=== PATIENT | female | born 2000 | race Caucasian/White ===

== ENCOUNTER 2022-09-10 16:45 | Outpatient (CLI) | payer BC, SELFPAY ==
[2022-09-10 16:56] VITALS: BMI 35.5
[2022-09-10 17:08] VITALS: BP 111/59; PULSE 109
[2022-09-10 17:54] VITALS: BP 99/64; PULSE 102
--- NOTE | 2022-09-14 11:04 | OB.TRI.NOTE ---
HPI - General General Date of Admission: 09/10/22 Date of Service: 09/10/22 [facility] Home Medications aspirin 81 mg chewable tablet 81 mg PO DAILY 09/10/22 [History Last Taken Unknown] ferrous sulfate 325 mg (65 mg iron) tablet (Iron (ferrous sulfate)) 325 mg PO DAILY 09/10/22 [History Last Taken Unknown] vits,calcium 91-iron 28 mg-folic 975 mcg-dha 200 mg oral pack ( + DHA) 1 pkg PO DAILY 09/10/22 [History Last Taken Unknown] Allergy/AdvReac Type Severity Reaction Status Date / Time No Known Allergies Allergy Verified 09/10/22 17:22 NST FHR Rate Baby A Baseline: 130 Variability:: Moderate Accelerations:: 15 x 15 Decelerations:: None NST Reactive:: Yes FHR Category:: Category I Uterine Activity:: quiet Assessment & Plan (1) 33 weeks gestation of : PLAN: 33-week 1 para 0 with decreased movement. Reactive nonstress test. Discharged home to follow-up as scheduled or as needed.
--- NOTE | 2022-10-08 21:08 | OB.TRI.NOTE ---
HPI - General General Date of Admission: 09/10/22 HPI Narrative JAG PEREZ, is a 21 F who presents Maternal Data Information Final ADDY: 10/26/22 Gestational age: 33&3 PFSH PFSH Home Medications aspirin 81 mg chewable tablet 81 mg PO DAILY 09/10/22 [History Last Taken Unknown] ferrous sulfate 325 mg (65 mg iron) tablet (Iron (ferrous sulfate)) 325 mg PO DAILY 09/10/22 [History Last Taken Unknown] vits,calcium 91-iron 28 mg-folic 975 mcg-dha 200 mg oral pack ( + DHA) 1 pkg PO DAILY 09/10/22 [History Last Taken Unknown] Allergy/AdvReac Type Severity Reaction Status Date / Time No Known Allergies Allergy Verified 09/10/22 17:22 Assessment & Plan (1) Decreased movement: PLAN: Plan NST for decreased FM
== END 2022-09-10 17:59 | disposition home or self-care (01) ==
LOC: WPOUT 16:49 → WP 16:50
PROVIDERS: PCP Family Medicine; Referring Provider Advanced Practice Midwife; Visit Provider Advanced Practice Midwife
DX: O36.8130 Decreased fetal movements, third trimester, not applicable or unspecified (principal); Z3A.33 33 weeks gestation of pregnancy
CPT/HCPCS: 59025; 59050; 99221; G0378

== ENCOUNTER 2022-10-16 05:13 | Outpatient (CLI) | payer BC, SELFPAY ==
[2022-10-16 05:27] VITALS: BP 125/60; PULSE 109; TEMP 36.5; O2SAT 97
[2022-10-16 05:31] VITALS: BMI 36.9
[2022-10-16 06:20] LABS: ROM Internal Control Test YES-OK TO RESULT pt. (Internal QC); ROM Patient Test Negative (Negative); Record Kit Lot#, ROM+ K1374
[2022-10-16 07:16] VITALS: BP 132/61; PULSE 99; TEMP 36.2
--- NOTE | 2022-10-16 07:38 | OB.TRI.NOTE ---
HPI - General HPI Narrative JAG PEREZ, is a 21 F who presents Maternal Data Information Final ADDY: 10/26/22 Gestational age: 38&4 PFSH PFSH Home Medications aspirin 81 mg chewable tablet 81 mg PO DAILY 09/10/22 [History Last Taken 10/15/22 22:00 81 mg] ferrous sulfate 325 mg (65 mg iron) tablet (Iron (ferrous sulfate)) 325 mg PO DAILY 09/10/22 [History Last Taken Unknown] vits,calcium 91-iron 28 mg-folic 975 mcg-dha 200 mg oral pack ( + DHA) 1 pkg PO DAILY 09/10/22 [History Last Taken 10/15/22 22:00 1 pkg] Allergy/AdvReac Type Severity Reaction Status Date / Time No Known Allergies Allergy Verified 10/16/22 05:28 NST FHR Rate Baby A Baseline: 130 Variability:: Moderate Accelerations:: 15 x 15 Decelerations:: None NST Reactive:: Yes Uterine Activity:: Irregular Assessment & Plan (1) False labor: PLAN: Plan Reactive NST
== END 2022-10-16 08:00 | disposition home or self-care (01) ==
LOC: WPOUT 05:16 → WP 05:17
PROVIDERS: PCP Family Medicine; Referring Provider Obstetrics & Gynecology; Visit Provider Obstetrics & Gynecology
DX: O47.1 False labor at or after 37 completed weeks of gestation (principal); Z3A.38 38 weeks gestation of pregnancy
CPT/HCPCS: 59025; 59050; 84112

== ENCOUNTER 2022-10-22 01:15 | Inpatient (IN) | payer BC, SELFPAY ==
[2022-10-22] VITALS (52 sets, daily range): BP systolic 84–137; BP diastolic 47–104; PULSE 85–117; RESP 18; TEMP 36.1–37.2; BMI 37.0
[2022-10-22 01:17] LABS: ROM Internal Control Test YES-OK TO RESULT pt. (Internal QC); ROM Patient Test POSITIVE (Negative); Record Kit Lot#, ROM+ K1374
[2022-10-22] MEDS: Lactated Ringers 1,000 ML 50 ML IV (01:30)
[2022-10-22 01:52] LABS: Hemoglobin 11.4 g/dL (12.0-15.0); Mean Corp Hgb Conc 31.7 g/dL (32-36); Mean Corpuscular Hgb 28.5 pg (27.0-32.0); Mean Platelet Vol. 10.3 fl (6.2-12.0); POSITIVE COUNT YES; POSITIVE MORPHOLOGY YES; Platelet Count 272 K/mm3 (150-450); RBC Distribution Width CV 14.6 % (11.6-14.6); RBC Distribution Width SD 47.8 fl (35.1-43.9); White Blood Count 18.3 K/mm3 (4.4-11.0)
[2022-10-22 01:59] LABS: Differential Indicated MANUAL DIFF
[2022-10-22 02:20] LABS: Absolute Lymphocyte Count 2.38 X10^3/uL (0.83-4.51); Absolute Neutrophil Count 14.3 X10^3/uL (2.0-7.7); Myelocyte 2 % (0-0); Neutrophil-Band 3 % (0-5); Neutrophil-Segmented 75 % (47-70); Total Cells Counted 100 (MANUAL DIFF)
[2022-10-22 02:21] LABS: Basophil 1 % (0-1); Eosinophil 2 % (0-5); Lymphocyte 13 % (19-41); Monocyte 4 % (0-10); Platelet Estimate ADEQUATE (ADEQ); Red Cell Morphology NORM C+C NORMAL (NORM C&C)
[2022-10-22 03:13] LABS: Syphilis Antibodies Non-reactive
[2022-10-22] MEDS: LACTATED RINGERS 500 ML 999 ML IV ×3 (05:00→12:24)
[2022-10-22] MEDS: fentaNYL-bupivacaine (epidural) 100 ML BAG EPIDURAL ×2 (06:00→09:09)
[2022-10-22] MEDS: Oxytocin 15 Units/NS 250ml 15 UNITS/250 ML IV.SOLN 2 UNITS IV (08:24)
[2022-10-22] MEDS: Lactated Ringers 1,000 ML 200 ML IV (10:19)
--- NOTE | 2022-10-22 13:18 | PCM.HP.OB ---
HPI - General General Date of Admission: 10/22/22 Date of Service: 10/22/22 HPI Narrative JAG PEREZ, is a 21 F who presents with LOF. Maternal Data Information Final ADDY: 10/26/22 Gestational age: 39&3 PFSH [facility] Medical History (Updated 10/22/22 @ 13:[address] Davion Sepulveda MD) Anxiety Home Medications aspirin 81 mg chewable tablet 81 mg PO DAILY 09/10/22 [History Last Taken 10/15/22 22:00 81 mg] ferrous sulfate 325 mg (65 mg iron) tablet (Iron (ferrous sulfate)) 325 mg PO DAILY 09/10/22 [History Last Taken Unknown] vits,calcium 91-iron 28 mg-folic 975 mcg-dha 200 mg oral pack ( + DHA) 1 pkg PO DAILY 09/10/22 [History Last Taken 10/15/22 22:00 1 pkg] Allergy/AdvReac Type Severity Reaction Status Date / Time No Known Allergies Allergy Verified 10/22/22 00:55 Social History Smoking Status: Never smoker History Elective abortions Hx Para 0 Spontaneous abortions Hx # Term Pregnancies Ectopic pregnancies Hx # Pregnancies Multiple births # of living children NST FHR Rate Baby A Baseline: 130 Variability:: Moderate Accelerations:: 15 x 15 Decelerations:: Variable Uterine Activity:: Q 2 min Vital Signs Vital Signs Vital Signs: 10/22/22 01:01 10/22/22 01:01 10/22/22 01:54 Temperature Temperature Source Temporal Pulse Rate 95 Blood Pressure 118/72 BP Systolic 118 BP Diastolic 72 10/22/22 01:55 10/22/22 01:55 10/22/22 01:54 Temperature 97.7 F L Temperature Source Pulse Rate 97 Blood Pressure 130/72 H BP Systolic 130 BP Diastolic 72 10/22/22 02:57 10/22/22 02:57 10/22/22 02:57 Temperature Temperature Source Temporal Pulse Rate 101 H Blood Pressure 116/69 BP Systolic 116 BP Diastolic 69 10/22/22 02:57 10/22/22 04:32 10/22/22 04:32 Temperature 98.8 F Temperature Source Pulse Rate 108 H Blood Pressure 105/60 BP Systolic 105 BP Diastolic 60 10/22/22 04:32 10/22/22 04:32 10/22/22 05:33 Temperature 97.4 F L Temperature Source Temporal Pulse Rate Blood Pressure 122/66 H BP Systolic 122 BP Diastolic 66 10/22/22 05:33 10/22/22 05:32 10/22/22 05:32 Temperature 97.2 F L Temperature Source Temporal Pulse Rate 117 H Blood Pressure BP Systolic BP Diastolic 10/22/22 05:47 10/22/22 05:47 10/22/22 05:52 Temperature Temperature Source Pulse Rate 116 H Blood Pressure 123/66 H 115/59 L BP Systolic 123 115 BP Diastolic 66 59 10/22/22 05:52 10/22/22 05:57 10/22/22 05:57 Temperature Temperature Source Pulse Rate 115 H 113 H Blood Pressure 107/52 L BP Systolic 107 BP Diastolic 52 10/22/22 06:02 10/22/22 06:02 10/22/22 06:08 Temperature Temperature Source Pulse Rate 115 H Blood Pressure 96/51 L 105/54 L BP Systolic 96 105 BP Diastolic 51 54 10/22/22 06:08 10/22/22 06:08 10/22/22 06:08 Temperature Temperature Source Pulse Rate 108 H 109 H Blood Pressure 93/52 L BP Systolic 93 BP Diastolic 52 10/22/22 06:12 10/22/22 06:12 10/22/22 06:17 Temperature Temperature Source Pulse Rate 114 H Blood Pressure 84/48 L 87/49 L BP Systolic 84 87 BP Diastolic 48 49 10/22/22 06:17 10/22/22 06:23 10/22/22 06:23 Temperature Temperature Source Pulse Rate 109 H 100 Blood Pressure 101/47 L BP Systolic 101 BP Diastolic 47 10/22/22 06:28 10/22/22 06:28 10/22/22 06:32 Temperature Temperature Source Pulse Rate 97 Blood Pressure 98/50 L 105/50 L BP Systolic 98 105 BP Diastolic 50 50 10/22/22 06:32 10/22/22 06:37 10/22/22 06:37 Temperature Temperature Source Pulse Rate 99 104 H Blood Pressure 90/55 L BP Systolic 90 BP Diastolic 55 10/22/22 06:43 10/22/22 06:43 10/22/22 06:46 Temperature Temperature Source Temporal Pulse Rate 93 Blood Pressure 90/55 L BP Systolic 90 BP Diastolic 55 10/22/22 06:48 10/22/22 06:48 10/22/22 06:46 Temperature 97.2 F L Temperature Source Pulse Rate 109 H Blood Pressure 118/56 L BP Systolic 118 BP Diastolic 56 10/22/22 06:52 10/22/22 06:52 10/22/22 06:57 Temperature Temperature Source Pulse Rate 107 H Blood Pressure 101/59 L 108/57 L BP Systolic 101 108 BP Diastolic 59 57 10/22/22 06:57 10/22/22 07:02 10/22/22 07:02 Temperature Temperature Source Pulse Rate 100 99 Blood Pressure 105/55 L BP Systolic 105 BP Diastolic 55 10/22/22 07:12 10/22/22 07:12 10/22/22 07:16 Temperature Temperature Source Temporal Pulse Rate 110 H Blood Pressure 112/56 L BP Systolic 112 BP Diastolic 56 10/22/22 07:16 10/22/22 07:22 10/22/22 07:22 Temperature 97.6 F L Temperature Source Pulse Rate 100 Blood Pressure 105/55 L BP Systolic 105 BP Diastolic 55 10/22/22 07:38 10/22/22 07:38 10/22/22 08:28 Temperature Temperature Source Pulse Rate 105 H Blood Pressure 116/58 L 107/61 BP Systolic 116 107 BP Diastolic 58 61 10/22/22 08:28 10/22/22 08:28 10/22/22 08:59 Temperature 99.0 F Temperature Source Pulse Rate 109 H Blood Pressure 93/51 L BP Systolic 93 BP Diastolic 51 10/22/22 08:59 10/22/22 09:33 10/22/22 09:33 Temperature Temperature Source Pulse Rate 88 85 Blood Pressure 86/47 L BP Systolic 86 BP Diastolic 47 10/22/22 09:48 10/22/22 09:48 10/22/22 09:58 Temperature Temperature Source Pulse Rate 85 Blood Pressure 94/54 L 97/50 L BP Systolic 94 97 BP Diastolic 54 50 10/22/22 09:58 10/22/22 10:06 10/22/22 10:06 Temperature Temperature Source Pulse Rate 96 105 H Blood Pressure 99/55 L BP Systolic 99 BP Diastolic 55 10/22/22 10:08 10/22/22 10:08 10/22/22 10:48 Temperature Temperature Source Pulse Rate 97 Blood Pressure 112/56 L 89/54 L BP Systolic 112 89 BP Diastolic 56 54 10/22/22 10:48 10/22/22 10:45 10/22/22 11:19 Temperature 98.1 F Temperature Source Pulse Rate 90 Blood Pressure 94/50 L BP Systolic 94 BP Diastolic 50 10/22/22 11:19 Temperature Temperature Source Pulse Rate 96 Blood Pressure BP Systolic BP Diastolic Weight Weight: 202 lb 6.15 oz Body Mass Index (BMI) 37.0 Physical Exam Const alert, oriented x3 and no apparent distress Chest inspection of chest normal GI soft to palpation, non-tender and non-distended Inspection: gravid external exam normal Narrative: cvx - c/c/+1 (patient was 3cm when seen earlier today) Extremity no calf tenderness Labs Labs Labs: Blood Type A POSITIVE Antibody Screen NEGATIVE Hct 36.0 % (37-47) L Hgb 11.4 g/dL (12.0-15.0) L Syphilis Total Ab Non-reactive Assessment & Plan (1) SROM (spontaneous rupture of membranes): COMMENT: @ 39&3 PLAN: Plan Admit to L&D SROM - augmentation with pitocin. Patient is now C/C/+1 and will start pushing soon. GBS negative EFW - less than 4500g Routine care
--- NOTE | 2022-10-22 16:23 | EX.PCM.OBRPT ---
Maternal Data Information Final ADDY: 10/26/22 Gestational age: 39&3 Vaginal Delivery Maternal Presentation Maternal Presentation: Spontaneous Rupture of Membranes Type of Induction: Pitocin Operative Information Date of Procedure: 10/22/22 Pre-Operative Diagnosis: SROM Post-Operative Diagnosis: SROM Surgery / Procedure Performed: Spontaneous Vaginal Delivery Type of Anesthesia: Epidural Estimated Blood Loss: 300ml Findings Description of Procedure: Patient draped when C/C/+2. She pushed well to deliver the head. head gently guided to allow delivery of anterior and posterior shoulders. No excess traction placed on head. Body delivered and 3VC clamped & cut in delayed fashion. Placenta delivered with gentle traction and good uterine tone obtained. Presentation: UYDY Amniotic Membrane Rupture Type: Spontaneous Amniotic Fluid Description: Clear Placental Delivery Description: Expressed Placenta Disposition: [facility] Specimen(s) Removed: Placenta Cord Vessel Description: 3 Vessels Cord Entanglement: Around neck x 1, loose Nuchal Cord Compression: Without compression Infant A Gender: Male (Tanner) (1 minute): 9 (5 minute): 9 Delayed Cord Clamping: Yes Post Vaginal Delivery Medications Given After Delivery: IV Pitocin Episiotomy Description: None Laceration: 2nd degree (perineal - repaired with 3-0 vicryl) Complication Complications: None
[2022-10-22] MEDS: Oxytocin 15 Units/NS 250ml 15 UNITS/250 ML IV.SOLN 83 UNITS IV (17:24)
[2022-10-22] MEDS: Acetaminophen 500 MG Tablet 1000 MG PO (18:02)
[2022-10-22] MEDS: Ibuprofen 600 MG Tablet PO (19:01)
[2022-10-23 00:32] VITALS: BP 114/67; PULSE 83; RESP 16; TEMP 36.1
[2022-10-23] MEDS: Acetaminophen 500 MG Tablet 1000 MG PO ×2 (00:34→08:23)
[2022-10-23] MEDS: Ibuprofen 600 MG Tablet PO ×2 (00:34→14:18)
[2022-10-23 03:58] VITALS: BP 95/68; PULSE 89; RESP 18
--- NOTE | 2022-10-23 06:30 | PCM.PN.OB ---
Subjective Subjective Denies complaints Objective Data Objective Data Vital Signs: Vital Signs Temp Pulse Resp BP O2 Del Method 97 F L 89 18 95/68 Room Air 10/23/22 00:32 10/23/22 03:58 10/23/22 03:58 10/23/22 03:58 10/23/22 03:58 Oxygen Delivery Method Room Air Weight: 202 lb 6.15 oz Body Mass Index (BMI) 37.0 Intake & Output: Intake and Output for Last 24 Hours 10/21/22 10/22/22 10/23/22 23:59 23:59 23:59 Intake Total 4000.00 / 4000.00 Output Total 2049 / 2049 Balance 1950.00 / 1950.00 Lab / Micro Data 10/22/22 01:30 Physical Exam Const alert, oriented x3 and no apparent distress HEENT normocephalic GI soft to palpation, non-tender and non-distended GI Narrative: fundus firm, mid & below umbilicus Extremity normal to inspection and no calf tenderness Assessment & Plan (1) Normal vaginal delivery: COMMENT: PPD#1 PLAN: Plan Routine care D/c home later today per patient request
--- NOTE | 2022-10-23 06:31 | DCINST_ITS ---
Discharge Instructions Diet Discharge Diet: No restrictions Activity Discharge Activity: May Shower May resume sexual activity in: 6 weeks Weight Bearing Status: Weight bearing as tolerated Dressing / Incision Call your doctor if you observe: Fever of 101 or Higher, Coldness, Increased Pain, Change in Color, Inability to urinate, Inability to have a bowel movement, Using more than 1 pad per hour, Shortness of breath, Dizziness, Fainting spells, Chest pain, Increased palpitations (irregular heartbeat), Calf discomfort and Uncontrolled pain Follow Up Care Please Follow Up With: Davion Sepulveda MD When: Follow up in 2 and 6 weeks for visits. Test Results: Test results from this visit will be discussed in further detail at your follow- up appointment, if applicable. Discharge Plan Admission Admit Date/Time: 10/22/22 01:15 Primary Reason for Your Visit: Vaginal delivery Attending Provider: Davion Sepulveda Primary Care Provider: Grace Arias Discharge Orders/Prescriptions Prescriptions: New acetaminophen 500 mg Tablet 1,000 mg PO Q6H PRN PRN (Reason: Pain 1-10 Or Fever) Qty: 0 0RF ibuprofen 600 mg Tablet 600 mg PO Q6H PRN PRN (Reason: Pain Score 1-3) Qty: 0 0RF Continued + DHA 28 mg iron- 975 mcg-200 mg Combo Pack 1 pkg PO DAILY Discontinued ferrous sulfate [Iron (ferrous sulfate)] 325 mg (65 mg iron) Tablet 325 mg PO DAILY aspirin [Aspirin Child] 81 mg Tablet,Chewable 81 mg PO DAILY Referrals / Follow Up: Grace Arias, [Primary Care Provider] - Disposition Disposition (needs filled in before D/C Order can be placed): Home, Self Care
[2022-10-23 08:14] VITALS: BP 103/67; PULSE 91; RESP 16; TEMP 36.6
[2022-10-23 10:08] LABS: Pathologist Review Reviewed
--- NOTE | 2022-10-23 11:25 | CASEMGMT ---
Social Work Assessment Labor and Delivery Unit Patient Address:Replaced by [facility] [place] [address] Phone number: [phone] Date of Referral: 10/23/22 Time of Referral:? [phone] Referred By: Charge nurse Date of Intervention: ??10/23/22 Time of Intervention:? 0 Reason for Referral:? Sw informed by charge nurse that MOB would benefit from social work consult due to history of anxiety. Sw completed chart review and acknowledges social work consult submitted. Sw presented to bedside, introduced self to parents and explained sw role. History obtained from: medical records and mother of baby (ALBERTA- [place]) and father of baby (RIZWAN- [place])??? Household composition: Residing in the home is MOB, RIZWAN and baby (Tanner, born 10/22/22) and two little kitties. MOB reports that their family home is safe and adequate. Patient's parent/guardian status:?ALBERTA is 23 year old female who reports that she and RIZWAN have been together for 8 years. FOMike is 24 year old male. MOB states that parents met when they were really young at a campground that both families would go to in the summer time. MOB states that they have their own campsite at the campground. MOB informed sw while meeting privately that there is no history of domestic violence or intimate partner violence. ? Medical History: ALBERTA is 1. para 0 now 1 after delivering baby boy. ALBERTA received routine care with [facility] beginning on 03/06/22 at 7 weeks gestation. ALBERTA delivered baby via vaginal delivery. Baby was born weighing 7lb 5oz, his apgars were 8 and 9. Educational Status:?MOB reports that both parents graduated from high school. Both parents also attended college but neither graduated with a degree. MOB denies any learning difficulties or challenges while they were in school. Financial Status: Both parents are gainfully employed outside of the home. RIZWAN works from [employer] as a a/c technician. FOB is able to take 6 weeks of leave paternity leave. MOB is employed at [employer], [place], shei s also able to take 6 weeks off of work, but is unpaid. Infant Supplies:?MOB states that they have obtained all necessary baby items including car seat, safe sleep space, clothes, diapers, wipes and breast pump. ? Childcare/Caregiver(s):? ALBERTA and RIZWAN will be primary caregivers to baby, when both parents are working they will rely on family members and possibly a mix of daycare/ childcare. Transportation:?? ALBERTA states that each parents has reliable transportation. No transportation barriers at this time. Programs/Agencies Involved: None, sw provided information on [employer] and [employer]. Children Services/Legal Issues:?No former involvement, no issues or concerns warranting a referral at this time. ?? Behavioral Health Issues: ??Mental Health History:?RIZWAN denies mental health history. ALBERTA states that she has been diagnosed with anxiety. ALBERTA states that she was diagnosed a couple of years ago when she moved to [place] to be with RIZWAN. ALBERTA states that she was far from her family and she is not used to being that far away. ALBERTA states that she was prescribed an antianxiety medication at that time but has since stopped taking it. ALBERTA reports that since she and RIZWAN moved back to [facility] she has not had any problems with her anxiety. ALBERAT completed [place] depression screen and her score was a 3. Sw educated parents on signs and symptoms of baby blues and post depression to look for. Sw encouraged ALBERTA to talk to her supports when she feels like she is struggling. Sw also provided ALBERTA with list of [facility] counseling agencies should MOB prefer to get connected to a mental health professional. ALBERTA expressed understanding and appreciation for the information provided. ALBERTA states that her maternal grandma and her mom both struggled with depression so she knows that she is able to reach out to her mom if she is struggling and her mom will give her good advice. ALBERTA denies ever having thoughts of hurting herself. ?? Substance Use History:?ALBERTA denies substance use history prior to and during .? Family History:??Both parents deny family substance use history. ??? Drug Screens: ?Drug screens not observed in chart. Family/Social Stressors:? ALBERTA and RIZWAN deny any stressors or worries at this time. ALBERTA stated that she is considering establishing visitation times for when they are at home with baby, that way they do not get bombarded with visitors. Sw supported this idea. Support Systems: MOB and RIZWAN report they both have good natural supports in place. ALBERTA stated that her mom and FOB are her two biggest supports. MOB states that she knows there are people that she can talk to when she is struggling or just general advice after having a baby. Depression/Shaken Baby/Safe Sleeping: Sw provided education and literature to parents on baby blues and depression. Parents expressed understanding. Sw also educated parents to never shake a baby and ABCs of safe sleep. Parents expressed understanding of information provided. ASSESSMENT:? Both parents at bedside and engaged in social work assessment. FOB not present for portion of assessment and social work was able to assess for concerns regarding domestic violence and complete [place] Depression Screen. Parents have obtained all necessary provisions for baby and have a lot of natural supports in place. Parents were talkative and receptive to sw involvement and support. PLAN:? MOB and baby to be discharged today once medically cleared. Parents denied referral to Help [facility] Grow/ [employer]. ?No other services requested or indicated. Mikel Medrano, [employer], STERILE PREPARATION TECHNICIAN
[2022-10-23 12:20] VITALS: BP 103/59; PULSE 82; RESP 16; TEMP 36.4
[2022-10-23 17:36] VITALS: BP 116/71; PULSE 100; RESP 16; TEMP 36.1
== END 2022-10-23 18:45 | disposition home or self-care (01) | DRG 807 ==
LOC: WPOUT 01:19 → WP 01:19
PROVIDERS: Admitting Provider Obstetrics & Gynecology; PCP Family Medicine; Referring Provider Advanced Practice Midwife; Visit Provider Obstetrics & Gynecology
DX: O76 Abnormality in fetal heart rate and rhythm complicating labor and delivery (principal); Z37.0 Single live birth; O42.92 Full-term premature rupture of membranes, unspecified as to length of time between rupture and onset of labor; O70.1 Second degree perineal laceration during delivery; O69.81X0 Labor and delivery complicated by cord around neck, without compression, not applicable or unspecified; Z3A.39 39 weeks gestation of pregnancy
CPT/HCPCS: 59025; 59050; 84112; 85025; 86780; 86850; 86900; 86901; 99221; J7120; G0378

== ENCOUNTER → 2024-03-18 | Outpatient (CLI) | payer BC, SELFPAY ==
[2024-03-22 20:08] LABS: Chlamydia By Nucleic Acid AMP Negative (Negative); Gonococcus By Nucleic Acid AMP Negative (Negative)
== END | disposition home or self-care (01) ==
LOC: LABSPEC 16:19
PROVIDERS: PCP Family Medicine; Referring Provider Advanced Practice Midwife; Visit Provider Advanced Practice Midwife
DX: O99.210 Obesity complicating pregnancy, unspecified trimester (principal); Z3A.00 Weeks of gestation of pregnancy not specified
CPT/HCPCS: 87086; 87491; 87591

== ENCOUNTER → 2024-04-12 | Outpatient (CLI) | payer BC, SELFPAY ==
[2024-04-12 12:16] LABS: Absolute Lymphocyte Count 1.23 X10^3/uL (0.83-4.51); Absolute Neutrophil Count 9.7 X10^3/uL (2.0-7.7); Basophil# 0.03 X10^3/uL; Basophil% 0.3 % (0-1); Eosinophil# 0.04 X10^3/uL; Eosinophils% 0.3 % (0-5); Hematocrit 36.7 % (37-47); Hemoglobin 11.6 g/dL (12.0-15.0); Lymphocyte # 1.23 X10^3/ul (0.83-4.51); Lymphocyte % 10.5 % (19-41); Mean Corp Hgb Conc 31.6 g/dL (32-36); Mean Corpuscular Hgb 27.8 pg (27.0-32.0); Mean Corpuscular Volume 87.8 fL (81-99); Mean Platelet Vol. 10.8 fl (6.2-12.0); Monocyte# 0.58 X10^3/uL; NRBC Flagged by Analyzer 0 % (0-5); Neutrophil # 9.72 X10^3/uL (2.7-7.7); Neutrophil % 83.4 % (47-70); Platelet Count 306 K/mm3 (150-450); RBC Distribution Width CV 12.9 % (11.6-14.6); RBC Distribution Width SD 41.2 fl (35.1-43.9); Red Blood Count 4.18 M/mm3 (4.2-5.4); White Blood Count 11.7 K/mm3 (4.4-11.0)
[2024-04-12 13:16] LABS: HIV - WCH Non-Reactive (Nonreactive); Hepatitis B Surface Antigen Non-Reactive (Nonreactive); Hepatitis C Antibody Non-Reactive (Nonreactive); Rubella IgG Reactive (Nonreactive); Syphilis Antibodies Non-reactive
== END | disposition home or self-care (01) ==
LOC: BWCLAB 10:26
PROVIDERS: PCP Family Medicine; Referring Provider Advanced Practice Midwife; Visit Provider Advanced Practice Midwife
DX: O99.210 Obesity complicating pregnancy, unspecified trimester (principal); Z3A.00 Weeks of gestation of pregnancy not specified
CPT/HCPCS: 36415; 83036; 85025; 86703; 86762; 86780; 86803; 86850; 86900; 86901; 87340

== ENCOUNTER → 2024-07-12 | Outpatient (CLI) | payer BC, SELFPAY ==
[2024-07-12 17:02] LABS: Absolute Neutrophil Count 7.1 X10^3/uL (2.0-7.7); Basophil# 0.02 X10^3/uL; Basophil% 0.2 % (0-1); Eosinophil# 0.05 X10^3/uL; Eosinophils% 0.5 % (0-5); Hematocrit 34.6 % (37-47); Hemoglobin 11.3 g/dL (12.0-15.0); Mean Corp Hgb Conc 32.7 g/dL (32-36); Mean Corpuscular Hgb 29.3 pg (27.0-32.0); Mean Corpuscular Volume 89.6 fL (81-99); Mean Platelet Vol. 10.7 fl (6.2-12.0); Monocyte# 0.84 X10^3/uL; Monocyte% 8.4 % (0-10); NRBC Flagged by Analyzer 0 % (0-5); Neutrophil # 7.06 X10^3/uL (2.7-7.7); Neutrophil % 70.5 % (47-70); Platelet Count 278 K/mm3 (150-450); RBC Distribution Width CV 13.7 % (11.6-14.6); RBC Distribution Width SD 45.1 fl (35.1-43.9); Red Blood Count 3.86 M/mm3 (4.2-5.4)
[2024-07-12 17:50] LABS: Glucose Challenge Gest 1H 50g 77 mg/dL (70-140); HIV Nonreactive (Nonreactive); Syphilis Antibodies Nonreactive (Nonreactive)
== END | disposition home or self-care (01) ==
PROVIDERS: PCP Family Medicine; Referring Provider Advanced Practice Midwife; Visit Provider Advanced Practice Midwife
DX: O09.90 Supervision of high risk pregnancy, unspecified, unspecified trimester (principal); Z3A.00 Weeks of gestation of pregnancy not specified; Z13.1 Encounter for screening for diabetes mellitus
CPT/HCPCS: 36415; 82950; 85025; 86703; 86780

== ENCOUNTER 2024-08-05 21:55 | Outpatient (CLI) | payer BC, SELFPAY ==
[2024-08-05 22:20] VITALS: PULSE 89; O2SAT 98
[2024-08-05 22:21] VITALS: BP 111/67; PULSE 94
[2024-08-05 22:25] VITALS: BMI 33.8
--- NOTE | 2024-08-05 22:32 | OB.TRI.HP_ITS ---
HPI - General HPI Narrative JAG PEREZ, is a 23 F who presents with constant lower cramping no vb lof admits good fm, she has just felt malaise and off today. Maternal Data Information ADDY Calculator Estimated Delivery Date Method Current WG Current Estimate 10/19/24 LMP (Certain) 29w 2d Other Estimates 10/22/24 Ultrasound #1 28w 6d PFSH PFSH Medical History Normal vaginal delivery Anxiety Home Medications ?Medication ?Instructions ?Recorded ?Last Taken ?Type vits,calcium 91-iron 28 1 pkg PO DAILY pregna ncy 09/10/22 08/04/24 History mg-folic 975 mcg-dha 200 mg oral pack ( + DHA) ferrous sulfate 325 mg (65 mg 325 mg PO DAILY anemia 0 08/05/24 08/05/24 History iron) tablet (Feosol) Allergy/AdvReac Type Severity Reaction Status Date / Time No Known Allergies Allergy Verified 08/05/24 22:24 Family History Grandmother COPD (chronic obstructive pulmonary disease), Onset Age: 60 Maternal Grandfather Myocardial infarction, Onset Age: 67 Maternal Grandmother Breast cancer, Onset Age: 45 Paternal Social History adopted: No household members: spouse and children number of children: 1 current occupational status: unemployed current occupation: [employer] pets and animals: Yes (Avoid litterbox) pets and animals: cat(s) and dog(s) history of recent travel: No sexually active: Yes Smoking Status: Never smoker alcohol intake: never substance use type: does not use well-balanced diet: daily or most days caffeine: Yes Type: coffee Number of servings: 1 eating out: 1-3 times/week during the past year weight has: decreased > 10 lbs what type of physical activity do you participate in: none pia/church: [employer] seatbelt use: always do you feel safe at home: Yes additional social history: [employer] History 2 2 Elective abortions Hx Para 1 Spontaneous abortions Hx # Term Pregnancies Ectopic pregnancies Hx # Pregnancies Multiple births # of living children 1 Past Pregnancies Del. Date Name GA/Weeks Outcome Route Bth Weight Gen Labor Lgth Anesthesia Del Locatn Provider FOB 10/22/22 Tanner 39 live - full term 7 Male epidur al [facility] Alma Delia Reid Delivery Date: 10/22/22 Last Updated by: Katie Garg severe iron deficiency, infusions Visit Details Expected Delivery Route/Plan Labor Preferences- CB/BF classes: [] labor support person: [] labor intervention preferences: [] pain management options preferred: [] cut cord/dad catch: [] : [] PP control planned: [] discussed possible routes of delivery and associated risks: [] special requests: [] Plans Covid status: [] Flu vaccine: declined Tdap vaccine: Rhogam: [] LARC form signed: declined movement and labor precautions reviewed. Problem list reviewed and updated with the most current plan of care details and appropriate orders placed. Relevant counseling for the gestational age provided. Continue routine care and follow up unless otherwise noted in visit notes/problem list details OB Flowsheet Initial Weight: 172 lb Date -?-?-?-?-?-?-?-?-?-?-?-?- EGA Weight BP Urine Prot -?-?-?-?-?-?-?-?-?-?-?-?- Glucose FHR FuHt Pres Dilation -?-?-?-?-?-?-?-?-?-?-?-?- Effaced St Visit Note 03/18/24 -?--?-?-?-?-?-?-?-?-?-?-?- 9w 2d 172 lb 4 oz (+4 oz) 104/70 -?-?-?-?-?-?-?-?-?-?-?-?- 178 -?-?-?-?-?-?-?-?-?-?-?-?- KW- CRL cons wit h dates. declines NIPT 04/21/24 -?-?-?-?-?-?-?-?-?-?-?-?- 14w 1d 166 lb 4 oz (-5 lb 12 oz) 127/75 -?-?-?-?-?-?-?-?-?-?-?-?- 155 -?-?-?-?-?-?-?-?-?-?-?-?- SM- some weight loss. eating well no no vb crmaping 05/21/24 -?-?-?-?-?-?-?-?-?-?-?-?- 18w 3d 169 lb 6 oz (-2 lb 10 oz) 108/74 Negative -?-?-?-?-?-?-?-?-?-?-?-?- Negative 140 -?-?-?-?-?-?-?-?-?-?-?-?- KW- no vb/crampi ng. + yeast infection-started Monistat yesterday. will send in script. US scheduled with MFM. 06/18/24 -?-?-?-?-?-?-?-?-?-?-?-?- 22w 3d 173 lb 8 oz (+1 lb 8 oz) 104/72 Negative -?-?-?-?-?-?-?-?-?-?-?-?- Negative 158 -?-?-?-?-?-?-?-?-?-?-?-?- KW- no vb/lof/ct x. good fm. anatomy US reviewed. 28 week labs discussed 06/24/24 -?-?-?-?-?-?-?-?-?-?-?-?- 23w 2d 175 lb 6 oz (+3 lb 6 oz) 105/72 -?-?-?-?-?-?-?-?-?-?-?-?- 145 -?-?-?-?-?-?--?-?-?-?-?-?- KW- work in for DFM. no vb/lof/ctx. not feeling well today and DFM over the last 2 days. audible movement and fht with doppler. 07/12/24 -?-?-?-?-?-?-?-?-?-?-?--?- 25w 6d 176 lb 8 oz (+4 lb 8 oz) 105/69 Negative -?-?-?-?-?-?-?-?-?-?-?-?- Negative 140 27 -?-?-?-?-?-?-?-?-?-?-?-?- KW- no vb/lof/ct x. good fm. moved over the weekend into grandparents home. glucose today. 07/30/24 -?-?-?-?-?-?-?-?-?-?-?-?- 28w 3d 182 lb 6 oz (+10 lb 6 oz) 106/68 Negative -?-?-?-?-?-?-?-?-?-?-?-?- Negative 145 29 -?-?-?-?-?-?-?-?-?-?-?-?- SM- no vb lof go od fm no regular ctx ROS Constitutional Constitutional: Reports systems reviewed and no addt'l complaints, except as documented and as per HPI ENT HEENT: Reports systems reviewed and no addt'l complaints, except as documented Cardiovascular Cardiovascular: Reports systems reviewed and no addt'l complaints, except as documented Respiratory/Chest Respiratory/Chest: Reports systems reviewed and no addt'l complaints, except as documented Gastrointestinal Gastrointestinal: Reports as per HPI Genitourinary Genitourinary: Reports as per HPI Musculoskeletal Musculoskeletal: Reports systems reviewed and no addt'l complaints, except as documented Integumentary Integumentary: Reports systems reviewed and no addt'l complaints, except as documented Neurologic Neurologic: Reports systems reviewed and no addt'l complaints, except as documented Physical Exam Const alert, oriented x3 and no apparent distress HEENT Head and Scalp: normocephalic and atraumatic Neck full ROM and no lymphadenopathy Chest inspection of chest normal Resp normal respiratory effort GI GI Narrative: gravid, abdomen nontender, AGA Manual OB Exam: dilated 0, effaced and station NST FHR Rate Baby A Baseline: 140 Variability:: Moderate Accelerations:: 15 x 15 Decelerations:: None NST Reactive:: Yes FHR Category:: Category I Uterine Activity:: regular q 2-4 Assessment & Plan (1) Threatened labor: (2) Obesity affecting : COMMENT: HgbA1c normal bmi 30 (3) Supervision of high-risk : COMMENT: PRR, , ADDY 10/19/24, girl Wrenleihowie Hart, [place] (4) : QUALIFIERS: Weeks of gestation: 28 weeks Qualified Code(s): Z3A.28 - 28 weeks gestation of COMMENT: declined NIPT & Carrier testing, normal anatomy (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 had intercourse in 24 hours unbale ot do FFN Charges/Coding Multi Select Codes Visit Charges Office Visit/Consults: 21763 OV L3 Est 20min Urinary/Genital Urinary/Genital CPT Codes: 10836-66 non-stress test Interp
[2024-08-05] MEDS: Lactated Ringers 1,000 ML 999 ML IV (22:45)
[2024-08-05 22:56] LABS: Mucous, Urine 0 SEEN /hpf (<or=2+); Red Blood Cells-Urine 0 SEEN /hpf (0-5)
[2024-08-05 22:58] LABS: Absolute Lymphocyte Count 2.35 X10^3/uL (0.83-4.51); Basophil# 0.05 X10^3/uL; Basophil% 0.3 % (0-1); Eosinophil# 0.08 X10^3/uL; Eosinophils% 0.5 % (0-5); Hematocrit 31.4 % (37-47); Hemoglobin 10.1 g/dL (12.0-15.0); Lymphocyte # 2.35 X10^3/ul (0.83-4.51); Lymphocyte % 14.7 % (19-41); Mean Corp Hgb Conc 32.2 g/dL (32-36); Mean Corpuscular Hgb 28.7 pg (27.0-32.0); Mean Corpuscular Volume 89.2 fL (81-99); Mean Platelet Vol. 10.2 fl (6.2-12.0); Monocyte# 0.88 X10^3/uL; Monocyte% 5.5 % (0-10); NRBC Flagged by Analyzer 0 % (0-5); Neutrophil # 12.03 X10^3/uL (2.7-7.7); Neutrophil % 75.1 % (47-70); Platelet Count 287 K/mm3 (150-450); RBC Distribution Width CV 13.5 % (11.6-14.6); RBC Distribution Width SD 44.3 fl (35.1-43.9); Red Blood Count 3.52 M/mm3 (4.2-5.4)
[2024-08-05 23:01] LABS: Color, Urine Yellow (Yellow); Glucose, Dipstick Normal (Normal); Ketone-Dipstick Negative (Negative); Leukocyte Esterase-Dipstick 25 /ul (Negative); Nitrite-Dipstick Negative (Negative); Occult Blood-Urine 10 /ul (Negative); Protein-Dipstick 15 mg/dl (Negative); Urine Bilirubin Dipstick Negative (Negative); Urine Clarity Clear (Clear); Urine Urobilinogen 1 mg/dl (Normal)
[2024-08-05 23:13] LABS: Bacteria 1+ /hpf (None Seen); Squamous Epithelial Cells - UA 0-5 SEEN /hpf (5-10); White Blood Cells 0-5 SEEN /hpf (0-5)
[2024-08-06] MEDS: FOSFOMYCIN TROMETHAMINE 3 GM PACKET PO (00:43)
== END 2024-08-06 00:55 | disposition home or self-care (01) ==
LOC: WPOUT 21:58 → WP 21:59
PROVIDERS: PCP Family Medicine; Referring Provider Obstetrics & Gynecology; Visit Provider Obstetrics & Gynecology
DX: O47.03 False labor before 37 completed weeks of gestation, third trimester (principal); O99.213 Obesity complicating pregnancy, third trimester; O26.813 Pregnancy related exhaustion and fatigue, third trimester; O09.93 Supervision of high risk pregnancy, unspecified, third trimester; Z3A.28 28 weeks gestation of pregnancy
CPT/HCPCS: 96360; 36415; 59025; 59050; 81001; 85025; 87086; 99221; G0378

== ENCOUNTER → 2024-08-25 | Outpatient (CLI) | payer BC, SELFPAY ==
--- NOTE | 2024-08-25 07:58 | EKG12_ITS ---
Test Reason : TACHY DURING PREGNAN Blood Pressure : */* mmHG Vent. Rate : 105 BPM Atrial Rate : 105 BPM P-R Int : 128 ms QRS Dur : 82 ms QT Int : 348 ms P-R-T Axes : 43 11 25 degrees QTcB Int : 459 ms Sinus tachycardia Confirmed by Jacob Suggs ([id number]), avid editor BURT BAIRD ([id number]) on 08/26/2024 9:49:23 AM Referred By: Promise Agosto Confirmed By: Jacob Suggs
== END | disposition home or self-care (01) ==
LOC: PSN 07:57
PROVIDERS: PCP Family Medicine; Referring Provider Nurse Practitioner Women's Health; Visit Provider Nurse Practitioner Women's Health
DX: R00.0 Tachycardia, unspecified (principal)
CPT/HCPCS: 93005

== ENCOUNTER 2024-09-09 09:30 | Outpatient (CLI) | payer BC, SELFPAY ==
--- NOTE | 2024-09-09 09:38 | US_ITS ---
PROCEDURE: BIOPHYSICAL PROF W/O NON STRES 09/09/2024 REASON FOR EXAM: NONREACTIVE NST TECHNIQUE: High resolution obstetric ultrasound performed using a 2D transducer. Standard views obtained, including biometry, anatomy survey, and Doppler studies. COMPARISON: None FINDINGS Number: 1 Position: Vertex Placental Position: Posterior and not low-lying. Placental Abnormalities: None ESTIMATED GESTATIONAL AGE: Baseline: 34 weeks and 2 days ESTIMATED DATE OF DELIVERY: Baseline: October 19, 2024 BIOPHYSICAL ASSESSMENT: Amniotic Fluid Volume: 8.5 cm Amniotic Fluid Index: 20.1 (8-24 cm normal range) Cardiac Motion: 144 beats per minute (average) Trunk and Limb Motion: Present. MATERNAL ANATOMY: Adnexa: Neither maternal ovary is successfully identified. Biophysical profile: Breathing movements: 2 Gross body movements: 2 tone: 2 Amniotic fluid volume: 2 Total score: 8/8 US/Biophysical Prof W/O Non Stres IMPRESSION: Normal biophysical profile. Reading Location: [facility]
[2024-09-09 09:43] VITALS: BP 116/63; PULSE 97; RESP 16; TEMP 37.1
[2024-09-09 09:51] VITALS: BMI 35.0
[2024-09-09 11:31] LABS: Color, Urine Yellow (Yellow); Glucose, Dipstick Normal (Normal); Ketone-Dipstick Negative (Negative); Leukocyte Esterase-Dipstick Negative /ul (Negative); Nitrite-Dipstick Negative (Negative); Occult Blood-Urine Negative /ul (Negative); Protein-Dipstick 15 mg/dl (Negative); Specific Gravity, Urine 1.015 (1.002-1.030); Urine Bilirubin Dipstick Negative (Negative); Urine Clarity Clear (Clear); Urine Urobilinogen Normal (Normal)
[2024-09-09 11:53] LABS: Mucous, Urine 1+ /hpf (<or=2+); Red Blood Cells-Urine 0-5 SEEN /hpf (0-5); Squamous Epithelial Cells - UA 0-5 SEEN /hpf (5-10); White Blood Cells 0-5 SEEN /hpf (0-5)
--- NOTE | 2024-09-09 22:32 | OB.TRI.PN ---
Progress Notes Date of Service: 09/09/24 Progress Note: Patient presents for triage evaluation secondary to decreased movement and non reactive nst FHT: 140 Moderate variability reactive no decelerations category I tracing [place]: no regular Contractions Assessment and plan: 34 week decresaed movement 8/ bpp Reactive NST, reassuring maternal and status patient discharged to home to follow-up as scheudled urine culture sent. See problem list details for additional plan information. Laboratory Studies: Laboratory Tests 09/09/24 Range/Units 10:08 Urine Color Yellow (Yellow) Urine Clarity Clear (Clear) Urine pH 7.0 (5.0 - 8.0) Ur Specific [place] 1.015 (1.002-1.030) Urine Protein 15 H (Negative) mg/dl Urine Glucose (UA) Normal (Normal) mg/dl Urine Ketones Negative (Negative) mg/dl Urine Occult Blood Negative (Negative) /ul Urine Nitrite Negative (Negative) Urine Bilirubin Negative (Negative) mg/dL Urine Urobilinogen Normal (Normal) mg/dl Ur Leukocyte Esterase Negative (Negative) /ul Urine RBC 0-5 SEEN (0-5) /hpf Urine WBC 0-5 SEEN (0-5) /hpf Ur Squamous Epith Cells 0-5 SEEN (5-10) /hpf Urine Bacteria Not Reportable Urine Mucus 1+ (<or=2+) /hpf Charges/Coding Procedures Urinary/Genital 52xxx-59xxx: 14542-90 non-stress test Interp Assessment & Plan (1) Decreased movements in third trimester:
== END 2024-09-09 11:20 | disposition home or self-care (01) ==
LOC: WPOUT 09:34 → WP 09:35
PROVIDERS: Advanced Practice Midwife; PCP Family Medicine; Referring Provider Obstetrics & Gynecology; Visit Provider Obstetrics & Gynecology
DX: O47.00 False labor before 37 completed weeks of gestation, unspecified trimester (principal); O09.93 Supervision of high risk pregnancy, unspecified, third trimester; O26.893 Other specified pregnancy related conditions, third trimester; R00.0 Tachycardia, unspecified; O99.013 Anemia complicating pregnancy, third trimester; O99.213 Obesity complicating pregnancy, third trimester; O36.8190 Decreased fetal movements, unspecified trimester, not applicable or unspecified; Z3A.34 34 weeks gestation of pregnancy; Z87.59 Personal history of other complications of pregnancy, childbirth and the puerperium
CPT/HCPCS: 59025; 59050; 76819; 81001; 99221; G0378

== ENCOUNTER → 2024-09-22 | Outpatient (CLI) | payer BC, SELFPAY | END | disposition home or self-care (01) | LOC: LABSPEC 15:18 | PROVIDERS: PCP Family Medicine; Referring Provider Obstetrics & Gynecology; Visit Provider Obstetrics & Gynecology | DX: O09.93 Supervision of high risk pregnancy, unspecified, third trimester (principal); Z3A.00 Weeks of gestation of pregnancy not specified | CPT/HCPCS: 87081 ==

== ENCOUNTER 2024-09-29 11:43 | Outpatient (CLI) | payer BC, SELFPAY ==
[2024-09-29 11:55] VITALS: RESP 16; TEMP 36.4; O2SAT 97
[2024-09-29 11:56] VITALS: BMI 36.6
[2024-09-29 12:04] VITALS: BP 94/64; PULSE 108; O2SAT 97
--- NOTE | 2024-09-29 16:55 | OB.TRI.PN_ITS ---
Progress Notes Date of Service: 09/29/24 Progress Note: Patient presents for triage evaluation secondary to fall and adominal trauma FHT: 130 Moderate variability reactive no decelerations category I tracing [place]: no rgular Contractions Assessment and plan: 37 weeks s/p fall and abdominal trauma monitored 4 hours no decels no abdominal pain reassuring testing Reactive NST, reassuring maternal and status patient discharged to home to follow-up as charline. See problem list details for additional plan information. Charges/Coding Procedures Urinary/Genital 52xxx-59xxx: 23202-57 non-stress test Interp
== END 2024-09-29 14:50 | disposition home or self-care (01) ==
LOC: WPOUT 11:46 → WP 11:47
PROVIDERS: PCP Family Medicine; Referring Provider Obstetrics & Gynecology; Visit Provider Obstetrics & Gynecology
DX: O9A.213 Injury, poisoning and certain other consequences of external causes complicating pregnancy, third trimester (principal); S39.91XA Unspecified injury of abdomen, initial encounter; W19.XXXA Unspecified fall, initial encounter; O09.93 Supervision of high risk pregnancy, unspecified, third trimester; O47.1 False labor at or after 37 completed weeks of gestation; O99.013 Anemia complicating pregnancy, third trimester; O99.213 Obesity complicating pregnancy, third trimester; O36.8130 Decreased fetal movements, third trimester, not applicable or unspecified; O26.893 Other specified pregnancy related conditions, third trimester; R00.0 Tachycardia, unspecified; Z3A.37 37 weeks gestation of pregnancy; Z87.59 Personal history of other complications of pregnancy, childbirth and the puerperium
CPT/HCPCS: 59025; 59050; 99221; G0378

== ENCOUNTER 2024-10-08 10:35 | Outpatient (CLI) | payer BC, SELFPAY | END 2024-10-08 11:11 | disposition home or self-care (01) | LOC: WPOUT 10:35 → WP 10:36 | PROVIDERS: PCP Family Medicine; Referring Provider Obstetrics & Gynecology; Visit Provider Obstetrics & Gynecology | DX: Z01.89 Encounter for other specified special examinations (principal) | CPT/HCPCS: 96158 ==

== ENCOUNTER 2024-10-17 17:40 | Inpatient (IN) | payer BC, SELFPAY ==
[2024-10-17] VITALS (22 sets, daily range): BP systolic 117–159; BP diastolic 60–79; PULSE 93–120; RESP 16–20; TEMP 36.8–38; O2SAT 97–100; BMI 36.9
--- OUTSIDE RECORDS SUMMARY | 2024-10-17 16:35 | XMS RPT_ITS | CCD ---
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 Name Role Phone No, Physician Primary Care Provider UnavailSARA Luis Attending Unavailable NO, PHYSICIAN Primary Care Unavailable Hossein SIEGEL, Muriel Quezada Primary Care Provider [phone] Muriel Catalan MD Primary Care Provider [phone] Muriel Catalan MD Primary Care Provider MURIEL CATALAN Primary Care Unavailable SELF Referring Unavailable ALYSSA PACKER Attending Unavail able BECKY GALVEZ Referring Unavailabl e ROCHELLE NAZARIO Attending Unavailable GERONIMO ARIAS Primary Care Unavailable GERONIMO ARIAS Primary Care Unavailable JAMARCUS MARVIN Attending Unavailable BECKY GALVEZ Referring Unavailrajni Arias DO, Dr. Geronimo Arnold Primary Care Provi ga Dr. Geronimo Arias DO Referring Provider Chrissy Tristan CNM Attending Provider Chrissy Tristan CNM Referring Provider [phone] Dr. Becky Galvez MD Attending Provider [phone] Dr. Geronimo Arias DO Primary Care Provi ga Chrissy Tristan CNM Attending Provider [phone] Chrissy Tristan CNM Referring Provider [phone] Dr. Geronimo Arias DO Referring Provider Dr. Becky Galvez MD Referring Provider Dr. Geronimo Arias DO Primary Care Provi ga Dr. Geronimo Arias DO Referring Provider Chrissy Tristan CNM Attending Provider Kun BARTON Chrissy Referring Provider [phone] Rain SIEGEL, Dr. Pena Attending Provider [phone] Rain SIEGEL, Dr. Pena Other Provider [phone] Ariel Back DO, Dr. Morton Attending Provider Triny [employer], Promise Attending Provider [phone] Triny [employer], Promise Referring Provider [phone] Es SIEGEL, Dr. James Attending Provider Hugo FRANCISCO, [facility] Hugo FRANCISCO, Dr. Geronimo Arnold Referring Provider Kun BARTON, Chrissy Attending Provider [phone] Ariel Back DO, Dr. Morton Referring Provider Becky Galvez Referring Unavailable Becky Galvez Attending Unavailable Geronimo Arias Primary Care Unavailab Chrissy Bowser Attending Unavailable Chrissy Tristan Referring Unavailable Geronimo Arias Primary Care Unavailab le Velpantera, Selene George Attending Unavailabl e VelSelene mott Referring Unavailabl e Geronimo Arias Primary Care Unavailab Becky Romero Referring Unavailable Becky Galvez Consulting Unavailable Becky Galvez Attending Unavailable Geronimo Arias Primary Care Unavailab Geronimo Lozano Referring Unavailab Chrissy Bowser Attending Unavailable Geronimo Arias Primary Care Unavailab Chrissy Bowser Attending Unavailable Geronimo Arias Referring Unavailab le Geronimo Arias Primary Care Unavailab Chrissy Bowser Attending Unavailable Chrissy Tristan Referring Unavailable Geronimo Arias Primary Care Unavailab Chrissy Bowser Attending Unavailable Geronimo Arias Referring Unavailab le Geronimo Arias Primary Care Unavailab luciana Tristan, Chrissy Attending Unavailable Chrissy Tristan Referring Unavailable Geronimo Arias Primary Care Unavailab le Arias, Geronimo Arnold Primary Care Unavailab le VeldeSelene Attending Unavailabl Geronimo Ramos Referring Unavailab le Geronimo Arias Attending Unavailab Geronimo Lozano Primary Care Unavailab Geronimo Lozano Attending Unavailab Geronimo Lozano Primary Care Unavailab le Haworth [employer], Promise Referring Unavailable Jacob Suggs Attending Unavailable Geronimo Arias Primary Care Unavailab le Marcanthony, Becky Referring Unavailable Marcanthony, Becky Consulting Unavailable Marcanthony, Becky Attending Unavailable Geronimo Arias Primary Care Unavailab le Marcanthony, Becky Referring Unavailable Marcanthony, Becky Consulting Unavailable Marcanthony, Becky Attending Unavailable Geronimo Arias Primary Care Unavailab Chrissy Bowser Attending Unavailable Geronimo Arias Referring Unavailab le Geronimo Arias Primary Care Unavailab le Marcanthony, Becky Attending Unavailable Geronimo Arias Referring Unavailab le Hugo, Geronimosemaj Arnold Primary Care Unavailab le [place]orth [employer], Promise Attending Unavailable Geronimo Arias Referring Unavailab le Hugo, Geronimo Arnold Primary Care Unavailab le [place]orth [employer], Promise Attending Unavailable Triny [employer], Promise Referring Unavailable Geronimo Arias Primary Care Unavailab le Geronimo Arias Referring Unavailab Chrissy Bowser Attending Unavailable Geronimo Arias Primary Care Unavailab le Marcanthony, Becky Attending Unavailable Geronimo Arias Referring Unavailab le Hugo Geronimosemaj Arnold Primary Care Unavailab Selene Adamson Attending Unavailabl Geronimo Ramos Referring Unavailab le Hugo, Geronimo Arnold Primary Care Unavailab le Marcanthony, Becky Referring Unavailable Pavananthony, Becky Attending Unavailable Geronimo Arias Primary Care Unavailab le Marcanthony, Becky Referring Unavailable Marcanthony, Becky Attending Unavailable Geronimo Arias Primary Care Unavailab le Hugo Geronimosemaj Arnold Primary Care Unavailab le Marcanthony, Becky Referring Unavailable Marcanthony, Becky Attending Unavailable Chrissy Tristan Attending Unavailable Geronimo Arias Referring Unavailab luciana Arias Geronimosemaj Arnold Primary Care Unavailab Selene Adamson Attending UnavailGeronimo Kong Referring Unavailab luciana Arias Geronimosemaj Arnold Primary Care Unavailab Selene Adamson Attending UnavailGeronimo Kong Referring Unavailab Geronimo Lozano Primary Care Unavailab le Marcanthony, Becky Attending Unavailable Geronimo Arias Referring Unavailab Geronimo Lozano Primary Care Unavailab Selene Adamson Attending UnavailGeronimo Kong Referring Unavailab Geronimo Lozano Primary Care Unavailab Becky Romero Admitting Unavailable Becky Galvez Attending Unavailable Geronimo Arias Primary Care Unavailab le Medications Current Medications Medication Drug Class(es) Dates Sig (Normalized) Sig (Original) ferrous sulfate 325 mg oral tablet (20 sources) Start: 08-05-2024 take 1 tablet by mouth once daily Ferrous Sulfate (Feosol) 325 mg (65 mg iron) tablet Active 325 mg PO DAILY August 05, 2024 12:00am anemia Start: 09-10-2022 End: 10-23-2022 take 1 tablet by mouth once daily Ferrous Sulfate (Iron (Ferrous Sulfate)) 325 mg (65 mg iron) Tablet Discontinued 325 mg PO DAILY September 10, 2022 12:00am October 23, 2022 6:32am End: 10-14-2022 ferrous sulfate (IRON ORAL) Take by mouth. 0 10/14/2022 Discontinued (Other) ferrous sulfate (IRON ORAL) Take by mouth. 0 Active Comment on above: Take by mouth. Vit 08-Yrqj-Ihqfi-Dha ( + Dha) 28 mg iron- 975 mcg-200 mg Combo Pack (14 sources) Start: 09-10-2022 Vit 22-Cifs-Kmmas-Dha ( + Dha) 28 mg iron- 975 mcg-200 mg Combo Pack Active 1 NMA PO DAILY September 10, 2022 12:00am Start: 09-10-2022 Vit 9 1-Ixiy-Ecmck-Dha ( + Dha) 28 mg iron- 975 mcg-200 mg Combo Pack Active 1 NMA PO DAILY September 10, 2022 12:00am Start: 09-10-2022 Vit 9 4-Likb-Ffsys-Dha ( + Dha) 28 mg iron- 975 mcg-200 mg Combo Pack Active 1 PKG PO DAILY September 10, 2022 12:00am prental multivitamin 27 mg iron- 800 mcg tablet (20 sources) take 1 tablet by ketty th once daily prental multivitamin 27 mg iron- 800 mcg tablet Take 1 tablet by mouth once daily. Active take 1 tablet by mouth once pippa y prental multivitamin 27 mg iron- 800 mcg tablet Take 1 tablet by mouth once daily. 0 Active Comment on above: Take 1 tablet by ketty th once daily. Completed/Discontinued Medications Medication Drug Class(es) Dates Sig (Normalized) Sig (Original) acetaminophen 500 mg oral tablet (13 sources) Start: 10-23-2022 End: 08-05-2024 take 1-10 tablets by mouth every six hours as needed for pain Acetaminophen 500 mg Tablet Discontinued 1000 mg PO EVERY 6 HOURS NEEDED as needed for Pain 1-10 Or Fever 0 October 23, 2022 12:00am August 05, 2024 10:24pm Start: 10-23-2022 take 1000 mg by mout h every six hours as needed Acetaminophen Active 1000 MG PO EVERY 6 HOURS NEEDED 0 October 23, 2022 12:00am aspirin 81 mg chewable tablet (20 sources) Platelet Aggregation Inhibitor, Nonsteroidal Anti-inflammatory Drug Start: 09-10-2022 End: 10-23-2022 take 1 tablet by mouth once daily Aspirin (Aspirin Child) 81 mg Tablet,Chewable Discontinued 81 mg PO DAILY September 10, 2022 12:00am October 23, 2022 6:32am Start: 06-10-2022 take 1 tablet by ketty th once daily aspirin, enteric coated (ASPIRIN, ENTERIC COATED) 81 mg EC tablet Take 1 tablet by mouth once daily. 0 06/10/2022 Active Comment on above: Take 1 tablet by ketty th once daily. drospirenone / Ethinyl Estradiol (2 sources) Progestin, Estrogen Start: 08-21-2020 KHADIJAH, 28, 3-0.02 mg per tablet Take 1 tablet by mouth once daily. Take active pills only, start new package every 3 weeks. 4 Package 4 08/21/2020 Active take 1 tablet by mouth once pippa y drospirenone-ethinyl estradioL (Gianalise, 28,) 3-0.02 mg per tablet Take 1 tablet by mouth daily . 0 Active Comment on above: Take 1 tablet by ketty th once daily. Take active pills only, start new package every 3 weeks. ibuprofen 600 mg oral tablet (12 sources) Nonsteroidal Anti-inflammatory Drug Start: 3 End: 4 take 1 tablet by mouth every six hours as needed for pain Ibuprofen 600 mg Tablet Discontinued 600 mg PO EVERY 6 HOURS NEEDED as needed for Pain Score 1-3 0 0 October 23, 2022 12:00am March 09, 2024 12:08pm miconazole nitrate 20 mg/ml vaginal cream (11 sources) Azole Antifungal Start: End: Miconazole Nitrate 2 % cream Discontinued 1 NMA VAGINAL AT BEDTIME 45 7 0 May 21, 2024 1:00am May 27, 2024 1:00am May 28, 2024 1:11am Infection due to yeast Candidiasis, unspecified Problems Active Problems Problem Classification Problem Date Documented Date Episodic/Chronic Cardiac dysrhythmias (20 sources) Tachycardia; Translations: [Tachycardia, unspecified] Onset: 10-08-1908-29-2024 Episodic Comment on above: EKG/NSR at 105. No S OB, chest pain. Happening almost daily. Digestive congenital anomalies (20 sources) Tongue tie; Translations: [Ankyloglossia] Onset: 08-16-1903-09-2024 Chronic Comment on above: Son with lip & tongu e tied Disorders of lipid metabolism (20 sources) Mixed hypercholesterolemia and hypertriglyceridemia; Translations: [Mixed hyperlipidemia] Onset: 07-13-19 25 03-09-2024 Chronic Early or threatened labor (20 sources) False labor; Translations: [False labor, unspecified] Onset: 08-16-1910-16-2022 Episodic Immunizations and screening for infectious disease (6 sources) Patient encounter status; Translations: [Encounter for screening for infections with a predominantly sexual mode of transmission] Onset: 08-12-19 Episodic Other complications of (20 sources) Anemia during - baby not yet delivered; Translations: [Anemia complicating , third trimester] Onset: 08-10-19 23 08-09-2022 Chronic Other complications of (20 sources) Anemia in mother complicating , childbirth AND/OR puerperium; Translations: [Anemia complicating , third trimester] Onset: 09-12-19 23 09-11-2022 Chronic Other complications of (20 sources) Anemia of ; Translations: [Anemia complicating , third trimester] Onset: 08-10-19 23 08-09-2022 Chronic Comment on above: add FE Other complications of (20 sources) Maternal obesity complicating , childbirth and the puerperium, antepartum; Translations: [Obesity complicating , unspecified trimester] 04-13-2024 Chronic Comment on above: HgbA1c normal HgbA1c normal bmi 30 Other complications of (1 source) Anemia complicating , third trimester; Translations: [Anemia complicating , third trimester] Onset: 10-08-19 Chronic Other complications of (1 source) Obesity complicating , third trimester; Translations: [Obesity complicating , third trimester] Onset: 10-08-19 Chronic Other complications of (2 sources) Obesity complicating , unspecified trimester; Translations: [Obesity complicating , unspecified trimester] Onset: 07-31-19 Chronic Other complications of (20 sources) Reduced movement; Translations: [Decreased movements, third trimester, not applicable or unspecified] Episodic Other complications of (2 sources) Uterine size for dates discrepancy; Translations: [Uterine size-date discrepancy, third trimester] Episodic Other complications of (3 sources) Decreased movements, unspecified trimester, not applicable or unspecified; Translations: [Decreased movements, affecting management of mother, unspecified as to episode of care] Onset: 09-10-1909-10-2022 Episodic Other complications of (20 sources) High risk ; Translations: [Supervision of high risk , unspecified, unspecified trimester] 04-13-2024 Episodic Comment on above: PRR, , ADDY 5, PC Tanner, Michelle PRR, , ADDY 5, girl [place] PC Tanner, Michelle GBS neg, PRR, , ADDY 10/19/24, girl [place] PC Tanner, Michelle Other complications of (1 source) Supervision of high risk , unspecified, third trimester; Translations: [Supervision of high risk , unspecified, third trimester] Onset: 10-08-19 Episodic Other complications of (2 sources) Decreased movements, third trimester, not applicable or unspecified; Translations: [Decreased movements, third trimester, not applicable or unspecified] Onset: 09-22-19 Episodic Other complications of (1 source) Injury, poisoning and certain other consequences of external causes complicating , third trimester; Translations: [Injury, poisoning and certain other consequences of external causes complicating , third trimester] Onset: 10-06-19 Episodic Other complications of (2 sources) Supervision of high risk , unspecified, unspecified trimester; Translations: [Supervision of high risk , unspecified, unspecified trimester] Onset: 07-31-19 Episodic Other complications of (1 source) Other specified related conditions, third trimester; Translations: [Other specified related conditions, third trimester] Onset: 08-16-19 Episodic Other ear and sense organ disorders (1 source) Bilateral earache; Translations: [Otalgia of both ears] Episodic Other female genital disorders (1 source) Abnormal uterine bleeding; Translations: [Abnormal uterine and vaginal bleeding, unspecified] Chronic Other gastrointestinal disorders (20 sources) Malabsorption - iron; Translations: [Intestinal malabsorption, unspecified] Onset: 09-12-1909-11-2022 Chronic Other hematologic conditions (20 sources) H/O: anemia - iron deficient; Translations: [Personal history of diseases of the blood and blood-forming organs and certain disorders involving the immune mechanism] 03-09-2024 Episodic Other injuries and conditions due to external causes (11 sources) Injury of abdomen; Translations: [Unspecified injury of abdomen, initial encounter] 09-29-2024 Episodic Other injuries and conditions due to external causes (1 source) Unspecified injury of abdomen, initial encounter; Translations: [Unspecified injury of abdomen, initial encounter] Onset: 10-08-19 Episodic Other and delivery including normal (20 sources) Normal ; Translations: [Encounter for supervision of normal first , unspecified trimester] Episodic Comment on above: declined NIPT & Husain ier testing, normal anatomy PPD#1 gbs neg declined NIP T & Carrier testing, normal anatomy Other screening for suspected conditions (not mental disorders or infectious disease) (1 source) Cancer cervix screening status; Translations: [Encounter for screening for malignant neoplasm of cervix] 12-05-2023 Episodic Otitis media and related conditions (1 source) Dysfunction of bilateral eustachian tubes; Translations: [Dysfunction of both eustachian tubes] Polyhydramnios and other problems of amniotic cavity (11 sources) Spontaneous rupture of membranes 10-24-2022 Episodic Comment on above: @ 39&3 Residual codes; unclassified (1 source) Gestation period, 8 weeks; Translations: [8 weeks gestation of ] Episodic Residual codes; unclassified (1 source) Gestation period, 11 weeks; Translations: [11 weeks gestation of ] Episodic Residual codes; unclassified (1 source) Gestation period, 16 weeks; Translations: [16 weeks gestation of ] Episodic Residual codes; unclassified (2 sources) Gestation period, 20 weeks; Translations: [20 weeks gestation of ] Episodic Residual codes; unclassified (1 source) Gestation period, 24 weeks; Translations: [24 weeks gestation of ] Episodic Residual codes; unclassified (1 source) Gestation period, 28 weeks; Translations: [28 weeks gestation of ] Episodic Residual codes; unclassified (1 source) Gestation period, 30 weeks; Translations: [30 weeks gestation of ] Episodic Residual codes; unclassified (1 source) Gestation period, 34 weeks; Translations: [34 weeks gestation of ] Episodic Residual codes; unclassified (2 sources) Gestation period, 36 weeks; Translations: [36 weeks gestation of ] Episodic Residual codes; unclassified (1 source) Gestation period, 37 weeks; Translations: [37 weeks gestation of ] Episodic Residual codes; unclassified (1 source) Gestation period, 38 weeks; Translations: [38 weeks gestation of ] Episodic Residual codes; unclassified (13 sources) Gestation period, 33 weeks; Translations: [33 weeks gestation of ] 09-14-2022 Episodic Residual codes; unclassified (2 sources) 33 weeks gestation of ; Translations: [ state, incidental] 09-10-2022 Episodic Residual codes; unclassified (1 source) 38 weeks gestation of ; Translations: [38 weeks gestation of ] Onset: 10-08-19 25 Episodic Residual codes; unclassified (1 source) 37 weeks gestation of ; Translations: [37 weeks gestation of ] Onset: 10-01-19 Episodic Residual codes; unclassified (1 source) 36 weeks gestation of ; Translations: [36 weeks gestation of ] Onset: 09-23-19 25 Episodic Residual codes; unclassified (1 source) 34 weeks gestation of ; Translations: [34 weeks gestation of ] Onset: 09-10-19 Episodic Residual codes; unclassified (2 sources) 28 weeks gestation of ; Translations: [28 weeks gestation of ] Onset: 07-31-19 Episodic Unclassified (2 sources) Spontaneous rupture of membranes; Translations: [Spontaneous rupture of amniotic membranes] 10-22-2022 Past or Other Problems Problem Classification Problem Date Documented Da te Episodic/Chronic Menstrual disorders (9 sources) Dysmenorrhea; Translations: [Dysmenorrhea, unspecified] Onset: 01-22-2016 Resolved: 06-10-2022 01-22-2016 Chronic Mycoses (20 sources) Mycosis; Translations: [Candidiasis, unspecified] Onset: 07-12-2024 05-21-2024 Episodic Other complications of (20 sources) Morning sickness; Translations: [Other specified related conditions, unspecified trimester] Onset: 03-06-2022 Episodic Other complications of (20 sources) Rubella non-immune; Translations: [Supervision of other high risk pregnancies, unspecified trimester] Onset: 04-16-2022 04-16-2022 Episodic Other hematologic conditions (1 source) Personal history of diseases of the blood and blood-forming organs and certain disorders involving the immune mechanism; Translations: [Personal history of diseases of the blood and blood-forming organs and certain disorders involving the immune mechanism] Onset: 07-12-2024 Episodic Residual codes; unclassified (1 source) 25 weeks gestation of ; Translations: [25 weeks gestation of ] Onset: 07-12-2024 Episodic Residual codes; unclassified (1 source) 23 weeks gestation of ; Translations: [23 weeks gestation of ] Onset: 06-24-2024 Episodic Residual codes; unclassified (1 source) 14 weeks gestation of ; Translations: [14 weeks gestation of ] Onset: 04-21-2024 Episodic Screening and history of mental health and substance abuse codes (20 sources) H/O: anxiety state; Translations: [Personal history of other mental and behavioral disorders] Onset: 03-06-2022 Episodic Results Test Name Value Interpretation Reference Range Facility Telephone Order Clerk Office Visit Reporton 10-12-2024 Telephone Order Clerk Office Visit Report [facility] [address], [address] [place] [address] OFFICE VISIT Date of Service: 10/12/24 MR#: [id number] Acct: [id number] Name: JAG PEREZ Rep #: [id number] : 2000 Provider: Dr. Sleene Palomo DO Age/Sex: 23/F Location: [facility] [place] Status: Signed Intake Vital Signs 09/30/24 13:44 10/07/24 08:19 10/12/24 08:16 10/12/24 08:17 Height 5 ft 2 in 5 ft 2 in 5 ft 2 in 5 ft 2 in Weight: 203 lb 2 oz BMI 37.1 BP 109/74 Intake Visit Reasons: 39wk ob Bi Lead Required: No Is patient in pain?: No Allergies No Known Allergies Allergy (Verified 10/12/24 08:16) Medications ???Medication ???Instructions ???Recorded ???Confirmed ???Type vits,calcium 91-iron 28 1 pkg PO DAILY 09/10/22 10/12/24 History mg-folic 975 mcg-dha 200 mg oral pack ( + DHA) ferrous sulfate 325 mg (65 mg 325 mg PO DAILY anemia 08/05/24 History iron) tablet (Feosol) Last Menstrual Period: 01/13/24 Zika: Zika virus screening: Negative : No PFSH PFSH Medical History Normal vaginal delivery Anxiety Family History Grandmother COPD (chronic obstructive pulmonary disease), Onset Age: 60 Maternal Grandfather Myocardial infarction, Onset Age: 67 Maternal Grandmother Breast cancer, Onset Age: 45 Paternal Social History adopted: No household members: spouse and children number of children: 1 current occupational status: unemployed current occupation: [employer] pets and animals: Yes (Avoid litterbox) pets and animals: cat(s) and dog(s) history of recent travel: No sexually active: Yes Smoking Status: Never smoker alcohol intake: never substance use type: does not use well-balanced diet: daily or most days caffeine: Yes Type: coffee Number of servings: 1 eating out: 1-3 times/week during the past year weight has: decreased > 10 lbs what type of physical activity do you participate in: none pia/orthodoxy: L[employer] seatbelt use: always do you feel safe at home: Yes additional social history: Michelle [employer] History 2 Elective abortions Hx Para 1 Spontaneous abortions Hx # Term Pregnancies Ectopic pregnancies Hx # Pregnancies Multiple births # of living children 1 Past Pregnancies Del. Date Name GA/Weeks Outcome Route Bth Weight Infant Gen Labor Lgth Anesthesia Del Locatn Provider FOB 10/22/22 Tanner 39 live - full term 7 Male epidural [facility] Car men Derick Reid Delivery Date: 10/22/22 Last Updated by: Katie Grag severe iron deficiency, infusions HPI 39wk ob Details: JAG PEREZ is a 23 year old who presents for routine OB visit. OB Visit ADDY Calculator Estimated Delivery Date Method Current WG Current Estimate 10/19/24 LMP (Certain) 39w 0d Other Estimates 10/22/24 Ultrasound #1 38w 4d Expected Delivery Route/Plan Labor Preferences- CB/BF classes: no labor support person: Michelle labor intervention preferences: [] pain management options preferred: [] cut cord/dad catch: [] : [] PP control planned: [] discussed possible routes of delivery and associated risks: [] special requests: [] Specific Issue/Plans Covid status: [] Flu vaccine: declined Tdap vaccine: Rhogam: [] LARC form signed: declined movement and labor precautions reviewed. Problem list reviewed and updated with the most current plan of care details and appropriate orders placed. Relevant counseling for the gestational age provided. Continue routine care and follow up unless otherwise noted in visit notes/problem list details Initial Weight: 172 lb Date -???-???-???-???-??? -???-???-???-???-??? -???-???- EGA Weight BP Urine Prot -???-???-???-???-??? -???-???-???-???-??? -???-???- Glucose FHR FuHt Pres Dilation -???-???-???-???-??? -???-???-???-???-??? -???-???- Effaced St Visit Note 03/18/24 -???-???-???-???-??? -???-???-???-???-??? -???-???- 9w 2d 172 lb 4 oz (+4 oz) 104/70 -???-???-???-???-??? -???-???-???-???-??? -???-???- 178 -???-???-???-???-??? -???-???-???-???-??? -???-???- KW- CRL cons with dates. declines NIPT 04/21/24 -???-???-???-???-??? -???-???-???-???-??? -???-???- 14w 1d 166 lb 4 oz (-5 lb 12 oz) 127/75 -???-???-???-???-??? -???-???-???-???-??? -???-???- 155 -???-???-???-???-??? -???-???-???-???-??? -???-???- SM- some kirt ght loss. eating well no no vb crmaping 05/21/24 -???-???-???-???-??? -???-???-???-???-??? -???-???- 18w 3d 169 lb 6 oz (-2 lb 10 oz) 108/74 Negative -???-???-???-? (more content not included)... Normal [facility] - Chemistry and C hemistry - challengeOrdered By: Becky Galvez on 10-07-2024 Glucose Ql (U) Negative [facility] - UrinalysisOrder ed By: Becky Galvez on 10-07-2024 Protein Ql (U) Negative [facility] Telephone Order Clerk Office Visit Reporton 10-07-2024 Telephone Order Clerk Office Visit Report [facility]'s [address], [address] [place] [address] OFFICE VISIT Date of Service: 10/07/24 MR#: [id number] Acct: [id number] Name: JAG PEREZ Rep #: [id number] : 2000 Provider: Dr. Becky cervantes MD Age/Sex: 23/F Location: [facility] [place] Status: Signed Intake Vital Signs 08/23/24 13:55 09/30/24 13:44 10/07/24 08:18 10/07/24 08:19 Height 5 ft 2 in 5 ft 2 in 5 ft 2 in 5 ft 2 in Weight: 201 lb 4 oz BMI 36.8 BP 108/63 Intake Visit Reasons: 38 wk ob Bi Lead Required: No Is patient in pain?: No Allergies No Known Allergies Allergy (Verified 10/07/24 08:18) Medications ???Medication ???Instructions ???Recorded ???Confirmed ???Type vits,calcium 91-iron 28 1 pkg PO DAILY 09/10/22 10/07/24 History mg-folic 975 mcg-dha 200 mg oral pack ( + DHA) ferrous sulfate 325 mg (65 mg 325 mg PO DAILY anemia 08/05/24 History iron) tablet (Feosol) Last Menstrual Period: 01/13/24 Zika: Zika virus screening: Negative : No PFSH PFSH Medical History Normal vaginal delivery Anxiety Family History Grandmother COPD (chronic obstructive pulmonary disease), Onset Age: 60 Maternal Grandfather Myocardial infarction, Onset Age: 67 Maternal Grandmother Breast cancer, Onset Age: 45 Paternal Social History adopted: No household members: spouse and children number of children: 1 current occupational status: unemployed current occupation: [employer] pets and animals: Yes (Avoid litterbox) pets and animals: cat(s) and dog(s) history of recent travel: No sexually active: Yes Smoking Status: Never smoker alcohol intake: never substance use type: does not use well-balanced diet: daily or most days caffeine: Yes Type: coffee Number of servings: 1 eating out: 1-3 times/week during the past year weight has: decreased > 10 lbs what type of physical activity do you participate in: none pia/orthodoxy: Latter-Day seatbelt use: always do you feel safe at home: Yes additional social history: Michelle [employer] History 2 Elective abortions Hx Para 1 Spontaneous abortions Hx # Term Pregnancies Ectopic pregnancies Hx # Pregnancies Multiple births # of living children 1 Past Pregnancies Del. Date Name GA/Weeks Outcome Route Bth Weight Infant Gen Labor Lgth Anesthesia Del Locatn Provider FOB 10/22/22 Tanner 39 live - full term 7 Male epidural [facility] Car men Derick Reid Delivery Date: 10/22/22 Last Updated by: Katie Garg severe iron deficiency, infusions HPI 38 wk ob Details: JAG PEREZ is a 23 year old who presents for routine OB visit. OB Visit ADDY Calculator Estimated Delivery Date Method Current WG Current Estimate 10/19/24 LMP (Certain) 38w 2d Other Estimates 10/22/24 Ultrasound #1 37w 6d Expected Delivery Route/Plan Labor Preferences- CB/BF classes: no labor support person: Michelle labor intervention preferences: [] pain management options preferred: [] cut cord/dad catch: [] : [] PP control planned: [] discussed possible routes of delivery and associated risks: [] special requests: [] Specific Issue/Plans Covid status: [] Flu vaccine: declined Tdap vaccine: Rhogam: [] LARC form signed: declined movement and labor precautions reviewed. Problem list reviewed and updated with the most current plan of care details and appropriate orders placed. Relevant counseling for the gestational age provided. Continue routine care and follow up unless otherwise noted in visit notes/problem list details Initial Weight: 172 lb Date -???-???-???-???-??? -???-???-???-???-??? -???-???- EGA Weight BP Urine Prot -???-???-???-???-??? -???-???-???-???-??? -???-???- Glucose FHR FuHt Pres Dilation -???-???-???-???-??? -???-???-???-???-??? -???-???- Effaced St Visit Note 03/18/24 -???-???-???-???-??? -???-???-???-???-??? -???-???- 9w 2d 172 lb 4 oz (+4 oz) 104/70 -???-???-???-???-??? -???-???-???-???-??? -???-???- 178 -???-???-???-???-??? -???-???-???-???-??? -???-???- KW- CRL cons with dates. declines NIPT 04/21/24 -???-???-???-???-??? -???-???-???-???-??? -???-???- 14w 1d 166 lb 4 oz (-5 lb 12 oz) 127/75 -???-???-???-???-??? -???-???-???-???-??? -???-???- 155 -???-???-???-???-??? -???-???-???-???-??? -???-???- SM- some kirt ght loss. eating well no no vb crmaping 05/21/24 -???-???-???-???-??? -???-???-???-???-??? -???-???- 18w 3d 169 lb 6 oz (-2 lb 10 oz) 108/74 Negative -???-???-???-? (more content not included)... Normal [facility] Telephone Order Clerk Office Visit Reporton 09-30-2024 Telephone Order Clerk Office Visit Report [facility]'s [address], [address] [place] [address] OFFICE VISIT Date of Service: 09/30/24 MR#: [id number] Acct: [id number] Name: JAG PEREZ Rep #: [id number] : 2000 Provider: Dr. Selene Palomo DO Age/Sex: 23/F Location: [facility] [place] Status: Signed Intake Vital Signs 08/23/24 13:55 09/22/24 13:50 09/29/24 11:56 09/30/24 13:44 09/30/24 13:44 Height 5 ft 2 in 5 ft 2 in 5 ft 2 in 5 ft 2 in 5 ft 2 in Weight: 201 lb 2 oz BMI 36.8 BP 116/80 Intake Visit Reasons: 37 wk ob Bi Lead Required: No Is patient in pain?: No Allergies No Known Allergies Allergy (Verified 09/30/24 13:44) Medications ???Medication ???Instructions ???Recorded ???Confirmed ???Type vits,calcium 91-iron 28 1 pkg PO DAILY 09/10/22 09/30/24 History mg-folic 975 mcg-dha 200 mg oral pack ( + DHA) ferrous sulfate 325 mg (65 mg 325 mg PO DAILY anemia 08/05/24 History iron) tablet (Feosol) Last Menstrual Period: 01/13/24 Zika: Zika virus screening: Negative : No PFSH PFSH Medical History Normal vaginal delivery Anxiety Family History Grandmother COPD (chronic obstructive pulmonary disease), Onset Age: 60 Maternal Grandfather Myocardial infarction, Onset Age: 67 Maternal Grandmother Breast cancer, Onset Age: 45 Paternal Social History adopted: No household members: spouse and children number of children: 1 current occupational status: unemployed current occupation: [employer] pets and animals: Yes (Avoid litterbox) pets and animals: cat(s) and dog(s) history of recent travel: No sexually active: Yes Smoking Status: Never smoker alcohol intake: never substance use type: does not use well-balanced diet: daily or most days caffeine: Yes Type: coffee Number of servings: 1 eating out: 1-3 times/week during the past year weight has: decreased > 10 lbs what type of physical activity do you participate in: none pia/orthodoxy: Latter-Day seatbelt use: always do you feel safe at home: Yes additional social history: Michelle [employer] History 2 Elective abortions Hx Para 1 Spontaneous abortions Hx # Term Pregnancies Ectopic pregnancies Hx # Pregnancies Multiple births # of living children 1 Past Pregnancies Del. Date Name GA/Weeks Outcome Route Bth Weight Infant Gen Labor Lgth Anesthesia Del Locatn Provider FOB 10/22/22 Tanner 39 live - full term 7 Male epidural [facility] Car men Derick Reid Delivery Date: 10/22/22 Last Updated by: Katie Garg severe iron deficiency, infusions HPI 37 wk ob Details: JAG PEREZ is a 23 year old who presents for routine OB visit. OB Visit ADDY Calculator Estimated Delivery Date Method Current WG Current Estimate 10/19/24 LMP (Certain) 37w 2d Other Estimates 10/22/24 Ultrasound #1 36w 6d Expected Delivery Route/Plan Labor Preferences- CB/BF classes: no labor support person: Michelle labor intervention preferences: [] pain management options preferred: [] cut cord/dad catch: [] : [] PP control planned: [] discussed possible routes of delivery and associated risks: [] special requests: [] Specific Issue/Plans Covid status: [] Flu vaccine: declined Tdap vaccine: Rhogam: [] LARC form signed: declined movement and labor precautions reviewed. Problem list reviewed and updated with the most current plan of care details and appropriate orders placed. Relevant counseling for the gestational age provided. Continue routine care and follow up unless otherwise noted in visit notes/problem list details Initial Weight: 172 lb Date -???-???-???-???-??? -???-???-???-???-??? -???-???- EGA Weight BP Urine Prot -???-???-???-???-??? -???-???-???-???-??? -???-???- Glucose FHR FuHt Pres Dilation -???-???-???-???-??? -???-???-???-???-??? -???-???- Effaced St Visit Note 03/18/24 -???-???-???-???-??? -???-???-???-???-??? -???-???- 9w 2d 172 lb 4 oz (+4 oz) 104/70 -???-???-???-???-??? -???-???-???-???-??? -???-???- 178 -???-???-???-???-??? -???-???-???-???-??? -???-???- KW- CRL cons with dates. declines NIPT 04/21/24 -???-???-???-???-??? -???-???-???-???-??? -???-???- 14w 1d 166 lb 4 oz (-5 lb 12 oz) 127/75 -???-???-???-???-??? -???-???-???-???-??? -???-???- 155 -???-???-???-???-??? -???-???-???-???-??? -???-???- SM- some kirt ght loss. eating well no no vb crmaping 05/21/24 -???-???-???-???-??? -???-???-???-???-??? -???-???- 18w 3d 169 lb 6 oz (-2 lb 10 oz) 108 (more content not included)... Normal [facility] OB Triage Progress Noteon OB Triage Progress Note [facility] Medical Records Department [address] [place] [address] OB Triage Progress Note 09/29/24 1655 MR#: [id number] Acct: [id number] Name: JAG PEREZ Rep #: [id number] : 2000 From: Becky Galvez MD PCP: Dr. Geronimo Arias, DO Status:DEP CLI Y DOS: Location: [facility] Progress Notes Date of Service: 09/29/24 Progress Note: Patient presents for triage evaluation secondary to fall and adominal trauma FHT: 130 Moderate variability reactive no decelerations category I tracing [place]: no rgular Contractions Assessment and plan: 37 weeks s/p fall and abdominal trauma monitored 4 hours no decels no abdominal pain reassuring testing Reactive NST, reassuring maternal and status patient discharged to home to follow-up as charline. See problem list details for additional plan information. Charges/Coding Procedures Urinary/Genital 52xxx-59xxx: 64067-51 non-stress test Interp 09/29/24 1656 Date Becky Galvez MD Cosigner Signature (if applicable): Date _ CC: Dr. Geronimo Arias, DO; Dr. Becky Galvez MD Signed Normal [facility] Rule out Beta Strep (Grp. B) on 09-24-2024 SHOLA Group B Beta Streptococcus is not isolated. Normal [facility] Comment on above: Performed By: #### M [id number] ####[facility] [id number] [place], [address] Laboratory - Chemistry and C hemistry - challengeOrdered By: Selene Back on 09-22-2024 Glucose Ql (U) Negative [facility] - UrinalysisOrder ed By: Selene Back on 09-22-2024 Protein Ql (U) Negative [facility] Telephone Order Clerk Office Visit Reporton 09-22-2024 Telephone Order Clerk Office Visit Report [facility] [address], [address] [place] [address] OFFICE VISIT Date of Service: 09/22/24 MR#: [id number] Acct: [id number] Name: JAG PEREZ Rep #: [id number] : 2000 Provider: Dr. Selene Palomo DO Age/Sex: 23/F Location: [facility] [place] Status: Signed Intake Vital Signs 08/11/24 11:20 09/09/24 09:51 09/22/24 13:49 09/22/24 13:50 Height 5 ft 2 in 5 ft 2 in 5 ft 2 in 5 ft 2 in Weight: 198 lb 8 oz BMI 36.3 BP 97/66 Intake Visit Reasons: 36wk ob Bi Lead Required: No Is patient in pain?: No Allergies No Known Allergies Allergy (Verified 09/22/24 13:48) Medications ???Medication ???Instructions ???Recorded ???Confirmed ???Type vits,calcium 91-iron 28 1 pkg PO DAILY 09/10/22 09/22/24 History mg-folic 975 mcg-dha 200 mg oral pack ( + DHA) ferrous sulfate 325 mg (65 mg 325 mg PO DAILY anemia 08/05/24 History iron) tablet (Feosol) Last Menstrual Period: 01/13/24 Zika: Zika virus screening: Negative : No PFSH PFSH Medical History Normal vaginal delivery Anxiety Family History Grandmother COPD (chronic obstructive pulmonary disease), Onset Age: 60 Maternal Grandfather Myocardial infarction, Onset Age: 67 Maternal Grandmother Breast cancer, Onset Age: 45 Paternal Social History adopted: No household members: spouse and children number of children: 1 current occupational status: unemployed current occupation: [employer] pets and animals: Yes (Avoid litterbox) pets and animals: cat(s) and dog(s) history of recent travel: No sexually active: Yes Smoking Status: Never smoker alcohol intake: never substance use type: does not use well-balanced diet: daily or most days caffeine: Yes Type: coffee Number of servings: 1 eating out: 1-3 times/week during the past year weight has: decreased > 10 lbs what type of physical activity do you participate in: none pia/orthodoxy: Latter-Day seatbelt use: always do you feel safe at home: Yes additional social history: Michelle [employer] History 2 Elective abortions Hx Para 1 Spontaneous abortions Hx # Term Pregnancies Ectopic pregnancies Hx # Pregnancies Multiple births # of living children 1 Past Pregnancies Del. Date Name GA/Weeks Outcome Route Bth Weight Gen Labor Lgth Anesthesia Del Locatn Provider FOB 10/22/22 Tanner 39 live - full term 7 Male epidural [facility] Car men Derick Reid Delivery Date: 10/22/22 Last Updated by: Katie Garg severe iron deficiency, infusions HPI 36wk ob Details: JAG PEREZ is a 23 year old who presents for routine OB visit. OB Visit ADDY Calculator Estimated Delivery Date Method Current WG Current Estimate 07/08/25 LMP (Certain) 36w 1d Other Estimates 10/22/24 Ultrasound #1 35w 5d Expected Delivery Route/Plan Labor Preferences- CB/BF classes: no labor support person: Michelle labor intervention preferences: [] pain management options preferred: [] cut cord/dad catch: [] : [] PP control planned: [] discussed possible routes of delivery and associated risks: [] special requests: [] Specific Issue/Plans Covid status: [] Flu vaccine: declined Tdap vaccine: Rhogam: [] LARC form signed: declined movement and labor precautions reviewed. Problem list reviewed and updated with the most current plan of care details and appropriate orders placed. Relevant counseling for the gestational age provided. Continue routine care and follow up unless otherwise noted in visit notes/problem list details Initial Weight: 172 lb Date -???-???-???-???-??? -???-???-???-???-??? -???-???- EGA Weight BP Urine Prot -???-???-???-???-??? -???-???-???-???-??? -???-???- Glucose FHR FuHt Pres Dilation -???-???-???-???-??? -???-???-???-???-??? -???-???- Effaced St Visit Note 03/18/24 -???-???-???-???-??? -???-???-???-???-??? -???-???- 9w 2d 172 lb 4 oz (+4 oz) 104/70 -???-???-???-???-??? -???-???-???-???-??? -???-???- 178 -???-???-???-???-??? -???-???-???-???-??? -???-???- KW- CRL cons with dates. declines NIPT 04/21/24 -???-???-???-???-??? -???-???-???-???-??? -???-???- 14w 1d 166 lb 4 oz (-5 lb 12 oz) 127/75 -???-???-???-???-??? -???-???-???-???-??? -???-???- 155 -???-???-???-???-??? -???-???-???-???-??? -???-???- SM- some kirt ght loss. eating well no no vb crmaping 05/21/24 -???-???-???-???-??? -???-???-???-???-??? -???-???- 18w 3d 169 lb 6 oz (-2 lb 10 oz) 108/74 Negative -???-???-???-?? (more content not included)... Normal [facility] Screening beta-hemolytic Str eptococcus cultureOrdered By: Selene Back on 09-22-2024 Beta-hemolytic Streptococcus culture Group B Beta Streptococcus is not isolated. [facility] Bilirubin Test strip Ql (U)O rdered By: Chrissy Tristan on 09-09-2024 Bilirubin Ql (U) Negative Negative [facility] Biophysical Prof W/O Non Str eson 09-09-2024 Biophysical Prof W/O Non Stres [facility] Imaging Services [address] [place] [address] Biophysical Prof W/O Non Stres MR#: [id number] Acct: [id number] Name: JAG PEREZ Rep #: [id number] : 2000 F 23 From: Calixto mixon MD PCP: Dr. Geronimo Arias, DO Status: DEP CLI Study: Biophysical Prof W/O Non Stres Date of Exam: 0 09/09/24 Exam# [id number] Ordering Dr: Chrissy Tristan CNM PROCEDURE: BIOPHYSICAL PROF W/O NON STRES 09/09/2024 REASON FOR EXAM: NONREACTIVE NST TECHNIQUE: High resolution obstetric ultrasound performed using a 2D transducer. Standard views obtained, including biometry, anatomy survey, and Doppler studies. COMPARISON: None FINDINGS Number: 1 Position: Vertex Placental Position: Posterior and not low-lying. Placental Abnormalities: None ESTIMATED GESTATIONAL AGE: Baseline: 34 weeks and 2 days ESTIMATED DATE OF DELIVERY: Baseline: October 19, 2024 BIOPHYSICAL ASSESSMENT: Amniotic Fluid Volume: 8.5 cm Amniotic Fluid Index: 20.1 (8-24 cm normal range) Cardiac Motion: 144 beats per minute (average) Trunk and Limb Motion: Present. MATERNAL ANATOMY: Adnexa: Neither maternal ovary is successfully identified. Biophysical profile: Breathing movements: 2 Gross body movements: 2 tone: 2 Amniotic fluid volume: 2 Total score: 8/8 US/Biophysical Prof W/O Non Stres IMPRESSION: Normal biophysical profile. Reading Location: [id number] CC: MICK Tristan; Dr. Geronimo Arias DO Stable Hand: Signed Normal [facility] Ketones Test strip Ql (U)Ord ered By: Chrissy Tristan on 09-09-2024 Ketones Ql (U) Negative Negative [facility] - Chemistry and C hemistry - challengeOrdered By: Chrissy Tristan on 09-09-2024 Glucose Ql (U) Negative [facility] - UrinalysisOrder ed By: Chrissy Tristan on 09-09-2024 Protein Ql (U) Trace [facility] Microscopic analysis of urin e for red blood cells (RBC)Ordered By: Chrissy Tristan on 09-09-2024 Microscopic analysis of urine for red blood cells (RBC) 0-5 SEEN /hpf 0-5 [facility] Mucus LM Ql (Urine sed)Order ed By: Chrissy Tristan on 09-09-2024 Mucus Ql (Urine sed) 1+ /hpf [facility] Nitrite Test strip Ql (U)Ord ered By: Chrissy Tristan on 09-09-2024 Nitrite Ql (U) Negative Negative [facility] OB Triage Progress Noteon OB Triage Progress Note [facility] Medical Records Department [address] [place] [address] OB Triage Progress Note 09/09/242231 MR#: [id number] Acct: [id number] Name: JAG PEREZ Rep #: [id number] : 2000 From: Becky Galvez MD PCP: Dr. Geronimo Arias, DO Status:DEP CLI Y DOS: Location: [facility] Progress Notes Date of Service: 09/09/24 Progress Note: Patient presents for triage evaluation secondary to decreased movement and non reactive nst FHT: 140 Moderate variability reactive no decelerations category I tracing [place]: no regular Contractions Assessment and plan: 34 week decresaed movement 8/8 bpp Reactive NST, reassuring maternal and status patient discharged to home to follow-up as scheudled urine culture sent. See problem list details for additional plan information. Laboratory Studies: Laboratory Tests 09/09/24 Range/Units 10:08 Urine Color Yellow (Yellow) Urine Clarity Clear (Clear) Urine pH 7.0 (5.0 - 8.0) Ur Specific [place] 1.015 (1.002-1.030) Urine Protein 15 H (Negative) mg/dl Urine Glucose (UA) Normal (Normal) mg/dl Urine Ketones Negative (Negative) mg/dl Urine Occult Blood Negative (Negative) /ul Urine Nitrite Negative (Negative) Urine Bilirubin Negative (Negative) mg/dL Urine Urobilinogen Normal (Normal) mg/dl Ur Leukocyte Esterase Negative (Negative) /ul Urine RBC 0-5 SEEN (0-5) /hpf Urine WBC 0-5 SEEN (0-5) /hpf Ur Squamous Epith Cells 0-5 SEEN (5-10) /hpf Urine Bacteria Not Reportable Urine Mucus 1+ ( Charges/Coding Procedures Urinary/Genital 52xxx-59xxx: 19743-40 non-stress test Interp Assessment Plan (1) Decreased movements in third trimester: 09/09/242238 Date Becky Galvez MD Cosigner Signature (if applicable): Date _ CC: Dr. Geronimo Arias, DO; Dr. Becky Galvez MD Signed Normal [facility] Telephone Order Clerk Office Visit Reporton 09-09-2024 Telephone Order Clerk Office Visit Report [facility] [address], [address] [place] [address] OFFICE VISIT Date of Service: 09/09/24 MR#: [id number] Acct: [id number] Name: JAG PEREZ Rep #: [id number] : 2000 Provider: MICK Castillo ams Age/Sex: 23/F Location: [facility] [place] Status: Signed Intake Vital Signs 08/11/24 11:20 08/23/24 13:55 09/09/24 08:22 Height 5 ft 2 in 5 ft 2 in 5 ft 2 in Weight: 188 lb 4 oz 193 lb 6 oz BMI 34.4 35.4 BP 100/64 108/70 Intake Visit Reasons: 34wk ob Chief Complaint: 34wk OB Bi Lead Required: No Is patient in pain?: No Allergies No Known Allergies Allergy (Verified 09/09/24 08:20) Medications ???Medication ???Instructions ???Recorded ???Confirmed ???Type vits,calcium 91-iron 28 1 pkg PO DAILY 09/10/22 09/09/24 History mg-folic 975 mcg-dha 200 mg oral pack ( + DHA) ferrous sulfate 325 mg (65 mg 325 mg PO DAILY anemia 08/05/24 History iron) tablet (Feosol) Last Menstrual Period: 01/13/24 : No PFSH PFSH Medical History Normal vaginal delivery Anxiety Family History Grandmother COPD (chronic obstructive pulmonary disease), Onset Age: 60 Maternal Grandfather Myocardial infarction, Onset Age: 67 Maternal Grandmother Breast cancer, Onset Age: 45 Paternal Social History adopted: No household members: spouse and children number of children: 1 current occupational status: unemployed current occupation: [employer] pets and animals: Yes (Avoid litterbox) pets and animals: cat(s) and dog(s) history of recent travel: No sexually active: Yes Smoking Status: Never smoker alcohol intake: never substance use type: does not use well-balanced diet: daily or most days caffeine: Yes Type: coffee Number of servings: 1 eating out: 1-3 times/week during the past year weight has: decreased > 10 lbs what type of physical activity do you participate in: none pia/orthodoxy: Latter-Day seatbelt use: always do you feel safe at home: Yes additional social history: Michelle [employer] History 2 Elective abortions Hx Para 1 Spontaneous abortions Hx # Term Pregnancies Ectopic pregnancies Hx # Pregnancies Multiple births # of living children 1 Past Pregnancies Del. Date Name GA/Weeks Outcome Route Bth Weight Gen Labor Lgth Anesthesia Del Locatn Provider FOB 10/22/22 Tanner 39 live - full term 7 Male epidural [facility] Car men Derick Reid Delivery Date: 10/22/22 Last Updated by: Katie Garg severe iron deficiency, infusions HPI 34wk ob Details: JAG PEREZ is a 23 year old who presents for routine OB visit. OB Visit ADDY Calculator Estimated Delivery Date Method Current WG Current Estimate 10/19/24 LMP (Certain) 34w 2d Other Estimates 10/22/24 Ultrasound #1 33w 6d Expected Delivery Route/Plan Labor Preferences- CB/BF classes: no labor support person: Michelle labor intervention preferences: [] pain management options preferred: [] cut cord/dad catch: [] : [] PP control planned: [] discussed possible routes of delivery and associated risks: [] special requests: [] Specific Issue/Plans Covid status: [] Flu vaccine: declined Tdap vaccine: Rhogam: [] LARC form signed: declined movement and labor precautions reviewed. Problem list reviewed and updated with the most current plan of care details and appropriate orders placed. Relevant counseling for the gestational age provided. Continue routine care and follow up unless otherwise noted in visit notes/problem list details Initial Weight: 172 lb Date -???-???-???-???-??? -???-???-???-???-??? -???-???- EGA Weight BP Urine Prot -???-???-???-???-??? -???-???-???-???-??? -???-???- Glucose FHR FuHt Pres Dilation -???-???-???-???-??? -???-???-???-???-??? -???-???- Effaced St Visit Note 03/18/24 -???-???-???-???-??? -???-???-???-???-??? -???-???- 9w 2d 172 lb 4 oz (+4 oz) 104/70 -???-???-???-???-??? -???-???-???-???-??? -???-???- 178 -???-???-???-???-??? -???-???-???-???-??? -???-???- KW- CRL cons with dates. declines NIPT 04/21/24 -???-???-???-???-??? -???-???-???-???-??? -???-???- 14w 1d 166 lb 4 oz (-5 lb 12 oz) 127/75 -???-???-???-???-??? -???-???-???-???-??? -???-???- 155 -???-???-???-???-??? -???-???-???-???-??? -???-???- SM- some kirt ght loss. eating well no no vb crmaping 05/21/24 -???-???-???-???-??? -???-???-???-???-??? -???-???- 18w 3d 169 lb 6 oz (-2 lb 10 oz) 108/74 Negative -???-???-???-???-??? -???-???-???-???-??? -???-???- Ne (more content not included)... Normal [facility] Protein Test strip Ql (U)Ord ered By: Chrissy Tristan on 09-09-2024 Protein Ql (U) 15 mg/dl High Negative [facility] Squamous epithelial cells de tection in urine sediment by light microscopyOrdered By: Chrissy Tristan on 09-09-2024 Epithelial cells.squamous LM Ql (Urine sed) 0-5 SEEN /hpf 5-10 [facility] Urinalysis, Completeon 09-09 EPI,SQUAMOUS 0-5 SEEN Normal -10 [facility] Comment on above: Order Comment: CLEAN CATCH Performed By: #### L 400.0001 ####[facility] [address] [place], [place], [id number] Mucus Ql (Urine sed) 1+ /hpf Normal [facility] Comment on above: Order Comment: CLEAN CATCH Performed By: #### L 400.0001 ####[facility] [address] [place], [place], [id number] RBC 0-5 SEEN Normal 0-5 [facility] Comment on above: Order Comment: CLEAN CATCH Performed By: #### L 400.0001 ####[facility] [address] [place], [address] WBC 0-5 SEEN Normal 0-5 [facility] Comment on above: Order Comment: CLEAN CATCH Performed By: #### L 400.0001 ####[facility] [address] [place], [address] Urine clarityOrdered By: Judah Tristan on 09-09-2024 Clarity (U) Clear Clear [facility] Urine color determinationOrd ered By: Chrissy Tristan on 09-09-2024 Color (U) Yellow Yellow [facility] Urine glucose detectionOrder ed By: Chrissy Tristan on 09-09-2024 Glucose Ql (U) Normal mg/dl Normal [facility] Urine leukocyte esterase det ection by dipstickOrdered By: Chrissy Tristan on 09-09-2024 Leukocyte esterase Test strip Ql (U) Negative Negative [facility] Urine pHOrdered By: Chrissy nye on 09-09-2024 pH (U) 7.0 [pH] 5.0 - 8.0 [facility] Urine sediment bacteria coun t by microscopy (number/high power field)Ordered By: Chrissy Tristan on 09-09-2024 Bacteria LM.HPF (Urine sed) [#/Area] Not Reportable [facility] Urine specific gravity measu rementOrdered By: Chrissy Tristan on 09-09-2024 Specific gravity (U) [Rel density] 1.015 1.002-1.030 [facility] Urine urobilinogen measureme ntOrdered By: Chrissy Tristan on 09-09-2024 Urobilinogen Ql (U) Normal mg/dl Normal [facility] White blood cell countOrdere d By: Chrissy Tristan on 09-09-2024 White blood cell count 0-5 SEEN /hpf 0-5 [facility] 12 Lead EKGon 08-25-2024 12 Lead EKG [facility] [address] [place] [address] 12 Lead EKG 08/25/24 0820 MR#: [id number] Acct: [id number] Name: JAG PEREZ Rep #: [id number] : 2000 23 From: Jacob Suggs MD Attending Dr: PANDA RuedaC Status: REG CLI Ordering Dr: Promise Agosto NP [employer] Date: 08/25/24 Location: PSN Sex: F C Admitted: Test Reason : TACHY DURING PREGNAN Blood Pressure : */* mmHG Vent. Rate : 105 BPM Atrial Rate : 105 BPM P-R Int : 128 ms QRS Dur : 82 ms QT Int : 348 ms P-R-T Axes : 43 11 25 degrees QTcB Int : 459 ms Sinus tachycardia Confirmed by Jacob Suggs ([id number]), medical transcription editor BURT BAIRD ([id number]) on 08/26/2024 9:49:23 AM Referred By: Promise Agosto Confirmed By: Jacob Suggs 08/26/24 0949 Date Jacob Suggs MD CC: CHELLY Agosto; Dr. Geronimo Arias, DO Signed Normal [facility] - Chemistry and C hemistry - challengeOrdered By: Promise Agosto on 08-23-2024 Glucose Ql (U) Negative [facility] - UrinalysisOrder ed By: Promise Agosto on 08-23-2024 Protein Ql (U) Negative [facility] Telephone Order Clerk Office Visit Reporton 08-23-2024 Telephone Order Clerk Office Visit Report [facility]'s [address], [facility] [address] [place] [address] OFFICE VISIT Date of Service: 08/23/24 MR#: [id number] Acct: [id number] Name: JAG PEREZ Rep #: [id number] : 2000 Provider: CHELLY sosa Age/Sex: 23/F Location: [facility] [place] Status: Signed Intake Vital Signs 07/12/24 14:50 08/11/24 11:20 08/23/24 13:55 Height 5 ft 2 in 5 ft 2 in 5 ft 2 in Weight: 188 lb 4 oz BMI 34.4 BP 100/64 Intake Visit Reasons: 32wk ob Chief Complaint: 32 Week OB Bi Lead Required: No Is patient in pain?: No Allergies No Known Allergies Allergy (Verified 08/23/24 13:57) Medications ???Medication ???Instructions ???Recorded ???Confirmed ???Type vits,calcium 91-iron 28 1 pkg PO DAILY 09/10/22 08/23/24 History mg-folic 975 mcg-dha 200 mg oral pack ( + DHA) ferrous sulfate 325 mg (65 mg 325 mg PO DAILY anemia 08/05/24 History iron) tablet (Feosol) Last Menstrual Period: 01/13/24 Zika: Zika virus screening: Negative : No PFSH PFSH Medical History Normal vaginal delivery Anxiety Family History Grandmother COPD (chronic obstructive pulmonary disease), Onset Age: 60 Maternal Grandfather Myocardial infarction, Onset Age: 67 Maternal Grandmother Breast cancer, Onset Age: 45 Paternal Social History adopted: No household members: spouse and children number of children: 1 current occupational status: unemployed current occupation: [employer] pets and animals: Yes (Avoid litterbox) pets and animals: cat(s) and dog(s) history of recent travel: No sexually active: Yes Smoking Status: Never smoker alcohol intake: never substance use type: does not use well-balanced diet: daily or most days caffeine: Yes Type: coffee Number of servings: 1 eating out: 1-3 times/week during the past year weight has: decreased > 10 lbs what type of physical activity do you participate in: none pia/orthodoxy: Latter-Day seatbelt use: always do you feel safe at home: Yes additional social history: Michelle [place] [employer] History 2 Elective abortions Hx Para 1 Spontaneous abortions Hx # Term Pregnancies Ectopic pregnancies Hx # Pregnancies Multiple births # of living children 1 Past Pregnancies Del. Date Name GA/Weeks Outcome Route Bth Weight Infant Gen Labor Lgth Anesthesia Del Locatn Provider FOB 10/22/22 Tanner 39 live - full term 7 Male epidural [facility] Car men Derick Reid Delivery Date: 10/22/22 Last Updated by: Katie Garg severe iron deficiency, infusions HPI 32wk ob Details: JAG PEREZ is a 23 year old who presents for routine OB visit. OB Visit ADDY Calculator Estimated Delivery Date Method Current WG Current Estimate 10/19/24 LMP (Certain) 31w 6d Other Estimates 10/22/24 Ultrasound #1 31w 3d Expected Delivery Route/Plan Labor Preferences- CB/BF classes: no labor support person: Michelle labor intervention preferences: [] pain management options preferred: [] cut cord/dad catch: [] : [] PP control planned: [] discussed possible routes of delivery and associated risks: [] special requests: [] Specific Issue/Plans Covid status: [] Flu vaccine: declined Tdap vaccine: Rhogam: [] LARC form signed: declined movement and labor precautions reviewed. Problem list reviewed and updated with the most current plan of care details and appropriate orders placed. Relevant counseling for the gestational age provided. Continue routine care and follow up unless otherwise noted in visit notes/problem list details Initial Weight: 172 lb Date -???-???-???-???-??? -???-???-???-???-??? -???-???- EGA Weight BP Urine Prot -???-???-???-???-??? -???-???-???-???-??? -???-???- Glucose FHR FuHt Pres Dilation -???-???-???-???-??? -???-???-???-???-??? -???-???- Effaced St Visit Note 03/18/24 -???-???-???-???-??? -???-???-???-???-??? -???-???- 9w 2d 172 lb 4 oz (+4 oz) 104/70 -???-???-???-???-??? -???-???-???-???-??? -???-???- 178 -???-???-???-???-??? -???-???-???-???-??? -???-???- KW- CRL cons with dates. declines NIPT 04/21/24 -???-???-???-???-??? -???-???-???-???-??? -???-???- 14w 1d 166 lb 4 oz (-5 lb 12 oz) 127/75 -???-???-???-???-??? -???-???-???-???-??? -???-???- 155 -???-???-???-???-??? -???-???-???-???-??? -???-???- SM- some kirt ght loss. eating well no no vb crmaping 05/21/24 -???-???-???-???-??? -???-???-???-???-??? -???-???- 18w 3d 169 lb 6 oz (-2 lb 10 oz) 108/74 Negative -???-???-???-???- (more content not included)... Normal [facility] - Chemistry and C hemistry - challengeOrdered By: Selene Back on 08-11-2024 Glucose Ql (U) Negative [facility] - UrinalysisOrder ed By: Selene Back on 08-11-2024 Protein Ql (U) Negative [facility] Telephone Order Clerk Office Visit Reporton 08-11-2024 Telephone Order Clerk Office Visit Report [facility]'s [address], [address] [place] [address] OFFICE VISIT Date of Service: 08/11/24 MR#: [id number] Acct: [id number] Name: JAG PEREZ Rep #: [id number] : 2000 Provider: Dr. Selene Palomo, Age/Sex: 23/F Location: [facility] Status: Signed Intake Vital Signs 06/18/24 08:49 08/05/24 22:25 08/11/24 11:19 08/11/24 11:20 Height 5 ft 2 in 5 ft 2 in 5 ft 2 in 5 ft 2 in Weight: 186 lb 4 oz BMI 34.0 BP 101/69 Intake Visit Reasons: 30 WK OB Bi Lead Required: No Is patient in pain?: No Allergies No Known Allergies Allergy (Verified 08/11/24 11:19) Medications ???Medication ???Instructions ???Recorded ???Confirmed ???Type vits,calcium 91-iron 28 1 pkg PO DAILY 09/10/22 08/11/24 History mg-folic 975 mcg-dha 200 mg oral pack ( + DHA) ferrous sulfate 325 mg (65 mg 325 mg PO DAILY anemia 08/05/24 History iron) tablet (Feosol) Last Menstrual Period: 01/13/24 Zika: Zika virus screening: Negative : No PFSH PFSH Medical History Normal vaginal delivery Anxiety Family History Grandmother COPD (chronic obstructive pulmonary disease), Onset Age: 60 Maternal Grandfather Myocardial infarction, Onset Age: 67 Maternal Grandmother Breast cancer, Onset Age: 45 Paternal Social History adopted: No household members: spouse and children number of children: 1 current occupational status: unemployed current occupation: [employer] pets and animals: Yes (Avoid litterbox) pets and animals: cat(s) and dog(s) history of recent travel: No sexually active: Yes Smoking Status: Never smoker alcohol intake: never substance use type: does not use well-balanced diet: daily or most days caffeine: Yes Type: coffee Number of servings: 1 eating out: 1-3 times/week during the past year weight has: decreased > 10 lbs what type of physical activity do you participate in: none pia/orthodoxy: Latter-Day seatbelt use: always do you feel safe at home: Yes additional social history: Michelle -[employer] History 2 Elective abortions Hx Para 1 Spontaneous abortions Hx # Term Pregnancies Ectopic pregnancies Hx # Pregnancies Multiple births # of living children 1 Past Pregnancies Del. Date Name GA/Weeks Outcome Route Bth Weight Gen Labor Lgth Anesthesia Del Locatn Provider FOB 10/22/22 Tanner 39 live - full term 7 Male epidural [facility] Car men Derick Reid Delivery Date: 10/22/22 Last Updated by: Katie Garg severe iron deficiency, infusions HPI 30 WK OB Details: JAG PEREZ is a 23 year old who presents for routine OB visit. OB Visit ADDY Calculator Estimated Delivery Date Method Current WG Current Estimate 10/19/24 LMP (Certain) 30w 1d Other Estimates 10/22/24 Ultrasound #1 29w 5d Expected Delivery Route/Plan Labor Preferences- CB/BF classes: [] labor support person: [] labor intervention preferences: [] pain management options preferred: [] cut cord/dad catch: [] : [] PP control planned: [] discussed possible routes of delivery and associated risks: [] special requests: [] Specific Issue/Plans Covid status: [] Flu vaccine: declined Tdap vaccine: Rhogam: [] LARC form signed: declined movement and labor precautions reviewed. Problem list reviewed and updated with the most current plan of care details and appropriate orders placed. Relevant counseling for the gestational age provided. Continue routine care and follow up unless otherwise noted in visit notes/problem list details Initial Weight: 172 lb Date -???-???-???-???-??? -???-???-???-???-??? -???-???- EGA Weight BP Urine Prot -???-???-???-???-??? -???-???-???-???-??? -???-???- Glucose FHR FuHt Pres Dilation -???-???-???-???-??? -???-???-???-???-??? -???-???- Effaced St Visit Note 03/18/24 -???-???-???-???-??? -???-???-???-???-??? -???-???- 9w 2d 172 lb 4 oz (+4 oz) 104/70 -???-???-???-???-??? -???-???-???-???-??? -???-???- 178 -???-???-???-???-??? -???-???-???-???-??? -???-???- KW- CRL cons with dates. declines NIPT 04/21/24 -???-???-???-???-??? -???-???-???-???-??? -???-???- 14w 1d 166 lb 4 oz (-5 lb 12 oz) 127/75 -???-???-???-???-??? -???-???-???-???-??? -???-???- 155 -???-???-???-???-??? -???-???-???-???-??? -???-???- SM- some kirt ght loss. eating well no no vb crmaping 05/21/24 -???-???-???-???-??? -???-???-???-???-??? -???-???- 18w 3d 169 lb 6 oz (-2 lb 10 oz) 108/74 Negative -???-???-???-???- (more content not included)... Normal [facility] Urine Cultureon 08-06-2024 URC Culture exhibits no growth. Normal [facility] Comment on above: Performed By: #### M 100.2200 #### [facility] [address] [facility] [place], [address] Absolute lymphocyte countOrd ered By: Becky Galvez on 08-05-2024 Lymphocytes Auto (Unsp spec) [#/Vol] 2.35 10*3/uL 0.83-4.51 [facility] Absolute neutrophil countOrd ered By: Becky Galvez on 08-05-2024 Neutrophils (Bld) [#/Vol] 12.0 10*3/uL High 2.0-7.7 [facility] Automated lymphocyte count a s percentage of total leukocytesOrdered By: Becky Galvez on 08-05-2024 Lymphocytes/100 WBC Auto (Unsp spec) 14.7 % Low 19-41 [facility] Basophil percentageOrdered B y: Becky Galvez on 08-05-2024 Basophils/100 WBC (Bld) 0.3 % 0-1 [facility] Bilirubin Test strip Ql (U)O rdered By: Becky Galvez on 08-05-2024 Bilirubin Ql (U) Negative Negative [facility] CBC W/Diff, Automatedon 07-14 Absolute Lymph 2.35 X10 3/uL Normal 0.83-4.51 [facility] Comment on above: Performed By: #### L 100.0100 ####[facility] [address] [facility] [facility] [place], [address] Absolute Neut 12.0 X10 3/uL High 2.0-7.7 [facility] Comment on above: Performed By: #### L 100.0100 ####[facility] [address] [facility] [facility] [place], [address] Basophils/100 WBC (Bld) 0.3 % Normal 0-1 [facility] Comment on above: Performed By: #### L 100.0100 ####[facility] [address] [facility] [place], [address] Eosinophils/100 WBC (Bld) 0.5 % Normal 0-5 [facility] Comment on above: Performed By: #### L 100.0100 ####[facility] [address] [place], [address] Erythrocyte distribution width (RBC) [Ratio] 13.5 % Normal 11.6-14.6 [facility] Comment on above: Performed By: #### L 100.0100 ####[facility] [address] [place], [address] Hematocrit (Bld) [Volume fraction] 31.4 % Low 37-47 [facility] Comment on above: Performed By: #### L 100.0100 ####[facility] [address] [place], [address] Hemoglobin (Bld) [Mass/Vol] 10.1 g/dL Low 12.0-15.0 [facility] Comment on above: Performed By: #### L 100.0100 ####[facility] [address] [place], [address] IG% 3.900 High 0.0-0.9 [facility] Comment on above: Result Comment: IG% - Immature Granulocytes (promyelocytes, myelocytes and metamyelocytes) > 1% indicates that a LEFT SHIFT is Present. Performed By: #### L 100.0100 ####[facility] [address] [place], [address] Lymphocytes/100 WBC (Bld) 14.7 % Low 19-41 [facility] Comment on above: Performed By: #### L 100.0100 ####[facility] [address] [place], [address] MCH (RBC) [Entitic mass] 28.7 pg Normal 27.0-32.0 [facility] Comment on above: Performed By: #### L 100.0100 ####[facility] [address] [place], [address] MCHC (RBC) [Mass/Vol] 32.2 g/dL Normal 32-36 [facility] Comment on above: Performed By: #### L 100.0100 ####[facility] [address] [place], [address] MCV (RBC) [Entitic vol] 89.2 fL Normal 81-99 [facility] Comment on above: Performed By: #### L 100.0100 ####[facility] [address] [place], [address] Monocytes/100 WBC (Bld) 5.5 % Normal 0-10 [facility] Comment on above: Performed By: #### L 100.0100 ####[facility] [address] [place], [address] Neutrophils/100 WBC (Bld) 75.1 % High 47-70 [facility] Comment on above: Performed By: #### L 100.0100 ####[facility] [address] [place], [address] Nucleated RBC (Bld) [#/Vol] 0 10*3/uL Normal 0-5 [facility] Comment on above: Performed By: #### L 100.0100 ####[facility] [address] [place], [address] Platelet mean volume (Bld) [Entitic vol] 10.2 fL Normal 6.2-12.0 [facility] Comment on above: Performed By: #### L 100.0100 ####[facility] [address] [place], [address] Platelets (Bld) [#/Vol] 287 10*3/uL Normal 150-450 [facility] Comment on above: Performed By: #### L 100.0100 ####[facility] [address] [place], [address] RBC (Bld) [#/Vol] 3.52 10*6/uL Low 4.2-5.4 [facility] Comment on above: Performed By: #### L 100.0100 ####[facility] [address] [place], [address] RDW SD 44.3 fl High 35.1-43.9 [facility] Comment on above: Performed By: #### L 100.0100 ####[facility] [address] [place], [address] WBC (Bld) [#/Vol] 16.0 10*3/uL High 4.4-11.0 [facility] Comment on above: Performed By: #### L 100.0100 ####[facility] [address] [place], [address] Eosinophil percentageOrdered By: Becky Galvez on 08-05-2024 Eosinophils/100 WBC (Bld) 0.5 % 0-5 [facility] Epithelial cells.squamous LM Ql (Urine sed)Ordered By: Becky Galvez on 08-05-2024 Epithelial cells.squamous LM.HPF (Urine sed) [#/Area] 0 /[HPF] 5-10 [facility] Erythrocyte distribution wid th (RBC) [Ratio]Ordered By: Becky Galvez on 08-05-2024 Erythrocyte distribution width (RBC) [Entitic vol] 44.3 fL High 35.1-43.9 [facility] Erythrocyte distribution wid th ratioOrdered By: Becky Galvez on 08-05-2024 Erythrocyte distribution width (RBC) [Ratio] 13.5 % 11.6-14.6 [facility] Erythrocyte distribution wid th standard deviationOrdered By: Becky Galvez on 08-05-2024 Erythrocyte distribution width (RBC) [Ratio] 44.3 fl High 35.1-43.9 [facility] Glucose Ql (U)Ordered By: Sveta Galvez on 08-05-2024 Urine Glucose (UA) Normal mg/dl Normal [facility] Hematocrit Auto (Bld) [Volum e fraction]Ordered By: Becky Galvez on 08-05-2024 Hematocrit (Bld) [Volume fraction] 31.4 % Low 37-47 [facility] Hemoglobin measurementOrdere d By: Becky Galvez on 08-05-2024 Hemoglobin (Bld) [Mass/Vol] 10.1 g/dL Low 12.0-15.0 [facility] Immature granulocytes/100 WB C Auto (Bld)Ordered By: Becky Galvez on 08-05-2024 Immature granulocytes/100 WBC (Bld) 3.900 % High 0.0-0.9 [facility] Comment on above: IG% - Immature Granu locytes (promyelocytes, myelocytes and metamyelocytes) > 1% indicates that a LEFT SHIFT is Present. Ketones Test strip Ql (U)Ord ered By: Becky Galvez on 08-05-2024 Ketones Ql (U) Negative Negative [facility] Lymphocytes Auto (Unsp spec) [#/Vol]Ordered By: Becky Galvez on 08-05-2024 Lymphocytes (Bld) [#/Vol] 2.35 10*3/uL 0.83-4.51 [facility] Lymphocytes/100 WBC Auto (Un sp spec)Ordered By: Becky Galvez on 08-05-2024 Lymphocytes/100 WBC (Bld) 14.7 % Low 19-41 [facility] MCV (mean corpuscular volume ) determinationOrdered By: Becky Galvez on 08-05-2024 MCV (RBC) [Entitic vol] 89.2 fL 81-99 [facility] Mean corpuscular hemoglobin (MCH) determinationOrdered By: Becky Galvez on 08-05-2024 MCH (RBC) [Entitic mass] 28.7 pg 27.0-32.0 [facility] Mean corpuscular hemoglobin concentration (MCHC) determinationOrdered By: Becky Galvez on 08-05-2024 MCHC (RBC) [Mass/Vol] 32.2 g/dL 32-36 [facility] Mean platelet volume determi nationOrdered By: Becky Galvez on 08-05-2024 Platelet mean volume (Bld) [Entitic vol] 10.2 fL 6.2-12.0 [facility] Microscopic analysis of urin e for red blood cells (RBC)Ordered By: Becky Galvez on 08-05-2024 Microscopic analysis of urine for red blood cells (RBC) 0 SEEN /hpf 0-5 [facility] Urine RBC 0 SEEN /hpf 0-5 [facility] Monocyte percentageOrdered B y: Becky Rain on 08-05-2024 Monocytes/100 WBC (Bld) 5.5 % 0-10 [facility] Mucus LM Ql (Urine sed)Order ed By: Becky Galvez on 08-05-2024 Mucus Ql (Urine sed) 0 SEEN /hpf [facility] Neutrophil percentageOrdered By: Becky Galvez on 08-05-2024 Neutrophils/100 WBC (Bld) 75.1 % High 47-70 [facility] Nitrite Test strip Ql (U)Ord ered By: Becky Galvez on 08-05-2024 Nitrite Ql (U) Negative Negative [facility] Nucleated red blood cell per centageOrdered By: Becky Galvez on 08-05-2024 Nucleated RBC/100 WBC (Bld) [Ratio] 0 % 0-5 [facility] OB Triage Physician Noteon 0 08-05-2024 OB Triage Physician Note [facility] Medical Records Department [address] [place] [address] OB Triage Physician Note 08/05/242 MR#: [id number] Acct: [id number] Name: JAG PEREZ Rep #: [id number] : 2000 23 From: Becky Galvez MD PCP: Dr. Geronimo Arias, DO Status:DEP CLI Y Location: [facility] HPI - General HPI Narrative JAG PEREZ, is a 23 F who presents with constant lower cramping no vb lof admits good fm, she has just felt malaise and off today. Maternal Data Information ADDY Calculator Estimated Delivery Date Method Current WG Current Estimate 10/19/24 LMP (Certain) 29w 2d Other Estimates 10/22/24 Ultrasound #1 28w 6d PFSH PFSH Medical History Normal vaginal delivery Anxiety Home Medications ???Medication ???Instructions ???Recorded ???Last Taken ???Type vits,calcium 91-iron 28 1 pkg PO DAILY 09/10/22 08/04/24 History mg-folic 975 mcg-dha 200 mg oral pack ( + DHA) ferrous sulfate 325 mg (65 mg 325 mg PO DAILY anemia 08/05/24 History iron) tablet (Feosol) Allergy/AdvReac Type Severity Reaction Status Date / Time No Known Allergies Allergy Verified 08/05/24 22:24 Family History Grandmother COPD (chronic obstructive pulmonary disease), Onset Age: 60 Maternal Grandfather Myocardial infarction, Onset Age: 67 Maternal Grandmother Breast cancer, Onset Age: 45 Paternal Social History adopted: No household members: spouse and children number of children: 1 current occupational status: unemployed current occupation: [employer] pets and animals: Yes (Avoid litterbox) pets and animals: cat(s) and dog(s) history of recent travel: No sexually active: Yes Smoking Status: Never smoker alcohol intake: never substance use type: does not use well-balanced diet: daily or most days caffeine: Yes Type: coffee Number of servings: 1 eating out: 1-3 times/week during the past year weight has: decreased > 10 lbs what type of physical activity do you participate in: none pia/orthodoxy: Latter-Day seatbelt use: always do you feel safe at home: Yes additional social history: Michelle [place] [employer] History 2 Elective abortions Hx Para 1 Spontaneous abortions Hx # Term Pregnancies Ectopic pregnancies Hx # Pregnancies Multiple births # of living children 1 Past Pregnancies Del. Date Name GA/Weeks Outcome Route Bth Weight Gen Labor Lgth Anesthesia Del Locatn Provider FOB 10/22/22 Tanner 39 live - full term 7 Male epidural [facility] Car men Derick Reid Delivery Date: 10/22/22 Last Updated by: Katie Garg severe iron deficiency, infusions Visit Details Expected Delivery Route/Plan Labor Preferences- CB/BF classes: [] labor support person: [] labor intervention preferences: [] pain management options preferred: [] cut cord/dad catch: [] : [] PP control planned: [] discussed possible routes of delivery and associated risks: [] special requests: [] Plans Covid status: [] Flu vaccine: declined Tdap vaccine: Rhogam: [] LARC form signed: declined movement and labor precautions reviewed. Problem list reviewed and updated with the most current plan of care details and appropriate orders placed. Relevant counseling for the gestational age provided. Continue routine care and follow up unless otherwise noted in visit notes/problem list details OB Flowsheet Initial Weight: 172 lb Date -???-???-???-???-??? -???-???-???-???-??? -???-???- EGA Weight BP Urine Prot -???-???-???-???-??? -???-???-???-???-??? -???-???- Glucose FHR FuHt Pres Dilation -???-???-???-???-??? -???-???-???-???-??? -???-???- Effaced St Visit Note 03/18/24 -???-???-???-???-??? -???-???-???-???-??? -???-???- 9w 2d 172 lb 4 oz (+4 oz) 104/70 -???-???-???-???-??? -???-???-???-???-??? -???-???- 178 -???-???-???-???-??? -???-???-???-???-??? -???-???- KW- CRL cons with dates. declines NIPT 04/21/24 -???-???-???-???-??? -???-???-???-???-??? -???-???- 14w 1d 166 lb 4 oz (-5 lb 12 oz) 127/75 -???-???-???-???-??? -???-???-???-???-??? -???-???- 155 -???-???-???-???-??? -???-???-???-???-??? -???-???- SM- some kirt ght loss. eating well no no vb crmaping 05/21/24 -???-???-???-???-??? -???-???-???-???-??? -???-???- 18w 3d 169 lb 6 oz (-2 lb 10 oz) 108/74 Negative -???-???-???-???-??? -???-???-???-???-??? -???-???- Negative 140 -???-???-???-???-??? -???-???-???-???-??? -???-???- KW- no vb/cr amping. + yeast infection-started Monistat yesterday. will send in script. US scheduled with [facility]. 06/18/24 -???-???-???-???- (more content not included)... Normal [facility] Platelet countOrdered By: Sveta Galvez on 08-05-2024 Platelets (Bld) [#/Vol] 287 10*3/uL 150-450 [facility] Protein Test strip Ql (U)Ord ered By: Becky Galvez on 08-05-2024 Protein Ql (U) 15 mg/dl High Negative [facility] RBC Auto (Bld) [#/Vol]Ordere d By: Becky Galvez on 08-05-2024 RBC (Bld) [#/Vol] 3.52 10*6/uL [facility] Squ[facility] epithelial cells de tection in urine sediment by light microscopyOrdered By: Becky Galvez on 08-05-2024 Epithelial cells.squamous LM Ql (Urine sed) 0-5 SEEN /hpf 5-10 [facility] Urinalysis, Completeon 08-05 BACTERIA 1+ /hpf Normal None Seen [facility] Comment on above: Order Comment: PAUL CTOR TO SPECIFY Performed By: #### L 400.0001 ####[facility] [address] [place], [address] EPI,SQUAMOUS 0-5 SEEN Normal 5-10 [facility] Comment on above: Order Comment: PAUL CTOR TO SPECIFY Performed By: #### L 400.0001 ####[facility] [address] [place], [address] WBC 0-5 SEEN Normal 0-5 [facility] Comment on above: Order Comment: PAUL CTOR TO SPECIFY Performed By: #### L 400.0001 ####[facility] [address] [place], [address] Mucus Ql (Urine sed) 0 SEEN Normal [facility] Comment on above: Order Comment: PAUL CTOR TO SPECIFY Performed By: #### L 400.0001 ####[facility] [address] [place], [address] RBC 0 SEEN Normal 0-5 [facility] Comment on above: Order Comment: PAUL CTOR TO SPECIFY Performed By: #### L 400.0001 ####[facility] [address] [place], [address] Urine blood detectionOrdered By: Becky Galvez on 08-05-2024 Urine Occult Blood 10 /ul High Negative [facility] Urine clarityOrdered By: Iam Galvez on 08-05-2024 Clarity (U) Clear Clear [facility] Urine color determinationOrd ered By: Becky Galvez on 08-05-2024 Color (U) Yellow Yellow [facility] Urine cultureOrdered By: Iam Galvez on 08-05-2024 Bacteria identified Cx Nom (U) Culture exhibits no growth. [facility] Urine glucose detectionOrder ed By: Becky Galvez on 08-05-2024 Glucose Ql (U) Normal mg/dl Normal [facility] Urine leukocyte esterase det ection by dipstickOrdered By: Becky Galvez on 08-05-2024 Leukocyte esterase Test strip Ql (U) 25 /ul High Negative [facility] Urine pHOrdered By: Becky self on 08-05-2024 pH (U) 6.0 [pH] 5.0 - 8.0 [facility] Urine sediment bacteria coun t by microscopy (number/high power field)Ordered By: Becky Galvez on 08-05-2024 Bacteria LM.HPF (Urine sed) [#/Area] 1 /[HPF] None Seen [facility] Urine specific gravity measu rementOrdered By: Becky Galvez on 08-05-2024 Specific gravity (U) [Rel density] 1.020 1.002-1.030 [facility] Urine urobilinogen measureme ntOrdered By: Becky Galvez on 08-05-2024 Urobilinogen Ql (U) 1 mg/dl High Normal [facility] Urobilinogen Ql (U)Ordered B y: Becky Galvez on 08-05-2024 Urobilinogen (U) [Mass/Vol] 1 mg/dL High Normal [facility] White blood cell (WBC) count Ordered By: Becky Galvez on 08-05-2024 WBC (Bld) [#/Vol] 16.0 10*3/uL High 4.4-11.0 [facility] White blood cell countOrdere d By: Becky Galvez on 08-05-2024 Urine WBC 0-5 SEEN /hpf 0-5 [facility] White blood cell count 0-5 SEEN /hpf 0-5 [facility] Laboratory - Chemistry and C hemistry - challengeOrdered By: Becky Galvez on 07-30-2024 Glucose Ql (U) Negative [facility] - UrinalysisOrder ed By: Becky Galvez on 07-30-2024 Protein Ql (U) Negative [facility] Telephone Order Clerk Office Visit Reporton 07-30-2024 Telephone Order Clerk Office Visit Report [facility]'s [address], [address] [place] [address] OFFICE VISIT Date of Service: 07/30/24 MR#: [id number] Acct: [id number] Name: JAG PEREZ Rep #: [id number] : 2000 Provider: Dr. Becky cervantes MD Age/Sex: 23/F Location: [facility] [place] Status: Signed Intake Vital Signs 06/18/24 08:49 07/12/24 14:50 07/30/24 11:00 Height 5 ft 2 in 5 ft 2 in 5 ft 2 in Weight: 182 lb 6 oz BMI 33.3 BP 106/68 Intake Visit Reasons: 28 WK OB Bi Lead Required: No Is patient in pain?: No Feel stressed/tense/nervo us/anxious/difficult y sleeping: not at all Allergies No Known Allergies Allergy (Verified 07/30/24 11:11) Medications ???Medication ???Instructions ???Recorded ???Confirmed ???Type vits,calcium 91-iron 28 1 pkg PO DAILY 09/10/22 07/30/24 History mg-folic 975 mcg-dha 200 mg oral pack ( + DHA) acetaminophen 500 mg tablet 1,000 mg (2 x 500 mg) PO Q6H PRN 0 10/23/22 07/30/24 Rx PRN Pain 1-10 Or Fever #0 tabs Last Menstrual Period: 01/13/24 Zika: Zika virus screening: Negative : No PFSH PFSH Medical History Normal vaginal delivery Anxiety Family History Grandmother COPD (chronic obstructive pulmonary disease), Onset Age: 60 Maternal Grandfather Myocardial infarction, Onset Age: 67 Maternal Grandmother Breast cancer, Onset Age: 45 Paternal Social History adopted: No household members: spouse and children number of children: 1 current occupational status: unemployed current occupation: [employer] pets and animals: Yes (Avoid litterbox) pets and animals: cat(s) and dog(s) history of recent travel: No sexually active: Yes Smoking Status: Never smoker alcohol intake: never substance use type: does not use well-balanced diet: daily or most days caffeine: Yes Type: coffee Number of servings: 1 eating out: 1-3 times/week during the past year weight has: decreased > 10 lbs what type of physical activity do you participate in: none pia/orthodoxy: Latter-Day seatbelt use: always do you feel safe at home: Yes additional social history: Michelle [employer] [place] [employer] History 2 Elective abortions Hx Para 1 Spontaneous abortions Hx # Term Pregnancies Ectopic pregnancies Hx # Pregnancies Multiple births # of living children 1 Past Pregnancies Del. Date Name GA/Weeks Outcome Route Bth Weight Infant Gen Labor Lgth Anesthesia Del Locatn Provider FOB 10/22/22 Tanner 39 live - full term 7 Male epidural [facility] Car men Derick Reid Delivery Date: 10/22/22 Last Updated by: Katie Garg severe iron deficiency, infusions HPI 28 WK OB Details: JAG PEREZ is a 23 year old who presents for routine OB visit. OB Visit ADDY Calculator Estimated Delivery Date Method Current WG Current Estimate 10/19/24 LMP (Certain) 28w 3d Other Estimates 10/22/24 Ultrasound #1 28w 0d Expected Delivery Route/Plan Labor Preferences- CB/BF classes: [] labor support person: [] labor intervention preferences: [] pain management options preferred: [] cut cord/dad catch: [] : [] PP control planned: [] discussed possible routes of delivery and associated risks: [] special requests: [] Specific Issue/Plans Covid status: [] Flu vaccine: declined Tdap vaccine: Rhogam: [] LARC form signed: declined movement and labor precautions reviewed. Problem list reviewed and updated with the most current plan of care details and appropriate orders placed. Relevant counseling for the gestational age provided. Continue routine care and follow up unless otherwise noted in visit notes/problem list details Initial Weight: 172 lb Date -???-???-???-???-??? -???-???-???-???-??? -???-???- EGA Weight BP Urine Prot -???-???-???-???-??? -???-???-???-???-??? -???-???- Glucose FHR FuHt Pres Dilation -???-???-???-???-??? -???-???-???-???-??? -???-???- Effaced St Visit Note 03/18/24 -???-???-???-???-??? -???-???-???-???-??? -???-???- 9w 2d 172 lb 4 oz (+4 oz) 104/70 -???-???-???-???-??? -???-???-???-???-??? -???-???- 178 -???-???-???-???-??? -???-???-???-???-??? -???-???- KW- CRL cons with dates. declines NIPT 04/21/24 -???-???-???-???-??? -???-???-???-???-??? -???-???- 14w 1d 166 lb 4 oz (-5 lb 12 oz) 127/75 -???-???-???-???-??? -???-???-???-???-??? -???-???- 155 -???-???-???-???-??? -???-???-???-???-??? -???-???- SM- some kirt ght loss. eating well no no vb crmaping 05/21/24 -???-???-???-???-??? -???-???-???-???-??? -???-???- 18w 3d 169 lb 6 oz (- (more content not included)... Normal [facility] Absolute lymphocyte countOrd ered By: Chrissy Tristan on 07-12-2024 Lymphocytes Auto (Unsp spec) [#/Vol] 1.90 10*3/uL 0.83-4.51 [facility] Absolute neutrophil countOrd ered By: Chrissy Tristan on 07-12-2024 Neutrophils (Bld) [#/Vol] 7.1 10*3/uL 2.0-7.7 [facility] Automated lymphocyte count a s percentage of total leukocytesOrdered By: Chrissy Tristan on 07-12-2024 Lymphocytes/100 WBC Auto (Unsp spec) 19.0 % 19-41 [facility] Basophil percentageOrdered B y: Chrissy Tristan on 07-12-2024 Basophils/100 WBC (Bld) 0.2 % 0-1 [facility] CBC W/Diff, Automatedon 06-14 Absolute Lymph 1.90 X10 3/uL Normal 0.83-4.51 [facility] Comment on above: Performed By: #### L 100.0100, L3890.6006, L509.8002, L501.0250 #### [facility] [address] [place], [address] Absolute Neut 7.1 X10 3/uL Normal 2.0-7.7 [facility] Comment on above: Performed By: #### L 100.0100, L3890.6006, L509.8002, L501.0250 #### [facility] [address] [place], [address] Basophils/100 WBC (Bld) 0.2 % Normal 0-1 [facility] Comment on above: Performed By: #### L 100.0100, L3890.6006, L509.8002, L501.0250 #### [facility] [address] [place], [address] Eosinophils/100 WBC (Bld) 0.5 % Normal 0-5 [facility] Comment on above: Performed By: #### L 100.0100, L3890.6006, L509.8002, L501.0250 #### [facility] [address] [place], [address] Erythrocyte distribution width (RBC) [Ratio] 13.7 % Normal 11.6-14.6 [facility] Comment on above: Performed By: #### L 100.0100, L3890.6006, L509.8002, L501.0250 #### [facility] [address] [place], [address] Hematocrit (Bld) [Volume fraction] 34.6 % Low 37-47 [facility] Comment on above: Performed By: #### L 100.0100, L3890.6006, L509.8002, L501.0250 #### [facility] [address] [place], [address] Hemoglobin (Bld) [Mass/Vol] 11.3 g/dL Low 12.0-15.0 [facility] Comment on above: Performed By: #### L 100.0100, L3890.6006, L509.8002, L501.0250 #### [facility] [address] [place], [address] IG% 1.400 High 0.0-0.9 [facility] Comment on above: Result Comment: IG% - Immature Granulocytes (promyelocytes, myelocytes and metamyelocytes) > 1% indicates that a LEFT SHIFT is Present. Performed By: #### L 100.0100, L3890.6006, L509.8002, L501.0250 #### [facility] [address] [place], [address] Lymphocytes/100 WBC (Bld) 19.0 % Normal 19-41 [facility] Comment on above: Performed By: #### L 100.0100, L3890.6006, L509.8002, L501.0250 #### [facility] [address] [place], [address] MCH (RBC) [Entitic mass] 29.3 pg Normal 27.0-32.0 [facility] Comment on above: Performed By: #### L 100.0100, L3890.6006, L509.8002, L501.0250 #### [facility] [address] [place], [address] MCHC (RBC) [Mass/Vol] 32.7 g/dL Normal 32-36 [facility] Comment on above: Performed By: #### L 100.0100, L3890.6006, L509.8002, L501.0250 #### [facility] [address] [place], [address] MCV (RBC) [Entitic vol] 89.6 fL Normal 81-99 [facility] Comment on above: Performed By: #### L 100.0100, L3890.6006, L509.8002, L501.0250 #### [facility] [address] [place], [address] Monocytes/100 WBC (Bld) 8.4 % Normal 0-10 [facility] Comment on above: Performed By: #### L 100.0100, L3890.6006, L509.8002, L501.0250 #### [facility] [address] [place], [address] Neutrophils/100 WBC (Bld) 70.5 % High 47-70 [facility] Comment on above: Performed By: #### L 100.0100, L3890.6006, L509.8002, L501.0250 #### [facility] [address] [place], [address] Nucleated RBC (Bld) [#/Vol] 0 10*3/uL Normal 0-5 [facility] Comment on above: Performed By: #### L 100.0100, L3890.6006, L509.8002, L501.0250 #### [facility] [address] [place], [address] Platelet mean volume (Bld) [Entitic vol] 10.7 fL Normal 6.2-12.0 [facility] Comment on above: Performed By: #### L 100.0100, L3890.6006, L509.8002, L501.0250 #### [facility] [address] [place], [address] Platelets (Bld) [#/Vol] 278 10*3/uL Normal 150-450 [facility] Comment on above: Performed By: #### L 100.0100, L3890.6006, L509.8002, L501.0250 #### [facility] [address] [place], [address] RBC (Bld) [#/Vol] 3.86 10*6/uL Low 4.2-5.4 [facility] Comment on above: Performed By: #### L 100.0100, L3890.6006, L509.8002, L501.0250 #### [facility] [address] [place], [address] RDW SD 45.1 fl High 35.1-43.9 [facility] Comment on above: Performed By: #### L 100.0100, L3890.6006, L509.8002, L501.0250 #### [facility] [address] [place], [address] WBC (Bld) [#/Vol] 10.0 10*3/uL Normal 4.4-11.0 [facility] Comment on above: Performed By: #### L 100.0100, L3890.6006, L509.8002, L501.0250 #### [facility] [address] [place], [address] Eosinophil percentageOrdered By: Chrissy Tristan on 07-12-2024 Eosinophils/100 WBC (Bld) 0.5 % 0-5 [facility] Erythrocyte distribution wid th (RBC) [Ratio]Ordered By: Chrissy Tristan on 07-12-2024 Erythrocyte distribution width (RBC) [Entitic vol] 45.1 fL High 35.1-43.9 [facility] Erythrocyte distribution wid th ratioOrdered By: Chrissy Tristan on 07-12-2024 Erythrocyte distribution width (RBC) [Ratio] 13.7 % 11.6-14.6 [facility] Erythrocyte distribution wid th standard deviationOrdered By: Chrissy Tristan on 07-12-2024 Erythrocyte distribution width (RBC) [Ratio] 45.1 fl High 35.1-43.9 [facility] Glucose Challenge Gest 1H 50 reno 07-12-2024 GLU GEST 50g 1H 77 mg/dL Normal 70-140 [facility] Comment on above: Performed By: #### L 100.0100, L3890.6006, L509.8002, L501.0250 #### [facility] [address] [place], [address] Glucose measurement at 2 mauri rs post-dose gestational glucose tolerance testOrdered By: Chrissy Tristan on 07-12-2024 Glucose [Mass/Vol] 77 mg/dL 70-140 [facility] Hematocrit Auto (Bld) [Volum e fraction]Ordered By: Chrissy Tristan on 07-12-2024 Hematocrit (Bld) [Volume fraction] 34.6 % Low 37-47 [facility] Hemoglobin measurementOrdere d By: Chrissy Tristan on 07-12-2024 Hemoglobin (Bld) [Mass/Vol] 11.3 g/dL Low 12.0-15.0 [facility] Immature granulocytes/100 WB C Auto (Bld)Ordered By: Chrissy Tristan on 07-12-2024 Immature granulocytes/100 WBC (Bld) 1.400 % High 0.0-0.9 [facility] Comment on above: IG% - Immature Granu locytes (promyelocytes, myelocytes and metamyelocytes) > 1% indicates that a LEFT SHIFT is Present. L3890.6006on 07-12-2024 HIV Non-Reactive Normal Nonreactive [facility] Comment on above: Result Comment: Non- Reactive Reactive Repeatedly reactive samples must be confirmed according to CDC recommended confirmatory algorithms. The subresults for either HIVAG or AHIV can be used as an aid in the selection of the confirmation algorithm for reactive samples. Send out specimens with Reactive results to [facility] for confirmation. Order the HIV antibody detection and differentiation: #[id number] Performed By: #### L 100.0100, L3890.6006, L509.8002, L501.0250 ####[facility] [address] [facility] [place], [address] L509.8002on 07-12-2024 Syphilis Abs Non-Reactive Normal Nonreactive [facility] Comment on above: Performed By: #### L 100.0100, L3890.6006, L509.8002, L501.0250 #### [facility] [address] [facility] [place], [address] Lymphocytes Auto (Unsp spec) [#/Vol]Ordered By: Chrissy Tristan on 07-12-2024 Lymphocytes (Bld) [#/Vol] 1.90 10*3/uL 0.83-4.51 [facility] Lymphocytes/100 WBC Auto (Un sp spec)Ordered By: Chrissy Tristan on 07-12-2024 Lymphocytes/100 WBC (Bld) 19.0 % 19-41 [facility] MCV (mean corpuscular volume ) determinationOrdered By: Chrissy Tristan on 07-12-2024 MCV (RBC) [Entitic vol] 89.6 fL 81-99 [facility] Mean corpuscular hemoglobin (MCH) determinationOrdered By: Chrissy Tristan on 07-12-2024 MCH (RBC) [Entitic mass] 29.3 pg 27.0-32.0 [facility] Mean corpuscular hemoglobin concentration (MCHC) determinationOrdered By: Chrissy Tristan on 07-12-2024 MCHC (RBC) [Mass/Vol] 32.7 g/dL 32-36 [facility] Mean platelet volume determi nationOrdered By: Chrissy Tristan on 07-12-2024 Platelet mean volume (Bld) [Entitic vol] 10.7 fL 6.2-12.0 [facility] Monocyte percentageOrdered B y: Chrissy Tristan on 07-12-2024 Monocytes/100 WBC (Bld) 8.4 % 0-10 [facility] Neutrophil percentageOrdered By: Chrissy Tristan on 07-12-2024 Neutrophils/100 WBC (Bld) 70.5 % High 47-70 [facility] No Panel InformationOrdered By: Chrissy Tristan on 07-12-2024 HIV (1&2) Antibody Non-Reactive Nonreactive [facility] Comment on above: Non-ReactiveReactive Repeatedly reactive samples must be confirmed according to CDC recommended confirmatory algorithms. The subresults for either HIVAG or AHIV can be used as an aid in the selection of the confirmation algorithm for reactive samples.Send out specimens with Reactive results to [facility] for confirmation.Order the HIV antibody detection and differentiation: #[id number] Nucleated red blood cell per centageOrdered By: Chrissy Tristan on 07-12-2024 Nucleated RBC/100 WBC (Bld) [Ratio] 0 % 0-5 [facility] Telephone Order Clerk Office Visit Reporton 07-12-2024 Telephone Order Clerk Office Visit Report [facility]'s [address], [address] [place] [address] OFFICE VISIT Date of Service: 07/12/24 MR#: [id number] Acct: [id number] Name: JAG PEREZ Rep #: [id number] : 2000 Provider: IMCK Castillo ams Age/Sex: 23/F Location: [facility] [place] Status: Signed Intake Vital Signs 06/18/24 08:49 06/24/24 13:12 07/12/24 14:50 Height 5 ft 2 in 5 ft 2 in 5 ft 2 in Weight: 176 lb 8 oz BMI 32.3 BP 105/69 Intake Visit Reasons: 26 WK OB/GLUCOSE Chief Complaint: 26wk OB Bi Lead Required: No Is patient in pain?: No Allergies No Known Allergies Allergy (Verified 07/12/24 14:47) Medications ???Medication ???Instructions ???Recorded ???Confirmed ???Type vits,calcium 91-iron 28 1 pkg PO DAILY 09/10/22 07/12/24 History mg-folic 975 mcg-dha 200 mg oral pack ( + DHA) acetaminophen 500 mg tablet 1,000 mg (2 x 500 mg) PO Q6H PRN 0 10/23/22 07/12/24 Rx PRN Pain 1-10 Or Fever #0 tabs Last Menstrual Period: 01/13/24 : No PFSH PFSH Medical History Normal vaginal delivery Anxiety Family History Grandmother COPD (chronic obstructive pulmonary disease), Onset Age: 60 Maternal Grandfather Myocardial infarction, Onset Age: 67 Maternal Grandmother Breast cancer, Onset Age: 45 Paternal Social History adopted: No household members: spouse and children number of children: 1 current occupational status: unemployed current occupation: [employer] pets and animals: Yes (Avoid litterbox) pets and animals: cat(s) and dog(s) history of recent travel: No sexually active: Yes Smoking Status: Never smoker alcohol intake: never substance use type: does not use well-balanced diet: daily or most days caffeine: Yes Type: coffee Number of servings: 1 eating out: 1-3 times/week during the past year weight has: decreased > 10 lbs what type of physical activity do you participate in: none pia/orthodoxy: Latter-Day seatbelt use: always do you feel safe at home: Yes additional social history: Michelle [employer] [place] [employer] History 2 Elective abortions Hx Para 1 Spontaneous abortions Hx # Term Pregnancies Ectopic pregnancies Hx # Pregnancies Multiple births # of living children 1 Past Pregnancies Del. Date Name GA/Weeks Outcome Route Bth Weight Infant Gen Labor Lgth Anesthesia Del Locatn Provider FOB 10/22/22 Tanner 39 live - full term 7 Male epidural [facility] Car men Derick Reid Delivery Date: 10/22/22 Last Updated by: Katie Garg severe iron deficiency, infusions HPI 26 WK OB/GLUCOSE Details: JAG PEREZ is a 23 year old who presents for routine OB visit. OB Visit ADDY Calculator Estimated Delivery Date Method Current WG Current Estimate 10/19/24 LMP (Certain) 25w 6d Other Estimates 10/22/24 Ultrasound #1 25w 3d Expected Delivery Route/Plan Labor Preferences- CB/BF classes: [] labor support person: [] labor intervention preferences: [] pain management options preferred: [] cut cord/dad catch: [] : [] PP control planned: [] discussed possible routes of delivery and associated risks: [] special requests: [] Specific Issue/Plans Covid status: [] Flu vaccine: declined Tdap vaccine: [] Rhogam: [] LARC form signed: [] Problem list reviewed and updated with the most current plan of care details and appropriate orders placed. Relevant counseling for the gestational age provided. Continue routine care and follow up unless otherwise noted in visit notes/problem list details Initial Weight: 172 lb Date -???-???-???-???-??? -???-???-???-???-??? -???-???- EGA Weight BP Urine Prot -???-???-???-???-??? -???-???-???-???-??? -???-???- Glucose FHR FuHt Pres Dilation -???-???-???-???-??? -???-???-???-???-??? -???-???- Effaced St Visit Note 03/18/24 -???-???-???-???-??? -???-???-???-???-??? -???-???- 9w 2d 172 lb 4 oz (+4 oz) 104/70 -???-???-???-???-??? -???-???-???-???-??? -???-???- 178 -???-???-???-???-??? -???-???-???-???-??? -???-???- KW- CRL cons with dates. declines NIPT 04/21/24 -???-???-???-???-??? -???-???-???-???-??? -???-???- 14w 1d 166 lb 4 oz (-5 lb 12 oz) 127/75 -???-???-???-???-??? -???-???-???-???-??? -???-???- 155 -???-???-???-???-??? -???-???-???-???-??? -???-???- SM- some kirt ght loss. eating well no no vb crmaping 05/21/24 -???-???-???-???-??? -???-???-???-???-??? -???-???- 18w 3d 169 lb 6 oz (-2 lb 10 oz) 108/74 Negative -???-???-???-???-??? -???-???-???-???-??? -???-???- Negative 140 -???-???-???-???-??? -???-???-???-???-??? -??? (more content not included)... Normal [facility] Platelet countOrdered By: Bandar Tristan on 07-12-2024 Platelets (d) [#/Vol] 278 10*3/uL 150-450 [facility] RBC Auto (d) [#/Vol]Ordere d By: Chrissy Tristan on 07-12-2024 RBC (Bld) [#/Vol] 3.86 10*6/uL Low 4.2-5.4 [facility] T. pallidum abOrdered By: Bandar Tristan on 07-12-2024 Syphilis Total Antibody Non-Reactive Nonreactiv e [facility] White blood cell (WBC) count Ordered By: Chrissy Tristan on 07-12-2024 WBC (Bld) [#/Vol] 10.0 10*3/uL 4.4-11.0 [facility] Telephone Order Clerk Office Visit Reporton 06-24-2024 Telephone Order Clerk Office Visit Report [facility]'s [address], [address] [place] [address] OFFICE VISIT Date of Service: 06/24/24 MR#: [id number] Acct: [id number] Name: JAG PEREZ Rep #: [id number] : 2000 Provider: MICK Castillo ams Age/Sex: 23/F Location: [facility] [place] Status: Signed Intake Vital Signs 06/18/24 08:49 06/24/24 13:12 06/24/24 13:12 Height 5 ft 2 in 5 ft 2 in 5 ft 2 in Weight: 175 lb 6 oz BMI 32.1 BP 105/72 Intake Visit Reasons: heartbeat check per KW Bi Lead Required: No Is patient in pain?: No Allergies No Known Allergies Allergy (Verified 06/24/24 13:12) Medications ???Medication ???Instructions ???Recorded ???Confirmed ???Type vits,calcium 91-iron 28 1 pkg PO DAILY 09/10/22 06/24/24 History mg-folic 975 mcg-dha 200 mg oral pack ( + DHA) acetaminophen 500 mg tablet 1,000 mg (2 x 500 mg) PO Q6H PRN 0 10/23/22 06/24/24 Rx PRN Pain 1-10 Or Fever #0 tabs Last Menstrual Period: 01/13/24 : No PFSH PFSH Medical History Normal vaginal delivery Anxiety Family History Grandmother COPD (chronic obstructive pulmonary disease), Onset Age: 60 Maternal Grandfather Myocardial infarction, Onset Age: 67 Maternal Grandmother Breast cancer, Onset Age: 45 Paternal Social History adopted: No household members: spouse and children number of children: 1 current occupational status: unemployed current occupation: [employer] pets and animals: Yes (Avoid litterbox) pets and animals: cat(s) and dog(s) history of recent travel: No sexually active: Yes Smoking Status: Never smoker alcohol intake: never substance use type: does not use well-balanced diet: daily or most days caffeine: Yes Type: coffee Number of servings: 1 eating out: 1-3 times/week during the past year weight has: decreased > 10 lbs what type of physical activity do you participate in: none pia/orthodoxy: Latter-Day seatbelt use: always do you feel safe at home: Yes additional social history: Michelle [employer] History 2 Elective abortions Hx Para 1 Spontaneous abortions Hx # Term Pregnancies Ectopic pregnancies Hx # Pregnancies Multiple births # of living children 1 Past Pregnancies Del. Date Name GA/Weeks Outcome Route Bth Weight Infant Gen Labor Lgth Anesthesia Del Locatn Provider FOB 10/22/22 Tanner 39 live - full term 7 Male epidural [facility] Car men Derick Reid Delivery Date: 10/22/22 Last Updated by: Katie Garg severe iron deficiency, infusions HPI heartbeat check per KW Details: JAG PEREZ is a 23 year old who presents for routine OB visit. OB Visit ADDY Calculator Estimated Delivery Date Method Current WG Current Estimate 10/19/24 LMP (Certain) 23w 2d Other Estimates 10/22/24 Ultrasound #1 22w 6d Expected Delivery Route/Plan Labor Preferences- CB/BF classes: [] labor support person: [] labor intervention preferences: [] pain management options preferred: [] cut cord/dad catch: [] : [] PP control planned: [] discussed possible routes of delivery and associated risks: [] special requests: [] Specific Issue/Plans Covid status: [] Flu vaccine: declined Tdap vaccine: [] Rhogam: [] LARC form signed: [] Problem list reviewed and updated with the most current plan of care details and appropriate orders placed. Relevant counseling for the gestational age provided. Continue routine care and follow up unless otherwise noted in visit notes/problem list details Initial Weight: 172 lb Date -???-???-???-???-??? -???-???-???-???-??? -???-???- EGA Weight BP Urine Prot -???-???-???-???-??? -???-???-???-???-??? -???-???- Glucose FHR FuHt Pres Dilation -???-???-???-???-??? -???-???-???-???-??? -???-???- Effaced St Visit Note 03/18/24 -???-???-???-???-??? -???-???-???-???-??? -???-???- 9w 2d 172 lb 4 oz (+4 oz) 104/70 -???-???-???-???-??? -???-???-???-???-??? -???-???- 178 -???-???-???-???-??? -???-???-???-???-??? -???-???- KW- CRL cons with dates. declines NIPT 04/21/24 -???-???-???-???-??? -???-???-???-???-??? -???-???- 14w 1d 166 lb 4 oz (-5 lb 12 oz) 127/75 -???-???-???-???-??? -???-???-???-???-??? -???-???- 155 -???-???-???-???-??? -???-???-???-???-??? -???-???- SM- some kirt ght loss. eating well no no vb crmaping 05/21/24 -???-???-???-???-??? -???-???-???-???-??? -???-???- 18w 3d 169 lb 6 oz (-2 lb 10 oz) 108/74 Negative -???-???-???-???-??? -???-???-???-???-??? -???-???- Negative 140 -???-???-???-???-??? -???-???-???-???-??? -???-???- KW- (more content not included)... Normal [facility] - Chemistry and C hemistry - challengeOrdered By: Chrissy Tristan on 06-18-2024 Glucose Ql (U) Negative [facility] - UrinalysisOrder ed By: Chrissy Tristan on 06-18-2024 Protein Ql (U) Negative [facility] Telephone Order Clerk Office Visit Reporton 06-18-2024 Telephone Order Clerk Office Visit Report [facility] [address], [address] [place] [address] OFFICE VISIT Date of Service: 06/18/24 MR#: [id number] Acct: [id number] Name: JAG PEERZ Rep #: [id number] : 2000 Provider: MICK Castillo ams Age/Sex: 23/F Location: [facility] Status: Signed Intake Vital Signs 04/21/24 15:08 05/21/24 08:48 06/18/24 08:48 06/18/24 08:49 Height 5 ft 2 in 5 ft 2 in 5 ft 2 in 5 ft 2 in Weight: 173 lb 8 oz BMI 31.7 BP 104/72 Intake Visit Reasons: 22 wk ob Chief Complaint: 22wk OB Is patient in pain?: No Allergies No Known Allergies Allergy (Verified 06/18/24 08:40) Medications ???Medication ???Instructions ???Recorded ???Confirmed ???Type vits,calcium 91-iron 28 1 pkg PO DAILY 09/10/22 06/18/24 History mg-folic 975 mcg-dha 200 mg oral pack ( + DHA) acetaminophen 500 mg tablet 1,000 mg (2 x 500 mg) PO Q6H PRN 0 10/23/22 06/18/24 Rx PRN Pain 1-10 Or Fever #0 tabs Last Menstrual Period: 01/13/24 : No PFSH PFSH Medical History Normal vaginal delivery Anxiety Family History Grandmother COPD (chronic obstructive pulmonary disease), Onset Age: 60 Maternal Grandfather Myocardial infarction, Onset Age: 67 Maternal Grandmother Breast cancer, Onset Age: 45 Paternal Social History adopted: No household members: spouse and children number of children: 1 current occupational status: unemployed current occupation: [employer] pets and animals: Yes (Avoid litterbox) pets and animals: cat(s) and dog(s) history of recent travel: No sexually active: Yes Smoking Status: Never smoker alcohol intake: never substance use type: does not use well-balanced diet: daily or most days caffeine: Yes Type: coffee Number of servings: 1 eating out: 1-3 times/week during the past year weight has: decreased > 10 lbs what type of physical activity do you participate in: none pia/orthodoxy: Latter-Day seatbelt use: always do you feel safe at home: Yes additional social history: Michelle [employer] History 2 Elective abortions Hx Para 1 Spontaneous abortions Hx # Term Pregnancies Ectopic pregnancies Hx # Pregnancies Multiple births # of living children 1 Past Pregnancies Del. Date Name GA/Weeks Outcome Route Bth Weight Infant Gen Labor Lgth Anesthesia Del Locatn Provider FOB 10/22/22 Tanner 39 live - full term 7 Male epidural [facility] Car men Derick Reid Delivery Date: 10/22/22 Last Updated by: Katie Garg severe iron deficiency, infusions HPI 22 wk ob Details: JAG PEREZ is a 23 year old who presents for routine OB visit. OB Visit ADDY Calculator Estimated Delivery Date Method Current WG Current Estimate 10/19/24 LMP (Certain) 22w 3d Other Estimates 10/22/24 Ultrasound #1 22w 0d Expected Delivery Route/Plan Labor Preferences- CB/BF classes: [] labor support person: [] labor intervention preferences: [] pain management options preferred: [] cut cord/dad catch: [] : [] PP control planned: [] discussed possible routes of delivery and associated risks: [] special requests: [] Specific Issue/Plans Covid status: [] Flu vaccine: declined Tdap vaccine: [] Rhogam: [] LARC form signed: [] Problem list reviewed and updated with the most current plan of care details and appropriate orders placed. Relevant counseling for the gestational age provided. Continue routine care and follow up unless otherwise noted in visit notes/problem list details Initial Weight: 172 lb Date -???-???-???-???-??? -???-???-???-???-??? -???-???- EGA Weight BP Urine Prot -???-???-???-???-??? -???-???-???-???-??? -???-???- Glucose FHR FuHt Pres Dilation -???-???-???-???-??? -???-???-???-???-??? -???-???- Effaced St Visit Note 03/18/24 -???-???-???-???-??? -???-???-???-???-??? -???-???- 9w 2d 172 lb 4 oz (+4 oz) 104/70 -???-???-???-???-??? -???-???-???-???-??? -???-???- 178 -???-???-???-???-??? -???-???-???-???-??? -???-???- KW- CRL cons with dates. declines NIPT 04/21/24 -???-???-???-???-??? -???-???-???-???-??? -???-???- 14w 1d 166 lb 4 oz (-5 lb 12 oz) 127/75 -???-???-???-???-??? -???-???-???-???-??? -???-???- 155 -???-???-???-???-??? -???-???-???-???-??? -???-???- SM- some kirt ght loss. eating well no no vb crmaping 05/21/24 -???-???-???-???-??? -???-???-???-???-??? -???-???- 18w 3d 169 lb 6 oz (-2 lb 10 oz) 108/74 Negative -???-???-???-???-??? -???-???-???-???-??? -???-???- Negative 140 -???-???-???-???-??? -???-???-???-???-??? -???-???- KW- no v (more content not included)... Normal [facility] - Chemistry and C hemistry - challengeOrdered By: Chrissy Tristan on 05-21-2024 Glucose Ql (U) Negative [facility] - UrinalysisOrder ed By: Chrissy Tristan on 05-21-2024 Protein Ql (U) Negative [facility] Telephone Order Clerk Office Visit Reporton 05-21-2024 Telephone Order Clerk Office Visit Report [facility] [address], [address] [place] [address] OFFICE VISIT Date of Service: 05/21/24 MR#: [id number] Acct: [id number] Name: JAG PEREZ Rep #: [id number] : 2000 Provider: MICK Castillo ams Age/Sex: 23/F Location: [facility] [place] Status: Signed Intake Vital Signs 04/21/24 15:08 05/21/24 08:48 Height 5 ft 2 in 5 ft 2 in Weight: 166 lb 4 oz 169 lb 6 oz BMI 30.4 30.9 BP 127/75 H 108/74 Intake Visit Reasons: 18 wk ob Chief Complaint: 18 wk ob Is patient in pain?: No Allergies No Known Allergies Allergy (Verified 05/21/24 08:49) Medications ???Medication ???Instructions ???Recorded ???Confirmed ???Type vits,calcium 91-iron 28 1 pkg PO DAILY 09/10/22 05/21/24 History mg-folic 975 mcg-dha 200 mg oral pack ( + DHA) acetaminophen 500 mg tablet 1,000 mg (2 x 500 mg) PO Q6H PRN 0 10/23/22 05/21/24 Rx PRN Pain 1-10 Or Fever #0 tabs miconazole nitrate 2 % vaginal 1 appful vaginal QHS 7 days #45 05/21/24 Rx cream grams Last Menstrual Period: 01/13/24 : No PFSH PFSH Medical History Normal vaginal delivery Anxiety Family History Grandmother COPD (chronic obstructive pulmonary disease), Onset Age: 60 Maternal Grandfather Myocardial infarction, Onset Age: 67 Maternal Grandmother Breast cancer, Onset Age: 45 Paternal Social History adopted: No household members: spouse and children number of children: 1 current occupational status: unemployed current occupation: [employer] pets and animals: Yes (Avoid litterbox) pets and animals: cat(s) and dog(s) history of recent travel: No sexually active: Yes Smoking Status: Never smoker alcohol intake: never substance use type: does not use well-balanced diet: daily or most days caffeine: Yes Type: coffee Number of servings: 1 eating out: 1-3 times/week during the past year weight has: decreased > 10 lbs what type of physical activity do you participate in: none pia/orthodoxy: Latter-Day seatbelt use: always do you feel safe at home: Yes additional social history: Michelle [employer] History 2 Elective abortions Hx Para 1 Spontaneous abortions Hx # Term Pregnancies Ectopic pregnancies Hx # Pregnancies Multiple births # of living children 1 Past Pregnancies Del. Date Name GA/Weeks Outcome Route Bth Weight Infant Gen Labor Lgth Anesthesia Del Locatn Provider FOB 10/22/22 Tanner 39 live - full term 7 Male epidural [facility] Car men Derick Reid Delivery Date: 10/22/22 Last Updated by: Katie Garg severe iron deficiency, infusions HPI 18 wk ob Details: JAG PEREZ is a 23 year old who presents for routine OB visit. OB Visit ADDY Calculator Estimated Delivery Date Method Current WG Current Estimate 10/19/24 LMP (Certain) 18w 3d Other Estimates 10/22/24 Ultrasound #1 18w 0d Expected Delivery Route/Plan Labor Preferences- CB/BF classes: [] labor support person: [] labor intervention preferences: [] pain management options preferred: [] cut cord/dad catch: [] : [] PP control planned: [] discussed possible routes of delivery and associated risks: [] special requests: [] Specific Issue/Plans Covid status: [] Flu vaccine: declined Tdap vaccine: [] Rhogam: [] LARC form signed: [] Problem list reviewed and updated with the most current plan of care details and appropriate orders placed. Relevant counseling for the gestational age provided. Continue routine care and follow up unless otherwise noted in visit notes/problem list details Initial Weight: 172 lb Date -???-???-???-???-??? -???-???-???-???-??? -???-???- EGA Weight BP Urine Prot -???-???-???-???-??? -???-???-???-???-??? -???-???- Glucose FHR FuHt Pres Dilation -???-???-???-???-??? -???-???-???-???-??? -???-???- Effaced St Visit Note 03/18/24 -???-???-???-???-??? -???-???-???-???-??? -???-???- 9w 2d 172 lb 4 oz (+4 oz) 104/70 -???-???-???-???-??? -???-???-???-???-??? -???-???- 178 -???-???-???-???-??? -???-???-???-???-??? -???-???- KW- CRL cons with dates. declines NIPT 04/21/24 -???-???-???-???-??? -???-???-???-???-??? -???-???- 14w 1d 166 lb 4 oz (-5 lb 12 oz) 127/75 -???-???-???-???-??? -???-???-???-???-??? -???-???- 155 -???-???-???-???-??? -???-???-???-???-??? -???-???- SM- some kirt ght loss. eating well no no vb crmaping 05/21/24 -???-???-???-???-??? -???-???-???-???-??? -???-???- 18w 3d 169 lb 6 oz (-2 lb 10 oz) 108/74 Negative -???-???-???-???-??? -???-???-???-???-??? -???-?? (more content not included)... Normal [facility] Telephone Order Clerk Office Visit Reporton 04-21-2024 Telephone Order Clerk Office Visit Report [facility]'s [address], [address] [place] [address] OFFICE VISIT Date of Service: 04/21/24 MR#: [id number] Acct: [id number] Name: JAG PEREZ Rep #: [id number] : 2000 Provider: Dr. Becky cervantes MD Age/Sex: 23/F Location: [facility] [place] Status: Signed Intake Vital Signs 11/12/22 13:13 03/18/24 14:39 04/21/24 15:08 Height 5 ft 2 in 5 ft 2 in 5 ft 2 in Weight: 166 lb 4 oz BMI 30.4 BP 127/75 H Intake Visit Reasons: 13wk OB Bi Lead Required: No Is patient in pain?: No Feel stressed/tense/nervo us/anxious/difficult y sleeping: not at all Allergies No Known Allergies Allergy (Verified 04/21/24 15:15) Medications ???Medication ???Instructions ???Recorded ???Confirmed ???Type vits,calcium 91-iron 28 1 pkg PO DAILY 09/10/22 04/21/24 History mg-folic 975 mcg-dha 200 mg oral pack ( + DHA) acetaminophen 500 mg tablet 1,000 mg (2 x 500 mg) PO Q6H PRN 10/23/22 04/21/24 Rx PRN Pain 1-10 Or Fever #0 tabs Last Menstrual Period: 01/13/24 Zika: Zika virus screening: Negative : No Have you fallen in the past year?: No PFSH PFSH Medical History Normal vaginal delivery Anxiety Family History Grandmother COPD (chronic obstructive pulmonary disease), Onset Age: 60 Maternal Grandfather Myocardial infarction, Onset Age: 67 Maternal Grandmother Breast cancer, Onset Age: 45 Paternal Social History adopted: No household members: spouse and children number of children: 1 current occupational status: unemployed current occupation: [employer] pets and animals: Yes (Avoid litterbox) pets and animals: cat(s) and dog(s) history of recent travel: No sexually active: Yes Smoking Status: Never smoker alcohol intake: never substance use type: does not use well-balanced diet: daily or most days caffeine: Yes Type: coffee Number of servings: 1 eating out: 1-3 times/week during the past year weight has: decreased > 10 lbs what type of physical activity do you participate in: none pia/orthodoxy: Latter-Day seatbelt use: always do you feel safe at home: Yes additional social history: Michelle [employer] History 2 Elective abortions Hx Para 1 Spontaneous abortions Hx # Term Pregnancies Ectopic pregnancies Hx # Pregnancies Multiple births # of living children 1 Past Pregnancies Del. Date Name GA/Weeks Outcome Route Bth Weight Infant Gen Labor Lgth Anesthesia Del Locatn Provider FOB 10/22/22 Tanner 39 live - full term 7 Male epidural [facility] Car men Derick Reid Delivery Date: 10/22/22 Last Updated by: Katie Garg severe iron deficiency, infusions HPI 13wk OB Details: JAG PEREZ is a 23 year old who presents for routine OB visit. OB Visit ADDY Calculator Estimated Delivery Date Method Current WG Current Estimate 10/19/24 LMP (Certain) 14w 1d Other Estimates 10/22/24 Ultrasound #1 13w 5d Expected Delivery Route/Plan Labor Preferences- CB/BF classes: [] labor support person: [] labor intervention preferences: [] pain management options preferred: [] cut cord/dad catch: [] : [] PP control planned: [] discussed possible routes of delivery and associated risks: [] special requests: [] Specific Issue/Plans Covid status: [] Flu vaccine: declined Tdap vaccine: [] Rhogam: [] LARC form signed: [] Problem list reviewed and updated with the most current plan of care details and appropriate orders placed. Relevant counseling for the gestational age provided. Continue routine care and follow up unless otherwise noted in visit notes/problem list details Initial Weight: 172 lb Date -???-???-???-???-??? -???-???-???-???-??? -???-???- EGA Weight BP Urine Prot -???-???-???-???-??? -???-???-???-???-??? -???-???- Glucose FHR FuHt Pres Dilation -???-???-???-???-??? -???-???-???-???-??? -???-???- Effaced St Visit Note 03/18/24 -???-???-???-???-??? -???-???-???-???-??? -???-???- 9w 2d 172 lb 4 oz (+4 oz) 104/70 -???-???-???-???-??? -???-???-???-???-??? -???-???- 178 -???-???-???-???-??? -???-???-???-???-??? -???-???- KW- CRL cons with dates. declines NIPT 04/21/24 -???-???-???-???-??? -???-???-???-???-??? -???-???- 14w 1d 166 lb 4 oz (-5 lb 12 oz) 127/75 -???-???-???-???-??? -???-???-???-???-??? -???-???- 155 -???-???-???-???-??? -???-???-???-???-??? -???-???- SM- some kirt ght loss. eating well no no vb crmaping ACOG First Trimester First Trimester: Discussed Second Trimester Second Trimester: (more content not included)... Normal [facility] Absolute neutrophil countOrd ered By: Chrissy Tristan on 04-12-2024 Neutrophils (Bld) [#/Vol] 9.7 10*3/uL High 2.0-7.7 [facility] Basophil percentageOrdered B y: Chrissy Tristan on 04-12-2024 Basophils/100 WBC (Bld) 0.3 % 0-1 [facility] CBC W/Diff, Automatedon 03-16-2023 Absolute Lymph 1.23 X10 3/uL Normal 0.83-4.51 [facility] Comment on above: Performed By: #### L 501.9985, L509.8000, L100.0100, L509.4005, L3890.6005, L3890.6100, BTS, [id number] ####[facility] [address] [place], [address] Absolute Neut 9.7 X10 3/uL High 2.0-7.7 [facility] Comment on above: Performed By: #### L 501.9985, L509.8000, L100.0100, L509.4005, L3890.6005, L3890.6100, BTS, [id number] ####[facility] [address] [place], [address] Basophils/100 WBC (Bld) 0.3 % Normal 0-1 [facility] Comment on above: Performed By: #### L 501.9985, L509.8000, L100.0100, L509.4005, L3890.6005, L3890.6100, BTS, [id number] ####[facility] [address] [place], [address] Eosinophils/100 WBC (Bld) 0.3 % Normal 0-5 [facility] Comment on above: Performed By: #### L 501.9985, L509.8000, L100.0100, L509.4005, L3890.6005, L3890.6100, BTS, [id number] ####[facility] [address] [place], [address] Erythrocyte distribution width (RBC) [Ratio] 12.9 % Normal 11.6-14.6 [facility] Comment on above: Performed By: #### L 501.9985, L509.8000, L100.0100, L509.4005, L3890.6005, L3890.6100, BTS, [id number] ####[facility] [address] [place], [address] Hematocrit (Bld) [Volume fraction] 36.7 % Low 37-47 [facility] Comment on above: Performed By: #### L 501.9985, L509.8000, L100.0100, L509.4005, L3890.6005, L3890.6100, BTS, L3890.6300 ####[facility] [address] [place], [address] Hemoglobin (Bld) [Mass/Vol] 11.6 g/dL Low 12.0-15.0 [facility] Comment on above: Performed By: #### L 501.9985, L509.8000, L100.0100, L509.4005, L3890.6005, L3890.6100, BTS, L3890.6300 ####[facility] [address] [place], [address] IG% 0.500 Normal 0.0-0.9 [facility] Comment on above: Result Comment: IG% - Immature Granulocytes (promyelocytes, myelocytes and metamyelocytes) > 1% indicates that a LEFT SHIFT is Present. Performed By: #### L 501.9985, L509.8000, L100.0100, L509.4005, L3890.6005, L3890.6100, BTS, L3890.6300 ####[facility] [address] [place], [address] Lymphocytes/100 WBC (Bld) 10.5 % Low 19-41 [facility] Comment on above: Performed By: #### L 501.9985, L509.8000, L100.0100, L509.4005, L3890.6005, L3890.6100, BTS, L3890.6300 ####[facility] [address] [place], [address] MCH (RBC) [Entitic mass] 27.8 pg Normal 27.0-32.0 [facility] Comment on above: Performed By: #### L 501.9985, L509.8000, L100.0100, L509.4005, L3890.6005, L3890.6100, BTS, L3890.6300 ####[facility] [address] [place], [address] MCHC (RBC) [Mass/Vol] 31.6 g/dL Low 32-36 [facility] Comment on above: Performed By: #### L 501.9985, L509.8000, L100.0100, L509.4005, L3890.6005, L3890.6100, BTS, L3890.6300 ####[facility] [address] [place], [address] MCV (RBC) [Entitic vol] 87.8 fL Normal 81-99 [facility] Comment on above: Performed By: #### L 501.9985, L509.8000, L100.0100, L509.4005, L3890.6005, L3890.6100, BTS, [id number] ####[facility] [address] [place], [address] Monocytes/100 WBC (Bld) 5.0 % Normal 0-10 [facility] Comment on above: Performed By: #### L 501.9985, L509.8000, L100.0100, L509.4005, L3890.6005, L3890.6100, BTS, L3890.6300 ####[facility] [address] [place], [address] Neutrophils/100 WBC (Bld) 83.4 % High 47-70 [facility] Comment on above: Performed By: #### L 501.9985, L509.8000, L100.0100, L509.4005, L3890.6005, L3890.6100, BTS, L3890.6300 ####[facility] [address] [place], [address] Nucleated RBC (Bld) [#/Vol] 0 10*3/uL Normal 0-5 [facility] Comment on above: Performed By: #### L 501.9985, L509.8000, L100.0100, L509.4005, L3890.6005, L3890.6100, BTS, L3890.6300 ####[facility] [address] [place], [address] Platelet mean volume (Bld) [Entitic vol] 10.8 fL Normal 6.2-12.0 [facility] Comment on above: Performed By: #### L 501.9985, L509.8000, L100.0100, L509.4005, L3890.6005, L3890.6100, BTS, L3890.6300 ####[facility] [address] [place], [address] Platelets (Bld) [#/Vol] 306 10*3/uL Normal 150-450 [facility] Comment on above: Performed By: #### L 501.9985, L509.8000, L100.0100, L509.4005, L3890.6005, L3890.6100, BTS, L3890.6300 ####[facility] [address] [place], [address] RBC (Bld) [#/Vol] 4.18 10*6/uL Low 4.2-5.4 [facility] Comment on above: Performed By: #### L 501.9985, L509.8000, L100.0100, L509.4005, L3890.6005, L3890.6100, BTS, L3890.6300 ####[facility] [address] [place], [address] RDW SD 41.2 fl Normal 35.1-43.9 [facility] Comment on above: Performed By: #### L 501.9985, L509.8000, L100.0100, L509.4005, L3890.6005, L3890.6100, BTS, L3890.6300 ####[facility] [address] [place], [address] WBC (Bld) [#/Vol] 11.7 10*3/uL High 4.4-11.0 [facility] Comment on above: Performed By: #### L 501.9985, L509.8000, L100.0100, L509.4005, L3890.6005, L3890.6100, BTS, L3890.6300 ####[facility] [address] [place], [address] Eosinophil percentageOrdered By: Chrissy Tristan on 04-12-2024 Eosinophils/100 WBC (Bld) 0.3 % 0-5 [facility] Erythrocyte distribution wid th (RBC) [Ratio]Ordered By: Chrissy Tristan on 04-12-2024 Erythrocyte distribution width (RBC) [Entitic vol] 41.2 fL 35.1-43.9 [facility] Erythrocyte distribution wid th ratioOrdered By: Chrissy Tristan on 04-12-2024 Erythrocyte distribution width (RBC) [Ratio] 12.9 % 11.6-14.6 [facility] HIV - WCHon 04-12-2024 HIV Non-Reactive Normal Nonreactive [facility] Comment on above: Order Comment: Reaso n for Exam: Performed By: #### L 501.9985, L509.8000, L100.0100, L509.4005, L3890.6005, L3890.6100, BTS, L3890.6300 ####[facility] [id number] [place], [address] HIV 1+2 Ab+HIV1 p24 Ag IA Ql Ordered By: Chrissy Tristan on 04-12-2024 HIV (1&2) Antibody Non-Reactive Nonreactive [facility] Hematocrit Auto (Bld) [Volum e fraction]Ordered By: Chrissy Tristan on 04-12-2024 Hematocrit (Bld) [Volume fraction] 36.7 % Low 37-47 [facility] Hemoglobin A1con 04-12-2024 HbA1c (Bld) [Mass fraction] 5.0 % Normal 3.8-5.6 [facility] Comment on above: Result Comment: Norm al < 5.7 % Prediabetic 5.7 - 6.4 % Diabetic >or= 6.5 % Please note range changes. Performed By: #### L 501.9985, L509.8000, L100.0100, L509.4005, L3890.6005, L3890.6100, BTS, L3890.6300 ####[facility] [id number] [place], [address] Hemoglobin A1c percentageOrd ered By: Chrissy Tristan on 04-12-2024 HbA1c (Bld) [Mass fraction] 5.0 % 3.8-5.6 [facility] Comment on above: Normal < 5.7 % Predi abetic 5.7 - 6.4 % Diabetic >or= 6.5 % Please note range changes. Hemoglobin measurementOrdere d By: Chrissy Tristan on 04-12-2024 Hemoglobin (Bld) [Mass/Vol] 11.6 g/dL Low 12.0-15.0 [facility] Hepatitis B Surface Antigeno n 04-12-2024 HEP B Surf Ag Non-Reactive Normal Nonreactive [facility] Comment on above: Order Comment: Reaso n for Exam: Performed By: #### L 501.9985, L509.8000, L100.0100, L509.4005, L3890.6005, L3890.6100, BTS, L3890.6300 ####[facility] [id number] [facility] [place], [address] Hepatitis B surface antigen detectionOrdered By: Chrissy Tristan on 04-12-2024 Hepatitis B Surface Antigen Non-Reactive Nonreactive [facility] Hepatitis C Antibodyon 04-12 Hepatitis C AB [facility]-Reactive [facility] Comment on above: Order Comment: Reaso n for Exam: Result Comment: Non Reactive: < 0.8 Equivocal: >/= 0.8 to < 1.0 Reactive: >/= 1.0 The CDC requires that a reactive/equivocal HCV antibody result be sent out for confirmation. HCV Quant by PCR testing. Performed By: #### L 501.9985, L509.8000, L100.0100, L509.4005, L3890.6005, L3890.6100, BTS, L3890.6300 ####[facility] [id number] [place], [address] Hepatitis C virus antibody a ssayOrdered By: Chrissy Tristan on 04-12-2024 Hepatitis C Antibody Non-Reactive Nonreactive [facility] Comment on above: Non Reactive: < 0.8 Equivocal: >/= 0.8 to < 1.0 Reactive: >/= 1.0The CDC requires that a reactive/equivocal HCV antibody result be sent out for confirmation. HCV Quant by PCR testing. Immature granulocytes/100 WB C Auto (Bld)Ordered By: Chrissy Tristan on 04-12-2024 Immature granulocytes/100 WBC (Bld) 0.500 % 0.0-0.9 [facility] Comment on above: IG% - Immature Granu locytes (promyelocytes, myelocytes and metamyelocytes) > 1% indicates that a LEFT SHIFT is Present. L509.8000on 04-12-2024 Syphilis Abs Non-Reactive Normal [facility] Comment on above: Order Comment: Reaso n for Exam: Performed By: #### L 501.9985, L509.8000, L100.0100, L509.4005, L3890.6005, L3890.6100, BTS, L3890.6300 ####[facility] [id number] [place], [place], [id number] Lymphocytes Auto (Unsp spec) [#/Vol]Ordered By: Chrissy Tristan on 04-12-2024 Lymphocytes (Bld) [#/Vol] 1.23 10*3/uL 0.83-4.51 [facility] Lymphocytes/100 WBC Auto (Un sp spec)Ordered By: Chrissy Tristan on 04-12-2024 Lymphocytes/100 WBC (Bld) 10.5 % Low 19-41 [facility] MCV (mean corpuscular volume ) determinationOrdered By: Chrissy Tristan on 04-12-2024 MCV (RBC) [Entitic vol] 87.8 fL 81-99 [facility] Mean corpuscular hemoglobin (MCH) determinationOrdered By: Chrissy Tristan on 04-12-2024 MCH (RBC) [Entitic mass] 27.8 pg 27.0-32.0 [facility] Mean corpuscular hemoglobin concentration (MCHC) determinationOrdered By: Chrissy Tristan on 04-12-2024 MCHC (RBC) [Mass/Vol] 31.6 g/dL Low 32-36 [facility] Mean platelet volume determi nationOrdered By: Chrissy Tristan on 04-12-2024 Platelet mean volume (Bld) [Entitic vol] 10.8 fL 6.2-12.0 [facility] Monocyte percentageOrdered B y: Chrissy Tristan on 04-12-2024 Monocytes/100 WBC (Bld) 5.0 % 0-10 [facility] Neutrophil percentageOrdered By: Chrissy Tristan on 04-12-2024 Neutrophils/100 WBC (Bld) 83.4 % High 47-70 [facility] Nucleated red blood cell per centageOrdered By: Chrissy Tristan on 04-12-2024 Nucleated RBC/100 WBC (Bld) [Ratio] 0 % 0-5 [facility] Platelet countOrdered By: Bandar Tristan on 04-12-2024 Platelets (Bld) [#/Vol] 306 10*3/uL 150-450 [facility] RBC Auto (Bld) [#/Vol]Ordere d By: Chrissy Tristan on 04-12-2024 RBC (Bld) [#/Vol] 4.18 10*6/uL Low 4.2-5.4 [facility] Rubella IgGon 04-12-2024 Rubella IgG Reactive Normal Nonreactive [facility] Comment on above: Order Comment: Reaso n for Exam: Result Comment: Anti body Results Interpretation of Immune Status Non Reactive Presumed Non-Immune Equivocal Equivocal Reactive Presumed Immune Performed By: #### L 501.9985, L509.8000, L100.0100, L509.4005, L3890.6005, L3890.6100, BTS, L3890.6300 ####[facility] [id number] [place], [place], [id number] Rubella immune status IgGOrd ered By: Chrissy Tristan on 04-12-2024 Rubella IgG Antibody Reactive Nonreactive [facility] Comment on above: Antibody Results Int erpretation of Immune Status Non Reactive Presumed Non-Immune Equivocal Equivocal Reactive Presumed Immune Treponema sp Ab Ql (S)Ordere d By: Chrissy Tristan on 04-12-2024 Syphilis Total Antibody Non-Reactive [facility] Type AND Screenon 04-12-2024 ABO and Rh group Nom (Bld) Blood group A Rh(D) positive Normal [facility] Comment on above: Order Comment: PN Performed By: #### L 501.9985, L509.8000, L100.0100, L509.4005, L3890.6005, L3890.6100, BTS, L3890.6300 ####[facility] [id number] [place], [address] White blood cell (WBC) count Ordered By: Chrissy Tristan on 04-12-2024 WBC (Bld) [#/Vol] 11.7 10*3/uL High 4.4-11.0 [facility] Chlamydia/GC JUAN aptimaon CHLAMY,NUC ACID Negative Normal Negative [facility] Comment on above: Performed By: #### L 7000.1800, M100.2200 #### [facility] [address] [place], [address] GC BY NUC ACID Negative Normal Negative [facility] Comment on above: Result Comment: Perf ormed at: =G - [facility] [address] [id number] Car Pincher: Trang Alvarez MD, Phone: [phone] Performed By: #### L 7000.1800, M100.2200 #### [facility] [address] [place], [address] Urine Cultureon 03-19-2024 URC Culture exhibits no growth. Normal [facility] Comment on above: Performed By: #### L 7000.1800, M100.2200 #### [facility] [address] [place], [address] C. trachomatis rRNA JUAN+prob e Ql (Unsp spec)Ordered By: Chrissy Tristan on 03-18-2024 Chlamydia DNA (JUAN) Negative Negative [facility] Neisseria gonorrhoeae nuclei c acid detection by amplified probe techniqueOrdered By: Chrissy Tristan on 03-18-2024 N. gonorrhoeae DNA JUAN+probe Ql (Unsp spec) Negative Negative [facility] Comment on above: Performed at: =G - [facility] [address] [id number] Director: Trang Alvarez MD, Phone: [phone] Telephone Order Clerk Office Visit Reporton 03-18-2024 Telephone Order Clerk Office Visit Report [facility]'[address], [address] [place] [address] OFFICE VISIT Date of Service: 03/18/24 MR#: [id number] Acct: [id number] Name: JAG PEREZ Rep #: [id number] : 2000 Provider: MICK Castillo ams Age/Sex: 23/F Location: [facility] [place] Status: Signed with Addenda ADDENDUM by MICK Tristan on 03/29/24 at 1149 Assessment and Plan Assessment and Plan (1) Obesity affecting : Status: Acute Comment: HgbA1c (2) Elevated triglycerides with high cholesterol: Status: Acute (3) Hx of iron deficiency anemia: Status: Acute (4) Supervision of high-risk : Status: Acute Comment: , ADDY 10/19/24, MARICRUZ Hart, Michelle (5) : Status: Acute Comment: declined NIPT Carrier testing (6) Congenital tongue-tie: Status: Acute Comment: Son with lip tongue tied Orders: Orders CBC W/Diff, Automated 03/09/24 O09.90 - Supervision of high risk , unspecified, unspecified trimester, O99.210 - Obesity complicating , unspecified trimester HIV - H 03/09/24 O09.90 - Supervision of high risk , unspecified, unspecified trimester, O99.210 - Obesity complicating , unspecified trimester Type Screen 03/09/24 O09.90 - Supervision of high risk , unspecified, unspecified trimester, O99.210 - Obesity complicating , unspecified trimester Rubella IgG 03/09/24 O09.90 - Supervision of high risk , unspecified, unspecified trimester, O99.210 - Obesity complicating , unspecified trimester Hepatitis C Antibody 03/09/24 O09.90 - Supervision of high risk , unspecified, unspecified trimester, O99.210 - Obesity complicating , unspecified trimester Hepatitis B Surface Antigen 03/09/24 O09.90 - Supervision of high risk , unspecified, unspecified trimester, O99.210 - Obesity complicating , unspecified trimester Culture, Urine 03/18/24 O09.90 - Supervision of high risk , unspecified, unspecified trimester, O99.210 - Obesity complicating , unspecified trimester Syphilis Antibodies 03/09/24 O09.90 - Supervision of high risk , unspecified, unspecified trimester, O99.210 - Obesity complicating , unspecified trimester Chlamydia/GC JUAN aptima 03/18/24 O09.90 - Supervision of high risk , unspecified, unspecified trimester, O99.210 - Obesity complicating , unspecified trimester Hemoglobin A1c 03/09/24 O09.90 - Supervision of high risk , unspecified, unspecified trimester, O99.210 - Obesity complicating , unspecified trimester 03/29/24 1149 Date Chrissy Tristan CNM cc: * Signed Intake Vital Signs 11/12/22 13:13 03/18/24 14:39 03/18/24 14:39 Height 5 ft 2 in 5 ft 2 in 5 ft 2 in Weight: 172 lb 4 oz BMI 31.5 BP 104/70 Intake Visit Reasons: NOB LMP 01/12 Chief Complaint: NOB Bi Lead Required: No Is patient in pain?: No Allergies No Known Allergies Allergy (Verified 03/18/24 14:39) Medications ???Medication ???Instructions ???Recorded ???Confirmed ???Type vits,calcium 91-iron 28 1 pkg PO DAILY 09/10/22 03/09/24 History mg-folic 975 mcg-dha 200 mg oral pack ( + DHA) acetaminophen 500 mg tablet 1,000 mg (2 x 500 mg) PO Q6H PRN 10/23/22 03/09/24 Rx PRN Pain 1-10 Or Fever #0 tabs Last Menstrual Period: 01/13/24 Zika: Zika virus screening: Negative : Yes PFSH PFSH Medical History Normal vaginal delivery Anxiety Family History Grandmother COPD (chronic obstructive pulmonary disease), Onset Age: 60 Maternal Grandfather Myocardial infarction, Onset Age: 67 Maternal Grandmother Breast cancer, Onset Age: 45 Paternal Social History adopted: No household members: spouse and children number of children: 1 service: No current occupational status: unemployed current occupation: [employer] pets and animals: Yes (Avoid litterbox) pets and animals: cat(s) and dog(s) history of recent travel: No sexually active: Yes Smoking Status: Never smoker alcohol intake: never substance use type: does not use well-balanced diet: daily or most days caffeine: Yes Type: coffee Number of servings: 1 eating out: 1-3 times/week during the past year weight has: decreased > 10 lbs what type of physical activity do you participate in: none pia/orthodoxy: Latter-Day seatbelt use: always do you feel safe at home: Yes additional social history: Michelle -Eva 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 Normal [facility] Urine cultureOrdered By: Judah Tristan on 03-18-2024 Bacteria identified Cx Nom (U) Culture exhibits no growth. 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 Menses: cycles every 28 days and 4-6 days of flow. Contraception: none HPV vaccine: No Last Pap: 08/25/2020 normal HPV: N/A History of abnormal pap: No Last mammogram: never Sexually active: Yes History of STDS: None Patient concerns for STD exposure: No. 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 History Comments: Sexual Activity: Never; No partner data on record Contraception: Pill PAST MEDICAL HISTORY 08/09/2022: Anemia during in third trimester No date: anxiety 12/04/2011: Menarche 04/14/1999: Respiratory syncytial virus (RSV)PAST SURGICAL HISTORY No date: NONE FAMILY HISTORY Problem Relation Age of Onset No Known Problems Mother No Known Problems Father No Known Problems Sister Asthma Brother COPD Maternal Grandmother Skin Cancer Maternal Grandfather No Known Problems Paternal Grandmother No Known Problems Paternal Grandfather SOCIAL HISTORY Social History Tobacco Use Smoking status: Never Passive exposure: Yes Smokeless tobacco: Never Tobacco comments: Dad and step-mom and step-dad - father's household trying electric cigarettes Vaping Use Vaping status: Never Used Substance Use Topics Alcohol use: No Drug use: No REVIEW OF SYSTEMS Abdomen: No abdominal pain, nausea, vomiting, diarrhea, or constipation. No bloating, early satiety, indigestion, or increased flatulence. Bladder: No dysuria, gross hematuria, urinary frequency, urinary urgency, or incontinence. Breast: No breast lumps, nipple d/c, overlying skin changes, redness or skin retraction. Allergies and current medication updated:Yes EXAM: BP 118/66 Pulse 79 Resp 16 Ht 5' 1.496 (1.56m) Wt 173 lb 12.8 oz (78.8kg) SpO2 99% LMP 11/19/2023 BMI 32.31 kg/(m2). GENERAL: pleasant, female in no apparent distress HEENT: Normocephalic, atraumatic, mucus membranes moist, and no lesions NECK: Supple, full range of motion, no adenopathy, and thyroid normal DERMATOLOGY: Normal, without lesions, non-icteric, and non-hirsute BREAST: soft, non-tender, symmetric, no dominant mass, normal nipple-areolar complex, no lymphadenopathy, and no nipple discharge ABDOMEN: soft, non-tender, and no masses PELVIC: external genitalia normal, normal Bartholin's glands, urethra, Burdette's glands, no vulvar lesions, no cervical lesions, good vaginal support, physiologic discharge present, normal appearing perineal body and perianal region BIMANUAL: uterus normal size, shape and consistency, no adnexal masses, and non-tender RECTOVAGINAL: deferred. NEURO: alert and oriented x3,exam grossly non-focal EXTREMITIES: normal ASSESSMENT/PLAN: 1) Health maintenance: Pap done with reflex HPV. Nutrition, exercise and routine health maintenance exams reviewed. Colon cancer screening: start at age 45 HPV vaccine: discussed, not interested 2) Contraception: none. Contraceptive options reviewed and information provided. 3) STD screening: Declined STD check. 4) Follow up one year or sooner as needed 5) continue PNV- check Urine - had + at home then negative. Does not sound feasible since just had menses but will check Alyssa Spence MD Referring Provider: SELF [200] Allergies As of Date: 12/05/2023 (No Known Allergies) Date Reviewed: 12/05/2023 Reviewed by: Alyse Sibley LPN - Fully Assessed Reason for Visit: Well Woman [1463] Primary Visit Diagnosis:Encounter for gynecological examination (general) (routine) without abnormal findings [Z01.419] Other Visit Diagnosis:Screening for cervical cancer [Z12.4] Order(s):PAP TEST [[id number]] Order #: [id number]. #:[id number] Prescriptions as of 12/05/2023 - acetaminophen (TYLENOL) 500 mg tablet Take by mouth. - prental multivitamin 27 mg iron- 800 mcg tablet Take 1 tablet by mouth once daily. Meds Comments as of 07/11/2008: Reviewed current med list, 07/11/2008. Teresa Hicks LPN Problem List As Of Date 12/05/2023 Noted Resolved Dysmenorrhea [N94.6] 01/22/2016 06/10/2022 History of anxiety [Z86.59] 03/06/2022 related nausea, antepartum [O26.899 (more content not included)... Normal [facility] HIGH RISK HUMAN PAPILLOMA JANELL (HPV), PCR FOR DETECTION AND GENOTYPINGon 12-05-2023 HPV 16 Ag Ql (Unsp spec) Not detected Normal Not detec ry [facility] Comment on above: Order Comment: Speci men Type: FLUID SPECIMEN Ordering Facility: [facility] Address: [address] [place] [address] Performed By: #### H PVHRT, [id number] #### [facility] CLIA [id number] [address] [place] [address] [place] HPV 18 Ag Ql (Unsp spec) Not detected Normal Not detec ry [facility] Comment on above: Order Comment: Speci men Type: FLUID SPECIMEN Ordering Facility: [facility] Address: [address] [place] [address] Performed By: #### H PVHRT, [id number] #### [facility] CLIA [id number] [address] [place] [address] [place] HPV 31+33+35+39+45+51+52+56+ 58+59+66+68 DNA JUAN+probe Ql (Cvx) Not detected Normal Not detected [facility] Comment on above: Order Comment: Speci men Type: FLUID SPECIMEN Ordering Facility: [facility] Address: [address] [place] [address] Result Comment: High Risk HPV Other Type includes HPV types 31, 33, 35, 39, 45, 51, 52, 56, 58, 59, 66 and 68. Performed By: #### H PVHRT, [id number] #### [facility] CLIA [id number] [address] [place] [address] [place] PAP TESTon 12-05-2023 ADEQUACY Satisfactory for interpretation. Normal [facility] Comment on above: Order Comment: Speci men Type: FLUID SPECIMEN Ordering Facility: [facility] Address: [address] [place] [address] Performed By: #### H PVHRT, [id number] #### [facility] CLIA [id number] [address] [place] [address] [place] CASE REPORT Normal [facility] Comment on above: Order Comment: Speci men Type: FLUID SPECIMEN Ordering Facility: [facility] Address: [address] [place] [address] Result Comment: Gyne cologic Cytology Report Case: [id number] Authorizing Provider: Alyssa Packer, Collected: 12/05/2023 09:30 AM MD Ordering Location: OB/Gynecology Received: 12/05/2023 12:10 PM First Screen: Yoanna Napier, CT, ASCP Specimen: Pap Test, ThinPrep, Cervix Performed By: #### H PVHRT, [id number] #### [facility] CLIA [id number] [address] [place] [address] [place] CLINICAL HISTORY, CYTOLOGY, 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 Routine Exam Normal [facility] Comment on above: Order Comment: Speci men Type: FLUID SPECIMEN Ordering Facility: [facility] Address: [address] [place] [address] Performed By: #### H PVHRT, [id number] #### [facility] CLIA [id number] [address] [place] [address] [place] FINAL PERFORMING LAB Normal [facility] Comment on above: Order Comment: Speci men Type: FLUID SPECIMEN Ordering Facility: [facility] Address: [address] [place] [address] Result Comment: Tech nical component, careers counsellor screening performed at [facility], [address] [place] [address] CLIA# [id number] Diagnostic interpretation performed at [facility], [address] [place] [address] CLIA# [id number] Welfare Supervisor: Spencer Fierro M.D. Performed By: #### H PVHRT, [id number] #### [facility] CLIA [id number] [address] [place] [address] [place] HPV REFLEX Yes HPV Normal [facility] Comment on above: Order Comment: Speci men Type: FLUID SPECIMEN Ordering Facility: [facility] Address: [address] [place] [address] Performed By: #### H PVHRT, [id number] #### [facility] CLIA [id number] [address] [place] [address] [place] INTERPRETATION, CYTOLOGY, OUTSIDE PLANT FIELD ENGINEER Normal [facility] Comment on above: Order Comment: Speci men Type: FLUID SPECIMEN Ordering Facility: [facility] Address: [address] [place] [address] Result Comment: Nega tive for intraepithelial lesion or malignancy. Performed By: #### H PVHRT, [id number] #### [facility] CLIA [id number] [address] [place] [address] [place] LMP 11/19/2023 Normal [facility] Comment on above: Order Comment: Speci men Type: FLUID SPECIMEN Ordering Facility: [facility] Address: [address] [place] [address] Performed By: #### H PVHRT, [id number] #### [facility] CLIA [id number] [address] [place] [address] [place] PAP DISCLAIMER COMMENT The Pap Smear is a screening test for cervical cancer. False negative results occur with all screening tests, emphasizing the need for rescreening at recommended intervals, and clinical correlation. Normal [facility] Comment on above: Order Comment: Speci men Type: FLUID SPECIMEN Ordering Facility: [facility] Address: [address] [place] [address] Performed By: #### H PVHRT, [id number] #### [facility] CLIA [id number] [address] [place], [place] [id number] [place] PAP GLASS SELECTOR COMMENT This specimen has been analyzed by the [employer] Imaging System, an automated imaging and review system, which assists the laboratory in evaluating cells on ThinPrep Pap tests. Following automated imaging, selected blount from every slide are reviewed by a careers counsellor. Normal [facility] Comment on above: Order Comment: Speci men Type: FLUID SPECIMEN Ordering Facility: [facility] Address: [address] [place] [address] Performed By: #### H PVHRT, [id number] #### [facility] CLIA [id number] [address] [place] [address] [place] [address] [place] Absolute lymphocyte countOrd ered By: Maya Gonzales on 10-22-2022 Lymphocytes Auto (Unsp spec) [#/Vol] 2.38 10*3/uL 0.83-4.51 [facility] Basophil percentageOrdered B y: Maya Gonzales on 10-22-2022 Basophil percentage Not Reportable [facility] Neutrophils (Bld) [#/Vol] 14.3 10*3/uL 2.0-7.7 [facility] WBC (Bld) [#/Vol] 18.3 10*3/uL 4.4-11.0 [facility] Blood band neutrophil count as percentage of total leukocytesOrdered By: Maya Gonzales on 10-22-2022 Band form neutrophils/100 WBC (Bld) 3 % 0-5 [facility] Blood basophils/100 leukocyt esOrdered By: Maya Gonzales on 10-22-2022 Basophils/100 WBC (Bld) 1 % 0-1 [facility] Blood eosinophils/100 leukoc ytesOrdered By: Maya Gonzales on 10-22-2022 Eosinophils/100 WBC (Bld) 2 % 0-5 [facility] Blood erythrocytes count (nu mber/volume)Ordered By: Maya Gonzales on 10-22-2022 RBC (Bld) [#/Vol] 4.00 10*6/uL 4.2-5.4 [facility] Blood hemoglobin measurement (mass/volume)Ordered By: Maya Gonzales on 10-22-2022 Hemoglobin (Bld) [Mass/Vol] 11.4 g/dL 12.0-15.0 [facility] Blood lymphocytes/100 leukoc ytesOrdered By: Maya Gonzales on 10-22-2022 Lymphocytes/100 WBC (Bld) 13 % 19-41 [facility] Blood monocytes/100 leukocyt esOrdered By: Maya Gonzales on 10-22-2022 Monocytes/100 WBC (Bld) 4 % 0-10 [facility] Blood platelet adequacy dete ction by light microscopyOrdered By: Maya Gonzales on 10-22-2022 Platelets LM Ql (Bld) ADEQUATE ADEQ [facility] Blood platelet mean volumeOr dered By: Maya Gonzales on 10-22-2022 Platelet mean volume (Bld) [Entitic vol] 10.3 fL 6.2-12.0 [facility] Blood segmented neutrophils/ 100 leukocytesOrdered By: Maya Gonzales on 10-22-2022 Segmented neutrophils/100 WBC (Bld) 75 % 47-70 [facility] Determination of erythrocyte mean corpuscular volume (MCV)Ordered By: Maya Gonzales on 10-22-2022 MCV (RBC) [Entitic vol] 90.0 fL 81-99 [facility] Hematocrit Auto (Bld) [Volum e fraction]Ordered By: Maya Gonzales on 10-22-2022 Hematocrit (Bld) [Volume fraction] 36.0 % 37-47 [facility] Laboratory - Hematology and Cell countsOrdered By: Maya Gonzales on 10-22-2022 Erythrocyte distribution width (RBC) [Entitic vol] 47.8 fL 35.1-43.9 [facility] Erythrocyte distribution width (RBC) [Ratio] 14.6 % 11.6-14.6 [facility] MCH (RBC) [Entitic mass] 28.5 pg 27.0-32.0 [facility] Myelocytes/100 WBC (Bld) 2 % 0-0 [facility] MCHC Auto (RBC) [Mass/Vol]Or dered By: Maya Gonzales on 10-22-2022 MCHC (RBC) [Mass/Vol] 31.7 g/dL 32-36 [facility] No Panel InformationOrdered By: Maya Gonzales on 10-22-2022 Vaginal Amniotic Fluid Detection Positive Negative [facility] Comment on above: Amniotic fluid prese nt indicates rupture of Membranes. RESULTS CALLED TO Johann CANALES 10/22/22 011Rashawn Baker.REPORT READ BACK BY SAME. Platelets bldOrdered By: Ene Gonzales on 10-22-2022 Platelets (Bld) [#/Vol] 272 10*3/uL 150-450 [facility] RBC morphologyOrdered By: Justus Gonzales on 10-22-2022 RBC morphology finding Nom (Bld) NORM C+C NORMAL NORM C&C [facility] Review by pathologistOrdered By: Maya Gonzales on 10-22-2022 Pathologist review Hugo (Unsp spec) [Interp] Reviewed [facility] Comment on above: Previous reported re sult: Delmis conway Edited by: HELENA on 10/23/22:1007Neutrophilic leukocytosis with left shift.Clinical correlation necessary.Chan Watson M.D. 10/23/22 AMENDED REPORT 10/23/22 1007 PATH REV previously reported as: Delmis conway Serum Treponema species anti body detectionOrdered By: Maya Gonzales on 10-22-2022 Treponema sp Ab Ql (S) Non-Reactive [facility] Total cell countOrdered By: Maya Gonzales on 10-22-2022 Cells counted Molgen (Bld/Tiss) [#] 100 MANUAL DIFF [facility] No Panel InformationOrdered By: Davion Sepulveda on 10-16-2022 Vaginal Amniotic Fluid Detection Negative Negative [facility] Comment on above: Amniotic fluid not p resent indicates No Rupture of FetalMembranes at time of specimen collection. CBC panel Auto (Bld)on 10-14 Erythrocyte distribution width (RBC) [Ratio] 14.8 % 11.5 - 15.0 % [facility] Hematocrit (Bld) [Volume fraction] 32.6 % Low 36.0 - 46.0 % [facility] Hemoglobin (Bld) [Mass/Vol] 10.7 g/dL Low 11.5 - 15.5 g/dL [facility] MCH (RBC) [Entitic mass] 28.4 pg 26.0 - 34.0 pg [facility] MCHC (RBC) [Mass/Vol] 32.8 g/dL 30.5 - 36.0 g/dL [facility] MCV (RBC) [Entitic vol] 86.5 fL 80.0 - 100.0 fL [facility] Nucleated RBC (Bld) [#/Vol] <0.01 k/uL [facility] Platelet mean volume (Bld) [Entitic vol] 9.8 fL 9.0 - 12.7 fL [facility] Platelets (Bld) [#/Vol] 270 10*3/uL 150 - 400 k /uL [facility] RBC (Bld) [#/Vol] 3.77 10*6/uL Low 3.90 - 5.2 0 m/uL [facility] WBC (Bld) [#/Vol] 16.27 10*3/uL High 3.70 - 11 .00 k/uL [facility] URINE OB DIP B/Oon 3 Glucose Ql (U) Negative Neg mg/dL [facility] Protein.monoclonal (U) [Mass/Vol] Negative Neg mg/dL [facility] URINE OB DIP B/Oon 3 Glucose Ql (U) Negative Neg mg/dL [facility] Protein.monoclonal (U) [Mass/Vol] Negative Neg mg/dL [facility] OBSTETRIC ULTRASOUND WHIon 0 10-02-2022 [facility] URINE OB DIP B/Oon 3 Glucose Ql (U) Negative Neg mg/dL [facility] Protein.monoclonal (U) [Mass/Vol] Negative Neg mg/dL [facility] URINE OB DIP B/Oon 3 Glucose Ql (U) Negative Neg mg/dL [facility] Protein.monoclonal (U) [Mass/Vol] Negative Neg mg/dL [facility] URINE OB DIP B/Oon 3 Glucose Ql (U) Negative Neg mg/dL [facility] Protein.monoclonal (U) [Mass/Vol] Negative Neg mg/dL [facility] URINE OB DIP B/Oon 3 Glucose Ql (U) Negative Neg mg/dL [facility] Protein.monoclonal (U) [Mass/Vol] Negative Neg mg/dL [facility] OBSTETRIC ULTRASOUND WHIon 0 06-10-2022 [facility] URINE OB DIP B/Oon 3 Glucose Ql (U) Negative Neg mg/dL [facility] Protein.monoclonal (U) [Mass/Vol] Negative Neg mg/dL [facility] URINE OB DIP B/Oon 3 Glucose Ql (U) Negative Neg mg/dL [facility] Protein.monoclonal (U) [Mass/Vol] Negative Neg mg/dL [facility] URINE OB DIP B/Oon 2 Glucose Ql (U) Negative Neg mg/dL [facility] Protein.monoclonal (U) [Mass/Vol] Negative Neg mg/dL [facility] URINE OB DIP B/Oon 2 Glucose Ql (U) Negative Neg mg/dL [facility] Protein.monoclonal (U) [Mass/Vol] Negative Neg mg/dL [facility] Vital Signs Date Time Vital Sign Value Performing Clinician Facility 10-12-2024 08:17-0400 Body height 157.[address] Geronimo Arias DO Work Phone: [facility] 10-12-2024 08:16-0400 Body mass index (BMI) [Ratio] 37.1 kg/m2 Dr. Geronimo Arias DO Work Phone: [facility] 10-12-2024 08:16-0400 Body weight 92.[address] Geronimo Arias DO Work Phone: [facility] 10-12-2024 08:16-0400 Diastolic blood pressure 74 mm[Hg] Dr. Geronimo Arias DO Work Phone: [facility] 10-12-2024 08:16-0400 Systolic blood pressure 109 mm[Hg] Dr. Geronimo Arias DO Work Phone: [facility] 10-07-2024 08:19-0400 Body height 157.[address] Geronimo Arias DO Work Phone: [facility] 10-07-2024 08:18-0400 Body mass index (BMI) [Ratio] 36.8 kg/m2 Dr. Geronimo Arias DO Work Phone: [facility] 10-07-2024 08:18-0400 Body weight 91.[address] Geronimo Arias DO Work Phone: [facility] 10-07-2024 08:18-0400 Diastolic blood pressure 63 mm[Hg] Dr. Geronimo Arias DO Work Phone: [facility] 10-07-2024 08:18-0400 Systolic blood pressure 108 mm[Hg] Dr. Geronimo Arias DO Work Phone: [facility] 09-30-2024 13:44-0400 Body height 157.[address] Geronimo Arias DO Work Phone: [facility] 09-30-2024 13:44-0400 Body mass index (BMI) [Ratio] 36.8 kg/m2 Dr. Geronimo Arias DO Work Phone: [facility] 09-30-2024 13:44-0400 Body weight 91.[address] Geronimo Arias DO Work Phone: [phone] [place] [address] 09-30-2024 13:44-0400 Diastolic blood pressure 80 mm[Hg] Dr. Geronimo Arias DO Work Phone: [facility] 09-30-2024 13:44-0400 Systolic blood pressure 116 mm[Hg] Dr. Geronimo Arias DO Work Phone: [facility] 09-29-2024 12:04-0400 Diastolic blood pressure 64 mm[Hg] Dr. Geronimo Arias DO Work Phone: [facility] 09-29-2024 12:04-0400 Heart rate 108 /min Dr. Geronimo Arias DO Work Phone: [facility] 09-29-2024 12:04-0400 SaO2% (BldA) [Mass fraction] 97 % Dr. Geronimo Arias DO Work Phone: [facility] 09-29-2024 12:04-0400 Systolic blood pressure 94 mm[Hg] Dr. Geronimo Arias DO Work Phone: [facility] 09-29-2024 11:56-0400 Body height 157.[address] Geronimo Arias DO Work Phone: [facility] 09-29-2024 11:56-0400 Body mass index (BMI) [Ratio] 36.6 kg/m2 Dr. Geronimo Arias DO Work Phone: [facility] 09-29-2024 11:56-0400 Body weight 90.[address] Geronimo Arias DO Work Phone: [facility] 09-29-2024 11:55-0400 Body temperature 97.6 [degF] Dr. Geronimo Arias DO Work Phone: [facility] 09-29-2024 11:55-0400 Respiratory rate 16 /min Dr. Geronimo Arias DO Work Phone: [facility] 09-22-2024 13:50-0400 Body height 157.[address] Geronimo Arias DO Work Phone: [phone] [address] 09-22-2024 13:49-0400 Body mass index (BMI) [Ratio] 36.3 kg/m2 Dr. Geronimo Arias DO Work Phone: [facility] 09-22-2024 13:49-0400 Body weight 90.[address] Geronimo Arias DO Work Phone: [facility] 09-22-2024 13:49-0400 Diastolic blood pressure 66 mm[Hg] Dr. Geronimo Arias DO Work Phone: [facility] 09-22-2024 13:49-0400 Systolic blood pressure 97 mm[Hg] Dr. Geronimo Arias DO Work Phone: [facility] 09-09-2024 09:51-0400 Body height 157.[address] Geronimo Arias DO Work Phone: [facility] 09-09-2024 09:51-0400 Body mass index (BMI) [Ratio] 35 kg/m2 Dr. Geronimo Arias DO Work Phone: [facility] 09-09-2024 09:51-0400 Body weight [address] Geronimo Arias DO Work Phone: [facility] 09-09-2024 09:43-0400 Body temperature 98.7 [degF] Dr. Geronimo Arias DO Work Phone: [facility] 09-09-2024 09:43-0400 Diastolic blood pressure 63 mm[Hg] Dr. Geronimo Arias DO Work Phone: [facility] 09-09-2024 09:43-0400 Heart rate 97 /min Dr. Geronimo Arias DO Work Phone: [facility] 09-09-2024 09:43-0400 Respiratory rate 16 /min Dr. Geronimo Arias DO Work Phone: [facility] 09-09-2024 09:43-0400 Systolic blood pressure 116 mm[Hg] Dr. Geronimo Arias DO Work Phone: [facility] 09-09-2024 08:22-0400 Body height 157.[address] Geronimo Arias DO Work Phone: [facility] 09-09-2024 08:22-0400 Body mass index (BMI) [Ratio] 35.4 kg/m2 Dr. Geronimo Arias DO Work Phone: [facility] 09-09-2024 08:22-0400 Body weight 87.[address] Geronimo Arias DO Work Phone: [facility] 09-09-2024 08:22-0400 Diastolic blood pressure 70 mm[Hg] Dr. Geronimo Arias DO Work Phone: [facility] 09-09-2024 08:22-0400 Systolic blood pressure 108 mm[Hg] Dr. Geronimo Arias DO Work Phone: [facility] 08-23-2024 13:55-0400 Body mass index (BMI) [Ratio] 34.4 kg/m2 Dr. Geronimo Arias DO Work Phone: [facility] 08-23-2024 13:55-0400 Body weight 85.[address] Geronimo Arias DO Work Phone: [facility] 08-23-2024 13:55-0400 Diastolic blood pressure 64 mm[Hg] Dr. Geronimo Arias DO Work Phone: [facility] 08-23-2024 13:55-0400 Systolic blood pressure 100 mm[Hg] Dr. Geronimo Arias DO Work Phone: [facility] 08-11-2024 11:19-0400 Body mass index (BMI) [Ratio] 34 kg/m2 Dr. Geronimo Arias DO Work Phone: [facility] 08-11-2024 11:19-0400 Body weight 84.[address] Geronimo Arias DO Work Phone: [facility] 08-11-2024 11:19-0400 Diastolic blood pressure 69 mm[Hg] Dr. Geronimo Arias DO Work Phone: [facility] 08-11-2024 11:19-0400 Systolic blood pressure 101 mm[Hg] Dr. Geronimo Arias DO Work Phone: [facility] 08-05-2024 22:25-0400 Body height 157.[address] Geronimo Arias DO Work Phone: [facility] 08-05-2024 22:25-0400 Body mass index (BMI) [Ratio] 33.8 kg/m2 Dr. Geronimo Arias DO Work Phone: [facility] 08-05-2024 22:25-0400 Body weight 83.[address] Geronimo Arias DO Work Phone: [facility] 08-05-2024 22:21-0400 Diastolic blood pressure 67 mm[Hg] Dr. Geronimo Arias DO Work Phone: [facility] 08-05-2024 22:21-0400 Heart rate 94 /min Dr. Geronimo Arias DO Work Phone: [facility] 08-05-2024 22:21-0400 Systolic blood pressure 111 mm[Hg] Dr. Geronimo Arias DO Work Phone: [facility] 08-05-2024 22:20-0400 SaO2% (BldA) [Mass fraction] 98 % Dr. Geronimo Arias DO Work Phone: [facility] 07-30-2024 11:00-0400 Body mass index (BMI) [Ratio] 33.3 kg/m2 Dr. Geronimo Arias DO Work Phone: [facility] 07-30-2024 11:00-0400 Body weight 82.[address] Geronimo Arias DO Work Phone: [facility] 07-30-2024 11:00-0400 Diastolic blood pressure 68 mm[Hg] Dr. Geronimo Arias DO Work Phone: [facility] 07-30-2024 11:00-0400 Systolic blood pressure 106 mm[Hg] Dr. Geronimo Arias DO Work Phone: [facility] 07-12-2024 14:50-0400 Body height 157.[address] Geronimo Arias DO Work Phone: [facility] 07-12-2024 14:50-0400 Body mass index (BMI) [Ratio] 32.3 kg/m2 Dr. Geronimo Arias DO Work Phone: [facility] 07-12-2024 14:50-0400 Body weight 80.[address] Geronimo Arias DO Work Phone: [facility] 07-12-2024 14:50-0400 Diastolic blood pressure 69 mm[Hg] Dr. Geronimo Arias DO Work Phone: [facility] 07-12-2024 14:50-0400 Systolic blood pressure 105 mm[Hg] Dr. Geronimo Arias DO Work Phone: [facility] 06-24-2024 13:12-0400 Body mass index (BMI) [Ratio] 32.1 kg/m2 Dr. Geronimo Arias DO Work Phone: [facility] 06-24-2024 13:12-0400 Body weight 79.[address] Geronimo Arias DO Work Phone: [facility] 06-24-2024 13:12-0400 Diastolic blood pressure 72 mm[Hg] Dr. Geronimo Arias DO Work Phone: [facility] 06-24-2024 13:12-0400 Systolic blood pressure 105 mm[Hg] Dr. Geronimo Arias DO Work Phone: [facility] 06-18-2024 08:48-0500 Body mass index (BMI) [Ratio] 31.7 kg/m2 Dr. Geronimo Arias DO Work Phone: [facility] 06-18-2024 08:48-0500 Body weight 78.[address] Geronimo Arias DO Work Phone: [facility] 06-18-2024 08:48-0500 Diastolic blood pressure 72 mm[Hg] Dr. Geronimo Arias DO Work Phone: [facility] 06-18-2024 08:48-0500 Systolic blood pressure 104 mm[Hg] Dr. Geronimo Arias DO Work Phone: [facility] 05-21-2024 08:48-0500 Body mass index (BMI) [Ratio] 30.9 kg/m2 Dr. Geronimo Arias DO Work Phone: [facility] 05-21-2024 08:48-0500 Body weight 76.[address] Geronimo Arias DO Work Phone: [facility] 05-21-2024 08:48-0500 Diastolic blood pressure 74 mm[Hg] Dr. Geronimo Arias DO Work Phone: [facility] 05-21-2024 08:48-0500 Systolic blood pressure 108 mm[Hg] Dr. Geronimo Arias DO Work Phone: [facility] 04-21-2024 15:08-0500 Body mass index (BMI) [Ratio] 30.4 kg/m2 Dr. Geronimo Arias DO Work Phone: [facility] 04-21-2024 15:08-0500 Body weight 75.[address] Geronimo Arias DO Work Phone: [facility] 04-21-2024 15:08-0500 Diastolic blood pressure 75 mm[Hg] Dr. Geronimo Arias DO Work Phone: [facility] 04-21-2024 15:08-0500 Systolic blood pressure 127 mm[Hg] Dr. Geronimo Arias DO Work Phone: [facility] 03-18-2024 14:39-0500 Body mass index (BMI) [Ratio] 31.5 kg/m2 Dr. Geronimo Arias DO Work Phone: [facility] 03-18-2024 14:39-0500 Body weight 78.[address] Geronimo Arias DO Work Phone: [facility] 03-18-2024 14:39-0500 Diastolic blood pressure 70 mm[Hg] Dr. Geronimo Arias DO Work Phone: [facility] 03-18-2024 14:39-0500 Systolic blood pressure 104 mm[Hg] Dr. Geronimo Arias DO Work Phone: [facility] 12-05-2023 09:10-0400 Body height 156.2 cm Alyssa Chance MD Work Phone: [facility] 12-05-2023 09:10-0400 Body mass index (BMI) [Ratio] 32.31 kg/m2 Alyssa Chance MD Work Phone: [facility] 12-05-2023 09:10-0400 Body weight 78.83 kg Alyssa Chance MD Work Phone: [facility] 12-05-2023 09:10-0400 Diastolic blood pressure 66 mm[Hg] Alyssa Chance MD Work Phone: [facility] 12-05-2023 09:10-0400 Heart rate 79 /min Alyssa Chance MD Work Phone: [facility] 12-05-2023 09:10-0400 Respiratory rate 16 /min Alyssa Chance MD Work Phone: [facility] 12-05-2023 09:10-0400 SaO2% (BldA) [Mass fraction] 99 % Alyssa Chance MD Work Phone: [facility] 12-05-2023 09:10-0400 Systolic blood pressure 118 mm[Hg] Alyssa Chance MD Work Phone: [facility] 12-04-2022 16:01-0400 Body weight 78.47 kg Alyssa Chance MD Work Phone: [facility] 12-04-2022 16:01-0400 Diastolic blood pressure 60 mm[Hg] Alyssa Chance MD Work Phone: [facility] 12-04-2022 16:01-0400 Systolic blood pressure 100 mm[Hg] Alyssa Chance MD Work Phone: [facility] 10-23-2022 17:36-0400 Body temperature 97 [degF] [facility] 10-23-2022 17:36-0400 Diastolic blood pressure 71 mm[Hg] [facility] 10-23-2022 17:36-0400 Heart rate 100 /min [facility] 10-23-2022 17:36-0400 Respiratory rate 16 /min [facility] 10-23-2022 17:36-0400 Systolic blood pressure 116 mm[Hg] [facility] 10-22-2022 00:54-0400 Body height 157.48 cm [facility] 10-22-2022 00:54-0400 Body mass index (BMI) [Ratio] 37 kg/m2 [facility] 10-22-2022 00:54-0400 Body weight 91.8 kg [facility] 10-16-2022 07:16-0400 Body temperature 97.1 [degF] [facility] 10-16-2022 07:16-0400 Diastolic blood pressure 61 mm[Hg] [facility] 10-16-2022 07:16-0400 Heart rate 99 /min [facility] 10-16-2022 07:16-0400 Systolic blood pressure 132 mm[Hg] [facility] 10-16-2022 05:31-0400 Body height 157.48 cm [facility] 10-16-2022 05:31-0400 Body mass index (BMI) [Ratio] 36.9 kg/m2 [facility] 10-16-2022 05:31-0400 Body weight 91.6 kg [facility] 10-16-2022 05:27-0400 SaO2% (BldA) [Mass fraction] 97 % [facility] 10-14-2022 10:18-0400 Body weight 91.17 kg Loerna Camara MD Work Phone: [facility] 10-14-2022 10:18-0400 Diastolic blood pressure 66 mm[Hg] Lorena Camara MD Work Phone: [facility] 10-14-2022 10:18-0400 Systolic blood pressure 106 mm[Hg] Lorena Camara MD Work Phone: [facility] 10-10-2022 10:55-0400 Body temperature 97.81 [degF] Treatment Wstr Work Phone: [facility] 10-10-2022 10:55-0400 Diastolic blood pressure 70 mm[Hg] Treatment [facility]str Work Phone: [facility] 10-10-2022 10:55-0400 Heart rate 94 /min Treatment [facility]str Work Phone: [facility] 10-10-2022 10:55-0400 SaO2% (BldA) [Mass fraction] 98 % Treatment [facility] Work Phone: [facility] 10-10-2022 10:55-0400 Systolic blood pressure 106 mm[Hg] Treatment [facility]str Work Phone: [facility] 10-09-2022 13:48-0400 Body weight 90.45 kg Sobeida Lopez MD Work Phone: [facility] 10-09-2022 13:48-0400 Diastolic blood pressure 60 mm[Hg] Sobeida Lopez MD Work Phone: [facility] 10-09-2022 13:48-0400 Systolic blood pressure 104 mm[Hg] Sobeida Lopez MD Work Phone: [facility] 10-03-2022 10:24-0400 Body temperature 97.59 [degF] Treatment [facility]str Work Phone: [facility] 10-03-2022 10:24-0400 Diastolic blood pressure 71 mm[Hg] Treatment [facility]str Work Phone: [facility] 10-03-2022 10:24-0400 Heart rate 97 /min Treatment [facility] Work Phone: [facility] 10-03-2022 10:24-0400 Respiratory rate 18 /min Treatment [facility]str Work Phone: [facility] 10-03-2022 10:24-0400 SaO2% (BldA) [Mass fraction] 97 % [facility] Work Phone: [facility] 10-03-2022 10:24-0400 Systolic blood pressure 109 mm[Hg] Treatment [facility]str Work Phone: [facility] 10-02-2022 11:21-0400 Body weight 88.91 kg Maya Gonzales APRN.CNM Work Phone: [facility] 10-02-2022 11:21-0400 Diastolic blood pressure 64 mm[Hg] Maya Gonzales APRN.CNM Work Phone: [facility] 10-02-2022 11:21-0400 Systolic blood pressure 106 mm[Hg] Maya Gonzales APRN.CNM Work Phone: [facility] 09-26-2022 11:34-0400 Diastolic blood pressure 65 mm[Hg] Treatment Wstr Work Phone: [facility] 09-26-2022 11:34-0400 Systolic blood pressure 110 mm[Hg] Treatment Wstr Work Phone: [facility] 09-26-2022 10:43-0400 Body temperature 97.3 [degF] Treatment [facility]str Work Phone: [facility] 09-26-2022 10:43-0400 Heart rate 91 /min Treatment [facility]str Work Phone: [facility] 09-26-2022 10:43-0400 SaO2% (BldA) [Mass fraction] 98 % Treatment [facility] Work Phone: [facility] 09-19-2022 08:51-0400 Body weight 88.59 kg Sobeida Lopez MD Work Phone: [facility] 09-19-2022 08:51-0400 Diastolic blood pressure 68 mm[Hg] Sobeida Lopez MD Work Phone: [facility] 09-19-2022 08:51-0400 Systolic blood pressure 100 mm[Hg] Sobeida Lopez MD Work Phone: [facility] 09-10-2022 17:54-0400 Diastolic blood pressure 64 mm[Hg] [facility] 09-10-2022 17:54-0400 Heart rate 102 /min [facility] 09-10-2022 17:54-0400 Systolic blood pressure 99 mm[Hg] [facility] 09-10-2022 16:56-0400 Body height 157.48 cm [facility] 09-10-2022 16:56-0400 Body mass index (BMI) [Ratio] 35.5 kg/m2 [facility] 09-10-2022 16:56-0400 Body weight 88.05 kg [facility] 08-23-2022 09:58-0400 Body weight 84.37 kg Davion Sepulveda MD Work Phone: [facility] 08-23-2022 09:58-0400 Diastolic blood pressure 66 mm[Hg] Davion Sepulveda MD Work Phone: [facility] 08-23-2022 09:58-0400 Systolic blood pressure 102 mm[Hg] Davion Sepulveda MD Work Phone: [facility] 08-12-2022 13:06-0400 Diastolic blood pressure 72 mm[Hg] Lorena Camara MD Work Phone: [facility] 08-12-2022 13:06-0400 Systolic blood pressure 120 mm[Hg] Lorena Camara MD Work Phone: [facility] 08-08-2022 15:38-0400 Body weight 82.1 kg Davion Sepulveda MD Work Phone: [facility] 08-08-2022 15:38-0400 Diastolic blood pressure 68 mm[Hg] Davion Sepulveda MD Work Phone: [facility] 08-08-2022 15:38-0400 Systolic blood pressure 104 mm[Hg] Davion Sepulveda MD Work Phone: [facility] 07-08-2022 16:07-0400 Body weight 79.2 kg Alyssa Chance MD Work Phone: [facility] 07-08-2022 16:07-0400 Diastolic blood pressure 68 mm[Hg] Alyssa Chance MD Work Phone: [facility] 07-08-2022 16:07-0400 Systolic blood pressure 100 mm[Hg] Alyssa Chance MD Work Phone: [facility] 06-10-2022 11:03-0500 Body weight 74.39 kg Davion Sepulveda MD Work Phone: [facility] 06-10-2022 11:03-0500 Diastolic blood pressure 64 mm[Hg] Davion Sepulveda MD Work Phone: [facility] 06-10-2022 11:03-0500 Systolic blood pressure 108 mm[Hg] Davion Sepulveda MD Work Phone: [facility] 05-13-2022 08:41-0500 Body weight 72.48 kg Sobeida Lopez MD Work Phone: [facility] 05-13-2022 08:41-0500 Diastolic blood pressure 64 mm[Hg] Sobeida Lopez MD Work Phone: [facility] 05-13-2022 08:41-0500 Systolic blood pressure 104 mm[Hg] Sobeida Lopez MD Work Phone: [facility] 04-12-2022 14:23-0500 Body weight 70.31 kg Loerna Camara MD Work Phone: [facility] 04-12-2022 14:23-0500 Diastolic blood pressure 62 mm[Hg] Lorena Camara MD Work Phone: [facility] 04-12-2022 14:23-0500 Systolic blood pressure 104 mm[Hg] Lorena Camara MD Work Phone: [facility] 03-19-2022 14:01-0500 Body weight 71.4 kg Davion Sepulveda MD Work Phone: [facility] 03-19-2022 14:01-0500 Diastolic blood pressure 62 mm[Hg] Davion Sepulveda MD Work Phone: [facility] 03-19-2022 14:01-0500 Systolic blood pressure 112 mm[Hg] Davion Sepulveda MD Work Phone: [facility] 03-11-2022 10:12-0500 Body height 157.5 cm Alyssa Chance MD Work Phone: [facility] 03-11-2022 10:12-0500 Body weight 71.67 kg Alyssa Chance MD Work Phone: [facility] 03-11-2022 10:12-0500 Diastolic blood pressure 70 mm[Hg] Alyssa Chance MD Work Phone: [facility] 03-11-2022 10:12-0500 Systolic blood pressure 110 mm[Hg] Alyssa Chance MD Work Phone: [facility] 01-09-2022 08:31-0400 Body height 157 cm Alyssa Chance MD Work Phone: [facility] 01-09-2022 08:31-0400 Body weight 68.04 kg Alyssa Chance MD Work Phone: [facility] 01-09-2022 08:31-0400 Diastolic blood pressure 60 mm[Hg] Alyssa Chance MD Work Phone: [facility] 01-09-2022 08:31-0400 Systolic blood pressure 100 mm[Hg] Alyssa Chance MD Work Phone: [facility] 07-21-2020 17:03-0400 BMI (Body Mass Index) 25.79 kg/m2 [facility] 07-21-2020 17:03-0400 Body Temperature 98.4 [degF] [facility] 07-21-2020 17:03-0400 Body weight 63.96 kg [facility] 07-21-2020 17:03-0400 BP Diastolic 83 mm[Hg] [facility] 07-21-2020 17:03-0400 BP Systolic 119 mm[Hg] [facility] 07-21-2020 17:03-0400 Height 157.5 cm [facility] 07-21-2020 17:03-0400 Pulse (Heart Rate) 84 /min [facility] 07-21-2020 17:03-0400 Pulse Oximetry 97 % [facility] 07-21-2020 17:03-0400 Respiratory Rate 16 /min [facility] Encounters Encounter Date Encounter Type Care Provider Facility Start: 10-20-2024 ambulatory Geronimo Galan acility:[facility] Start: 10-14-2024 ambulatory Becky Rice lity:[facility] Start: 10-12-2024 Encounter for genera l adult medical examination without abnormal findings Becky Galvez [facility] Start: 10-12-2024 End: 10-12-[address] Selene Braun DO [facility] Work Phone: Start: 10-12-2024 End: 10-12-[address] Geronimo Arias DO Work Phone: -[facility] Start: 10-08-2024 End: 10-08-[address] Becky Galvez MD -[facility] Work Phone: Start: 10-08-2024 End: 10-08-[address] Geronimo Arias DO Work Phone: -[facility] Start: 10-07-2024 End: 10-07-[address] Becky Galvez MD -[facility] Work Phone: Start: 10-07-2024 End: 10-07-[address] Geronimo Arias DO Work Phone: [facility] Work Phone: Start: 09-30-2024 End: 09-30-[address] Selene Braun DO -[facility] Work Phone: Start: 09-30-2024 End: 09-30-[address] Geronimo Arias DO Work Phone: [facility] Work Phone: Start: 09-29-2024 ambulatory Becky Rice lity:AP Start: 09-29-2024 Non-patient / Non-visit Dr. Sveta Galvez MD -[facility] Start: 09-29-2024 End: 09-29-[address] Geronimo Arias DO Work Phone: [facility] Work Phone: Start: 09-29-2024 End: 09-29-[address] Becky Galvez MD -[facility] Work Phone: Start: 09-22-2024 End: 09-22-[address] Geronimo Arias DO Work Phone: [facility] Work Phone: Start: 09-22-2024 End: 09-22-[address] Selene Braun DO -[facility] Work Phone: Start: 09-22-2024 End: 09-22-[address] Selene Braun DO -[facility] Work Phone: Start: 09-22-2024 End: 09-22-[address] Geronimo Arias DO Work Phone: [facility] Work Phone: Start: 09-22-2024 End: 09-22-2024 ambulatory Selene Braun Facility:[facility] Start: 09-09-2024 ambulatory Becky Rice lity:[facility] Start: 09-09-2024 Non-patient / Non-visit Dr. Sveta Galvez MD -[facility] Start: 09-09-2024 End: 09-09-[address] Geronimo Arias DO Work Phone: [facility] Work Phone: Start: 09-09-2024 End: 09-09-[address] Becky Galvez MD -[facility] Work Phone: Start: 09-09-2024 End: 09-09-2024 Patient encounter procedure Chrissy Tristan CNM -[facility] Work Phone: Start: 09-09-2024 End: 09-09-[address] Geronimo Arias DO Work Phone: [facility] Work Phone: Start: 08-25-2024 End: 08-25-2024 ambulatory Promise Agosto NP Facility:[facility] Start: 08-25-2024 End: 08-25-2024 Non-patient / Non-visit Dr. Jacob Suggs MD -[facility] Work Phone: Start: 08-25-2024 End: 08-25-2024 Patient encounter procedure Promise Agosto [employer] -Pulmonary Services/Neurology Work Phone: Start: 08-25-2024 End: 08-25-2024 ambulatory Promise Agosto [employer] Facility:[facility] Start: 08-23-2024 End: 08-23-2024 Patient encounter procedure Promise Agosto [employer] -[facility] Work Phone: Start: 08-23-2024 End: 08-23-2024 ambulatory Promise Agosto [employer] Facility:[facility] Start: 08-11-2024 End: 08-11-[address] Selene Braun DO -[facility] Work Phone: Start: 08-11-2024 End: 08-11-2024 ambulatory Selene Braun Facility:[facility] Start: 08-05-2024 Non-patient / Non-visit Dr. Sveta Galvez MD -[facility] Start: 08-05-2024 End: 08-06-[address] Geronimo Arias DO Work Phone: [facility] Work Phone: Start: 08-05-2024 End: 08-06-[address] Becky Galvez MD -[facility] Work Phone: Start: 07-30-2024 End: 07-30-[address] Becky Galvez MD -[facility] Work Phone: Start: 07-30-2024 End: 07-30-2024 ambulatory Becky Galvez Facility:[facility] Start: 07-12-2024 End: 07-12-[address] Geronimo Arias DO Work Phone: [facility] Work Phone: Start: 07-12-2024 End: 07-12-2024 Patient encounter procedure Chrissy Tristan CNM -Lab, [facility] Start: 07-12-2024 End: 07-12-2024 ambulatory Chrissy Tristan Facility:[facility] Start: 06-24-2024 End: 06-24-2024 Patient encounter procedure Chrissy Tristan CNM -[facility] Work Phone: Start: 06-24-2024 End: 06-24-2024 ambulatory Chrissy Tristan Facility:[facility] Start: 06-18-2024 End: 06-18-2024 Patient encounter procedure Chrissy PRINCEM -[facility] Work Phone: Start: 06-18-2024 End: 06-18-2024 ambulatory Chrissy Tristan Facility:[facility] Start: 06-10-2024 End: 06-10-2024 ambulatory BECKY GALVEZ [facility] Start: 05-27-2024 End: 05-27-2024 ambulatory GERONIMO ARIAS [facility] Start: 05-21-2024 End: 05-21-2024 Patient encounter procedure Chrissy PRINCE -[facility] Work Phone: Start: 05-21-2024 End: 05-21-2024 ambulatory Chrissy Tristan Facility:[facility] Start: 04-21-2024 End: 04-21-[address] Becky Galvez MD -[facility] Work Phone: Start: 04-21-2024 End: 04-21-2024 ambulatory Becky Galvez Facility:[facility] Start: 04-12-2024 End: 04-12-2024 Patient encounter procedure Chrissy PRINCEM -Lab, [facility] Start: 04-12-2024 End: 04-12-2024 ambulatory Chrissy Tristan Facility:[facility] Start: 03-18-2024 End: 03-18-2024 Patient encounter procedure Chrissy Tristan CNGrace -Laboratory, Specimen Work Phone: Start: 03-18-2024 End: 03-18-2024 Patient encounter procedure Chrissy Tristan CNM -[facility] Work Phone: Start: 03-18-2024 End: 03-18-2024 ambulatory Geronimo Arias Facility:[facility] Start: 03-18-2024 End: 03-18-2024 ambulatory Chrissy Tristan Facility:[facility] Start: 12-05-2023 End: 12-05-2023 ambulatory MURIEL Damien HOSSEIN Facility:[facility] Start: 12-05-2023 End: 12-05-2023 Patient encounter procedure Alyssa Chance MD Work Phone: OB/Gynecology Comment on above: Encounter for gyneco logical examination (general) (routine) without abnormal findings (Primary Dx); Screening for cervical cancer Start: 12-05-2023 End: 12-05-2023 Patient encounter status Alyssa Chance MD Work Phone: [facility] Start: 11-19-2023 ambulatory Geronimo Galan acility:[facility] Start: 12-04-2022 End: 12-04-2022 Patient encounter procedure Alyssa Chance MD Work Phone: OB/Gynecology Comment on above: care and examination (Primary Dx) Start: 10-22-2022 ambulatory Davion Padilla Work Phone: OB/Gynecology Comment on above: Ob Delivery Note Start: 10-22-2022 End: 10-23-2022 Evaluation and management of inpatient [facility] Work Phone: Start: 10-16-2022 End: 10-16-2022 ambulatory [facility] Work Phone: Start: 10-16-2022 End: 10-16-2022 Patient encounter procedure [facility] Work Phone: Start: 10-14-2022 End: 10-14-2022 Patient encounter procedure Lorena Camara MD Work Phone: OB/Gynecology Comment on above: 38 weeks gestation o f (Primary Dx); Encounter for supervision of normal first in third trimester; Anemia during in third trimester Start: 10-10-2022 End: 10-10-2022 ambulatory Treatment Rm 13 [facility] Work Phone: Hematology/Oncology Comment on above: Maternal iron defici ency anemia complicating , third trimester (Primary Dx); Iron malabsorption Start: 10-09-2022 End: 10-09-2022 Patient encounter procedure Sobeida Lopez MD Work Phone: OB/Gynecology Comment on above: 37 weeks gestation o f (Primary Dx); Encounter for supervision of normal first in third trimester Start: 10-07-2022 Telephone encounter Maya melendrez APRN.CNGrace Work Phone: OB/Gynecology Comment on above: Breast Pump Start: 10-03-2022 End: 10-03-2022 [facility] Work Phone: H[facility]Oncology Comment on above: Maternal iron defici ency anemia complicating , third trimester (Primary Dx); Iron malabsorption Start: 10-02-2022 End: 10-02-2022 Patient encounter procedure Maya Gonzales APRN.CNM Work Phone: OB/Gynecology Comment on above: 36 weeks gestation o f (Primary Dx) Encounter for ultras ound to check growth (Primary Dx); Uterine size-date discrepancy, third trimester; 36 weeks gestation of Start: 09-26-2022 End: 09-26-2022 ambulatory Treatment 13 [facility] Work Phone: Hematology/Oncology Comment on above: Maternal iron defici ency anemia complicating , third trimester (Primary Dx); Iron malabsorption Start: 09-19-2022 Telephone encounter Financial Navigator Hira Work Phone: Financial Services Comment on above: Benefits Investigati on Start: 09-19-2022 End: 09-19-2022 Patient encounter procedure Sobeida Lopez MD Work Phone: OB/Gynecology Comment on above: 34 weeks gestation o f (Primary Dx); Anemia during in third trimester; Uterine size-date discrepancy, third trimester Start: 09-13-2022 Orders Only Sobeida Padilla Work Phone: OB/Gynecology Start: 09-11-2022 ambulatory Chrissy Batista RN [facility] Comment on above: Blood management Maternal iron defici ency anemia complicating , third trimester; Iron malabsorption Start: 09-10-2022 End: 09-10-2022 ambulatory [facility] Work Phone: Start: 09-10-2022 End: 09-10-2022 Patient encounter procedure [facility] Start: 09-10-2022 Telephone encounter Davion de leon MD Work Phone: OB/Gynecology Comment on above: Results Start: 08-23-2022 End: 08-23-2022 Patient encounter procedure Davion Sepulveda MD Work Phone: OB/Gynecology Comment on above: Anemia during pregna ncy in third trimester (Primary Dx); 30 weeks gestation of ; Decreased movements in third trimester, single or unspecified fetus Start: 08-12-2022 End: 08-12-2022 Patient encounter procedure Lorena Camara MD Work Phone: OB/Gynecology Comment on above: Encounter for superv ision of normal first in third trimester (Primary Dx); Decreased movements in third trimester, single or unspecified fetus Start: 08-08-2022 End: 08-08-2022 Patient encounter procedure Davion Sepulveda MD Work Phone: OB/Gynecology Comment on above: Encounter for superv ision of normal first in third trimester (Primary Dx); 28 weeks gestation of Start: 07-29-2022 Telephone encounter Alyssa Chance MD Work Phone: OB/Gynecology Comment on above: Swelling Start: 07-08-2022 End: 07-08-2022 Patient encounter procedure Alyssa Chance MD Work Phone: OB/Gynecology Comment on above: Encounter for superv ision of normal first in second trimester (Primary Dx); 24 weeks gestation of Start: 06-10-2022 End: 06-10-2022 Patient encounter procedure Davion Sepulveda MD Work Phone: OB/Gynecology Comment on above: 20 weeks gestation o f (Primary Dx); Encounter for supervision of normal first in second trimester Encounter for anatomic survey (Primary Dx); 20 weeks gestation of Start: 05-13-2022 End: 05-13-2022 Patient encounter procedure Sobeida Lopez MD Work Phone: OB/Gynecology Comment on above: 16 weeks gestation o f (Primary Dx) Start: 04-12-2022 End: 04-12-2022 Patient encounter procedure Lorena Camara MD Work Phone: OB/Gynecology Comment on above: 11 weeks gestation o f (Primary Dx); Encounter for supervision of normal first in first trimester Start: 03-19-2022 End: 03-19-2022 Patient encounter procedure Davion Sepulveda MD Work Phone: OB/Gynecology Comment on above: Encounter for superv ision of normal first in first trimester (Primary Dx); 8 weeks gestation of Start: 03-18-2022 Telephone encounter Alyssa Chance MD Work Phone: OB/Gynecology Comment on above: Patient Question Start: 03-11-2022 End: 03-11-2022 Patient encounter procedure Alyssa Chance MD Work Phone: OB/Gynecology Comment on above: Encounter for superv ision of normal first in first trimester (Primary Dx); Need for influenza vaccination Start: 03-06-2022 End: 03-06-2022 Nursing evaluation of patient and report Nurse [facility] Work Phone: OB/Gynecology Comment on above: Supervision of silvia l first , antepartum (Primary Dx); History of anxiety; related nausea, antepartum Start: 01-09-2022 End: 01-09-2022 Patient encounter procedure Alyssa Chance MD Work Phone: OB/Gynecology Comment on above: Encounter for gyneco logical examination (general) (routine) without abnormal findings (Primary Dx); Screen for STD (sexually transmitted disease) Start: 01-09-2022 End: 01-09-2022 Patient encounter status Alyssa Chance MD Work Phone: OB/Gynecology Start: 12-14-2021 Telephone encounter Davion de leon MD Work Phone: OB/Gynecology Comment on above: Heavy Bleeding Start: 07-21-2020 End: 07-21-2020 Patient encounter procedure SARA MARIE [facility] Start: 07-21-2020 End: 07-21-2020 Office outpatient new 30 minutes Sara Marie Work Phone: [facility] Comment on above: Dysfunction of both eustachian tubes (Primary Dx); Otalgia of both ears Procedures Date Procedure Procedure Detail Performing Clinician Start: 09-22-2024 Beta-hemolytic Strep tococcus culture Dr. Geronimo Arias DO Work Phone: Start: 09-09-2024 Urnls dip stick/tabl et reagent auto microscopy Dr. Geronimo Arias DO Work Phone: Start: 09-09-2024 Ultrasonography for biophysical profile without non-stress testing Dr. Geronimo Arias DO Work Phone: Start: 08-05-2024 Urnls dip stick/tabl et reagent auto microscopy Dr. Geronimo Arias DO Work Phone: Start: 08-05-[address] Concha Arias DO Work Phone: Start: 07-12-2024 Serologic test for syphilis Dr. Geronimo Arias DO Work Phone: Start: 03-18-[address] Concha Arias DO Work Phone: Start: 10-14-2022 URINE OB DIP B/O Charito Camara MD Work Phone: Start: 10-09-2022 URINE OB DIP B/O Sobeida dill MD Work Phone: Start: 10-02-2022 URINE OB DIP B/O Hamzah Gonzales APRN.CNM Work Phone: Start: 10-02-2022 Us preg uterus after 1st trimest 04/14 gestation Sobeida Lopez MD Work Phone: Start: 09-19-2022 URINE OB DIP B/O Sobeida dill MD Work Phone: Start: 08-08-2022 URINE OB DIP B/O Davion Sepulveda MD Work Phone: Start: 07-08-2022 URINE OB DIP B/O Alyssa Chance MD Work Phone: Start: 06-10-2022 URINE OB DIP B/O Davion Sepulveda MD Work Phone: Start: 06-10-2022 Us preg uterus after 1st trimest 04/14 gestation Alyssa Chance MD Work Phone: Start: 05-13-2022 URINE OB DIP B/O Sobeida dill MD Work Phone: Start: 04-12-2022 URINE OB DIP B/O Charito Camara MD Work Phone: Start: 03-19-2022 URINE OB DIP B/O Davion Sepulveda MD Work Phone: Start: 03-11-2022 INFLUENZA VACCINE QUADRIVALENT 6 MO - 64 YRS IM Alyssa Chance MD Work Phone: Start: 11-12-2016 Adult depression scr eening assessment Davion Sepulveda MD Work Phone: Plan of Treatment Date Care Activity Detail Author Start: 08-23-2032 Urine microalbumin profile [facility] Start: 12-06-2024 End: 12-06-2024 Patient encounter procedure 12/06/2024 4:00 PM EDT Office Visit OB/Gynecology [address] [place] [address] Alyssa Packer MD [address] [place], [place] [id number] Annual OB/Gynecology Comment on above: Annual Start: 09-29-2024 Nonstress test [facility] Start: 09-29-2024 Obstetric monitoring [facility] Start: 09-29-2024 Vital signs measurements [facility] Start: 09-29-[address] [facility] Start: 09-29-2024 Patient discharge [facility] Start: 09-09-2024 Nonstress test [facility] Start: 09-09-2024 Biophysical pr ofile panel US [facility] Start: 09-09-2024 Obstetric monitoring [facility] Start: 09-09-2024 Ultrasonography for biophysical profile without non-stress testing Biophysical Prof W/O Non Stres [facility] Start: 09-09-[address] [facility] Start: 09-09-2024 Vital signs measurements [facility] Start: 09-09-2024 Patient discharge [facility] Start: 08-06-2024 Patient discharge [facility] Start: 08-05-[address] [facility] Start: 08-05-2024 Bacteria identified in Urine by Culture Urine Culture [facility] Start: 08-05-2024 Iv infusion hydratio n initial 31 min-1 hour HYDRATION IV INFUSION INIT [facility] Start: 08-05-2024 Catheterization of vein [facility] Start: 12-14-2023 Influenza vaccination Influenza Vacc ine (#1) [facility] Start: 08-22-2023 PAP TESTING PAP TESTING [facility] Start: 08-22-2023 Screening for malign ant neoplasm of cervix Cervical Cancer Screening [facility] Start: 03-11-2023 CHLAMYDIA SCREENING (18-24) CHLAMYDIA SCREENING (18-24) [facility] Start: 03-11-2023 GC (GONORRHEA) SCREE FARHAN (18-24) GC (GONORRHEA) SCREENING (18-24) [facility] Start: 01-09-2023 CHLAMYDIA SCREENING (18-24) CHLAMYDIA SCREENING (18-24) [facility] Start: 01-09-2023 GC (GONORRHEA) SCREE FARHAN (18-24) GC (GONORRHEA) SCREENING (18-24) [facility] Start: 12-13-2022 Covid-19 Vaccine ( season) Covid-19 Vaccine ( season) [facility] Start: 12-13-2022 Influenza vaccination INFLUENZA (#1) [facility] Start: 10-23-2022 Patient discharge [facility] Start: 10-22-2022 Administration of medication [facility] Start: 10-22-2022 Application of ice collar, cap or bag [facility] Start: 10-22-2022 Catheterization of vein [facility] Start: 10-22-2022 Introduction of urin holly catheter [facility] Start: 10-22-2022 Measuring intake and output [facility] Start: 10-22-2022 Notification of physician [facility] Start: 10-22-2022 Procedure discontinued [facility] Start: 10-22-2022 Provision of activit y privileges [facility] Start: 10-22-2022 Vital signs measurements [facility] Start: 10-22-[address] [facility] Start: 10-22-2022 Admission procedure [facility] Start: 10-16-2022 Nonstress test [facility] Start: 10-16-2022 Obstetric monitoring [facility] Start: 10-16-2022 Vital signs measurements [facility] Start: 10-16-[address] [facility] Start: 10-16-2022 Patient discharge [facility] Start: 09-19-2022 End: 09-20-2023 OBSTETRIC ULTRASOUND [facility] OBSTETRIC ULTRASOUND [facility] Anc Imaging Routine 34 weeks gestation of Uterine size-date discrepancy, third trimester Expected: 09/19/2022, Expires: 09/20/2023 [facility] Work Phone: Comment on above: Expected: 09/19/2022 , Expires: 09/20/2023 Start: 09-10-2022 Patient discharge [facility] Start: 08-23-2022 End: 10-23-2022 CBC W Auto Differential panel - Blood CBC + DIFF Lab Routine Anemia during in third trimester Expected: 08/23/2022, Expires: 10/23/2022 [facility] Work Phone: Comment on above: Expected: 08/23/2022 , Expires: 10/23/2022 Start: 08-08-2022 End: 10-08-2022 CBC W Auto Differential panel - Blood CBC + DIFF Lab Routine 24 weeks gestation of Encounter for supervision of normal first in second trimester Expected: 08/08/2022 (Approximate), Expires: 10/08/2022 [facility] Work Phone: Comment on above: Expected: 08/08/2022 (Approximate), Expires: 10/08/2022 Start: 08-08-2022 End: 10-08-2022 GEST GLUC SCREEN, 1-HR, 50 GM, NON-FASTING GEST GLUC SCREEN, 1-HR, 50 GM, NON-FASTING Lab Routine 24 weeks gestation of Encounter for supervision of normal first in second trimester Expected: 08/08/2022 (Approximate), Expires: 10/08/2022 [facility] Work Phone: Comment on above: Expected: 08/08/2022 (Approximate), Expires: 10/08/2022 Start: 08-08-2022 End: 10-08-2022 SYPHILIS TOTAL W/REFLEX SYPHILIS TOTAL W/REFLEX Lab Routine 24 weeks gestation of Encounter for supervision of normal first in second trimester Expected: 08/08/2022 (Approximate), Expires: 10/08/2022 [facility] Work Phone: Comment on above: Expected: 08/08/2022 (Approximate), Expires: 10/08/2022 Start: 04-14-2022 DEPRESSION ASSESSMENT DEPRESSION ASS ESSMENT [facility] Start: 03-11-2022 End: 05-11-2022 CBC panel - Blood by Automated count CBC Lab Routine Encounter for supervision of normal first in first trimester Expected: 03/11/2022, Expires: 05/11/2022 [facility] Work Phone: Comment on above: Expected: 03/11/2022 , Expires: 05/11/2022 Start: 03-11-2022 End: 05-11-2022 Hepatitis B virus surface Ab [Presence] in Serum by Immunoassay HEP B SURF AG SCRN Lab Routine Encounter for supervision of normal first in first trimester Expected: 03/11/2022, Expires: 05/11/2022 [facility] Work Phone: Comment on above: Expected: 03/11/2022 , Expires: 05/11/2022 Start: 03-11-2022 End: 05-11-2022 Hepatitis C virus Ab [Presence] in Serum HEP C AB IA W/CONF SCRN Lab Routine Encounter for supervision of normal first in first trimester Expected: 03/11/2022, Expires: 05/11/2022 [facility] Work Phone: Comment on above: Expected: 03/11/2022 , Expires: 05/11/2022 Start: 03-11-2022 End: 05-11-2022 HIV 1+2 Ab [Presence] in Serum or Plasma by Immunoassay HIV 1 2 COMBO(AG/AB),WITH REFLEX TO DIFFERENTIATION Lab Routine Encounter for supervision of normal first in first trimester Expected: 03/11/2022, Expires: 05/11/2022 [facility] Work Phone: Comment on above: Expected: 03/11/2022 , Expires: 05/11/2022 Start: 03-11-2022 End: 03-11-2023 OBSTETRIC ULTRASOUND [facility] OBSTETRIC ULTRASOUND [facility] Anc Imaging Routine Encounter for supervision of normal first in first trimester Expected: 03/11/2022, Expires: 03/11/2023 [facility] Work Phone: Comment on above: Expected: 03/11/2022 , Expires: 03/11/2023 Start: 03-11-2022 End: 05-11-2022 RUBELLA IGG AB RUBELLA IGG AB Lab Routine Encounter for supervision of normal first in first trimester Expected: 03/11/2022, Expires: 05/11/2022 [facility] Work Phone: Comment on above: Expected: 03/11/2022 , Expires: 05/11/2022 Start: 03-11-2022 End: 05-11-2022 SYPHILIS TOTAL W/REFLEX SYPHILIS TOTAL W/REFLEX Lab Routine Encounter for supervision of normal first in first trimester Expected: 03/11/2022, Expires: 05/11/2022 [facility] Work Phone: Comment on above: Expected: 03/11/2022 , Expires: 05/11/2022 Start: 03-11-2022 End: 05-11-2022 TYPE + SCREEN TYPE + SCREEN Blood Bank Routine Encounter for supervision of normal first in first trimester Expected: 03/11/2022, Expires: 05/11/2022 [facility] Work Phone: Comment on above: Expected: 03/11/2022 , Expires: 05/11/2022 Start: 01-30-2022 Urine microalbumin profile DTAP,TDAP,TD (7 - Td or Tdap) [facility] Start: 12-13-2021 Influenza vaccination INFLUENZA (#1) [facility] Start: 04-14-2021 DEPRESSION ASSESSMENT DEPRESSION ASS ESSMENT [facility] Start: 12-14-2019 Influenza vaccinatio n given Sequential Influenza Vaccine (#1) [facility] Start: 11-12-2017 Adult depression screening assessment DEPRESSION SCREENING [facility] Start: 2016 Anxiety Screening Anxiety Screening [facility] Start: 2016 CHLAMYDIA SCREENING (18-24) CHLAMYDIA SCREENING (18-24) [facility] Start: 2016 Depression Screening Depression Scre ening [facility] Start: 2016 GC (GONORRHEA) SCREE FARHAN (18-24) GC (GONORRHEA) SCREENING (18-24) [facility] Start: 2016 Hepatitis C antibody , confirmatory test Hepatitis C Screening [facility] Start: 2016 HEPATITIS C SCREENING HEPATITIS C [facility] Start: 2016 HIV SCREENING HIV SCREENING [facility] Start: 2014 COVID-19 Vaccine (1) COVID-19 Vaccin e (1) [facility] Start: 2014 MENINGOCOCCAL B: 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 (1 of 2 - Patient Seeks Protection) MENINGOCOCCAL B: Consider based on risk (1 of 2 - Patient Seeks Protection) [facility] Start: 2013 HIV screening HIV Screening [facility] Start: 2013 HPV Vaccine (1 - 3-d ose series) HPV Vaccine (1 - 3-dose series) [facility] Start: 2012 PEDS TO ADULT TRANSI TION ANNUAL ASSESSMENT PEDS TO ADULT TRANSITION ANNUAL ASSESSMENT [facility] Start: 2010 Adolescent depressio n screening assessment Depression Screening (PHQ9) [facility] Start: 2010 PEDS TO ADULT TRANSI TION INITIAL DISCUSSION PEDS TO ADULT TRANSITION INITIAL DISCUSSION [facility] Start: 2009 HPV VACCINE (1 - 2-d ose series) HPV VACCINE (1 - 2-dose series) [facility] Start: 2009 Vaccination for geovanni n papillomavirus HPV Vaccines (1 - 2-dose series) [facility] Start: 2008 MENINGOCOCCAL B: 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 (1 of 2 - Risk Bexsero 2-dose series) MENINGOCOCCAL B: Consider based on risk (1 of 2 - Risk Bexsero 2-dose series) [facility] Start: 11-21-2007 HPV VACCINE (1 - 2-d ose series) HPV VACCINE (1 - 2-dose series) [facility] Start: 2001 History and physical examination, annual for health maintenance Wellness Visit [facility] Start: 05-23-1999 COVID-19 VACCINE (#1) COVID-19 VACCI NE (#1) [facility] Start: 1998 Screening for Chlamy daina trachomatis Chlamydia Screening [facility] Start: 1998 Screening for malign ant neoplasm of cervix Pap Smear [facility] Start: 1998 Tetanus vaccination Tetanus: Every 1 0yrs [facility] Bacteria identified in Urine by Culture URINE CULTURE Microbiology Routine Encounter for supervision of normal first in first trimester 03/11/2022 11:02 AM EST [facility] Work Phone: Bilirubin measuremen t, urine [facility] Chlamydia trachomatis+Neisseria gonorrhoeae DNA [Presence] in Unspecified specimen by JUAN with probe detection GC/CHLAMYDIA DNA DET Lab Routine Screen for STD (sexually transmitted disease) Ordered: 01/09/2022 [facility] Work Phone: Comment on above: Ordered: 01/09/2022 Chlamydia trachomatis+Neisseria gonorrhoeae DNA [Presence] in Unspecified specimen by JUAN with probe detection GC/CHLAMYDIA DNA DET Lab Routine Encounter for supervision of normal first in first trimester 03/11/2022 11:02 AM [facility] Work Phone: Hemoglobin [Presence ] in Urine [facility] Measurement of keton es in urine using dipstick [facility] Microscopic urinalysis [facility] Organism count, microscopic method [facility] PAP TEST PAP TEST Lab Jason mehul Screening for cervical cancer 12/05/2023 9:30 AM EDT [facility] Work Phone: Patient Education [facility] Work Phone: Patient referral [facility] Work Phone: pH of Urine [facility] ROUTINE, GR OUP B STREP PCR ROUTINE, GROUP B STREP PCR Microbiology Routine 36 weeks gestation of 10/02/2022 11:55 AM EDT [facility] Work Phone: Specific gravity of Urine [facility] Urine culture [facility] Urine dipstick for glucose [facility] Urine dipstick for leukocyte esterase [facility] Urine dipstick for nitrite [facility] Urine dipstick for protein [facility] Urine examination [facility] Urine microscopy: epithelial cells [facility] Urine microscopy: re d cells [facility] Urobilinogen [Presen ce] in Urine [facility] White blood cell count [facility] Immunizations Immunization Date Immunization Notes Care Provider Allyssa arguelles 08-11-2024 tetanus toxoid, redu sin diphtheria toxoid, and acellular pertussis vaccine, adsorbed Dr. Geronimo Arias DO Work Phone: [facility] 04-24-2023 influenza virus vacc ine, unspecified formulation Alyssa Chance MD Work Phone: [facility] 10-22-2022 measles, mumps and rubella virus vaccine [facility] 08-23-2022 tetanus toxoid, redu sin diphtheria toxoid, and acellular pertussis vaccine, adsorbed Davion Sepulveda MD Work Phone: [facility] 03-11-2022 influenza, injectabl e, quadrivalent, contains preservative Alyssa Chance MD Work Phone: [facility] 11-12-2016 meningococcal polysaccharide (groups A, C, Y and W-135) diphtheria toxoid conjugate vaccine (MCV4P) Davion Sepulveda MD Work Phone: [facility] 11-12-2016 tuberculin skin test ; purified protein derivative solution, intradermal Alyssa Chance MD Work Phone: [facility] 02-03-2016 influenza, injectabl e, quadrivalent, contains preservative Davion Sepulveda MD Work Phone: [facility] 02-02-2015 influenza, injectabl e, quadrivalent, contains preservative Davion Sepulveda MD Work Phone: [facility] 01-20-2014 influenza, seasonal, injectable Davion Sepulveda MD Work Phone: [facility] Work Phone: 02-27-2013 influenza virus vacc ine, unspecified formulation Davion Sepulveda MD Work Phone: [facility] 01-31-2012 influenza virus vacc ine, unspecified formulation Davion Sepulveda MD Work Phone: [facility] Work Phone: 01-31-2012 Meningococcal, MCV4, unspecified conjugate formulation(groups A, C, Y and W-135) Davion Sepulveda MD Work Phone: [facility] Work Phone: 01-31-2012 tetanus toxoid, redu sin diphtheria toxoid, and acellular pertussis vaccine, adsorbed Davion Sepulveda MD Work Phone: [facility] Work Phone: 01-31-2012 varicella virus vaccine Gurdeep Sepulveda MD Work Phone: [facility] Work Phone: 02-24-2008 influenza virus vacc ine, live, attenuated, for intranasal use Davion Sepulveda MD Work Phone: [facility] Work Phone: 10-18-2003 diphtheria, tetanus toxoids and acellular pertussis vaccine Davion Sepulveda MD Work Phone: [facility] Work Phone: 10-18-2003 measles, mumps and rubella virus vaccine Davion Sepulveda MD Work Phone: [facility] Work Phone: 10-18-2003 poliovirus vaccine, inactivated Davion Sepulveda MD Work Phone: [facility] Work Phone: 03-24-2000 diphtheria, tetanus toxoids and acellular pertussis vaccine Davion Sepulveda MD Work Phone: [facility] Work Phone: 03-24-2000 haemophilus influenz ae type b vaccine, HbOC conjugate Davion Sepulveda MD Work Phone: [facility] Work Phone: 02-21-2000 hepatitis B vaccine, pediatric or pediatric/adolescent dosage Davion Sepulveda MD Work Phone: [facility] Work Phone: 02-21-2000 pneumococcal conjuga te vaccine, 7 valent Davion Sepulveda MD Work Phone: [facility] Work Phone: 02-21-2000 varicella virus vaccine Gurdeep Sepulveda MD Work Phone: [facility] Work Phone: 12-04-1999 measles, mumps and rubella virus vaccine Davion Sepulveda MD Work Phone: [facility] Work Phone: 12-04-1999 pneumococcal conjuga te vaccine, 7 valent Davion Sepulveda MD Work Phone: [facility] Work Phone: 12-04-1999 poliovirus vaccine, inactivated Davion Sepulveda MD Work Phone: [facility] Work Phone: 09-14-1999 hepatitis B vaccine, pediatric or pediatric/adolescent dosage Davion Sepulveda MD Work Phone: [facility] Work Phone: 06-06-1999 diphtheria, tetanus toxoids and acellular pertussis vaccine Davion Sepulveda MD Work Phone: [facility] Work Phone: 06-06-1999 haemophilus influenz ae type b vaccine, HbOC conjugate Davion Sepulveda MD Work Phone: [facility] Work Phone: 06-06-1999 hepatitis B vaccine, pediatric or pediatric/adolescent dosage Davion Sepulveda MD Work Phone: [facility] Work Phone: 03-30-1999 diphtheria, tetanus toxoids and acellular pertussis vaccine Davion Sepulveda MD Work Phone: [facility] Work Phone: 03-30-1999 haemophilus influenz ae type b vaccine, HbOC conjugate Davion Sepulveda MD Work Phone: [facility] Work Phone: 03-30-1999 poliovirus vaccine, inactivated Davion Sepulveda MD Work Phone: [facility] Work Phone: 01-22-1999 diphtheria, tetanus toxoids and acellular pertussis vaccine Davion Sepulveda MD Work Phone: [facility] Work Phone: 01-22-1999 haemophilus influenz ae type b vaccine, HbOC conjugate Davion Sepulveda MD Work Phone: [facility] Work Phone: 01-22-1999 poliovirus vaccine, inactivated Davion Sepulveda MD Work Phone: [facility] Work Phone: Payers Date Payer Category Payer Unknown [id number] 2024 Unknown [id number] 2023 Self-pay 2022 Unknown [id number] 2021 Unknown [id number] 2019 Unknown ANTHEM ANTHEM BLUE/PREF/HMO/PPO [id number] 2019-Present [id number] 2019 Unknown [id number] 1998 Unknown [id number] 2.16.840.1.907599.3.579.2.903 1998 Unknown [id number] 2.16.840.1.324943.3.579.2.479 1998 Unknown [id number] 2.16.840.1.535967.3.579.2.479 Unknown [id number] 2.16.840.1.590624.3.579.2.462 Unknown [id number] 2.16.840.1.692887.3.579.2.462 Unknown [id number] 2.16.840.1.859467.3.579.2.462 Unknown [id number] 2.16.840.1.752014.3.579.2.462 Unknown [id number] 2.16.840.1.548511.3.579.2.462 Unknown [id number] 2.16.840.1.493453.3.579.2.462 Unknown [id number] 2.16.840.1.425393.3.579.2.462 Unknown [id number] 2.16.840.1.043550.3.579.2.462 Unknown [id number] 2.16.840.1.047788.3.579.2.462 Unknown [id number] 2.16.840.1.472311.3.579.2.462 Unknown [id number] 2.16.840.1.073146.3.579.2.462 Unknown [id number] 2.16.840.1.505745.3.579.2.462 Unknown [id number] 2.16.840.1.157260.3.579.2.462 Unknown [id number] 2.16.840.1.644337.3.579.2.462 Unknown [id number] 2.16.840.1.374469.3.579.2.462 Unknown [id number] 2..840.1.667340.3.579.2.462 Unknown [id number] 2.840.1.942709.3.579.2.462 Unknown [id number] 2.840.1.925597.3.579.2.462 Unknown [id number] 2.840.1.805756.3.579.2.462 Unknown [id number] 2.840.1.348224.3.579.2.462 Unknown [id number] 2.840.1.767419.3.579.2.462 Unknown [id number] 2.840.1.026922.3.579.2.462 Unknown [id number] 2.840.1.197032.3.579.2.462 Unknown [id number] 2.840.1.909901.3.579.2.462 Unknown [id number] 2.840.1.072232.3.579.2.462 Unknown [id number] 2.16840.1.412808.3.579.2.462 Unknown [id number] 2.16.840.1.269433.3.579.2.462 Unknown [id number] 2.16.840.1.442332.3.579.2.462 Unknown [id number] 2.16840.1.821597.3.579.2.462 Unknown [id number] 2.16.840.1.073272.3.579.2.462 Unknown [id number] 2.16.840.1.825750.3.579.2.462 Social History Date Type Detail Facility Start: 07-21-2020 End: 03-09-2024 Tobacco smoking status NHIS Never smoker [facility] Start: 07-21-2020 End: 01-09-2022 Tobacco use and exposure Never used [facility] Sex Assigned At Not on file [facility] Start: 12-30-2021 End: 03-06-2022 Exposure to SARS-CoV-2 (event) Not sure [facility] History of tobacco use Passive smoker [facility] Start: 12-14-2021 End: 12-05-2023 Alcohol intake Current non-drinker of alcohol (finding) [facility] Start: 01-31-2012 End: 01-09-2022 Tobacco Comment Dad and step-mom and step-dad - father's household trying electric cigarettes [facility] Start: 2000 Sex Assigned At Female C [facility] Start: 03-06-2022 Education 13 [facility] Start: 01-25-2022 [facility] Start: 08-23-2022 End: 10-22-2022 History of Social function [facility] Start: 08-23-2022 End: 10-22-2022 Tobacco use panel [facility] National Score (1-100), lower number is lower risk 67 [facility] Start: 11-30-2021 Gender identity Identifies as female gender (finding) [facility] Start: 10-22-2022 [facility] Start: 07-14-2024 End: 08-06-2024 Sex Female (finding) [facility] Goals Date Patient Goal Desired Activity /State Clinical Notes 01-22-2016 to 10-12-2024 Note Date & Type Note Facility 10-12-2024 Progress note [facility] 10-07-2024 Progress [facility] 09-30-2024 Progress note [facility] 09-30-2024 Progress note Note Date/Time September 30, 2024 2:24pm [facility] [address] [place] [address], [address] [place] [address] OFFICE VISIT Date of Service: 09/30/24 MR#: [id number] Acct: [id number] Name: JAG PEREZ Rep #: [id number] : 2000 Provider: Dr. Maxine Braun DO Age/Sex: 23/F Location: [facility] [place] Status: Signed Intake Vital Signs 08/23/24 13:55 09/22/24 13:50 09/29/24 11:56 09/30/24 13:44 09/30/24 13:44 Height 5 ft 2 in 5 ft 2 in 5 ft 2 in 5 ft 2 in 5 ft 2 in Weight: 201 lb 2 oz BMI 36.8 BP 116/80 Intake Visit Reasons: 37 wk ob Bi Lead Required: No Is patient in pain?: No Allergies No Known Allergies Allergy (Verified 09/30/24 13:44) Medications ?Medication ?Instructions ?Recorded ?Confirmed ?Type vits,calcium 91-iron 28 1 pkg PO DAILY pregna ncy 09/10/22 09/30/24 History mg-folic 975 mcg-dha 200 mg oral pack ( + DHA) ferrous sulfate 325 mg (65 mg 325 mg PO DAILY anemia 0 08/05/24 09/30/24 History iron) tablet (Feosol) Last Menstrual Period: 01/13/24 Zika: Zika virus screening: Negative : No PFSH PFSH Medical History Normal vaginal delivery Anxiety Family History Grandmother COPD (chronic obstructive pulmonary disease), Onset Age: 60 Maternal Grandfather Myocardial infarction, Onset Age: 67 Maternal Grandmother Breast cancer, Onset Age: 45 Paternal Social History adopted: No household members: spouse and children number of children: 1 current occupational status: unemployed current occupation: [employer] pets and animals: Yes (Avoid litterbox) pets and animals: cat(s) and dog(s) history of recent travel: No sexually active: Yes Smoking Status: Never smoker alcohol intake: never substance use type: does not use well-balanced diet: daily or most days caffeine: Yes Type: coffee Number of servings: 1 eating out: 1-3 times/week during the past year weight has: decreased > 10 lbs what type of physical activity do you participate in: none pia/orthodoxy: Latter-Day seatbelt use: always do you feel safe at home: Yes additional social history: Michelle [employer] History 2 Elective abortions Hx Para 1 Spontaneous abortions Hx # Term Pregnancies Ectopic pregnancies Hx # Pregnancies Multiple births # of living children 1 Past Pregnancies Del. Date Name GA/Weeks Outcome Route Bth Weight Infant Gen Labor Lgth Anesthesia Del Locatn Provider FOB 10/22/22 Tanner 39 live - full term 7 Male epidur al [facility] Delivery Date: 10/22/22 Last Updated by: Katie Garg severe iron deficiency, infusions HPI 37 wk ob Details: JAG PEREZ is a 23 year old who presents for routine OB visit. OB Visit ADDY Calculator Estimated Delivery Date Method Current WG Current Estimate 10/19/24 LMP (Certain) 37w 2d Other Estimates 10/22/24 Ultrasound #1 36w 6d Expected Delivery Route/Plan Labor Preferences- CB/BF classes: no labor support person: Michelle labor intervention preferences: [] pain management options preferred: [] cut cord/dad catch: [] : [] PP control planned: [] discussed possible routes of delivery and associated risks: [] special requests: [] Specific Issue/Plans Covid status: [] Flu vaccine: declined Tdap vaccine: Rhogam: [] LARC form signed: declined movement and labor precautions reviewed. Problem list reviewed and updated with the most current plan of care details and appropriate orders placed. Relevant counseling for the gestational age provided. Continue routine care and follow up unless otherwise noted in visit notes/problem list details Initial Weight: 172 lb Date -?-?-?-?-?-?-?-?-?-?-?-?- EGA Weight BP Urine Prot -?-?-?-?-?-?-?-?-?-?-?-?- Glucose FHR FuHt Pres Dilation -?-?-?-?-?-?-?-?-?-?-?-?- Effaced St Visit Note 03/18/24 -?-?-?-?-?-?-?-?-?-?-?-?- 9w 2d 172 lb 4 oz (+4 oz) 104/70 -?-?-?-?-?-?-?-?--?-?-?-?- 178 -?-?-?-?-?-?-?-?-?-?-?-?- KW- CRL cons wit h dates. declines NIPT 04/21/24 -?-?-?-?-?-?-?-?-?-?-?-?- 14w 1d 166 lb 4 oz (-5 lb 12 oz) 127/75 -?-?-?-?-?-?-?-?-?-?-?-?- 155 -?-?-?-?-?-?-?-?-?-?-?-?- SM- some weight loss. eating well no no vb crmaping 05/21/24 -?-?-?-?-?-?-?-?-?-?-?-?- 18w 3d 169 lb 6 oz (-2 lb 10 oz) 108/74 Negative -?-?-?-?-?-?-?-?-?-?-?-?- Negative 140 -?-?-?-?-?-?-?-?-?-?-?-?- KW- no vb/crampi ng. + yeast infection-started Monistat yesterday. will send in script. US scheduled with MFM. 06/18/24 -?-?-?-?-?-?-?-?--?-?-?-?- 22w 3d 173 lb 8 oz (+1 lb 8 oz) 104/72 Negative -?-?-?-?-?-?-?-?-?-?-?-?- Negative 158 -?-?-?-?-?-?-?-?-?-?-?-?- KW- no vb/lof/ct x. good fm. anatomy US reviewed. 28 week labs discussed 06/24/24 -?-?-?-?-?-?-?-?-?-?-?-?- 23w 2d 175 lb 6 oz (+3 lb 6 oz) 105/72 -?-?-?-?-?-?-?-?-?-?-?-?- 145 -?-?-?-?-?-?-?-?-?-?-?-?- KW- work in for DFM. no vb/lof/ctx. not feeling well today and DFM over the last 2 days. audible movement and fht with doppler. 07/12/24 -?-?-?-?-?-?-?-?-?-?-?-?- 25w 6d 176 lb 8 oz (+4 lb 8 oz) 105/69 Negative -?-?-?--?-?-?-?-?-?-?-?-?- Negative 140 27 -?-?-?-?-?-?-?-?-?-?-?-?- KW- no vb/lof/ct x. good fm. moved over the weekend into grandparents home. glucose today. 07/30/24 -?-?-?-?-?-?-?-?-?-?-?-?- 28w 3d 182 lb 6 oz (+10 lb 6 oz) 106/68 Negative -?-?-?-?-?-?-?-?-?-?-?-?- Negative 145 29 -?-?-?-?-?-?-?-?-?-?-?-?- SM- no vb lof go od fm no regular ctx 08/11/24 -?-?-?-?-?-?-?-?-?-?-?-?- 30w 1d 186 lb 4 oz (+14 lb 4 oz) 101/69 Negative -?-?-?-?-?-?-?-?-?-?-?-?- Negative 135 31 -?-?-?-?-?-?-?-?-?-?-?-?- JV- no complaint s. + FM. mild anemia. encourage sloFe 08/23/24 -?-?-?-?-?-?-?-?-?-?-?-?- 31w 6d 188 lb 4 oz (+16 lb 4 oz) 100/64 Negative -?-?-?-?-?-?-?-?-?-?-?-?- Negative 163 32 -?-?-?-?-?-?-?-?-?-?-?-?- MH-NoVB, LOF. Go od Fm. Started FE. Noting almost daily apple watch indicates elevated heart rate. Confirmed at work 120-130. Resolved with rest/fluids. Denies chest pain, SOB. EKG ordered 09/09/24 -?-?-?-?-?-?-?-?-?-?-?-?- 34w 2d 193 lb 6 oz (+21 lb 6 oz) 108/70 Trace -?-?-?-?-?-?-?-?-?-?-?-?- Negative 145 33 -?-?-?-?-?-?-?-?-?-?-?-?- KW- no vb/lof/ct x. NST today for DFM. KW- no vb/lof/ctx. NST non r eactive today for DFM. to for BPP. 09/22/24 -?-?-?-?-?-?-?-?-?-?-?-?- 36w 1d 198 lb 8 oz (+26 lb 8 oz) 97/66 Negative -?-?-?-?-?-?-?-?-?-?-?-?- Negative 153 36 Cephalic 1 -?-?-?-?-?-?-?-?-?-?-?-?- 0 -4 JV- no lof , vaginal bleeding, or dec fm. gbs collected today. 09/30/24 -?-?-?-?-?-?-?-?-?-?-?-?- 37w 2d 201 lb 2 oz (+29 lb 2 oz) 116/80 -?-?-?-?-?-?-?-?-?-?-?-?- 145 38 Cephalic 2 -?-?-?-?-?-?-?-?-?-?-?-?- 50 -3 JV- no lof , vaginal bleeding, or dec fm. fell yesterday and was monitored on L&D. ACOG First Trimester First Trimester: Discussed Second Trimester Second Trimester: Signs and Symptoms of Labor, Selecting a care provider, Reproductive Life Planning & Contreception, Care Planning, Depression/Anxiety and Intimate Partner Violence; Discussed Tobacco Cessation Third Trimester Third Trimester: Pain Management Plans, Labor support person(s), Immediate Larc, Signs and Symptoms of Preeclampsia, Infant Feeding No , [place] Education and Family Medical Leave or Disability Forms Coding Level of Care Code OB Routine Diagnoses Abdominal trauma S39.91XA Decreased movements in third trimester O36.8130 Tachycardia R00.0 Anemia during in third trimester O99.013 Trimester: third trimester Threatened labor O47.00 Obesity affecting in third trimester, unspecified obesity type O99.213 Obesity type affecting : unspecified obesity Trimester: third trimester Supervision of high risk in third trimester O09.93 Trimester: third trimester 37 weeks gestation of Z3A.37 Weeks of gestation: 37 weeks Congenital tongue-tie Q38.1 Assessment and Plan Assessment and Plan (1) Abdominal trauma: Status: Acute (2) Decreased movements in third trimester: Status: Acute (3) Tachycardia: Status: Acute Comment: EKG/NSR at 105. No SOB, chest pain. Happening almost daily. (4) Anemia in preg-unspec: Status: Acute Qualifiers: Trimester: third trimester Qualified Code(s): O99.013 - Anemia complicating , third trimester Comment: add FE (5) Threatened labor: Status: Acute (6) Obesity affecting : Status: Acute Qualifiers: Obesity type affecting : unspecified obesity Trimester: third trimester Qualified Code(s): O99.213 - Obesity complicating , third trimester Comment: HgbA1c normal bmi 30 (7) Supervision of high-risk : Status: Acute Qualifiers: Trimester: third trimester Qualified Code(s): O09.93 - Supervision of high risk , unspecified, third trimester Comment: GBS neg, PRR, , ADDY 10/19/24, girl [facility] Tanner, Michelle (8) : Status: Acute Qualifiers: Weeks of gestation: 37 weeks Qualified Code(s): Z3A.37 - 37 weeks gestation of Comment: declined NIPT & Carrier testing, normal anatomy (9) Congenital tongue-tie: Status: Acute Comment: Son with lip & tongue tied 09/30/24 1424 <Electronically signed by Selene Benitez DO> Date _ Selene Braun DO Cosigner Signature: Date (if applicable) CC: ~ [facility] Work Phone: 1(563) 858-486406-11-2025 [facility] [address] [place] [address], [address] [place] [address] OFFICE VISIT Date of Service: 09/22/24 MR#: [id number] Acct: [id number] Name: JAG PEREZ Rep #: [id number] : 2000 Provider: Dr. Maxine Braun DO Age/Sex: 23/F Location: [facility] [place] Status: Signed Intake Vital Signs 08/11/24 11:20 09/09/24 09:51 09/22/24 13:49 09/22/24 13:50 Height 5 ft 2 in 5 ft 2 in 5 ft 2 in 5 ft 2 in Weight: 198 lb 8 oz BMI 36.3 BP 97/66 Intake Visit Reasons: 36wk ob Bi Lead Required: No Is patient in pain?: No Allergies No Known Allergies Allergy (Verified 09/22/24 13:48) Medications ?Medication ?Instructions ?Recorded ?Confirmed ?Type vits,calcium 91-iron 28 1 pkg PO DAILY pregna ncy 09/10/22 09/22/24 History mg-folic 975 mcg-dha 200 mg oral pack ( + DHA) ferrous sulfate 325 mg (65 mg 325 mg PO DAILY anemia 0 08/05/24 09/22/24 History iron) tablet (Feosol) Last Menstrual Period: 01/13/24 Zika: Zika virus screening: Negative : No PFSH PFSH Medical History Normal vaginal delivery Anxiety Family History Grandmother COPD (chronic obstructive pulmonary disease), Onset Age: 60 Maternal Grandfather Myocardial infarction, Onset Age: 67 Maternal Grandmother Breast cancer, Onset Age: 45 Paternal Social History adopted: No household members: spouse and children number of children: 1 current occupational status: unemployed current occupation: [employer] pets and animals: Yes (Avoid litterbox) pets and animals: cat(s) and dog(s) history of recent travel: No sexually active: Yes Smoking Status: Never smoker alcohol intake: never substance use type: does not use well-balanced diet: daily or most days caffeine: Yes Type: coffee Number of servings: 1 eating out: 1-3 times/week during the past year weight has: decreased > 10 lbs what type of physical activity do you participate in: none pia/orthodoxy: Latter-Day seatbelt use: always do you feel safe at home: Yes additional social history: Michelle [employer] History 2 Elective abortions Hx Para 1 Spontaneous abortions Hx # Term Pregnancies Ectopic pregnancies Hx # Pregnancies Multiple births # of living children 1 Past Pregnancies Del. Date Name GA/Weeks Outcome Route Bth Weight Gen Labor Lgth Anesthesia Del Locatn Provider FOB 10/22/22 Tanner 39 live - full term 7 Male epidur al [facility] Delivery Date: 10/22/22 Last Updated by: Katie Garg severe iron deficiency, infusions HPI 36wk ob Details: JAG PEREZ is a 23 year old who presents for routine OB visit. OB Visit ADDY Calculator 2 Estimated Delivery Date Method Current WG Current Estimate 10/19/24 LMP (Certain) 36w 1d Other Estimates 10/22/24 Ultrasound #1 35w 5d Expected Delivery Route/Plan Labor Preferences- CB/BF classes: no labor support person: Michelle labor intervention preferences: [] pain management options preferred: [] cut cord/dad catch: [] : [] PP control planned: [] discussed possible routes of delivery and associated risks: [] special requests: [] Specific Issue/Plans Covid status: [] Flu vaccine: declined Tdap vaccine: Rhogam: [] LARC form signed: declined movement and labor precautions reviewed. Problem list reviewed and updated with the most current plan of care details and appropriate ordersplaced. Relevant counseling for the gestational age provided. Continue routine care and follow up unless otherwise noted in visit notes/problem list details Initial Weight: 172 lb Date -?-?-?-?-?-?-?-?-?-?-?-?- EGA Weight BP Urine Prot -?-?-?-?-?-?-?-?-?-?-?-?- Glucose FHR FuHt Pres Dilation -?-?-?-?-?-?-?-?-?-?-?-?- Effaced St Visit Note 03/18/24 -?-?-?-?-?-?-?-?-?-?-?-?- 9w 2d 172 lb 4 oz (+4 oz) 104/70 -?-?-?-?-?-?-?-?-?-?-?-?- 178 -?-?-?-?-?-?-?-?-?-?-?-?- KW- CRL cons wit h dates. declines NIPT 04/21/24 -?-?-?-?-?-?-?-?-?-?-?-?- 14w 1d 166 lb 4 oz (-5 lb 12 oz) 127/75 -?-?-?-?-?-?-?-?-?-?-?-?- 155 -?-?-?-?-?-?-?-?-?-?-?-?- SM- some weight loss. eating well no no vb crmaping 05/21/24 -?-?-?-?-?-?-?-?-?-?-?-?- 18w 3d 169 lb 6 oz (-2 lb 10 oz) 108/74 Negative -?-?-?-?-?-?-?-?-?-?-?-?- Negative 140 -?-?-?-?-?-?-?-?-?-?-?-?- KW- no vb/crampi ng. + yeast infection-started Monistat yesterday. will send in script. US scheduled with MFM. 06/18/24 -?-?-?-?-?-?-?-?-?-?-?-?- 22w 3d 173 lb 8 oz (+1 lb 8 oz) 104/72 Negative -?-?-?-?-?-?-?-?-?-?-?-?- Negative 158 -?-?-?-?-?-?-?-?-?-?-?-?- KW- no vb/lof/ct x. good fm. anatomy US reviewed. 28 week labs discussed 06/24/24 -?-?-?-?-?-?-?-?-?-?-?-?- 23w 2d 175 lb 6 oz (+3 lb 6 oz) 105/72 -?-?-?-?-?-?-?-?-?-?-?-?- 145 -?-?-?-?-?-?-?-?-?-?-?-?- KW- work in for DFM. no vb/lof/ctx. not feeling well today and DFM over the last 2 days. audible movement and fht with doppler. 07/12/24 -?-?-?-?-?-?-?-?-?-?-?-?- 25w 6d 176 lb 8 oz (+4 lb 8 oz) 105/69 Negative -?-?-?-?-?-?-?-?-?-?-?-?- Negative 140 27 -?-?-?-?-?-?-?-?-?-?-?-?- KW- no vb/lof/ct x. good fm. moved over the weekend into grandparents home. glucose today. 07/30/24 -?-?-?-?-?-?-?-?-?-?-?-?- 28w 3d 182 lb 6 oz (+10 lb 6 oz) 106/68 Negative -?-?-?-?-?-?-?-?-?-?-?-?- Negative 145 29 -?-?-?-?-?-?-?-?-?-?-?-?- SM- no vb lof go od fm no regular ctx 08/11/24 -?-?-?-?-?-?-?-?-?-?-?-?- 30w 1d 186 lb 4 oz (+14 lb 4 oz) 101/69 Negative -?-?-?-?-?-?-?-?-?-?-?-?- Negative 135 31 -?-?-?-?-?-?-?-?-?-?-?-?- JV- no complaint s. + FM. mild anemia. encourage sloFe 08/23/24 -?-?-?-?-?-?-?-?-?-?-?-?- 31w 6d 188 lb 4 oz (+16 lb 4 oz) 100/64 Negative -?-?-?-?-?-?-?-?-?-?-?-?- Negative 163 32 -?-?-?-?-?-?-?-?-?-?-?-?- MH-NoVB, LOF. Go od Fm. Started FE. Noting almost daily apple watch indicates elevated heart rate. Confirmed at work 120-130. Resolved with rest/fluids. Denies chest pain, SOB. EKG ordered 09/09/24 -?-?-?-?-?-?-?-?-?-?-?-?- 34w 2d 193 lb 6 oz (+21 lb 6 oz) 108/70 Trace -?-?-?-?-?-?-?-?-?-?-?-?- Negative 145 33 -?-?--?-?-?-?-?-?-?-?-?-?- KW- no vb/lof/ct x. NST today for DFM. KW- no vb/lof/ctx. NST non r eactive today for DFM. to WP for BPP. 09/22/24 -?-?-?-?-?-?-?-?-?-?-?-?- 36w 1d 198 lb 8 oz (+26 lb 8 oz) 97/66 Negative -?-?-?-?-?-?-?-?-?-?-?-?- Negative 153 36 Cephalic 1 -?-?-?-?-?-?-?-?-?-?-?-?- 0 -4 JV- no lof , vaginal bleeding, or dec fm. gbs collected today. ACOG First Trimester First Trimester: Discussed Second Trimester Second Trimester: Signs and Symptoms of Labor, Selecting a care provider, Reproductive Life Planning & Contreception, Care Planning, Depression/Anxiety and Intimate Partner Violence; Discussed Tobacco Cessation Third Trimester Third Trimester: Pain Management Plans, Labor support person(s), Immediate Larc, Signs and Symptoms of Preeclampsia, Feeding No , [place] Education and Family Medical Leave or Disability Forms Results POC Urinalysis 2 Dip (Clinic) Office Urine Glucose Negative Last Edit by Raisa Roberts on 09/22/24 14: 24 Office Urine Protein Negative Last Edit by Raisa Roberts on 09/22/24 14: 24 Coding Level of Care Code OB Routine Diagnoses Decreased movements in third trimester O36.8130 Tachycardia R00.0 Anemia during in third trimester O99.013 Trimester: third trimester Threatened labor O47.00 Obesity affecting in third trimester, unspecified obesity type O99.213 Obesity type affecting : unspecified obesity Trimester: third trimester Supervision of high risk in third trimester O09.93 Trimester: third trimester 36 weeks gestation of Z3A.36 Weeks of gestation: 36 weeks 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 No SOB, chest pain. Happening almost daily. (3) Anemia in preg-unspec: Status: Acute Qualifiers: Trimester: third trimester Qualified Code(s): O99.013 - Anemia complicating , third trimester Comment: add FE (4) Threatened labor: Status: Acute (5) Obesity affecting : Status: Acute Qualifiers: Obesity type affecting : unspecified obesity Trimester: third trimester Qualified Code(s):O99.213 - Obesity complicating , third trimester Comment: HgbA1c normal bmi 30 (6) Supervision of high-risk : Status: Acute Qualifiers: Trimester: third trimester Qualified Code(s): O09.93 - Supervision of high risk , unspecified, third trimester Comment: PRR, , ADDY 10/19/24, girl Isaías Hart, Michelle (7) : Status: Acute Qualifiers: Weeks of gestation: 36 weeks Qualified Code(s): Z3A.36 - 36 weeks gestation of Comment: declined NIPT & Carrier testing, normal anatomy (8) Congenital tongue-tie: Status: Acute Comment: Son with lip & tongue tied Orders: Orders POC Urinalysis 2 Dip (Clinic) Today 09/22/24 1430 e Wong DO> Date _ Selene Braun DO Cosigner Signature: Date (if applicable) CC: ~ [facility]06-11-2025 Progress note Author Selene Back [facility] Note Date/Time September 22, 2024 2:30 pm [facility] [address] [place] [address], [address] [place] [address] OFFICE VISIT Date of Service: 09/22/24 MR#: [id number] Acct: [id number] Name: JAG PEREZ Rep #: [id number] : 2000 Provider: Dr. Maxine Braun DO Age/Sex: 23/F Location: [facility] [place] Status: Signed Intake Vital Signs 08/11/24 11:20 09/09/24 09:51 09/22/24 13:49 09/22/24 13:50 Height 5 ft 2 in 5 ft 2 in 5 ft 2 in 5 ft 2 in Weight: 198 lb 8 oz BMI 36.3 BP 97/66 Intake Visit Reasons: 36wk ob Bi Lead Required: No Is patient in pain?: No Allergies No Known Allergies Allergy (Verified 09/22/24 13:48) Medications ?Medication ?Instructions ?Recorded ?Confirmed ?Type vits,calcium 91-iron 28 1 pkg PO DAILY pregna ncy 09/10/22 09/22/24 History mg-folic 975 mcg-dha 200 mg oral pack ( + DHA) ferrous sulfate 325 mg (65 mg 325 mg PO DAILY anemia 0 08/05/24 09/22/24 History iron) tablet (Feosol) Last Menstrual Period: 01/13/24 Zika: Zika virus screening: Negative : No PFSH PFSH Medical History Normal vaginal delivery Anxiety Family History Grandmother COPD (chronic obstructive pulmonary disease), Onset Age: 60 Maternal Grandfather Myocardial infarction, Onset Age: 67 Maternal Grandmother Breast cancer, Onset Age: 45 Paternal Social History adopted: No household members: spouse and children number of children: 1 current occupational status: unemployed current occupation: [employer] pets and animals: Yes (Avoid litterbox) pets and animals: cat(s) and dog(s) history of recent travel: No sexually active: Yes Smoking Status: Never smoker alcohol intake: never substance use type: does not use well-balanced diet: daily or most days caffeine: Yes Type: coffee Number of servings: 1 eating out: 1-3 times/week during the past year weight has: decreased > 10 lbs what type of physical activity do you participate in: none pia/orthodoxy: L[employer]-Day seatbelt use: always do you feel safe at home: Yes additional social history: Michelle [employer] History 2 Elective abortions Hx Para 1 Spontaneous abortions Hx # Term Pregnancies Ectopic pregnancies Hx # Pregnancies Multiple births # of living children 1 Past Pregnancies Del. Date Name GA/Weeks Outcome Route Bth Weight Infant Gen Labor Lgth Anesthesia Del Locatn Provider FOB 10/22/22 Tanner 39 live - full term 7 Male epidur al [facility] Delivery Date: 10/22/22 Last Updated by: Katie Garg severe iron deficiency, infusions HPI 36wk ob Details: JAG PEREZ is a 23 year old who presents for routine OB visit. OB Visit ADDY Calculator 2 Estimated Delivery Date Method Current WG Current Estimate 10/19/24 LMP (Certain) 36w 1d Other Estimates 10/22/24 Ultrasound #1 35w 5d Expected Delivery Route/Plan Labor Preferences- CB/BF classes: no labor support person: Michelle labor intervention preferences: [] pain management options preferred: [] cut cord/dad catch: [] : [] PP control planned: [] discussed possible routes of delivery and associated risks: [] special requests: [] Specific Issue/Plans Covid status: [] Flu vaccine: declined Tdap vaccine: Rhogam: [] LARC form signed: declined movement and labor precautions reviewed. Problem list reviewed and updated with the most current plan of care details and appropriate orders placed. Relevant counseling for the gestational age provided. Continue routine care and follow up unless otherwise noted in visit notes/problem list details Initial Weight: 172 lb Date -?-?-?-?-?-?-?-?-?-?-?-?- EGA Weight BP Urine Prot -?-?-?-?-?-?-?-?-?-?-?-?- Glucose FHR FuHt Pres Dilation -?-?-?-?-?-?-?-?-?-?-?-?- Effaced St Visit Note 03/18/24 -?-?-?-?-?-?-?-?-?-?-?-?- 9w 2d 172 lb 4 oz (+4 oz) 104/70 -?-?-?-?-?-?-?-?-?-?-?-?- 178 -?-?-?-?-?-?-?-?-?-?-?-?- KW- CRL cons wit h dates. declines NIPT 04/21/24 -?-?-?-?-?-?-?-?-?-?-?-?- 14w 1d 166 lb 4 oz (-5 lb 12 oz) 127/75 -?-?-?-?-?-?-?-?-?-?-?-?- 155 -?-?-?-?-?-?-?-?-?-?-?-?- SM- some weight loss. eating well no no vb crmaping 05/21/24 -?-?-?-?-?-?-?-?-?-?-?-?- 18w 3d 169 lb 6 oz (-2 lb 10 oz) 108/74 Negative -?-?-?-?-?-?-?-?-?-?-?-?- Negative 140 -?-?-?-?-?-?-?-?-?-?-?-?- KW- no vb/crampi ng. + yeast infection-started Monistat yesterday. will send in script. US scheduled with MFM. 06/18/24 -?-?-?-?-?-?-?-?-?-?-?-?- 22w 3d 173 lb 8 oz (+1 lb 8 oz) 104/72 Negative -?-?-?-?-?-?-?-?-?-?-?-?- Negative 158 -?-?-?-?-?-?-?-?-?-?-?-?- KW- no vb/lof/ct x. good fm. anatomy US reviewed. 28 week labs discussed 06/24/24 -?-?-?-?-?-?-?-?-?-?-?-?- 23w 2d 175 lb 6 oz (+3 lb 6 oz) 105/72 -?-?-?-?-?-?-?-?-?-?-?-?- 145 -?-?-?-?-?-?-?-?-?-?-?-?- KW- work in for DFM. no vb/lof/ctx. not feeling well today and DFM over the last 2 days. audible movement and fht with doppler. 07/12/24 -?-?-?-?-?-?-?-?-?-?-?-?- 25w 6d 176 lb 8 oz (+4 lb 8 oz) 105/69 Negative -?-?-?-?-?-?-?-?-?-?-?-?- Negative 140 27 -?-?-?-?-?-?-?-?-?-?-?-?- KW- no vb/lof/ct x. good fm. moved over the weekend into grandparents home. glucose today. 07/30/24 -?-?-?-?-?-?-?-?-?-?-?-?- 28w 3d 182 lb 6 oz (+10 lb 6 oz) 106/68 Negative -?-?-?-?-?-?-?-?-?-?-?-?- Negative 145 29 -?-?-?-?-?-?-?-?-?-?-?-?- SM- no vb lof go od fm no regular ctx 08/11/24 -?-?-?-?-?-?-?-?-?-?-?-?- 30w 1d 186 lb 4 oz (+14 lb 4 oz) 101/69 Negative -?-?-?-?-?-?-?-?-?-?-?-?- Negative 135 31 -?-?-?-?-?-?-?-?-?-?-?-?- JV- no complaint s. + FM. mild anemia. encourage sloFe 08/23/24 -?-?-?-?-?-?-?-?-?-?-?-?- 31w 6d 188 lb 4 oz (+16 lb 4 oz) 100/64 Negative -?-?-?-?-?-?-?-?-?-?-?-?- Negative 163 32 -?-?-?-?-?-?-?-?-?-?-?-?- MH-NoVB, LOF. Go od Fm. Started FE. Noting almost daily apple watch indicates elevated heart rate. Confirmed at work 120-130. Resolved with rest/fluids. Denies chest pain, SOB. EKG ordered 09/09/24 -?-?-?-?-?-?-?-?-?-?-?-?- 34w 2d 193 lb 6 oz (+21 lb 6 oz) 108/70 Trace -?-?-?-?-?-?-?-?-?-?-?-?- Negative 145 33 -?-?--?-?-?-?-?-?-?-?-?-?- KW- no vb/lof/ct x. NST today for DFM. KW- no vb/lof/ctx. NST non r eactive today for DFM. to WP for BPP. 09/22/24 -?-?-?-?-?-?-?-?-?-?-?-?- 36w 1d 198 lb 8 oz (+26 lb 8 oz) 97/66 Negative -?-?-?-?-?-?-?-?-?-?-?-?- Negative 153 36 Cephalic 1 -?-?-?-?-?-?-?-?-?-?-?-?- 0 -4 JV- no lof , vaginal bleeding, or dec fm. gbs collected today. ACOG First Trimester First Trimester: Discussed Second Trimester Second Trimester: Signs and Symptoms of Labor, Selecting a care provider, Reproductive Life Planning & Contreception, Care Planning, Depression/Anxiety and Intimate Partner Violence; Discussed Tobacco Cessation Third Trimester Third Trimester: Pain Management Plans, Labor support person(s), Immediate Larc, Signs and Symptoms of Preeclampsia, Feeding No , [place] Education and Family Medical Leave or Disability Forms Results POC Urinalysis 2 Dip (Clinic) Office Urine Glucose Negative Last Edit by Raisa Roberts on 09/22/24 14: 24 Office Urine Protein Negative Last Edit by Raisa Roberts on 09/22/24 14: 24 Coding Level of Care Code OB Routine Diagnoses Decreased movements in third trimester O36.8130 Tachycardia R00.0 Anemia during in third trimester O99.013 Trimester: third trimester Threatened labor O47.00 Obesity affecting in third trimester, unspecified obesity type O99.213 Obesity type affecting : unspecified obesity Trimester: third trimester Supervision of high risk in third trimester O09.93 Trimester: third trimester 36 weeks gestation of Z3A.36 Weeks of gestation: 36 weeks 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 No SOB, chest pain. Happening almost daily. (3) Anemia in preg-unspec: Status: Acute Qualifiers: Trimester: third trimester Qualified Code(s): O99.013 - Anemia complicating , third trimester Comment: add FE (4) Threatened labor: Status: Acute (5) Obesity affecting : Status: Acute Qualifiers: Obesity type affecting : unspecified obesity Trimester: third trimester Qualified Code(s): O99.213 - Obesity complicating , third trimester Comment: HgbA1c normal bmi 30 (6) Supervision of high-risk : Status: Acute Qualifiers: Trimester: third trimester Qualified Code(s): O09.93 - Supervision of high risk , unspecified, third trimester Comment: PRR, , ADDY 10/19/24, girl Isaías Hart, Michelle (7) : Status: Acute Qualifiers: Weeks of gestation: 36 weeks Qualified Code(s): Z3A.36 - 36 weeks gestation of Comment: declined NIPT & Carrier testing, normal anatomy (8) Congenital tongue-tie: Status: Acute Comment: Son with lip & tongue tied Orders: Orders POC Urinalysis 2 Dip (Clinic) Today 09/22/24 1430 <Electronically signed by Selene Benitez DO> Date _ Selene Braun DO Cosigner Signature: Date (if applicable) CC: ~ [facility] Work Phone: 1(637) 746-660703-07-2025 Evaluation note* Diagnosis Onset Date Resolution Status Admit Date Congenital tongue-tie acute Jun 8:38am Obesity affecting acute June 18, 2024 8:38am acute June 18 8:38am Supervision of high-risk acute June 18, 2024 8:38am Elevated triglycerides with high cholesterol resolved June 18, 2024 8:38am Hx of iron deficiency anemia resolve d June 18, 2024 8:38am Congenital tongue-tie acute Mar 2024 12:58pm Obesity affecting acute June 24, 2024 12:58pm acute June 24 12:58pm Supervision of high-risk acute June 24, 2024 12:58pm Elevated triglycerides with high cholesterol resolved June 24 12:58pm Hx of iron deficiency anemia resolve d June 24, 2024 12:58pm Yeast infection resolved June 12:58pm Congenital tongue-tie acute Mar 2024 2:40pm Obesity affecting acute July 12, 2024 2:40pm acute July 12 2:40pm Supervision of high-risk acute July 12, 2024 2:40pm Elevated triglycerides with high cholesterol resolved July 12 2:40pm Hx of iron deficiency anemia resolve d July 12, 2024 2:40pm Yeast infection resolved June 2:40pm Congenital tongue-tie acute Apr 2024 10:50am Obesity affecting acute July 30, 2024 10:50am acute July 30 10:50am Supervision of high-risk acute July 30, 2024 10:50am Congenital tongue-tie acute Apr 2024 9:55pm Obesity affecting acute August 05, 2024 9:55pm acute August 05 9:55pm Supervision of high-risk acute August 05, 2024 9:55pm Threatened labor acute August 05, 2024 9:55pm Congenital tongue-tie acute Apr 2024 11:12am Obesity affecting acute August 11, 2024 11:12am acute August 11 11:12am Supervision of high-risk acute August 11, 2024 11:12am Threatened labor acute August 11, 2024 11:12am Anemia in preg-unspec acute August 23, 2024 1:53pm Congenital tongue-tie acute August 23, 2024 1:53pm Obesity affecting acute August 23, 2024 1:53pm acute August 23, 2024 1:53pm Supervision of high-risk acute August 23, 2024 1 :53pm Anemia in preg-unspec acute September 09, 2024 8:18am Congenital tongue-tie acute September 09, 2024 8:18am Obesity affecting acute September 09, 2024 8:18am acute September 09, 2024 8:18am Supervision of high-risk acute September 09, 2024 8 :18am Tachycardia acute September 09 8:18am Threatened labor acute September 09, 2024 8:18am Decreased movements in third trimester acute September 09, 2024 9 :30am Anemia in preg-unspec acute Sep 1:38pm Congenital tongue-tie acute Sep 1:38pm Decreased movements in third trimester acute September 22, 2024 1:38pm Obesity affecting acute September 22, 2024 1:38pm acute September 22 1:38pm Supervision of high-risk acute September 22, 2024 1:38pm Tachycardia acute September 22 1:38pm Threatened labor acute September 22, 2024 1:38pm [facility] Work Phone: 1(265) 296-884903-07-2025 Evaluation note* Diagnosis Onset Date Resolution Status Admit Date Congenital tongue-tie acute [facility] 2024 8:38am Obesity affecting acute June 18, 2024 8:38am acute June 18 8:38am Supervision of high-risk acute June 18, 2024 8:38am Elevated triglycerides with high cholesterol resolved June 18, 2024 8:38am Hx of iron deficiency anemia resolve d June 18, 2024 8:38am Congenital tongue-tie acute Mar 2024 12:58pm Obesity affecting acute June 24, 2024 12:58pm acute June 24 12:58pm Supervision of high-risk acute June 24, 2024 12:58pm Elevated triglycerides with high cholesterol resolved June 24 12:58pm Hx of iron deficiency anemia resolve d June 24, 2024 12:58pm Yeast infection resolved June 12:58pm Congenital tongue-tie acute Mar 2024 2:40pm Obesity affecting acute July 12, 2024 2:40pm acute July 12 2:40pm Supervision of high-risk acute July 12, 2024 2:40pm Elevated triglycerides with high cholesterol resolved July 12 2:40pm Hx of iron deficiency anemia resolve d July 12, 2024 2:40pm Yeast infection resolved June 2:40pm Congenital tongue-tie acute Apr 2024 10:50am Obesity affecting acute July 30, 2024 10:50am acute July 30 10:50am Supervision of high-risk acute July 30, 2024 10:50am Congenital tongue-tie acute Apr 2024 9:55pm Obesity affecting acute August 05, 2024 9:55pm acute August 05 9:55pm Supervision of high-risk acute August 05, 2024 9:55pm Threatened labor acute August 05, 2024 9:55pm Congenital tongue-tie acute Apr 2024 11:12am Obesity affecting acute August 11, 2024 11:12am acute August 11 11:12am Supervision of high-risk acute August 11, 2024 11:12am Threatened labor acute August 11, 2024 11:12am Anemia in preg-unspec acute August 23, 2024 1:53pm Congenital tongue-tie acute August 23, 2024 1:53pm Obesity affecting acute August 23, 2024 1:53pm acute August 23, 2024 1:53pm Supervision of high-risk acute August 23, 2024 1 :53pm Anemia in preg-unspec acute September 09, 2024 8:18am Congenital tongue-tie acute September 09, 2024 8:18am Obesity affecting acute September 09, 2024 8:18am acute September 09, 2024 8:18am Supervision of high-risk acute September 09, 2024 8 :18am Tachycardia acute September 09 8:18am Threatened labor acute September 09, 2024 8:18am Decreased movements in third trimester acute September 09, 2024 9 :30am Anemia in preg-unspec acute Sep 1:38pm Congenital tongue-tie acute Sep 1:38pm Decreased movements in third trimester acute September 22, 2024 1:38pm Obesity affecting acute September 22, 2024 1:38pm acute September 22 1:38pm Supervision of high-risk acute September 22, 2024 1:38pm Tachycardia acute September 22 1:38pm Threatened labor acute September 22, 2024 1:38pm Abdominal trauma acute September 1:41pm Anemia in preg-unspec acute Sep 1:41pm Congenital tongue-tie acute Sep 1:41pm Decreased movements in third trimester acute September 30, 2024 1:41pm Obesity affecting acute September 30, 2024 1:41pm acute September 30 1:41pm Supervision of high-risk acute September 30, 2024 1:41pm Tachycardia acute September 30 1:41pm Threatened labor acute September 30, 2024 1:41pm [facility] Work Phone: 1([phone]) 623-756203-07-2025 Evaluation note* Diagnosis Onset Date Resolution Status Admit Date Congenital tongue-tie acute [facility] 2024 8:38am Obesity affecting acute June 18, 2024 8:38am acute June 18 8:38am Supervision of high-risk acute June 18, 2024 8:38am Elevated triglycerides with high cholesterol resolved June 18, 2024 8:38am Hx of iron deficiency anemia resolve d June 18, 2024 8:38am Congenital tongue-tie acute [facility] 2024 12:58pm Obesity affecting acute June 24, 2024 12:58pm acute June 24 12:58pm Supervision of high-risk acute June 24, 2024 12:58pm Elevated triglycerides with high cholesterol resolved June 24 12:58pm Hx of iron deficiency anemia resolve d June 24, 2024 12:58pm Yeast infection resolved June 12:58pm Congenital tongue-tie acute Mar 2024 2:40pm Obesity affecting acute July 12, 2024 2:40pm acute July 12 2:40pm Supervision of high-risk acute July 12, 2024 2:40pm Elevated triglycerides with high cholesterol resolved March 31st, 202 5 2:40pm Hx of iron deficiency anemia resolve d July 12, 2024 2:40pm Yeast infection resolved June 2:40pm Congenital tongue-tie acute Apr 2024 10:50am Obesity affecting acute July 30, 2024 10:50am acute July 30 10:50am Supervision of high-risk acute July 30, 2024 10:50am Congenital tongue-tie acute Apr 2024 9:55pm Obesity affecting acute August 05, 2024 9:55pm acute August 05 9:55pm Supervision of high-risk acute August 05, 2024 9:55pm Threatened labor resolved August 05, 2024 9:55pm Congenital tongue-tie acute Apr 2024 11:12am Obesity affecting acute August 11, 2024 11:12am acute August 11 11:12am Supervision of high-risk acute August 11, 2024 11:12am Threatened labor resolved August 11, 2024 11:12am Anemia in preg-unspec acute August 23, 2024 1:53pm Congenital tongue-tie acute August 23, 2024 1:53pm Obesity affecting acute August 23, 2024 1:53pm acute August 23, 2024 1:53pm Supervision of high-risk acute August 23, 2024 1 :53pm Anemia in preg-unspec acute September 09, 2024 8:18am Congenital tongue-tie acute September 09, 2024 8:18am Obesity affecting acute September 09, 2024 8:18am acute September 09, 2024 8:18am Supervision of high-risk acute September 09, 2024 8 :18am Tachycardia resolved September 09 8:18am Threatened labor resolved September 09, 2024 8:18am Decreased movements in third trimester resolved September 09, 2024 9 :30am Anemia in preg-unspec acute Sep 1:38pm Congenital tongue-tie acute Sep 1:38pm Obesity affecting acute September 22, 2024 1:38pm acute September 22 1:38pm Supervision of high-risk acute September 22, 2024 1:38pm Decreased movements in third trimester resolved September 22, 2024 1:38pm Tachycardia resolved September 22 1:38pm Threatened labor resolved September 22, 2024 1:38pm Anemia in preg-unspec acute Sep 1:41pm Congenital tongue-tie acute Sep 1:41pm Obesity affecting acute September 30, 2024 1:41pm acute September 30 1:41pm Supervision of high-risk acute September 30, 2024 1:41pm Abdominal trauma resolved September 1:41pm Decreased movements in third trimester resolved September 30, 2024 1:41pm Tachycardia resolved September 30 1:41pm Threatened labor resolved September 30, 2024 1:41pm Anemia in preg-unspec acute Sep 8:17am Congenital tongue-tie acute Sep 8:17am Obesity affecting acute October 07, 2024 8:17am acute October 07 8:17am Supervision of high-risk acute October 07, 2024 8:17am Abdominal trauma resolved September 8:17am Decreased movements in third trimester resolved October 07, 2024 8:17am Tachycardia resolved October 07 8:17am Threatened labor resolved October 07, 2024 8:17am [facility] Work Phone: [phone]) [phone] Evaluation note* Diagnosis Onset Date Resolution Status Admit Date Congenital tongue-tie acute Mar 2024 8:38am Obesity affecting acute June 18, 2024 8:38am acute June 18 8:38am Supervision of high-risk acute June 18, 2024 8:38am Elevated triglycerides with high cholesterol resolved June 18, 2024 8:38am Hx of iron deficiency anemia resolve d June 18, 2024 8:38am Congenital tongue-tie acute Mar 2024 12:58pm Obesity affecting acute June 24, 2024 12:58pm acute June 24 12:58pm Supervision of high-risk acute June 24, 2024 12:58pm Elevated triglycerides with high cholesterol resolved March 13th, 202 5 12:58pm Hx of iron deficiency anemia resolve d June 24, 2024 12:58pm Yeast infection resolved June 12:58pm Congenital tongue-tie acute Mar 2024 2:40pm Obesity affecting acute July 12, 2024 2:40pm acute July 12 2:40pm Supervision of high-risk acute July 12, 2024 2:40pm Elevated triglycerides with high cholesterol resolved July 12 2:40pm Hx of iron deficiency anemia resolve d July 12, 2024 2:40pm Yeast infection resolved June 2:40pm Congenital tongue-tie acute Apr 2024 10:50am Obesity affecting acute July 30, 2024 10:50am acute July 30 10:50am Supervision of high-risk acute July 30, 2024 10:50am Congenital tongue-tie acute Apr 2024 9:55pm Obesity affecting acute August 05, 2024 9:55pm acute August 05 9:55pm Supervision of high-risk acute August 05, 2024 9:55pm Threatened labor resolved August 05, 2024 9:55pm Congenital tongue-tie acute Apr 2024 11:12am Obesity affecting acute August 11, 2024 11:12am acute August 11 11:12am Supervision of high-risk acute August 11, 2024 11:12am Threatened labor resolved August 11, 2024 11:12am Anemia in preg-unspec acute August 23, 2024 1:53pm Congenital tongue-tie acute August 23, 2024 1:53pm Obesity affecting acute August 23, 2024 1:53pm acute August 23, 2024 1:53pm Supervision of high-risk acute August 23, 2024 1 :53pm Anemia in preg-unspec acute September 09, 2024 8:18am Congenital tongue-tie acute September 09, 2024 8:18am Obesity affecting acute September 09, 2024 8:18am acute September 09, 2024 8:18am Supervision of high-risk acute September 09, 2024 8 :18am Tachycardia resolved September 09 8:18am Threatened labor resolved September 09, 2024 8:18am Decreased movements in third trimester resolved September 09, 2024 9 :30am Anemia in preg-unspec acute Sep 1:38pm Congenital tongue-tie acute Sep 1:38pm Obesity affecting acute September 22, 2024 1:38pm acute September 22 1:38pm Supervision of high-risk acute September 22, 2024 1:38pm Decreased movements in third trimester resolved September 22, 2024 1:38pm Tachycardia resolved September 22 1:38pm Threatened labor resolved September 22, 2024 1:38pm Anemia in preg-unspec acute Sep 1:41pm Congenital tongue-tie acute Sep 1:41pm Obesity affecting acute September 30, 2024 1:41pm acute September 30 1:41pm Supervision of high-risk acute September 30, 2024 1:41pm Abdominal trauma resolved September 1:41pm Decreased movements in third trimester resolved September 30, 2024 1:41pm Tachycardia resolved September 30 1:41pm Threatened labor resolved September 30, 2024 1:41pm Anemia in preg-unspec acute Sep 8:17am Congenital tongue-tie acute Sep 8:17am Obesity affecting acute October 07, 2024 8:17am acute October 07 8:17am Supervision of high-risk acute October 07, 2024 8:17am Abdominal trauma resolved September 8:17am Decreased movements in third trimester resolved October 07, 2024 8:17am Tachycardia resolved October 07 8:17am Threatened labor resolved October 07, 2024 8:17am Anemia in preg-unspec acute Oct 8:13am Congenital tongue-tie acute Oct 8:13am Obesity affecting acute October 12, 2024 8:13am acute October 12, 2024 8:13am Supervision of high-risk acute October 12, 2024 8 :13am [employer] Work Phone: 1(673) 559-629502-07-2025 Evaluation note* Diagnosis Onset Date Resolution Status Admit Date Congenital tongue-tie acute Feb ru2024 8:43am Obesity affecting acute May 21, 2024 8:43am acute May 21, 2024 8:43am Supervision of high-risk acute May 21 8:43am Elevated triglycerides with high cholesterol resolved May 21 8:43am Hx of iron deficiency anemia resolve d May 21, 2024 8:43am Yeast infection resolved May 21, 2024 8:43am Congenital tongue-tie acute Mar ch 2024 8:38am Obesity affecting acute June 18, 2024 8:38am acute June 18 8:38am Supervision of high-risk acute June 18, 2024 8:38am Elevated triglycerides with high cholesterol resolved June 18, 2024 8:38am Hx of iron deficiency anemia resolve d June 18, 2024 8:38am Congenital tongue-tie acute Mar ch 2024 12:58pm Obesity affecting acute June 24, 2024 12:58pm acute June 24 12:58pm Supervision of high-risk acute June 24, 2024 12:58pm Elevated triglycerides with high cholesterol resolved June 24 12:58pm Hx of iron deficiency anemia resolve d June 24, 2024 12:58pm Yeast infection resolved June 12:58pm Congenital tongue-tie acute Mar ch 2024 2:40pm Obesity affecting acute July 12, 2024 2:40pm acute July 12 2:40pm Supervision of high-risk acute July 12, 2024 2:40pm Elevated triglycerides with high cholesterol resolved July 12 2:40pm Hx of iron deficiency anemia resolve d July 12, 2024 2:40pm Yeast infection resolved June 2:40pm Congenital tongue-tie acute Apr 2024 10:50am Obesity affecting acute July 30, 2024 10:50am acute July 30 10:50am Supervision of high-risk acute July 30, 2024 10:50am Congenital tongue-tie acute Apr 2024 9:55pm Obesity affecting acute August 05, 2024 9:55pm acute August 05 9:55pm Supervision of high-risk acute August 05, 2024 9:55pm Threatened labor acute August 05, 2024 9:55pm Congenital tongue-tie acute Apr 2024 11:12am Obesity affecting acute August 11, 2024 11:12am acute August 11 11:12am Supervision of high-risk acute August 11, 2024 11:12am Threatened labor acute August 11, 2024 11:12am Anemia in preg-unspec acute August 23, 2024 1:53pm Congenital tongue-tie acute August 23, 2024 1:53pm Obesity affecting acute August 23, 2024 1:53pm acute August 23, 2024 1:53pm Supervision of high-risk acute August 23, 2024 1 :53pm Anemia in preg-unspec acute September 09, 2024 8:18am Congenital tongue-tie acute September 09, 2024 8:18am Obesity affecting acute September 09, 2024 8:18am acute September 09, 2024 8:18am Supervision of high-risk acute September 09, 2024 8 :18am Tachycardia acute September 09 8:18am Threatened labor acute September 09, 2024 8:18am [facility] Work Phone: 1([phone]) 187-715501-08-2025 Evaluation note* Diagnosis Onset Date Resolution Status Admit Date Congenital tongue-tie acute Apr 3:05pm Obesity affecting acute April 21, 2024 3:05pm acute April 21 025 3:05pm Supervision of high-risk acute April 21 3:05pm Elevated triglycerides with high cholesterol resolved April 21 3:05pm Hx of iron deficiency anemia resolve d April 21, 2024 3:05pm Congenital tongue-tie acute May 8:43am Obesity affecting acute May 21, 2024 8:43am acute May 21, 2024 8:43am Supervision of high-risk acute May 21 8:43am Elevated triglycerides with high cholesterol resolved May 21 025 8:43am Hx of iron deficiency anemia resolve d May 21, 2024 8:43am Yeast infection resolved May 21, 2024 8:43am Congenital tongue-tie acute Mar 2024 8:38am Obesity affecting acute June 18, 2024 8:38am acute June 18 8:38am Supervision of high-risk acute June 18, 2024 8:38am Elevated triglycerides with high cholesterol resolved June 18, 2024 8:38am Hx of iron deficiency anemia resolve d June 18, 2024 8:38am Congenital tongue-tie acute Mar 2024 12:58pm Obesity affecting acute June 24, 2024 12:58pm acute June 24 12:58pm Supervision of high-risk acute June 24, 2024 12:58pm Elevated triglycerides with high cholesterol resolved June 24 12:58pm Hx of iron deficiency anemia resolve d June 24, 2024 12:58pm Yeast infection resolved June 12:58pm Congenital tongue-tie acute Mar 2024 2:40pm Obesity affecting acute July 12, 2024 2:40pm acute July 12 2:40pm Supervision of high-risk acute July 12, 2024 2:40pm Elevated triglycerides with high cholesterol resolved July 12 2:40pm Hx of iron deficiency anemia resolve d July 12, 2024 2:40pm Yeast infection resolved June 2:40pm Congenital tongue-tie acute Apr 2024 10:50am Obesity affecting acute July 30, 2024 10:50am acute July 30 10:50am Supervision of high-risk acute July 30, 2024 10:50am Congenital tongue-tie acute Apr 2024 9:55pm Obesity affecting acute August 05, 2024 9:55pm acute August 05 9:55pm Supervision of high-risk acute August 05, 2024 9:55pm Threatened labor acute August 05, 2024 9:55pm [facility] Work Phone: 1([phone]) 550-256112-05-2024 Evaluation note* Diagnosis Onset Date Resolution Status Admit Date Congenital tongue-tie acute Mar 2:24pm Elevated triglycerides with high cholesterol acute March 18, 2 024 2:24pm Hx of iron deficiency anemia acute March 18, 2024 2:24pm Obesity affecting acute March 18, 2024 2:24pm acute March 18, 2024 2:24pm Supervision of high-risk acute March 18 2:24pm Congenital tongue-tie acute Gonsalo [id number] 3:05pm Elevated triglycerides with high cholesterol acute April 21 3:05pm Hx of iron deficiency anemia acute April 21, 2024 3:05pm Obesity affecting acute April 21, 2024 3:05pm acute April 21, 025 3:05pm Supervision of high-risk acute April 21 3:05pm Congenital tongue-tie acute b 2024 8:43am Elevated triglycerides with high cholesterol acute May 21, 8:43am Hx of iron deficiency anemia acute May 21, 2024 8:43am Obesity affecting acute May 21, 2024 8:43am acute May 21, 2024 8:43am Supervision of high-risk acute May 21 8:43am Yeast infection acute May 21, 2024 8:43am Congenital tongue-tie acute Mar 2024 8:38am Elevated triglycerides with high cholesterol acute June 18, 2024 8:38am Hx of iron deficiency anemia acute June 18, 2024 8:38am Obesity affecting acute June 18, 2024 8:38am acute June 18 8:38am Supervision of high-risk acute June 18, 2024 8:38am Congenital tongue-tie acute Mar 2024 12:58pm Elevated triglycerides with high cholesterol acute June 24 12:58pm Hx of iron deficiency anemia acute June 24, 2024 12:58pm Obesity affecting acute June 24, 2024 12:58pm acute June 24 12:58pm Supervision of high-risk acute June 24, 2024 12:58pm Yeast infection acute June 12:58pm Congenital tongue-tie acute Mar 2024 2:40pm Elevated triglycerides with high cholesterol acute July 12 2:40pm Hx of iron deficiency anemia acute July 12, 2024 2:40pm Obesity affecting acute July 12, 2024 2:40pm acute July 12 2:40pm Supervision of high-risk acute July 12, 2024 2:40pm Yeast infection acute June 2:40pm [facility] Work Phone: 1(920) 416-101808-23-2024 NoteHNO ID: [id number] Author: ALYSSA PACKER MD Service: ? 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 Menses: cycles every 28 days and 4-6 days of flow. Contraception: none HPV vaccine: No Last Pap: 08/25/2020 normal HPV: N/A History of abnormal pap: No Last mammogram: never Sexually active: Yes History of STDS: None Patient concerns for STD exposure: No. 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 History Comments: Sexual Activity: Never; No partner data on record Contraception: Pill PAST MEDICAL HISTORY 08/09/2022: Anemia during in third trimester No date: anxiety 12/04/2011: Menarche 04/14/1999: Respiratory syncytial virus (RSV)PAST SURGICAL HISTORY No date: NONE FAMILY HISTORY Problem Relation Age of Onset No Known Problems Mother No Known Problems Father No Known Problems Sister Asthma Brother COPD Maternal Grandmother Skin Cancer Maternal Grandfather No Known Problems Paternal Grandmother No Known Problems Paternal Grandfather SOCIAL HISTORY Social History Tobacco Use Smoking status: Never Passive exposure: Yes Smokeless tobacco: Never Tobacco comments: Dad and step-mom and step-dad - father's household trying electric cigarettes Vaping Use Vaping status: Never Used Substance Use Topics Alcohol use: No Drug use: No REVIEW OF SYSTEMS Abdomen: No abdominal pain, nausea, vomiting, diarrhea, or constipation. No bloating, early satiety, indigestion, or increased flatulence. Bladder: No dysuria, gross hematuria, urinary frequency, urinary urgency, or incontinence. Breast: No breast lumps, nipple d/c, overlying skin changes, redness or skin retraction. Allergies and current medication updated:Yes EXAM: BP 118/66 Pulse 79 Resp 16 Ht 5' 1.496 (1.56m) Wt 173 lb 12.8 oz (78.8kg) SpO2 99% LMP 11/19/2023 BMI 32.31 kg/(m2). GENERAL: pleasant, female in no apparent distress HEENT: Normocephalic, atraumatic, mucus membranes moist, and no lesions NECK: Supple, full range of motion, no adenopathy, and thyroid normal DERMATOLOGY: Normal, without lesions, non-icteric, and non-hirsute BREAST: soft, non-tender, symmetric, no dominant mass, normal nipple-areolar complex, no lymphadenopathy, and no nipple discharge ABDOMEN: soft, non-tender, and no masses PELVIC: external genitalia normal, normal Bartholin's glands, urethra, Burdette's glands, no vulvar lesions, no cervical lesions, good vaginal support, physiologic discharge present, normal appearing perineal body and perianal region BIMANUAL: uterus normal size, shape and consistency, no adnexal masses, and non-tender RECTOVAGINAL: deferred. NEURO: alert and oriented x3,exam grossly non-focal EXTREMITIES: normal ASSESSMENT/PLAN: 1) Health maintenance: Pap done with reflex HPV. Nutrition, exercise and routine health maintenance exams reviewed. Colon cancer screening: start at age 45 HPV vaccine: discussed, not interested 2) Contraception: none. Contraceptive options reviewed and information provided. 3) STD screening: Declined STD check. 4) Follow up one year or sooner as needed 5) continue PNV- check Urine - had + at home then negative. 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 Menses: cycles every 28 days and 4-6 days of flow. Contraception: none HPV vaccine: No Last Pap: 08/25/2020 normal HPV: N/A History of abnormal pap: No Last mammogram: never Sexually active: Yes History of STDS: None Patient concerns for STD exposure: No. 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 History Comments: Sexual Activity: Never; No partner data on record Contraception: Pill PAST MEDICAL HISTORY 08/09/2022: Anemia during in third trimester No date: anxiety 12/04/2011: Menarche 04/14/1999: Respiratory syncytial virus (RSV)PAST SURGICAL HISTORY No date: NONE FAMILY HISTORY Problem Relation Age of Onset No Known Problems Mother No Known Problems Father No Known Problems Sister Asthma Brother COPD Maternal Grandmother Skin Cancer Maternal Grandfather No Known Problems Paternal Grandmother No Known Problems Paternal Grandfather SOCIAL HISTORY Social History Tobacco Use Smoking status: Never Passive exposure: Yes Smokeless tobacco: Never Tobacco comments: Dad and step-mom and step-dad - father's household trying electric cigarettes Vaping Use Vaping status: Never Used Substance Use Topics Alcohol use: No Drug use: No REVIEW OF SYSTEMS Abdomen: No abdominal pain, nausea, vomiting, diarrhea, or constipation. No bloating, early satiety, indigestion, or increased flatulence. Bladder: No dysuria, gross hematuria, urinary frequency, urinary urgency, or incontinence. Breast: No breast lumps, nipple d/c, overlying skin changes, redness or skin retraction. Allergies and current medication updated:Yes EXAM: BP 118/66 Pulse 79 Resp 16 Ht 5' 1.496 (1.56m) Wt 173 lb 12.8 oz (78.8kg) SpO2 99% LMP 11/19/2023 BMI 32.31 kg/(m^2). GENERAL: pleasant, female in no apparent distress HEENT: Normocephalic, atraumatic, mucus membranes moist, and no lesions NECK: Supple, full range of motion, no adenopathy, and thyroid normal DERMATOLOGY: Normal, without lesions, non-icteric, and non-hirsute BREAST: soft, non-tender, symmetric, no dominant mass, normal nipple-areolar complex, no lymphadenopathy, and no nipple discharge ABDOMEN: soft, non-tender, and no masses PELVIC: external genitalia normal, normal Bartholin's glands, urethra, Burdette's glands, no vulvar lesions, no cervical lesions, good vaginal support, physiologic discharge present, normal appearing perineal body and perianal region BIMANUAL: uterus normal size, shape and consistency, no adnexal masses, and non-tender RECTOVAGINAL: deferred. NEURO: alert and oriented x3,exam grossly non-focal EXTREMITIES: normal ASSESSMENT/PLAN: 1) Health maintenance: Pap done with reflex HPV. Nutrition, exercise and routine health maintenance exams reviewed. Colon cancer screening: start at age 45 HPV vaccine: discussed, not interested 2) Contraception: none. Contraceptive options reviewed and information provided. 3) STD screening: Declined STD check. 4) Follow up one year or sooner as needed 5) continue PNV- check Urine - had + at home then negative. Does not sound feasible since just had menses but will check Alyssa Spence MD documented [facility] History of Present illness Narrative* Alyssa Packer MD - 12/04/2022 3:58 PM EDT VISIT Jag Perez is a 22 year old year old here for visit. Delivery Summary: 10/22/2022 Male-Tanner ROS/ Recovery: Feeding: Breast feeding problems: None Menses since delivery: spotting Menstrual pattern prior to : Regular periods [place] since delivery: Not resumed Depression: denies symptoms of depression. OB Depression and Anxiety Screening- This Encounter (since 12/03/2022) Over the past 2 weeks have you felt down, depressed, or hopeless? Negative Over the past two weeks, have you felt little interest or pleasure in doing things? Negative Feeling nervous, anxious or on edge 0-Not at all Not being able to stop or control worrying 0-Not al all Anxiety Pre-Screening Total (If >/= 3 additional questions will be reviewed) 0 Emotional support: Yes Bowel symptoms: Negative for abdominal discomfort, blood in stools or black stools and change in bowel habits Abdomen: N/A Bladder symptoms: No dysuria, gross hematuria, urinary frequency, urinary urgency, or incontinence Other issues: None Last Pap: 2020 normal HPV: N/A PAST MEDICAL HISTORY Diagnosis Date Anemia during in third trimester 08/09/2022 anxiety Menarche 12/04/2011 Respiratory syncytial virus (RSV) 04/14/1999 PAST SURGICAL HISTORY Procedure Laterality Date NONE FAMILY HISTORY Problem Relation Age of Onset No Known Problems Mother No Known Problems Father No Known Problems Sister Asthma Brother COPD Maternal Grandmother Skin Cancer Maternal Grandfather No Known Problems Paternal Grandmother No Known Problems Paternal Grandfather Social History Tobacco Use Smoking status: Never Passive exposure: Yes Smokeless tobacco: Never Tobacco comments: Dad and step-mom and step-dad - father's household trying electric cigarettes Vaping Use Vaping Use: Never used Substance Use Topics Alcohol use: No Drug use: No PHYSICAL EXAMINATION: BP 100/60 Wt 173 lb (78.5kg) LMP 01/11/2022 GENERAL: pleasant, female in no apparent distress HEENT: Normocephalic, atraumatic, mucus membranes moist, and no lesions NECK: Supple, full range of motion, no adenopathy, and thyroid normal DERMATOLOGY: Normal, without lesions, non-icteric, and non-hirsute BREAST: soft, non-tender, symmetric, no dominant mass, normal nipple-areolar complex, no lymphadenopathy, and no nipple discharge ABDOMEN: soft, non-tender, and no masses. INCISION: N/A PELVIC: external genitalia normal, normal Bartholin's glands, urethra, Burdette's glands, no vulvar lesions, no cervical lesions, good vaginal support, physiologic discharge present, normal appearing perineal body and perianal region BIMANUAL: uterus normal size, shape and consistency, no adnexal masses, and non-tender NEURO: alert and oriented x3,exam grossly non-focal EXTREMITIES: normal ASSESSMENT AND PLAN: 22 year old status post with normal course. Contraception plan: none Follow up: RTC for annual exams and PRN Alyssa Spence MD documented in this encounterBet[facility]07[facility] Discharge summary Author Davion Sepulveda [facility] October 23, 2022 6:33am Note Date/Time October 23, 2022 6:32 am [facility] Medical Records Department [address] [place] [address] Instructions for Home/Discharge Instructions 10/23/22 0631 MR#: [id number] Acct: [id number] Name: JAG PEREZ Rep #:[id number] : 2000 From: Davion Sepulveda MD PCP: Dr. Geronimo Arias DO Sta tus:ADM IN Discharge Instructions Diet Discharge Diet: No restrictions Activity Discharge Activity: May Shower May resume sexual activity in: 6 weeks Weight Bearing Status: Weight bearing as tolerated Dressing / Incision Call your doctor if you observe: Fever of 101 or Higher, Coldness, Increased Pain, Change in Color, Inability to urinate, Inability to have a bowel movement,Using more than 1 pad per hour, Shortness of breath, Dizziness, Fainting spells,Chest pain, Increased palpitations (irregular heartbeat), Calf discomfort and Uncontrolled pain Follow Up Care Please Follow Up With: Davion Sepulveda MD When: Follow up in 2 and 6 weeks for visits. Test Results: Test results from this visit will be discussed in further detail at your follow- up appointment, if applicable. Discharge Plan Admission Admit Date/Time: 10/22/22 01:15 Primary Reason for Your Visit: Vaginal delivery Attending Provider: Davion Sepulveda Primary Care Provider: Geronimo Arias Discharge Orders/Prescriptions Prescriptions: New acetaminophen 500 mg Tablet 1,000 mg PO Q6H PRN PRN (Reason: Pain 1-10 Or Fever) Qty: 0 0RF ibuprofen 600 mg Tablet 600 mg PO Q6H PRN PRN (Reason: Pain Score 1-3) Qty: 0 0RF Continued + DHA 28 mg iron- 975 mcg-200 mg Combo Pack 1 pkg PO DAILY Discontinued ferrous sulfate [Iron (ferrous sulfate)] 325 mg (65 mg iron) Tablet 325 mg PO DAILY aspirin [Aspirin Child] 81 mg Tablet,Chewable 81 mg PO DAILY Referrals / Follow Up: eGronimo Arias DO [Primary Care Provider] - Disposition Disposition (needs filled in before D/C Order can be placed): Home, Self Care 10/23/2233<Electronically signed by Davion Sepulveda MD>Davion Sepulveda MD CC: Dr. Geronimo Arias, DO ~ Signed [facility] Work Phone: 1(771) 434-985207-12-2023 Progress note Author Davion Sepulveda [facility] October 23, 2022 6:31am Note Date/Time October 23, 2022 6:31 am [facility] Medical Records Department [address] [place], [place] [address]j[place] [address] Progress Note - OBGYN 10/23/22629 MR#: [id number] Acct: [id number] Name: JAG PEREZ Rep #:[id number] : 2000 From: Davion Sepulveda MD PCP: Dr. Geronimo Arias DO Sta tus:ADM IN [id number] Subjective Subjective Denies complaints Objective Data Objective Data Vital Signs: Vital Signs Temp Pulse Resp BP O2 Del Method 97 F L 89 18 95/68 Room Air 10/23/22 00:32 10/23/22 03:58 10/23/22 03:58 10/23/22 03:58 10/23/22 03:58 Oxygen Delivery Method Room Air Weight: 202 lb 6.15 oz Body Mass Index (BMI) 37.0 Intake & Output: Intake and Output for Last 24 Hours 10/21/22 10/22/22 10/23/22 23:59 23:59 23:59 Intake Total 4000.00 / 4000.00 Output Total 2049 / 2049 Balance 1950.00 / 1950.00 Lab / Micro Data 10/22/22 01:30 Physical Exam Const alert, oriented x3 and no apparent distress HEENT normocephalic GI soft to palpation, non-tender and non-distended GI Narrative: fundus firm, mid & below umbilicus Extremity normal to inspection and no calf tenderness Assessment & Plan (1) Normal vaginal delivery: COMMENT: PPD#1 PLAN: Plan Routine care D/c home later today per patient request 10/23/22630 <Electronically signed by Davion Sepulveda MD> Cosigner Signature (if applicable): CC: ~ Signed [facility] Work Phone: 1(286) 488-383407-11-2023 History of Present illness Narrative* Selene Olivera RN - 10/22/2022 4:46 PM EDT Patient delivered via at [facility] on 10/22/22 per Davion Sepulveda MD. See OB Outcome note. Selene Olivera RN documented in this encounterBet[facility]07-[facility]23 Procedure [facility] History and physical note Author Davion Sepulveda [facility] October 22, 2022 1:28pm Note Date/Time October 22, 2022 1:28 pm [facility] Medical Records Department [address] [place], [place] [address]j[place] [address] H&P Exam - FAMILY ENGAGEMENT SPECIALIST 10/22/22 1318 MR#: [id number] Acct: [id number] Name: JAG PEREZ Rep #:[id number] : 2000 21 From: Davion Sepulveda MD PCP: DO Tatyana Cortez tus:ADM IN Location: [id number] HPI - General General Date of Admission: 10/22/22 Date of Service: 10/22/22 HPI Narrative JAG PEREZ, is a 21 F who presents with LOF. Maternal Data Information Final ADDY: 10/26/22 Gestational age: 39&3 PFSH [facility] Medical History (Updated 10/22/22 @ 13:[address] Davion Sepulveda MD) Anxiety Home Medications aspirin 81 mg chewable tablet 81 mg PO DAILY 09/10/22 [History Last Taken 10/15/22 22:00 81 mg] ferrous sulfate 325 mg (65 mg iron) tablet (Iron (ferrous sulfate)) 325 mg PO DAILY 09/10/22 [History Last Taken Unknown] vits,calcium 91-iron 28 mg-folic 975 mcg-dha 200 mg oral pack (+ DHA) 1 pkg PO DAILY 09/10/22 [History Last Taken 10/15/22 22:00 1 pkg] Allergy/AdvReac Type Severity Reaction Status Date / Time No Known Allergies Allergy Verified 10/22/22 00:55 Social History Smoking Status: Never smoker History Elective abortions Hx Para 0 Spontaneous abortions Hx # Term Pregnancies Ectopic pregnancies Hx # Pregnancies Multiple births # of living children NST FHR Rate Baby A Baseline: 130 Variability:: Moderate Accelerations:: 15 x 15 Decelerations:: Variable Uterine Activity:: Q 2 min Vital Signs Vital Signs Vital Signs: 10/22/22 01:01 10/22/22 01:01 10/22/22 01:54 Temperature Temperature Source Temporal Pulse Rate 95 Blood Pressure 118/72 BP Systolic 118 BP Diastolic 72 10/22/22 01:55 10/22/22 01:55 10/22/22 01:54 Temperature 97.7 F L Temperature Source Pulse Rate 97 Blood Pressure 130/72 H BP Systolic 130 BP Diastolic 72 10/22/22 02:57 10/22/22 02:57 10/22/22 02:57 Temperature Temperature Source Temporal Pulse Rate 101 H Blood Pressure 116/69 BP Systolic 116 BP Diastolic 69 10/22/22 02:57 10/22/22 04:32 10/22/22 04:32 Temperature 98.8 F Temperature Source Pulse Rate 108 H Blood Pressure 105/60 BP Systolic 105 BP Diastolic 60 10/22/22 04:32 10/22/22 04:32 10/22/22 05:33 Temperature 97.4 F L Temperature Source Temporal Pulse Rate Blood Pressure 122/66 H BP Systolic 122 BP Diastolic 66 10/22/22 05:33 10/22/22 05:32 10/22/22 05:32 Temperature 97.2 F L Temperature Source Temporal Pulse Rate 117 H Blood Pressure BP Systolic BP Diastolic 10/22/22 05:47 10/22/22 05:47 10/22/22 05:52 Temperature Temperature Source Pulse Rate 116 H Blood Pressure 123/66 H 115/59 L BP Systolic 123 115 BP Diastolic 66 59 10/22/22 05:52 10/22/22 05:57 10/22/22 05:57 Temperature Temperature Source Pulse Rate 115 H 113 H Blood Pressure 107/52 L BP Systolic 107 BP Diastolic 52 10/22/22 06:02 10/22/22 06:02 10/22/22 06:08 Temperature Temperature Source Pulse Rate 115 H Blood Pressure 96/51 L 105/54 L BP Systolic 96 105 BP Diastolic 51 54 10/22/22 06:08 10/22/22 06:08 10/22/22 06:08 Temperature Temperature Source Pulse Rate 108 H 109 H Blood Pressure 93/52 L BP Systolic 93 BP Diastolic 52 10/22/22 06:12 10/22/22 06:12 10/22/22 06:17 Temperature Temperature Source Pulse Rate 114 H Blood Pressure 84/48 L 87/49 L BP Systolic 84 87 BP Diastolic 48 49 10/22/22 06:17 10/22/22 06:23 10/22/22 06:23 Temperature Temperature Source Pulse Rate 109 H 100 Blood Pressure 101/47 L BP Systolic 101 BP Diastolic 47 10/22/22 06:28 10/22/22 06:28 10/22/22 06:32 Temperature Temperature Source Pulse Rate 97 Blood Pressure 98/50 L 105/50 L BP Systolic 98 105 BP Diastolic 50 50 10/22/22 06:32 10/22/22 06:37 10/22/22 06:37 Temperature Temperature Source Pulse Rate 99 104 H Blood Pressure 90/55 L BP Systolic 90 BP Diastolic 55 10/22/22 06:43 10/22/22 06:43 10/22/22 06:46 Temperature Temperature Source Temporal Pulse Rate 93 Blood Pressure 90/55 L BP Systolic 90 BP Diastolic 55 10/22/22 06:48 10/22/22 06:48 10/22/22 06:46 Temperature 97.2 F L Temperature Source Pulse Rate 109 H Blood Pressure 118/56 L BP Systolic 118 BP Diastolic 56 10/22/22 06:52 10/22/22 06:52 10/22/22 06:57 Temperature Temperature Source Pulse Rate 107 H Blood Pressure 101/59 L 108/57 L BP Systolic 101 108 BP Diastolic 59 57 10/22/22 06:57 10/22/22 07:02 10/22/22 07:02 Temperature Temperature Source Pulse Rate 100 99 Blood Pressure 105/55 L BP Systolic 105 BP Diastolic 55 10/22/22 07:12 10/22/22 07:12 10/22/22 07:16 Temperature Temperature Source Temporal Pulse Rate 110 H Blood Pressure 112/56 L BP Systolic 112 BP Diastolic 56 10/22/22 07:16 10/22/22 07:22 10/22/22 07:22 Temperature 97.6 F L Temperature Source Pulse Rate 100 Blood Pressure 105/55 L BP Systolic 105 BP Diastolic 55 10/22/22 07:38 10/22/22 07:38 10/22/22 08:28 Temperature Temperature Source Pulse Rate 105 H Blood Pressure 116/58 L 107/61 BP Systolic 116 107 BP Diastolic 58 61 10/22/22 08:28 10/22/22 08:28 10/22/22 08:59 Temperature 99.0 F Temperature Source Pulse Rate 109 H Blood Pressure 93/51 L BP Systolic 93 BP Diastolic 51 10/22/22 08:59 10/22/22 09:33 10/22/22 09:33 Temperature Temperature Source Pulse Rate 88 85 Blood Pressure 86/47 L BP Systolic 86 BP Diastolic 47 10/22/22 09:48 10/22/22 09:48 10/22/22 09:58 Temperature Temperature Source Pulse Rate 85 Blood Pressure 94/54 L 97/50 L BP Systolic 94 97 BP Diastolic 54 50 10/22/22 09:58 10/22/22 10:06 10/22/22 10:06 Temperature Temperature Source Pulse Rate 96 105 H Blood Pressure 99/55 L BP Systolic 99 BP Diastolic 55 10/22/22 10:08 10/22/22 10:08 10/22/22 10:48 Temperature Temperature Source Pulse Rate 97 Blood Pressure 112/56 L 89/54 L BP Systolic 112 89 BP Diastolic 56 54 10/22/22 10:48 10/22/22 10:45 10/22/22 11:19 Temperature 98.1 F Temperature Source Pulse Rate 90 Blood Pressure 94/50 L BP Systolic 94 BP Diastolic 50 10/22/22 11:19 Temperature Temperature Source Pulse Rate 96 Blood Pressure BP Systolic BP Diastolic Weight Weight: 202 lb 6.15 oz Body Mass Index (BMI) 37.0 Physical Exam Const alert, oriented x3 and no apparent distress Chest inspection of chest normal GI soft to palpation, non-tender and non-distended Inspection: gravid external exam normal Narrative: cvx - c/c/+1 (patient was 3cm when seen earlier today) Extremity no calf tenderness Labs Labs Labs: Blood Type A POSITIVE Antibody Screen NEGATIVE Hct 36.0 % (37-47) L Hgb 11.4 g/dL (12.0-15.0) L Syphilis Total Ab Non-reactive Assessment & Plan (1) SROM (spontaneous rupture of membranes): COMMENT: @ 39&3 PLAN: Plan Admit to L&D SROM - augmentation with pitocin. Patient is now C/C/+1 and will start pushing soon. GBS negative EFW - less than 4500g Routine care 10/22/22 1328 <Electronically signed by Davion Sepulveda MD> Cosigner Signature (if applicable): CC: Dr. Geronimo Arias, DO; Dr. Davion Sepulveda MD~ Signed [facility] Work Phone: [phone]) 270-822907-03-2023 Miscellaneous Notes* Addendum Note - Nanci Silva Ma - 10/14/2022 10:49 AM EDTAddended by: NANCI SILVA MA on: 10/14/2022 10:49 AM Modules accepted: Orders * Addendum Note - Lorena Camara MD - 10/14/2022 10:48 AM EDTAddended by: LORENA CAMARA on: 10/14/2022 10:48 AM Modules accepted: Orders * Quick Notes - Lorena Camara MD - 10/14/2022 10:38 AM EDT RR- VB No. LOF No. CTXS No. Movement: present. Other c/o: edema, compression stockings too tight now. No VB/LOF. Medication list reviewed. Physical Exam See Flow Sheet Abd: soft, nontender, gravid Ext: edema: 2+ A/P 38w2d Estimated Date of Delivery: 10/26/22 f/u in 1 week or prn d/w her elective induction at 39+ weeks and r/b/a to this and that it might be canceled due to acuity of unit d/w her symptomatic measures for edema Lorena Camara M.D. documented in this encounterBethesda [facility] Hospital07-03-2023 Instructions* Patient Instructions* Nanci Silva Ma - 10/14/2022 10:15 AM EDT SEQUENTIAL SCREENINGS [facility] offers sequential screenings for women who are interested in screenings for chromosomal abnormalities and certain defects during a . The sequential screen combinesultrasound and blood tests to determine the risk of chromosomal abnormalities, including Down's Syndrome (Trisomy 21) and Trisomy 18, as well as open neural tube defects including spina bifida. Ultrasound examination is performed between 11 weeks and 13 weeks gestational age. Blood tests are drawn after the ultrasound and again later in the between 15 and 21 weeks gestational age. Please let your physician know if you are interested in this testing. It will require an appointment withour traffic analysis technician. This is not an ultrasound performed by a physician in our office during a routine visit. SIGNS AND SYMPTOMS OF LABOR 1. Contractions every 10 minutes or more often 2. Clear, pink, or brownish fluid (water) leaking from vagina 3. Feeling that baby is pushing down, pressure 4. Low, dull backache 5. Cramps that feel like a period 6. Cramps with or without diarrhea If you notice any of the above symptoms, contact our office at [phone] and ask to speak with anurse. After hours, you can call doctors registry at [phone] OR call [facility] at [phone] ask to have the doctor cardiac catheterization technician paged. If you consider this an emergency, dial 9-4-8 or go to your nearest emergency department. NEED HELP? Are you dealing with a violent or abusive relationship? Are you a victim of rape or sexual assult? Call [facility] ([place]) 24 hour Crisis Hotline: 434.937.3462 or 647-666-9997. MANUAL Your Guide to a Healthy manual is now on-line. Visit [email or web address] to download your free copy documented in this encounterBethesda North Hospital06-30-2023 Miscellaneous Notes* Telephone Encounter - Wendy Avila LPN - 10/11/2022 11:29 AM EDT Order signed and faxed. Wendy Avila LPN * Telephone Encounter - Jennifer Quinonez RN - 10/07/2022 11:09 AM EDT Breast pump order received from [facility] and to to sign. Jennfier Quinonez RN documented in this encounterBethesda North Hospital06-28-2023 Miscellaneous Notes* Quick Notes - Sobeida Lopez MD - 10/09/2022 2:24 PM EDT SW- No ctx, vb, lof. Good FM PE: Gen- NAD, well appearing Abd- Soft, gravid, NT Ext- No edema See flowsheet A/p 37 wk gestation - Labor precautions reviewed - Check CBC next visit - Weekly visits Sobeida Lopez DO documented in this encounterBethesda North Hospital06-28-2023 Instructions* Patient Instructions* Nicolasa Huerta MA - 10/09/2022 1:42 PM EDT SEQUENTIAL SCREENINGS [facility] offers sequential screenings for women who are interested in screenings for chromosomal abnormalities and certain defects during a . The sequential screen combinesultrasound and blood tests to determine the risk of chromosomal abnormalities, including Down's Syndrome (Trisomy 21) and Trisomy 18, as well as open neural tube defects including spina bifida. Ultrasound examination is performed between 11 weeks and 13 weeks gestational age. Blood tests are drawn after the ultrasound and again later in the between 15 and 21 weeks gestational age. Please let your physician know if you are interested in this testing. It will require an appointment withour traffic analysis technician. This is not an ultrasound performed by a physician in our office during a routine visit. SIGNS AND SYMPTOMS OF LABOR 1. Contractions every 10 minutes or more often 2. Clear, pink, or brownish fluid (water) leaking from vagina 3. Feeling that baby is pushing down, pressure 4. Low, dull backache 5. Cramps that feel like a period 6. Cramps with or without diarrhea If you notice any of the above symptoms, contact our office at [phone] and ask to speak with anurse. After hours, you can call doctors registry at [phone] OR call [facility] at [phone] ask to have the doctor cardiac catheterization technician paged. If you consider this an emergency, dial 9-1-1 or go to your nearest emergency department. NEED HELP? Are you dealing with a violent or abusive relationship? Are you a victim of rape or sexual assult? Call [facility] ([place]) 24 hour Crisis Hotline: 255.430.8818 or 798-074-5807. MANUAL Your Guide to a Healthy manual is now on-line. Visit [email or web address] to download your free copy documented in this encounterBethesda North Hospital06-21-2023 Miscellaneous Notes* Quick Notes - Maya Gonzales APRN.CNM - 10/02/2022 11:37 AM EDT GAURI-S: Jag Perez is a 21 year old female who presents at 36w4d with ADDY:10/26/2022, by Ultrasound for a routine visit. Good FM. Denies headache, visual changes, chest pain, shortness of breath, vaginal bleeding, leakage of fluid, or dysuria. Feeling well, no complaints. O: See flow sheet Gen: No apparent distress Abd: Gravid, nontender Raffi 12.5, cephalic by US, EFW 6lb 5oz, 42nd percentile. ASSESSMENT/PLAN: 1. 36 weeks gestation of P: 1) PTL precautions reviewed and when to call 2) RTO in one week 3) GBS today 4) Continues Iron infusions, first one last week 5) Info given on dates and perineal massage 6) Growth 42nd percentile and RAFFI normal. Maya Gonzales APRN.CNM documented in this encounterBethesda North Hospital06-21-2023 Instructions* Patient Instructions* Maya Gonzales APRN.CNM - 10/02/2022 11:22 AM EDT Images from the original note were not included. Preparing for labor: Eat dates to promote spontaneous labor! Has an oxytocin-like effect on the body, leading to increased sensitivity of the uterus. Stimulates uterine contractions. Reduces hemorrhage the way oxytocin does. Date fruit contains saturated and unsaturated fatty acids such as oleic, linoleic, and linolenic acids, which are involved in saving and supplying energy and construction of prostaglandins. In addition, serotonin, tannin, and calcium in date fruit contribute to the contraction of smooth muscles of the uterus. Date fruit also has a laxative effect, which stimulates uterine contractions. Six dates per day is the magic number--provided that you re eating smaller deglet noor dates. Deglet noor dates are about 1 inch long. Medjool dates can be up to 2 inches long. If you re eating medjool dates, you only need about 3 dates to reach the 75 grams recommended in the studies. Not sure which type of date you have in your refrigerator? It s probably a deglet noor. How to Eat Dates During Dates are a healthy and delicious snack, so how can you add them to your diet? Add dates during in this awesome oatmeal recipe. Add dates to replace sugar in your favorite recipe or to paulo your homemade almond milk. Use dates and nuts to make an easy pie crust in the fast food team member. Add soaked dates to homemade nut butter for a sweet treat. Add dates to paulo homemade salad dressing. Add dates during easily with these yummy (paleo friendly) bars made from dates. What Is Red Raspberry [place] Tea? Red raspberry leaf tea comes from the leaves of the red raspberry plant. This herbal tea has been used for centuries to support respiratory, digestive and uterine health, particularly during and childbearing years. While usually known as a female herb, red raspberry leaf tea can also helpsupport the prostate and various stomach ailments in children. How It Can Help and Red raspberry leaf tea can help to make labor faster and reduce complications and interventions during . One study found that women who consumed RRL tea regularly are less likely to go overdue or give prematurely. These women may also be less likely to receive an artificial rupture of their membranes or require a section, forceps, or vacuum than the women in the control group. Red raspberry leaf has many other benefits to , , and too. How Much Red Raspberry [place] Tea to Drink? With your doctor or film vault supervisor s approval, start with 1 cup of red raspberry leaf tea per day startingin the second trimester. Watch for any uterine cramping or other reactions. If you don t experienceany, you can talk to your healthcare provider about increasing to 2 cups per day. Again, watch for any uterine cramping. If you notice any, cut back on your dosage for two weeks and try again. Keep in mind, some moms have irritable uteruses and can only drink red raspberry leaf tea once theyreach their due date because of uterine cramping. Is Red Raspberry [place] Tea the Same as Raspberry [place] Tea? How About Plain Old Raspberry Tea? Sometimes. You really need to look at the ingredients to be sure. Note that there is no difference between red raspberry leaf and raspberry leaf. Dunamu or [employer] Raspberry [place] Tea are two good brands. The red raspberry leaf teas that we recommend are 100% red raspberry leaf. Other teas labeled as raspberry are often a blend of rosehips, hibiscus, raspberry leaves, and raspberry flavor. So they maynot be as effective. The teas to avoid are raspberry-flavored herbal teas, which may have ingredients like hibiscus, mazin hips, apples, elderberries, natural and artificial raspberry flavors. Teas like this don t containraspberry leaf at all and thus won t offer any of the potential benefits of RRLT outlined in this article. The [employer] www.Eye Phone I named this 'circuit' after my friend Lenora Rodrigez, who shared and discussed it with me when I was working with a client whose labor seemed to be stalled out and no longer progressing... This circuit is useful to help get the baby lined up, ideally, in the Left Occiput Anterior (YUDY) Position, both before labor begins and when some corrections need to be done during labor. Prenatally, this position set can help to rotate a baby. As a natural method of induction, this can help get things going if baby just needed a gentle nudge of position to set things off. To the best of my knowledge, this group of positions will not hurt a baby that is already lined up correctly. - Becky Preston Before you Begin..... This circuit takes at least 90 minutes to complete so clear your schedule and make mental preparations so you can relax in your environment. The second step requires a lot of pillows so gather them up before beginning Before starting, you should empty your bladder! Have a nice drink nearby, and make sure it has a straw! If you are having contractions, this circuit should bedone through contractions, try not to change positions between steps Step One: Open-knee Chest Stay in this position for 30 minutes, start in cat/cow, then drop your chest as low as you can to the bed or the floor and your bottom as high as you can. Knees should be fairly wide apart, and the angle between the torso/thighs should be wider than 90 degrees. Wiggle around, prop with lots of pillows and use this time to get totally relaxed.This position allows the baby to scoot out of the pelvis a bit and gives them room to rotate, shift their head position, etc. If the person finds it helpful,careful positioning with a rebozo under the belly, with gentle tension from a support person behindcan help maintain this position for the full 30minutes. Step Two: Exaggerated Left Side Lying Roll to your left side, bringing your top leg as high as possible and keeping your bottom leg straight. Roll forward as much as possible,again using a lot of pillows. Sink into the bed and relax somemore. If you fall asleep, that's totally okay and you can stay there! If not, stay here for at least another half an hour. Try and get your top right leg up towards your head and get as rolled over onto your belly as much as possible. If you repeat the circuit during labor, try alternating left and right sides. We know the photo the left is actually right side... just flip the image in your head. Step Three: Moving and Alyse Caraballo, walk stairs facing sideways, 2 at a time, (have a continuous mining machine lode miner downstairs of you!), take a walk outside with one foot on the curb and the other on the street, sit on a ball and hula- anything that's upright and putting your pelvis in open, asymmetrical positions. Spend at least 30 minutes doing this one as well to give your baby a chance to move down. If you are lunging or stair or curb walking, you should lunge/walk/go up stairs in the direction that feels better to you. The michelle with the lunge is that the toes of the higher leg and mom's belly button should be at right angles. Do not lunge over your knee, that closes the pelvis. Lenora Rodrigez: Circuit Creator - www.Lattice Incorporatedcollective.eDiets.com Becky Preston CD, BDT (CHRISTA), LCCE, FACCE: Supporting Content - www.beckyCollege of Nursing and Health Sciences (CNHS)boyLaboratórios Noli Saima Persaud: Photography - www.English TV Tanvi Ruggiero CD/CDT (ARABELLA): Print and Materials Tech - www.Klip.in Circuit Masterminds [employer] www.Eye Phone What is my perineum? Your perineum is the area between your vaginal opening and your rectum. This area stretches when you give , and sometimes the perineum or vagina will tear as your baby is being born. If your health care provider cuts an episiotomy during your , it is this area that is cut. You may need stitches after your baby is born if you have a tear or have an episiotomy. How often do perineal tears occur? About 4 to 8 out of every 10 women who give vaginally will have some tear in their perineum. About two?thirds of these women will need some stitches. Is an episiotomy necessary? An episiotomy is not necessary for most women. Although they were common before the 1990s, they arerarely done today. However, sometimes your health care provider may recommend an episiotomy just asyour baby is being born. For example, an episiotomy can help if your baby needs to be born very quickly. You can ask your health care provider to talk with you about episiotomy during a visit. Can my health care provider do anything to help me avoid a tear? There are many ways that your health care provider can help to reduce your chance of tearing. For example, your provider may: Apply a warm compress to the perineum just before the baby comes out Recommend specific positions for you to be in as you push Provide gentle downward pressure on the baby's head as your baby is coming out Ask that you push your baby out between contractions Avoid the use of forceps or a vacuum to help your baby be born Can I do anything before the to help me avoid a tear? Preventing a perineal tear that occurs during has been the subject of many research studies. Several studies have found that perineal massage during the last weeks of can reduce tearing at for women giving for the first time. This massage--using 2 fingers to stretch yourperineal tissues--is performed by you, in your home, once or twice a week, for the last 4 to 6 weeks of your . The next page of this handout tells how to do this massage. For every 15 women who do perineal massage, one woman will avoid an episiotomy and perineal tearing that needs stitches. While you massage, you can practice relaxing the muscles in your perineum. This can help you prepare for the stretching, burning feeling you may have when your baby's head is born. Relaxing this area during can help prevent tearing. Does perineal massage in help all women? Massage seems to work better for some women than others. Women having their first baby, women who are 30 years or older, and women who have had episiotomies before have fewer tears and less severe tears when perineal massage is done during the last weeks of . Can my partner help? Yes! Many women find that it is easier to have their partners do this massage. See the instructionsfor perineal massage on the next page for more information. Are there any risks to perineal massage during ? Not that we know of. It is free. It doesn't hurt. It is easy to do. And most women don't mind doingit. However, you should not stretch the perineum until it hurts or massage too often, which can hurt the skin in that area. Do not do perineal massage more than once or twice a week. Women who do it more often do not have a lower risk of perineal tearing. Check with your health care provider beforebeginning perineal massage. And, if you believe your amniotic fluid (bag of marcelo) is leaking, check with your health care provider before putting anything in your vagina. Instructions for Perineal Massage During Wash your hands well, and make sure your fingernails are short. Relax in a private place where you can rest with your legs open and your knees bent. Some women like to lean on pillows for back support. Lubricate your thumbs and the perineal tissues. Use a lubricant such as vitamin E oil, coconut oil,almond oil, or any vegetable oil used for cooking--like olive oil. You may also try a water?solublejelly, such as K?Y jelly, or your body's natural vaginal lubricant. Do not use baby oil, mineral oil, or petroleum jelly (Vaseline). Place your thumbs about 1 to 1.5 inches inside your vagina (see Figure 1). Press down (toward the anus) and to the sides until you feel a slight burning, stretching sensation. Hold that stretched position for 1 or 2 minutes. With your thumbs, slowly massage the lower half of the vagina using a U?shaped movement for 2 to 3 minutes at most. Concentrate on relaxing your muscles. This is a good time to practice slow, deep breathing techniques. Partners: If your partner is doing the perineal massage, follow the same basic instructions above. However, your partner should use his or her index fingers to do the massage (instead of thumbs). Thesame side?to?side, U?shaped, downward pressure method should be used. Good communication is important--be sure to tell your partner if you have too much pain or burning! Figure 1 1 Perineal Massage FleschVladimir Grade Level: 7.2 Approved April 2015. This handout replaces Perineal Massage in published in Volume 50, Issue 1, Apr/May 2004 SIGNS AND SYMPTOMS OF LABOR 1. Contractions every 10 minutes or more often 2. Clear, pink, or brownish fluid (water) leaking from vagina 3. Feeling that baby is pushing down, pressure 4. Low, dull backache 5. Cramps that feel like a period 6. Cramps with or without diarrhea If you notice any of the above symptoms, contact our office at [phone] and ask to speak with anurse. After hours, you can call doctors registry at [phone] OR call [facility] at [phone] ask to have the doctor cardiac catheterization technician paged. If you consider this an emergency, dial 9--9 or go to your nearest emergency department. NEED HELP? Are you dealing with a violent or abusive relationship? Are you a victim of rape or sexual assult? Call [facility] ([place]) 24 hour Crisis Hotline: 986.990.7786 or 707-245-0482. MANUAL Your Guide to a Healthy manual is now on-line. Visit [email or web address] to download your free copy documented in this encounterBethesda [facility] Hospital06-08-2023 Miscellaneous Notes* Telephone Encounter - Jarred Mabry - 09/19/2022 4:17 PM EDT This is a 1st-time treatment report for this patient. The patient is being seen for a [id number] diagnosis of Iron Deficiency from Anemia. This is a Non-Oncology regimen. The drug being used is Venofer. There is no assistance available for insured patients. No Financial Navigator assessmentis needed at this time. documented in this encounterBethesda North Hospital06-08-2023 Miscellaneous Notes* Quick Notes - Sobeida Lopez MD - 09/19/2022 8:59 AM EDT SW- Feeling some irregular ctx's. No vb, lof. Good FM. Breech today and measuring S>D. Formal scan ordered. Briefly discussed ECV vs primary section if remains breech. RTO 2 wks. Sobeida Lopez DO documented in this encounterBethesda North Hospital06-08-2023 Instructions* Patient Instructions* Sobeida Lopez MD - 09/19/2022 8:45 AM EDT [email or web address] SEQUENTIAL SCREENINGS [facility] offers sequential screenings for women who are interested in screenings for chromosomal abnormalities and certain defects during a . The sequential screen combinesultrasound and blood tests to determine the risk of chromosomal abnormalities, including Down's Syndrome (Trisomy 21) and Trisomy 18, as well as open neural tube defects including spina bifida. Ultrasound examination is performed between 11 weeks and 13 weeks gestational age. Blood tests are drawn after the ultrasound and again later in the between 15 and 21 weeks gestational age. Please let your physician know if you are interested in this testing. It will require an appointment withour traffic analysis technician. This is not an ultrasound performed by a physician in our office during a routine visit. SIGNS AND SYMPTOMS OF LABOR 1. Contractions every 10 minutes or more often 2. Clear, pink, or brownish fluid (water) leaking from vagina 3. Feeling that baby is pushing down, pressure 4. Low, dull backache 5. Cramps that feel like a period 6. Cramps with or without diarrhea If you notice any of the above symptoms, contact our office at [phone] and ask to speak with anurse. After hours, you can call doctors registry at [phone] OR call [facility] at [phone] ask to have the doctor cardiac catheterization technician paged. If you consider this an emergency, dial 3-0-4 or go to your nearest emergency department. NEED HELP? Are you dealing with a violent or abusive relationship? Are you a victim of rape or sexual assult? Call [facility] ([place]) 24 hour Crisis Hotline: 517.804.5946 or 839-802-7947. MANUAL Your Guide to a Healthy manual is now on-line. Visit [email or web address] to download your free copy documented in this encounterBethesda North Hospital05-31-2023 History of Present illness Narrative* Chrissy Batista RN - 09/11/2022 11:56 AM EDT Patient referred to Blood Management for evaluation and treatment of pre- surgical anemia and/or iron deficiency. Non-surgical: anemia in Date of surgery: NA Medical/Surgical History: PAST MEDICAL HISTORY Diagnosis Date Anemia during in third trimester 08/09/2022 anxiety Menarche 12/04/2011 Respiratory syncytial virus (RSV) 04/14/1999 PAST SURGICAL HISTORY Procedure Laterality Date NONE Other significant Medical/Surgical history: - None Current Outpatient Medications Medication Sig ferrous sulfate (IRON ORAL) Take by mouth. aspirin, enteric coated (ASPIRIN, ENTERIC COATED) 81 mg EC tablet Take 1 tablet by mouth once daily. prental multivitamin 27 mg iron- 800 mcg tablet Take 1 tablet by mouth once daily. No current facility-administered medications for this visit. Current medications that may affect iron absorption and/or blood loss: - Aspirin Baseline laboratory values: WBC (k/uL) Date Value 09/05/2022 14.97 (H) RBC (m/uL) Date Value 09/05/2022 3.48 (L) Hemoglobin (g/dL) Date Value 09/05/2022 9.9 (L) Hematocrit (%) Date Value 09/05/2022 30.5 (L) MCV (fL) Date Value 09/05/2022 87.6 MCH (pg) Date Value 09/05/2022 28.4 MCHC (g/dL) Date Value 09/05/2022 32.5 RDW-CV (%) Date Value 09/05/2022 13.7 Platelet Count (k/uL) Date Value 09/05/2022 292 MPV (fL) Date Value 09/05/2022 9.9 Iron Date Value Ref Range Status 09/10/2022 61 41 - 186 ug/dL Final TIBC Date Value Ref Range Status 09/10/2022 514 (H) 232 - 386 ug/dL Final Ferritin Date Value Ref Range Status 09/10/2022 30.5 14.7 - 205.1 ng/mL Final Transferrin Saturation Date Value Ref Range Status 09/10/2022 11.9 (L) 15.0 - 57.0 % Final Assess for the need to augment a patient s natural red blood cell production: - Blood transfusion avoidance - Iron depletion Recommendations according to Blood Management patient care guidelines: - Iron Sucrose 200 mg, IV infusion, dose(s) 3 total iron deficit using Ganzoni equation = 690 mg (pre- wt 72 kg/goal hgb 11 g/dL) Clinical information is sent to a provider for review and evaluation for treatment. documented in this encounterBethesda North Hospital05-30-2023 Miscellaneous Notes* Telephone Encounter - Wendy Avila LPN - 09/10/2022 12:53 PM EDT Pt returned call and was given below message and is scheduled for lab work this afternoon at 4:30. Wendy Avila LPN * Telephone Encounter - Jennifer Quinonez RN - 09/10/2022 12:47 PM EDT Blood management order was previously placed by [facility] last week. Patient did not get repeat iron studylabs that were ordered done that day though. Attempted to call patient to remind her to get that blood work done. Unable to leave message- voicemail not set up yet. Will need to keep phone note open to forward to blood management once those results are resulted too. Jennifer Quinonez RN * Telephone Encounter - Jennifer Quinonez RN - 09/10/2022 12:46 PM EDT ----- Message from Davion Sepulveda MD sent at 09/10/2022 12:40 PM EDT ----- Needs referral for IV iron Davion Sepulveda MD documented in this encounterBethesda North Hospital05-12-2023 History of Present illness Narrative* Davion Sepulveda MD - 08/23/2022 10:27 AM EDT NST SUMMARY PROVIDER ASSESSMENT AND INTERPRETATION Jag Perez is a 21 year old female, , who is at 30w6d with an ADDY of 10/26/2022, by Ultrasound dating method. Indications for NST: Decreased Movement Baseline: 135 Variability: Moderate Accelerations: Present 15 X 15 Decelerations: Variable Contractions: TOCO: None Interpretation: Reactive SIGNATURE: Davion Sepulveda MD documented in this encounterBethesda North Hospital05-12-2023 Miscellaneous Notes* Quick Notes - Davion Sepulveda MD - 08/23/2022 10:08 AM EDT KJ - No VB/LOF/ctxs. Reports decreased FM. A&P: ANemia - continue iron & PNV. Repeat CBC 2 weeks. Decreased FM - check NST. Advised on FKK. Tdap today Reviewed PTL & FM precautions Davion Sepulveda MD documented in this encounterBethesda North Hospital05-12-2023 Instructions* Patient Instructions* Deepa Villasenor Ma - 08/23/2022 9:53 AM EDT SEQUENTIAL SCREENINGS [facility] offers sequential screenings for women who are interested in screenings for chromosomal abnormalities and certain defects during a . The sequential screen combinesultrasound and blood tests to determine the risk of chromosomal abnormalities, including Down's Syndrome (Trisomy 21) and Trisomy 18, as well as open neural tube defects including spina bifida. Ultrasound examination is performed between 11 weeks and 13 weeks gestational age. Blood tests are drawn after the ultrasound and again later in the between 15 and 21 weeks gestational age. Please let your physician know if you are interested in this testing. It will require an appointment withour traffic analysis technician. This is not an ultrasound performed by a physician in our office during a routine visit. SIGNS AND SYMPTOMS OF LABOR 1. Contractions every 10 minutes or more often 2. Clear, pink, or brownish fluid (water) leaking from vagina 3. Feeling that baby is pushing down, pressure 4. Low, dull backache 5. Cramps that feel like a period 6. Cramps with or without diarrhea If you notice any of the above symptoms, contact our office at [phone] and ask to speak with anurse. After hours, you can call [employer] registry at [phone] OR call [facility] at [phone] ask to have the doctor cardiac catheterization technician paged. If you consider this an emergency, dial 9-1-1 or go to your nearest emergency department. NEED HELP? Are you dealing with a violent or abusive relationship? Are you a victim of rape or sexual assult? Call [facility] ([place]) 24 hour Crisis Hotline: 975.736.9978 or 514-189-9823. MANUAL Your Guide to a Healthy manual is now on-line. Visit [email or web address] to download your free copy documented in this encounterBethesda North Hospital05-01-2023 Miscellaneous Notes* Quick Notes - Lorena Camara MD - 08/12/2022 1:25 PM EDT August 12, 2022 Here for decreased FM. Feels FM now. NST done. F/u as scheduled. Lorena Camara MD documented in this encounterBethesda North Hospital04-27-2023 Miscellaneous Notes* Quick Notes - Davion Sepulveda MD - 08/08/2022 3:53 PM EDT KJ - No VB/LOF/ctxs. Reports good FM. A&P: 28wk labs Declines LARC Discussed [facility] peds Tdap at next visit Reviewed PTL & FM precautions Davion Sepulveda MD documented in this encounterBethesda North Hospital04-27-2023 Instructions* Patient Instructions* Deepa Villasenor Ma - 08/08/2022 3:31 PM EDT SEQUENTIAL SCREENINGS [facility] offers sequential screenings for women who are interested in screenings for chromosomal abnormalities and certain defects during a . The sequential screen combinesultrasound and blood tests to determine the risk of chromosomal abnormalities, including Down's Syndrome (Trisomy 21) and Trisomy 18, as well as open neural tube defects including spina bifida. Ultrasound examination is performed between 11 weeks and 13 weeks gestational age. Blood tests are drawn after the ultrasound and again later in the between 15 and 21 weeks gestational age. Please let your physician know if you are interested in this testing. It will require an appointment withour traffic analysis technician. This is not an ultrasound performed by a physician in our office during a routine visit. SIGNS AND SYMPTOMS OF LABOR 1. Contractions every 10 minutes or more often 2. Clear, pink, or brownish fluid (water) leaking from vagina 3. Feeling that baby is pushing down, pressure 4. Low, dull backache 5. Cramps that feel like a period 6. Cramps with or without diarrhea If you notice any of the above symptoms, contact our office at [phone] and ask to speak with anurse. After hours, you can call doctors registry at [phone] OR call [facility] at [phone] ask to have the doctor cardiac catheterization technician paged. If you consider this an emergency, dial 9--1 or go to your nearest emergency department. NEED HELP? Are you dealing with a violent or abusive relationship? Are you a victim of rape or sexual assult? Call [facility] ([place]) 24 hour Crisis Hotline: 180.819.8587 or 755-257-8617. MANUAL Your Guide to a Healthy manual is now on-line. Visit [email or web address] to download your free copy documented in this encounterBethesda North Hospital04-17-2023 Miscellaneous Notes* Telephone Encounter - Wendy Avila LPN - 07/29/2022 11:16 AM EDT Pt returned call and was given below message and voiced understanding. Pt to contact our office with any further questions or concerns. Wendy Avila LPN * Telephone Encounter - Jennifer Quinonez RN - 07/29/2022 11:14 AM EDT Attempted to call patient. Unable to leave message-voicemail not set up yet. Jennifer Quinonez RN * Telephone Encounter - Alyssa Chance MD - 07/29/2022 11:03 AM EDT It was very hot this weekend and if she was camping I would anticipate some swelling if out in the heat. Rest if she can today, lots of water and legs above the level of hear heart. If any other symptoms notify office. * Telephone Encounter - Danette De La O RN - 07/29/2022 8:59 AM EDT Patient 27w2d calling with concerns of increased swelling in bilateral feet, ankles and calves since Friday. Patient was camping over the weekend when swelling started. Patient states she is unsure if swelling is pitting, but denies any redness or pain. She has since been wearing compression stocking and trying to elevate lower extremities when able. Patient states this does help some. Patient denies any headache, dizziness, blurred vision, cramping or pain. Instructed to continue to elevate when able and able ice to swelling. Do you have any other instructions for patient? Danette De La O RN documented in this encounterBethesda North Hospital03-27-2023 Miscellaneous Notes* Quick Notes - Alyssa Chance MD - 07/08/2022 4:22 PM EDT DM- Pt doing well today. Denies Vaginal Bleeding, Leaking fluid, or contractions. Pt reports good movement. 28 week labs ordered. Continue ASA. Weight gain reviewed. RTO 4 wks. 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 Alyssa Spence MD documented in this encounterBethesda North Hospital03-27-2023 Instructions* Patient Instructions* Nicolasa Huerta MA - 07/08/2022 4:01 PM EDT SEQUENTIAL SCREENINGS [facility] offers sequential screenings for women who are interested in screenings for chromosomal abnormalities and certain defects during a . The sequential screen combinesultrasound and blood tests to determine the risk of chromosomal abnormalities, including Down's Syndrome (Trisomy 21) and Trisomy 18, as well as open neural tube defects including spina bifida. Ultrasound examination is performed between 11 weeks and 13 weeks gestational age. Blood tests are drawn after the ultrasound and again later in the between 15 and 21 weeks gestational age. Please let your physician know if you are interested in this testing. It will require an appointment withour traffic analysis technician. This is not an ultrasound performed by a physician in our office during a routine visit. SIGNS AND SYMPTOMS OF LABOR 1. Contractions every 10 minutes or more often 2. Clear, pink, or brownish fluid (water) leaking from vagina 3. Feeling that baby is pushing down, pressure 4. Low, dull backache 5. Cramps that feel like a period 6. Cramps with or without diarrhea If you notice any of the above symptoms, contact our office at [phone] and ask to speak with anurse. After hours, you can call doctors registry at [phone] OR call [facility] at [phone] ask to have the doctor cardiac catheterization technician paged. If you consider this an emergency, dial 9-1-1 or go to your nearest emergency department. NEED HELP? Are you dealing with a violent or abusive relationship? Are you a victim of rape or sexual assult? Call [facility] ([facility] 24 hour Crisis Hotline: 262.648.3259 or 673-952-9171. MANUAL Your Guide to a Healthy manual is now on-line. Visit [email or web address] to download your free copy documented in this encounterBethesda North Hospital02-27-2023 Miscellaneous Notes* Quick Notes - Davion Sepulveda MD - 06/10/2022 11:12 AM EST KJ - No VB/LOF/ctxs. Reports FM. A&P: Anatomy US today Davion Sepulveda MD documented in this encounterBethesda North Hospital02-27-2023 Instructions* Patient Instructions* Nanci Silva Ma - 06/10/2022 10:32 AM EST SEQUENTIAL SCREENINGS [facility] offers sequential screenings for women who are interested in screenings for chromosomal abnormalities and certain defects during a . The sequential screen combinesultrasound and blood tests to determine the risk of chromosomal abnormalities, including Down's Syndrome (Trisomy 21) and Trisomy 18, as well as open neural tube defects including spina bifida. Ultrasound examination is performed between 11 weeks and 13 weeks gestational age. Blood tests are drawn after the ultrasound and again later in the between 15 and 21 weeks gestational age. Please let your physician know if you are interested in this testing. It will require an appointment withour traffic analysis technician. This is not an ultrasound performed by a physician in our office during a routine visit. SIGNS AND SYMPTOMS OF LABOR 1. Contractions every 10 minutes or more often 2. Clear, pink, or brownish fluid (water) leaking from vagina 3. Feeling that baby is pushing down, pressure 4. Low, dull backache 5. Cramps that feel like a period 6. Cramps with or without diarrhea If you notice any of the above symptoms, contact our office at [phone] and ask to speak with anurse. After hours, you can call doctors registry at [phone] OR call [facility] at [phone] ask to have the doctor cardiac catheterization technician paged. If you consider this an emergency, dial 9-1-0 or go to your nearest emergency department. NEED HELP? Are you dealing with a violent or abusive relationship? Are you a victim of rape or sexual assult? Call [facility] ([facility] 24 hour Crisis Hotline: 966.534.2852 or 408-889-3306. MANUAL Your Guide to a Healthy manual is now on-line. Visit [email or web address] to download your free copy documented in this encounterBethesda North Hospital01-30-2023 Miscellaneous Notes* Quick Notes - Sobeida Lopez MD - 05/13/2022 8:57 AM EST SW- No pain, vb, lof. Declines aneuploidy screening. Schedule anatomy US. RTO for anatomy and OB visit after. Sobeida Lopez DO documented in this encounterBethesda North Hospital01-30-2023 Instructions* Patient Instructions* Elizabeth Montesinosdeidre Dennison - 05/13/2022 8:35 AM EST SEQUENTIAL SCREENINGS [facility] offers sequential screenings for women who are interested in screenings for chromosomal abnormalities and certain defects during a . The sequential screen combinesultrasound and blood tests to determine the risk of chromosomal abnormalities, including Down's Syndrome (Trisomy 21) and Trisomy 18, as well as open neural tube defects including spina bifida. Ultrasound examination is performed between 11 weeks and 13 weeks gestational age. Blood tests are drawn after the ultrasound and again later in the between 15 and 21 weeks gestational age. Please let your physician know if you are interested in this testing. It will require an appointment withour traffic analysis technician. This is not an ultrasound performed by a physician in our office during a routine visit. SIGNS AND SYMPTOMS OF LABOR 1. Contractions every 10 minutes or more often 2. Clear, pink, or brownish fluid (water) leaking from vagina 3. Feeling that baby is pushing down, pressure 4. Low, dull backache 5. Cramps that feel like a period 6. Cramps with or without diarrhea If you notice any of the above symptoms, contact our office at [phone] and ask to speak with anurse. After hours, you can call doctors registry at [phone] OR call [facility] at [phone] ask to have the doctor cardiac catheterization technician paged. If you consider this an emergency, dial 9-1-1 or go to your nearest emergency department. NEED HELP? Are you dealing with a violent or abusive relationship? Are you a victim of rape or sexual assult? Call [facility] ([place]) 24 hour Crisis Hotline: 492.908.8676 or 700-343-6194. MANUAL Your Guide to a Healthy manual is now on-line. Visit [email or web address] to download your free copy documented in this encounterBethesda North Hospital12-30-2022 Miscellaneous Notes* Quick Notes - Lorena Camara MD - 04/12/2022 2:49 PM EST RR- No VB. Feeling well overall. Taking PNV. ASA candidate. Declines aneuploidy screening. Lorena Camara MD documented in this encounterBethesda North Hospital12-30-2022 Instructions* Patient Instructions* Nanci Silva Ma - 04/12/2022 2:20 PM EST SEQUENTIAL SCREENINGS [facility] offers sequential screenings for women who are interested in screenings for chromosomal abnormalities and certain defects during a . The sequential screen combinesultrasound and blood tests to determine the risk of chromosomal abnormalities, including Down's Syndrome (Trisomy 21) and Trisomy 18, as well as open neural tube defects including spina bifida. Ultrasound examination is performed between 11 weeks and 13 weeks gestational age. Blood tests are drawn after the ultrasound and again later in the between 15 and 21 weeks gestational age. Please let your physician know if you are interested in this testing. It will require an appointment withour traffic analysis technician. This is not an ultrasound performed by a physician in our office during a routine visit. SIGNS AND SYMPTOMS OF LABOR 1. Contractions every 10 minutes or more often 2. Clear, pink, or brownish fluid (water) leaking from vagina 3. Feeling that baby is pushing down, pressure 4. Low, dull backache 5. Cramps that feel like a period 6. Cramps with or without diarrhea If you notice any of the above symptoms, contact our office at [phone] and ask to speak with anurse. After hours, you can call doctors registry at [phone] OR call [facility] at [phone] ask to have the doctor cardiac catheterization technician paged. If you consider this an emergency, dial 9-1-2 or go to your nearest emergency department. NEED HELP? Are you dealing with a violent or abusive relationship? Are you a victim of rape or sexual assult? Call [facility] ([place]) 24 hour Crisis Hotline: 590.223.1368 or 752-930-2708. MANUAL Your Guide to a Healthy manual is now on-line. Visit [email or web address] to download your free copy documented in this encounterBethesda [facility] Hospital12-06-2022 Miscellaneous Notes* Quick Notes - Davion Sepulveda MD - 03/19/2022 2:46 PM EST KJ - Patient presents with spotting - very light. Denies pelvic pain. TVUS: active fetus with FCA A&P: Reassuring TVUS Follow up as scheduled & PRN Davion Sepulveda MD documented in this encounterBethesda North Hospital12-06-2022 Instructions* Patient Instructions* Deepa Villasenor Ma - 03/19/2022 1:55 PM EST SEQUENTIAL SCREENINGS [facility] offers sequential screenings for women who are interested in screenings for chromosomal abnormalities and certain defects during a . The sequential screen combinesultrasound and blood tests to determine the risk of chromosomal abnormalities, including Down's Syndrome (Trisomy 21) and Trisomy 18, as well as open neural tube defects including spina bifida. Ultrasound examination is performed between 11 weeks and 13 weeks gestational age. Blood tests are drawn after the ultrasound and again later in the between 15 and 21 weeks gestational age. Please let your physician know if you are interested in this testing. It will require an appointment withour traffic analysis technician. This is not an ultrasound performed by a physician in our office during a routine visit. SIGNS AND SYMPTOMS OF LABOR 1. Contractions every 10 minutes or more often 2. Clear, pink, or brownish fluid (water) leaking from vagina 3. Feeling that baby is pushing down, pressure 4. Low, dull backache 5. Cramps that feel like a period 6. Cramps with or without diarrhea If you notice any of the above symptoms, contact our office at [phone] and ask to speak with anurse. After hours, you can call doctors registry at [phone] OR call [facility] at [phone] ask to have the doctor cardiac catheterization technician paged. If you consider this an emergency, dial 9--9 or go to your nearest emergency department. NEED HELP? Are you dealing with a violent or abusive relationship? Are you a victim of rape or sexual assult? Call [facility] ([place]) 24 hour Crisis Hotline: 130.166.4757 or 206-458-2356. MANUAL Your Guide to a Healthy manual is now on-line. Visit [email or web address] to download your free copy documented in this encounterBethesda North Hospital12-05-2022 Miscellaneous Notes* Telephone Encounter - Selene Olivera RN - 03/18/2022 4:04 PM EST Appointment given. Selene Olivera RN * Telephone Encounter - Lorena Camara MD - 03/18/2022 3:56 PM EST Add on to an OB provider tomorrow for FHTs check and reassurance. Thanks. Lorena Camara MD * Telephone Encounter - Wendy Avila LPN - 03/18/2022 9:24 AM EST 8w2d Pt calling and stated that she is having spotting ranging from bright red to brown in color. She isonly noting this with wiping. Denies any recent intercourse, no cramping, she is not passing any clots. clots.no urinary issues. Pt denies any other pain or discomfort. Please advise. Wendy Avila LPN documented in this encounterBethesda North Hospital11-28-2022 Miscellaneous Notes* Quick Notes - Alyssa Chance MD - 03/11/2022 11:11 AM EST DM- new OB. Declines NT. ASA. FLU Vaccine today. RTO 4 wks. Alyssa Chance MD documented in this encounterBethesda North Hospital11-28-2022 History of Present illness Narrative* Alyssa Chance MD - 03/11/2022 10:04 AM EST INITIAL OB ASSESSMENT OB Provider: Alyssa Chance MD HPI: Jag Perez is a 21 year old female here to establish Obstetrical Care. Patient's last menstrual period was 01/11/2022 (exact date). from OB Dating Form. Cycle length: 28 days- BUTOVULATION WAS ONE WEEK LATE IN January (which pushes edc back by one week) Complaints: nausea without vomiting was planned. OB History T0 L0 SAB0 IAB0 Ectopic0 Multiple0 Live Births0 Prior : never History of 4th degree laceration: No Patient's Risk Screening for delivery: History of abnormal pap: No Prior treatment for cervical dysplasia: none. History of STDs: None Tobacco use: No Caffeine use: Yes Drug use: No Alcohol use: No Multivitamin with Folic acid: Yes Occupation: changing to [employer] Yazidism or heritage: No Would refuse blood transfusion if medically necessary: No BMI 28.90 kg/(m^2) Patient BMI over 30? 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 No current facility-administered medications on file prior to visit. Review of Systems: GENERAL: Negative for: Fever or Chills HEENT: Negative for: Headache, Impaired Vision, Ringing in Ears, Nosebleeds NECK: Negative for: Swelling, Pain, Stiffness RESPIRATORY: Negative for: Cough, Shortness of breath, Wheezing GASTROINTESTINAL: Negative for: Heartburn, Constipation, Diarrhea, Blood in stool, Vomiting MUSCULOSKELETAL: Negative for: Muscle or joint pain, stiffness, Joint swelling NEUROLOGIC/PSYCHIATRIC: Negative for: Weakness, Paralysis, Numbness, Tingling, Tremor, Anxiety, Depression, Memory loss SKIN: Negative for: Rash, Itching GENITOURINARY: Negative for: vaginal itching, vaginal discharge, hematuria or dysuria PHYSICAL EXAM: BP 110/70 Ht 5' 2 (1.58m) Wt 158 lb (71.7kg) LMP 01/11/2022 BMI 28.89 kg/(m^2). GENERAL: pleasant female in no apparent distress DERMATOLOGY: Normal, without lesions, non-icteric, and non-hirsute NECK: Supple, full range of motion, no adenopathy, and thyroid normal BREAST: deferred- just had yearly ABDOMEN: soft, non-tender, and no masses NEURO: alert and oriented x3,exam grossly non-focal PELVIS: External genitalia normal without lesions. Perineal body intact. Cervix closed. Uterus 7 week size. No adnexal masses or tenderness. Clinical Pelvimetry: Pelvimetry clinically assessed as adequate Limited OB ultrasound exam: single intrauterine and positive cardiac activity OB Risk Screening: Completed, no positive findings documented. ASSESSMENT: 21 year old at 7.2 wks gestational age Ovulation was delayed by one week per patient- was doing home ovulation kits. This is c/w EDC PLAN: 1) Patient oriented to practice. Discussed nutrition, folic acid supplementation, dietary guidelines, exercise, smoking, alcohol, caffeine, and drug use. Discussed routine OB labs including STD/HIV. Discussed aneuploidy screening options including serum screening and nuchal translucency. Patient declines all aneuploidy screening. 2) ASA reviewed- will start 12 weeks 3) Declines NT Follow up in 4 weeks or sooner prn. Alyssa Spence MD documented in this encounterBethesda North Hospital11-28-2022 Instructions* Patient Instructions* Elizabeth Jennings Ma - 03/11/2022 10:04 AM EST Please select the following link to access the [facility] Your Guide to a Healthy . [email or web address] documented in this encounterBethesda North Hospital11-23-2022 Miscellaneous Notes* Quick Notes - Hortencia Xie RN - 03/06/2022 12:07 PM EST DISTANCE HEALTH VISIT This Team Access Model visit is a phone encounter. It required patient-provider interaction for themedical decision making as documented below.Pt has a history of anxiety diagnosed in 2019 and treated by her PCP. She has been off medication February 2020. Patient states she only took medication for 3 months. Believes she is doing well off medication. Discussed increased risks of anxiety during pr egnancy and and importance of reporting the development or worsening of symptoms should they occur. Pt denies ever having any depression. Patient is complaining of nausea in . Denies any vomiting. Dietary considerations discussed . Vitamin B6 recommended. Advised patient to call/come in if she is unable to keep any food or fluids down in a 24-hour period. Patient declines aneuploidy screening and genetic carrier screening testing.Hortencia Xie RN documented in this encounterBethesda North Hospital09-28-2022 Miscellaneous Notes* Addendum Note - Alyssa Chance MD - 01/09/2022 9:45 AM EDTAddended by: ALYSSA CHANCE on: 01/09/2022 09:45 AM Modules accepted: Orders * Addendum Note - Elizabeth Jennings Ma - 01/09/2022 9:07 AM EDTAddended by: ELIZABETH JENNINGS MA on: 01/09/2022 09:07 AM Modules accepted: Orders documented in this encounterBethesda North Hospital09-28-2022 History of Present illness Narrative* Alyssa Chance MD - 01/09/2022 8:40 AM EDT Jag is a 21 year old who presents for an annual gynecologic exam without complaints. Over one year has had two heavy cycles- last one in november- but thinks she had + test ?? Miscarriage. Working as [employer]. Recently . Menses: cycles every 28 days and 5 days of flow. Contraception: none HPV vaccine: No Last Pap: 08/25/2020 normal HPV: N/A History of abnormal pap: No Last mammogram: never Sexually active: Yes History of STDS: None Patient concerns for STD exposure: No. 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 History Comments: Sexual Activity: Never; No partner data on record Contraception: Pill PAST MEDICAL HISTORY Diagnosis Date Menarche 12/04/11 Respiratory syncytial virus (RSV) 04/1999 PAST SURGICAL HISTORY Procedure Laterality Date NONE FAMILY HISTORY Problem Relation Age of Onset other (negative family history) Paternal Grandfather SOCIAL HISTORY Social History Tobacco Use Smoking status: Never Passive exposure: Yes Smokeless tobacco: Never Tobacco comments: Dad and step-mom and step-dad - father's household trying electric cigarettes Vaping Use Vaping Use: Never used Substance Use Topics Alcohol use: No Drug use: No REVIEW OF SYSTEMS Abdomen: No abdominal pain, nausea, vomiting, diarrhea, or constipation. No bloating, early satiety, indigestion, or increased flatulence. Bladder: No dysuria, gross hematuria, urinary frequency, urinary urgency, or incontinence. Breast: No breast lumps, nipple d/c, overlying skin changes, redness or skin retraction. Allergies and current medication updated:Yes EXAM: BP 100/60 Ht 5' 1.811 (1.57m) Wt 150 lb (68.0kg) LMP 12/14/2021 BMI 27.60 kg/(m^2). GENERAL: pleasant, female in no apparent distress HEENT: Normocephalic, atraumatic, mucus membranes moist, and no lesions NECK: Supple, full range of motion, no adenopathy, and thyroid normal DERMATOLOGY: Normal and without lesions BREAST: soft, non-tender, symmetric, no dominant mass, normal nipple-areolar complex, no lymphadenopathy, and no nipple discharge ABDOMEN: soft, non-tender, and no masses PELVIC: external genitalia normal, normal Bartholin's glands, urethra, Burdette's glands, no vulvar lesions, no cervical lesions, good vaginal support, physiologic discharge present, normal appearing perineal body and perianal region BIMANUAL: uterus normal size, shape and consistency, no adnexal masses, and non-tender RECTOVAGINAL: deferred. NEURO: alert and oriented x3,exam grossly non-focal EXTREMITIES: normal ASSESSMENT/PLAN: 1) Health maintenance: Pap/HPV up to date. Mammogram starting age 40. Nutrition, exercise and routine health maintenance exams reviewed. Calcium/Vitamin D supplementation information provided. 2) Contraception: none. Contraceptive options reviewed and information provided. 3) STD screening: Accepted STD check for Gonorrhea and Chlamydia. 4) Follow up one year or sooner as needed 5) taking PNV, Horizon testing reviewed and pamphlet given. Avoids tobacco and alcohol Alyssa Spence MD * Elizabeth Jennings Ma - 01/09/2022 8:24 AM EDT Student Life Advisor offered: Patient declines. documented in this encounterBethesda North Hospital09-02-2022 Miscellaneous Notes* Addendum Note - Jennifer Quinonez RN - 12/14/2021 2:55 PM EDTAddended by: JENNIFER QUINONEZ RN on: 12/14/2021 02:55 PM Modules accepted: Orders * Telephone Encounter - Jennifer Quinonez RN - 12/14/2021 2:53 PM EDT CBC was not ordered. Please file. Jennifer Quinonez RN * Telephone Encounter - Vera Blas LPN - 12/14/2021 12:38 PM EDT Patient notified * Telephone Encounter - Davion Sepulveda MD - 12/14/2021 12:27 PM EDT CBC ordered. Schedule her with AG at 4pm today. Have her get CBC before visit. Davion Sepulveda MD * Telephone Encounter - Jennifer Quinonez RN - 12/14/2021 11:39 AM EDT Patient of DM. Was due to start menses in 3 days, but she started spotting 6 days ago and and now has heavy bleeding since 8:30am today. Changing pad every 1 hour since then. No chest pain, SOB, dizziness or fatigue. She took negative UPT on Friday12/12/21. She has not been on OCP since September 2020, has been using condoms since then. Last visit was 08/2020. Please advise. Jennifer Quinonez RN documented in this encounterBethesda North Hospital10-10-2016 History of Past illness Narrative* Problem Noted Date Resolved Date Dysmenorrhea 01/22/2016 06/10/2022 documented as of this encounter (statuses as of 06/10/2022) [facility] of Past illness Narrative* Problem Noted Date Resolved Date Dysmenorrhea 01/22/2016 06/10/2022 documented as of this encounter (statuses as of 06/10/2022) [address] History of Past illness Narrative* Problem Noted Date Resolved Date Dysmenorrhea 01/22/2016 06/10/2022 documented as of this encounter (statuses as of 07/08/2022) [address] History of Past illness Narrative* Problem Noted Date Resolved Date Dysmenorrhea 01/22/2016 06/10/2022 documented as of this encounter (statuses as of 07/29/2022) [address] History of Past illness Narrative* Problem Noted Date Resolved Date Dysmenorrhea 01/22/2016 06/10/2022 documented as of this encounter (statuses as of 08/09/2022) [address] History of Past illness Narrative* Problem Noted Date Resolved Date Dysmenorrhea 01/22/2016 06/10/2022 documented as of this encounter (statuses as of 08/12/2022) [address] History of Past illness Narrative* Problem Noted Date Resolved Date Dysmenorrhea 01/22/2016 06/10/2022 documented as of this encounter (statuses as of 08/23/2022) [address] History of Past illness Narrative* Problem Noted Date Resolved Date Dysmenorrhea 01/22/2016 06/10/2022 documented as of this encounter (statuses as of 09/20/2022) [address] History of Past illness Narrative* Problem Noted Date Resolved Date Dysmenorrhea 01/22/2016 06/10/2022 documented as of this encounter (statuses as of 09/10/2022) [address] History of Past illness Narrative* Problem Noted Date Resolved Date Dysmenorrhea 01/22/2016 06/10/2022 documented as of this encounter (statuses as of 09/11/2022) [address] History of Past illness Narrative* Problem Noted Date Resolved Date Dysmenorrhea 01/22/2016 06/10/2022 documented as of this encounter (statuses as of 09/13/2022) [address] History of Past illness Narrative* Problem Noted Date Resolved Date Dysmenorrhea 01/22/2016 06/10/2022 documented as of this encounter (statuses as of 09/19/2022) [address] History of Past illness Narrative* Problem Noted Date Resolved Date Dysmenorrhea 01/22/2016 06/10/2022 documented as of this encounter (statuses as of 09/26/2022) [address] History of Past illness Narrative* Problem Noted Date Resolved Date Dysmenorrhea 01/22/2016 06/10/2022 documented as of this encounter (statuses as of 10/02/2022) [address] History of Past illness Narrative* Problem Noted Date Resolved Date Dysmenorrhea 01/22/2016 06/10/2022 documented as of this encounter (statuses as of 10/02/2022) [address] History of Past illness Narrative* Problem Noted Date Resolved Date Dysmenorrhea 01/22/2016 06/10/2022 documented as of this encounter (statuses as of 10/03/2022) [address] History of Past illness Narrative* Problem Noted Date Resolved Date Dysmenorrhea 01/22/2016 06/10/2022 documented as of this encounter (statuses as of 10/10/2022) [address] History of Past illness Narrative* Problem Noted Date Resolved Date Dysmenorrhea 01/22/2016 06/10/2022 documented as of this encounter (statuses as of 10/10/2022) [address] History of Past illness Narrative* Problem Noted Date Resolved Date Dysmenorrhea 01/22/2016 06/10/2022 documented as of this encounter (statuses as of 10/11/2022) [address] History of Past illness Narrative* Problem Noted Date Resolved Date Dysmenorrhea 01/22/2016 06/10/2022 documented as of this encounter (statuses as of 10/14/2022) [address] History of Past illness Narrative* Problem Noted Date Diagnosed Date Resolved Date Dysmenorrhea 01/22/2016 06/10/2022 documented as of this encounter (statuses as of 10/23/2022) [address] History of Past illness Narrative* Problem Noted Date Diagnosed Date Resolved Date Dysmenorrhea 01/22/2016 06/10/2022 documented as of this encounter (statuses as of 12/05/2022) [facility] note* Diagnosis Abnormal uterine bleeding (AUB)- Primary [facility] Diagnosis Encounter for gynecological examination (general) (routine) without abnormal findings- Primary Screen for STD (sexually transmitted disease) Screening examination for venereal disease documented in this encounter [facility]* Diagnosis Supervision of normal first , antepartum- Primary History of anxiety Personal history of other mental disorder related nausea, antepartum Mild hyperemesis gravidarum, antepartum documented [facility]* Diagnosis Encounter for supervision of normal first in first trimester- Primary Supervision of normal first Need for influenza vaccination Need for prophylactic vaccination and inoculation against influenza documented [facility]* Diagnosis Encounter for supervision of normal first in first trimester- Primary Supervision of normal first 8 weeks gestation of state, incidental [facility]* Diagnosis 11 weeks gestation of - Primary state, incidental Encounter for supervision of normal first in first trimester Supervision of normal first [facility]* Diagnosis 16 weeks gestation of - Primary state, incidental [facility]* Diagnosis 20 weeks gestation of - Primary state, incidental Encounter for supervision of normal first in second trimester Supervision of normal first [facility]* Diagnosis Encounter for anatomic survey- Primary 20 weeks gestation of state, incidental [facility]* Diagnosis Encounter for supervision of normal first in second trimester- Primary Supervision of normal first 24 weeks gestation of state, incidental [facility]* Diagnosis Encounter for supervision of normal first in third trimester- Primary Supervision of normal first 28 weeks gestation of state, incidental documented [facility]* Diagnosis Encounter for supervision of normal first in third trimester- Primary Supervision of normal first Decreased movements in third trimester, single or unspecified fetus documented [facility]* Diagnosis Anemia during in third trimester- Primary 30 weeks gestation of state, incidental Decreased movements in third trimester, single or unspecified fetus documented in this encounter [facility] noteNo assessment information availableWPremier Health [facility] Work Phone: Evaluation note* Diagnosis Maternal iron deficiency anemia complicating , third trimester Iron malabsorption Other specified intestinal malabsorption [facility]* Diagnosis 34 weeks gestation of - Primary state, incidental Anemia during in third trimester Uterine size-date discrepancy, third trimester documented in this encounter [facility] note* Diagnosis Maternal iron deficiency anemia complicating , third trimester- Primary Iron malabsorption Other specified intestinal malabsorption [facility]* Diagnosis 36 weeks gestation of - Primary state, incidental [facility]* Diagnosis Encounter for ultrasound to check growth- Primary Encounter for routine screening for malformation using ultrasonics Uterine size-date discrepancy, third trimester 36 weeks gestation of state, incidental documented in this encounter [facility] note* Diagnosis Maternal iron deficiency anemia complicating , third trimester- Primary Iron malabsorption Other specified intestinal malabsorption documented in this encounter [facility] note* Diagnosis 37 weeks gestation of - Primary state, incidental Encounter for supervision of normal first in third trimester Supervision of normal first [facility]* Diagnosis Maternal iron deficiency anemia complicating , third trimester- Primary Iron malabsorption Other specified intestinal malabsorption documented in this encounter [facility] note* Diagnosis 38 weeks gestation of - Primary state, incidental Encounter for supervision of normal first in third trimester Supervision of normal first Anemia during in third trimester [facility]* Diagnosis Onset Date Resolution Status 33 weeks gestation of acute Decreased movement acu te False labor acute [facility] Work Phone: Evaluation note* Diagnosis Onset Date Resolution Status 33 weeks gestation of acute Decreased movement acu te False labor acute Normal vaginal delivery acut e SROM (spontaneous rupture of membranes) acute [facility] Work Phone: Evaluation note* Diagnosis care and examination- Primary Routine follow-up documented [facility] this encounter [facility]* Diagnosis Encounter for gynecological examination (general) (routine) without abnormal findings- Primary Screening for cervical cancer Screening for malignant neoplasm of the cervix documented [facility] encounter [facility] Author Davion Sepulveda [facility] October 16, 2022 7:41am Note Date/Time October 16, 2022 7:41a m [facility] Medical Records Department [address] [place] [address] OB Triage Physician Note 10/16/2238 MR#: [id number] Acct: [id number] Name: JAG PEREZ Rep #:[id number] : 2000 21 From: Davion Sepulveda MD PCP: Dr. Geronimo Arias DO Sta tus:REG CLI Y Location: [place] [id number] HPI - General HPI Narrative JAG PEREZ, is a 21 F who presents Maternal Data Information Final ADDY: 10/26/22 Gestational age: 38&4 PFSH PFSH Home Medications aspirin 81 mg chewable tablet 81 mg PO DAILY 09/10/22 [History Last Taken 10/15/22 22:00 81 mg] ferrous sulfate 325 mg (65 mg iron) tablet (Iron (ferrous sulfate)) 325 mg PO DAILY 09/10/22 [History Last Taken Unknown] vits,calcium 91-iron 28 mg-folic 975 mcg-dha 200 mg oral pack (+ DHA) 1 pkg PO DAILY 09/10/22 [History Last Taken 10/15/22 22:00 1 pkg] Allergy/AdvReac Type Severity Reaction Status Date / Time No Known Allergies Allergy Verified 10/16/22 05:28 NST FHR Rate Baby A Baseline: 130 Variability:: Moderate Accelerations:: 15 x 15 Decelerations:: None NST Reactive:: Yes Uterine Activity:: Irregular Assessment & Plan (1) False labor: PLAN: Plan Reactive NST 10/16/22 0741 <Electronically signed by Davion Sepulveda MD> Date _ Davion Sepulveda MD Cosigner Signature (if applicable): Date CC: Dr. Geronimo Arias, DO; Dr. Davion Sepulveda MD ~ Signed [facility] Work Phone: Progress note Author Becky Galvez [facility] Note Date/Time October 07, 2024 8:45 am [facility] [address] [place] [address], [address] [place] [address] OFFICE VISIT Date of Service: 10/07/24 MR#: [id number] Acct: [id number] Name: JAG PEREZ Rep #: [id number] : 2000 Provider: Dr. Heladio Galvez MD Age/Sex: 23/F Location: [facility] [place] Status: Signed Intake Vital Signs 08/23/24 13:55 09/30/24 13:44 10/07/24 08:18 10/07/24 08:19 Height 5 ft 2 in 5 ft 2 in 5 ft 2 in 5 ft 2 in Weight: 201 lb 4 oz BMI 36.8 BP 108/63 Intake Visit Reasons: 38 wk ob Bi Lead Required: No Is patient in pain?: No Allergies No Known Allergies Allergy (Verified 10/07/24 08:18) Medications ?Medication ?Instructions ?Recorded ?Confirmed ?Type vits,calcium 91-iron 28 1 pkg PO DAILY pregna ncy 09/10/22 10/07/24 History mg-folic 975 mcg-dha 200 mg oral pack ( + DHA) ferrous sulfate 325 mg (65 mg 325 mg PO DAILY anemia 0 08/05/24 10/07/24 History iron) tablet (Feosol) Last Menstrual Period: 01/13/24 Zika: Zika virus screening: Negative : No PFSH PFSH Medical History Normal vaginal delivery Anxiety Family History Grandmother COPD (chronic obstructive pulmonary disease), Onset Age: 60 Maternal Grandfather Myocardial infarction, Onset Age: 67 Maternal Grandmother Breast cancer, Onset Age: 45 Paternal Social History adopted: No household members: spouse and children number of children: 1 current occupational status: unemployed current occupation: [employer] pets and animals: Yes (Avoid litterbox) pets and animals: cat(s) and dog(s) history of recent travel: No sexually active: Yes Smoking Status: Never smoker alcohol intake: never substance use type: does not use well-balanced diet: daily or most days caffeine: Yes Type: coffee Number of servings: 1 eating out: 1-3 times/week during the past year weight has: decreased > 10 lbs what type of physical activity do you participate in: none pia/orthodoxy: Latter-Day seatbelt use: always do you feel safe at home: Yes additional social history: Michelle [employer] History 2 Elective abortions Hx Para 1 Spontaneous abortions Hx # Term Pregnancies Ectopic pregnancies Hx # Pregnancies Multiple births # of living children 1 Past Pregnancies Del. Date Name GA/Weeks Outcome Route Bth Weight Gen Labor Lgth Anesthesia Del Locatn Provider FOB 10/22/22 Tanner 39 live - full term 7 Male epidur al [facility] Delivery Date: 10/22/22 Last Updated by: Katie Garg severe iron deficiency, infusions HPI 38 wk ob Details: JAG PEREZ is a 23 year old who presents for routine OB visit. OB Visit ADDY Calculator Estimated Delivery Date Method Current Current Estimate 10/19/24 LMP (Certain) 38w 2d Other Estimates 10/22/24 Ultrasound #1 37w 6d Expected Delivery Route/Plan Labor Preferences- CB/BF classes: no labor support person: Michelle labor intervention preferences: [] pain management options preferred: [] cut cord/dad catch: [] : [] PP control planned: [] discussed possible routes of delivery and associated risks: [] special requests: [] Specific Issue/Plans Covid status: [] Flu vaccine: declined Tdap vaccine: Rhogam: [] LARC form signed: declined movement and labor precautions reviewed. Problem list reviewed and updated with the most current plan of care details and appropriate orders placed. Relevant counseling for the gestational age provided. Continue routine care and follow up unless otherwise noted in visit notes/problem list details Initial Weight: 172 lb Date -?-?-?-?-?-?-?-?-?-?-?-?- EGA Weight BP Urine Prot -?-?-?-?-?-?-?-?-?-?-?-?- Glucose FHR FuHt Pres Dilation -?-?-?-?-?-?-?-?-?-?-?-?- Effaced St Visit Note 03/18/24 -?-?-?-?-?-?-?-?-?-?-?-?- 9w 2d 172 lb 4 oz (+4 oz) 104/70 -?-?-?-?-?-?-?-?-?-?-?-?- 178 -?-?-?-?-?-?-?-?-?-?-?-?- KW- CRL cons wit h dates. declines NIPT 04/21/24 -?-?-?-?-?-?-?-?-?-?-?-?- 14w 1d 166 lb 4 oz (-5 lb 12 oz) 127/75 -?-?-?-?-?-?-?-?-?-?-?-?- 155 -?-?-?-?-?-?-?-?-?-?-?-?- SM- some weight loss. eating well no no vb crmaping 05/21/24 -?-?-?-?-?-?-?-?-?-?-?-?- 18w 3d 169 lb 6 oz (-2 lb 10 oz) 108/74 Negative -?-?-?-?-?-?-?-?-?-?-?-?- Negative 140 -?-?-?-?-?-?-?-?-?-?-?-?- KW- no vb/crampi ng. + yeast infection-started Monistat yesterday. will send in script. US scheduled with MF. 06/18/24 -?-?-?-?-?-?-?-?-?-?-?-?- 22w 3d 173 lb 8 oz (+1 lb 8 oz) 104/72 Negative -?-?-?-?-?-?-?-?-?-?-?-?- Negative 158 -?-?-?-?-?-?-?-?-?-?-?-?- KW- no vb/lof/ct x. good fm. anatomy US reviewed. 28 week labs discussed 06/24/24 -?-?-?-?-?-?-?-?-?-?-?-?- 23w 2d 175 lb 6 oz (+3 lb 6 oz) 105/72 -?-?-?-?-?-?-?-?-?-?-?-?- 145 -?-?-?-?-?-?-?-?-?-?-?-?- KW- work in for DFM. no vb/lof/ctx. not feeling well today and DFM over the last 2 days. audible movement and fht with doppler. 07/12/24 -?-?-?-?-?-?-?-?-?-?-?-?- 25w 6d 176 lb 8 oz (+4 lb 8 oz) 105/69 Negative -?-?-?-?-?-?-?-?-?-?-?-?- Negative 140 27 -?-?-?-?-?-?-?-?-?-?-?-?- KW- no vb/lof/ct x. good fm. moved over the weekend into grandparents home. glucose today. 07/30/24 -?-?-?-?-?-?-?-?-?-?-?-?- 28w 3d 182 lb 6 oz (+10 lb 6 oz) 106/68 Negative -?-?-?-?-?-?-?-?-?-?-?-?- Negative 145 29 -?-?-?-?-?-?-?-?-?-?-?-?- SM- no vb lof go od fm no regular ctx 08/11/24 -?-?-?-?-?-?-?-?-?-?-?-?- 30w 1d 186 lb 4 oz (+14 lb 4 oz) 101/69 Negative -?-?-?-?-?-?-?-?-?-?-?-?- Negative 135 31 -?-?-?-?-?-?-?-?-?-?-?-?- JV- no complaint s. + FM. mild anemia. encourage sloFe 08/23/24 -?-?-?-?-?-?-?-?-?-?-?-?- 31w 6d 188 lb 4 oz (+16 lb 4 oz) 100/64 Negative -?-?-?-?-?-?-?-?-?-?-?-?- Negative 163 32 -?-?-?-?-?-?-?-?-?-?-?-?- MH-NoVB, LOF. Go od Fm. Started FE. Noting almost daily apple watch indicates elevated heart rate. Confirmed at work 120-130. Resolved with rest/fluids. Denies chest pain, SOB. EKG ordered 09/09/24 -?-?-?-?-?-?-?-?-?-?-?-?- 34w 2d 193 lb 6 oz (+21 lb 6 oz) 108/70 Trace -?-?-?-?-?-?-?-?-?-?-?-?- Negative 145 33 -?--?-?-?-?-?-?-?-?-?-?-?- KW- no vb/lof/ct x. NST today for DFM. KW- no vb/lof/ctx. NST non r eactive today for DFM. to WP for BPP. 09/22/24 -?-?-?-?-?-?-?-?-?-?-?-?- 36w 1d 198 lb 8 oz (+26 lb 8 oz) 97/66 Negative -?-?-?-?-?-?-?-?-?-?-?-?- Negative 153 36 Cephalic 1 -?-?-?-?-?-?-?-?-?-?-?-?- 0 -4 JV- no lof , vaginal bleeding, or dec fm. gbs collected today. 09/30/24 -?-?-?-?-?-?-?-?-?-?-?-?- 37w 2d 201 lb 2 oz (+29 lb 2 oz) 116/80 -?-?-?-?-?-?-?-?-?-?-?-?- 145 38 Cephalic 2 -?-?-?-?-?-?-?-?-?-?-?-?- 50 -3 JV- no lof , vaginal bleeding, or dec fm. fell yesterday and was monitored on L&D. 10/07/24 -?-?-?-?-?-?-?-?-?-?-?-?- 38w 2d 201 lb 4 oz (+29 lb 4 oz) 108/63 Negative -?-?-?-?-?-?-?-?-?-?-?-?- Negative 140 38 Cephalic 2 -?-?-?-?-?-?-?-?-?-?-?-?- 60 -2 SM- no vb lof good fm no regular ctx ACOG First Trimester First Trimester: Discussed Second Trimester Second Trimester: Signs and Symptoms of Labor, Selecting a care provider, Reproductive Life Planning & Contreception, Care Planning, Depression/Anxiety and Intimate Partner Violence; Discussed Tobacco Cessation Third Trimester Third Trimester: Pain Management Plans, Labor support person(s), Immediate Larc, Signs and Symptoms of Preeclampsia, Infant Feeding No , Education and Family Medical Leave or Disability Forms Results POC Urinalysis 2 Dip (Clinic) Office Urine Glucose Negative Last Edit by Raisa Roberts on 10/07/24 08: 33 Office Urine Protein Negative Last Edit by Raisa Roberts on 10/07/24 08: 33 Coding Level of Care Code OB Routine Diagnoses Abdominal trauma S39.91XA Decreased movements in third trimester O36.8130 Tachycardia R00.0 Anemia during in third trimester O99.013 Trimester: third trimester Threatened labor O47.00 Obesity affecting in third trimester, unspecified obesity type O99.213 Obesity type affecting : unspecified obesity Trimester: third trimester Supervision of high risk in third trimester O09.93 Trimester: third trimester 38 weeks gestation of Z3A.38 Weeks of gestation: 38 weeks Congenital tongue-tie Q38.1 Assessment and Plan Assessment and Plan (1) Abdominal trauma: Status: Acute (2) Decreased movements in third trimester: Status: Acute (3) Tachycardia: Status: Acute Comment: EKG/NSR at 105. No SOB, chest pain. Happening almost daily. (4) Anemia in preg-unspec: Status: Acute Qualifiers: Trimester: third trimester Qualified Code(s): O99.013 - Anemia complicating , third trimester Comment: add FE (5) Threatened labor: Status: Acute (6) Obesity affecting : Status: Acute Qualifiers: Obesity type affecting : unspecified obesity Trimester: third trimester Qualified Code(s): O99.213 - Obesity complicating , third trimester Comment: HgbA1c normal bmi 30 (7) Supervision of high-risk : Status: Acute Qualifiers: Trimester: third trimester Qualified Code(s): O09.93 - Supervision of high risk , unspecified, third trimester Comment: GBS neg, PRR, , ADDY 10/19/24, girl Isaías Hart, Michelle (8) : Status: Acute Qualifiers: Weeks of gestation: 38 weeks Qualified Code(s): Z3A.38 - 38 weeks gestation of Comment: declined NIPT & Carrier testing, normal anatomy (9) Congenital tongue-tie: Status: Acute Comment: Son with lip & tongue tied Orders: Orders POC Urinalysis 2 Dip (Clinic) Today 10/07/24 0845 <Electronically signed by Becky garcia MD> Date _ Becky Galvez MD Cosigner Signature: Date (if applicable) CC: ~ [facility] Work Phone: Progress note Author Selene Back [facility] Note Date/Time October 12, 2024 8:57a [facility] [address], [address] [place] [id number] OFFICE VISIT Date of Service: 10/12/24 MR#: [id number] Acct: [id number] Name: JAG PEREZ Rep #: [id number] : 2000 Provider: Dr. Maxine Braun DO Age/Sex: 23/F Location: [facility] [place] Status: Signed Intake Vital Signs 09/30/24 13:44 10/07/24 08:19 10/12/24 08:16 10/12/24 08:17 Height 5 ft 2 in 5 ft 2 in 5 ft 2 in 5 ft 2 in Weight: 203 lb 2 oz BMI 37.1 BP 109/74 Intake Visit Reasons: 39wk ob Bi Lead Required: No Is patient in pain?: No Allergies No Known Allergies Allergy (Verified 10/12/24 08:16) Medications ?Medication ?Instructions ?Recorded ?Confirmed ?Type vits,calcium 91-iron 28 1 pkg PO DAILY pregna ncy 09/10/22 10/12/24 History mg-folic 975 mcg-dha 200 mg oral pack ( + DHA) ferrous sulfate 325 mg (65 mg 325 mg PO DAILY anemia 0 08/05/24 10/12/24 History iron) tablet (Feosol) Last Menstrual Period: 01/13/24 Zika: Zika virus screening: Negative : No PFSH PFSH Medical History Normal vaginal delivery Anxiety Family History Grandmother COPD (chronic obstructive pulmonary disease), Onset Age: 60 Maternal Grandfather Myocardial infarction, Onset Age: 67 Maternal Grandmother Breast cancer, Onset Age: 45 Paternal Social History adopted: No household members: spouse and children number of children: 1 current occupational status: unemployed current occupation: [employer] pets and animals: Yes (Avoid litterbox) pets and animals: cat(s) and dog(s) history of recent travel: No sexually active: Yes Smoking Status: Never smoker alcohol intake: never substance use type: does not use well-balanced diet: daily or most days caffeine: Yes Type: coffee Number of servings: 1 eating out: 1-3 times/week during the past year weight has: decreased > 10 lbs what type of physical activity do you participate in: none pia/orthodoxy: Latter-Day seatbelt use: always do you feel safe at home: Yes additional social history: Michelle [employer] History 2 Elective abortions Hx Para 1 Spontaneous abortions Hx # Term Pregnancies Ectopic pregnancies Hx # Pregnancies Multiple births # of living children 1 Past Pregnancies Del. Date Name GA/Weeks Outcome Route Bth Weight Infant Gen Labor Lgth Anesthesia Del Locatn Provider FOB 10/22/22 Tanner 39 live - full term 7 Male epidur al [facility] Delivery Date: 10/22/22 Last Updated by: Katie Garg severe iron deficiency, infusions HPI 39wk ob Details: JAG PEREZ is a 23 year old who presents for routine OB visit. OB Visit ADDY Calculator Estimated Delivery Date Method Current WG Current Estimate 10/19/24 LMP (Certain) 39w 0d Other Estimates 10/22/24 Ultrasound #1 38w 4d Expected Delivery Route/Plan Labor Preferences- CB/BF classes: no labor support person: Michelle labor intervention preferences: [] pain management options preferred: [] cut cord/dad catch: [] : [] PP control planned: [] discussed possible routes of delivery and associated risks: [] special requests: [] Specific Issue/Plans Covid status: [] Flu vaccine: declined Tdap vaccine: Rhogam: [] LARC form signed: declined movement and labor precautions reviewed. Problem list reviewed and updated with the most current plan of care details and appropriate orders placed. Relevant counseling for the gestational age provided. Continue routine care and follow up unless otherwise noted in visit notes/problem list details Initial Weight: 172 lb Date -?-?-?-?-?-?-?-?-?-?-?-?- EGA Weight BP Urine Prot -?-?-?-?-?-?-?-?-?-?-?-?- Glucose FHR FuHt Pres Dilation -?-?-?-?-?-?-?-?-?-?-?-?- Effaced St Visit Note 03/18/24 -?-?-?-?-?-?-?-?-?-?-?-?- 9w 2d 172 lb 4 oz (+4 oz) 104/70 -?-?-?-?-?-?-?-?-?-?-?-?- 178 -?-?-?-?-?-?-?-?-?-?-?-?- KW- CRL cons wit h dates. declines NIPT 04/21/24 -?-?-?-?-?-?-?-?-?-?-?-?- 14w 1d 166 lb 4 oz (-5 lb 12 oz) 127/75 -?-?-?-?-?-?-?-?-?-?-?-?- 155 -?-?-?-?-?-?-?-?-?-?-?-?- SM- some weight loss. eating well no no vb crmaping 05/21/24 -?-?-?-?-?-?-?-?-?-?-?-?- 18w 3d 169 lb 6 oz (-2 lb 10 oz) 108/74 Negative -?-?-?-?-?-?-?-?-?-?-?-?- Negative 140 -?-?-?-?-?-?-?-?-?-?-?-?- KW- no vb/crampi ng. + yeast infection-started Monistat yesterday. will send in script. US scheduled with [facility]. 06/18/24 -?-?-?-?-?-?-?-?-?-?-?-?- 22w 3d 173 lb 8 oz (+1 lb 8 oz) 104/72 Negative -?-?-?-?-?-?-?-?-?-?-?-?- Negative 158 -?-?-?-?-?-?-?-?-?-?-?-?- KW- no vb/lof/ct x. good fm. anatomy US reviewed. 28 week labs discussed 06/24/24 -?-?-?-?-?-?-?-?-?-?-?-?- 23w 2d 175 lb 6 oz (+3 lb 6 oz) 105/72 -?-?-?-?-?-?-?-?-?-?-?-?- 145 -?-?-?-?-?-?-?-?-?-?-?-?- KW- work in for DFM. no vb/lof/ctx. not feeling well today and DFM over the last 2 days. audible movement and fht with doppler. 07/12/24 -?-?-?-?-?-?-?-?-?-?-?-?- 25w 6d 176 lb 8 oz (+4 lb 8 oz) 105/69 Negative -?-?-?-?-?-?-?-?-?-?-?-?- Negative 140 27 -?-?-?-?-?-?-?-?-?-?-?-?- KW- no vb/lof/ct x. good fm. moved over the weekend into grandparents home. glucose today. 07/30/24 -?-?-?-?-?-?-?-?-?-?-?-?- 28w 3d 182 lb 6 oz (+10 lb 6 oz) 106/68 Negative -?-?-?-?-?-?-?-?-?-?-?-?- Negative 145 29 -?-?-?-?-?-?-?-?-?-?-?-?- SM- no vb lof go od fm no regular ctx 08/11/24 -?-?-?-?-?-?-?-?-?-?-?-?- 30w 1d 186 lb 4 oz (+14 lb 4 oz) 101/69 Negative -?-?-?-?-?-?-?-?-?-?-?-?- Negative 135 31 -?-?-?-?-?-?-?-?-?-?-?-?- JV- no complaint s. + FM. mild anemia. encourage sloFe 08/23/24 -?-?-?-?-?-?-?-?-?-?-?-?- 31w 6d 188 lb 4 oz (+16 lb 4 oz) 100/64 Negative -?-?-?-?-?-?-?-?-?-?-?-?- Negative 163 32 -?-?-?-?-?-?-?-?-?-?-?-?- MH-NoVB, LOF. Go od Fm. Started FE. Noting almost daily apple watch indicates elevated heart rate. Confirmed at work 120-130. Resolved with rest/fluids. Denies chest pain, SOB. EKG ordered 09/09/24 -?-?-?-?-?-?-?-?-?-?-?-?- 34w 2d 193 lb 6 oz (+21 lb 6 oz) 108/70 Trace -?-?-?-?-?-?-?-?-?-?-?-?- Negative 145 33 -?--?-?-?-?-?-?-?-?-?-?-?- KW- no vb/lof/ct x. NST today for DFM. KW- no vb/lof/ctx. NST non r eactive today for DFM. to WP for BPP. 09/22/24 -?-?-?-?-?-?-?-?-?-?-?-?- 36w 1d 198 lb 8 oz (+26 lb 8 oz) 97/66 Negative -?-?-?-?-?-?-?-?-?-?-?-?- Negative 153 36 Cephalic 1 -?-?-?-?-?-?-?-?-?-?-?-?- 0 -4 JV- no lof , vaginal bleeding, or dec fm. gbs collected today. 09/30/24 -?-?-?-?-?-?-?-?-?-?-?-?- 37w 2d 201 lb 2 oz (+29 lb 2 oz) 116/80 -?-?-?-?-?-?-?-?-?-?-?-?- 145 38 Cephalic 2 -?-?-?-?-?-?-?-?-?-?-?-?- 50 -3 JV- no lof , vaginal bleeding, or dec fm. fell yesterday and was monitored on L&D. 10/07/24 -?-?-?-?-?-?-?-?-?-?-?-?- 38w 2d 201 lb 4 oz (+29 lb 4 oz) 108/63 Negative -?-?-?-?-?-?-?-?-?-?-?-?- Negative 140 38 Cephalic 2 -?-?-?-?-?-?-?-?-?-?-?-?- 60 -2 SM- no vb lof good fm no regular ctx 10/12/24 -?-?-?-?-?-?-?-?-?-?-?-?- 39w 0d 203 lb 2 oz (+31 lb 2 oz) 109/74 Negative -?-?-?-?-?-?-?-?-?-?-?-?- Negative 142 39 Cephalic 2 .5 -?-?-?-?-?-?-?-?-?-?-?-?- 70 -2 JV- patien t wants membrane sweep and requesting elective IOL. no loss of fluid, vaginal bleeding, or dec fm. ACOG First Trimester First Trimester: Discussed Second Trimester Second Trimester: Signs and Symptoms of Labor, Selecting a care provider, Reproductive Life Planning & Contreception, Care Planning, Depression/Anxiety and Intimate Partner Violence; Discussed Tobacco Cessation Third Trimester Third Trimester: Pain Management Plans, Labor support person(s), Immediate Larc, Signs and Symptoms of Preeclampsia, Feeding No , [place] Education and Family Medical Leave or Disability Forms Results POC Urinalysis 2 Dip (Clinic) Office Urine Glucose Negative Last Edit by Raisa Roberts on 10/12/24 08: 25 Office Urine Protein Negative Last Edit by Raisa Roberts on 10/12/24 08: 25 Coding Level of Care Code OB Routine Diagnoses Anemia during in third trimester O99.013 Trimester: third trimester Obesity affecting in third trimester, unspecified obesity type O99.213 Obesity type affecting : unspecified obesity Trimester: third trimester Supervision of high risk in third trimester O09.93 Trimester: third trimester 39 weeks gestation of Z3A.39 Weeks of gestation: 39 weeks Congenital tongue-tie Q38.1 Assessment and Plan Assessment and Plan (1) Anemia in preg-unspec: Status: Acute Qualifiers: Trimester: third trimester Qualified Code(s): O99.013 - Anemia complicating , third trimester Comment: add FE (2) Obesity affecting : Status: Acute Qualifiers: Obesity type affecting : unspecified obesity Trimester: third trimester Qualified Code(s): O99.213 - Obesity complicating , third trimester Comment: HgbA1c normal bmi 30 (3) Supervision of high-risk : Status: Acute Qualifiers: Trimester: third trimester Qualified Code(s): O09.93 - Supervision of high risk , unspecified, third trimester Comment: PRR, , ADDY 10/19/24, girl Isaías Hart, Michelle (4) : Status: Acute Qualifiers: Weeks of gestation: 39 weeks Qualified Code(s): Z3A.39 - 39 weeks gestation of Comment: gbs neg declined NIPT & Carrier testing, normal anatomy (5) Congenital tongue-tie: Status: Acute Comment: Son with lip & tongue tied Orders: Orders POC Urinalysis 2 Dip (Clinic) Today 10/12/24 0857 <Electronically signed by Selene Benitez DO> Date _ Selene Braun DO Cosigner Signature: Date (if applicable) CC: ~ [facility] Work Phone: Reason for referral (narrative)* Diagnostic Procedure Only (Routine) - Authorized Specialty Diagnoses / Procedures Referred By Ranjit lopez Referred To Contact [facility] Diagnoses Encounter for supervision of normal first in first trimester Procedures OBSTETRIC ULTRASOUND WHI US PREG UTERUS AFTER 1ST TRIMEST GESTATION Alyssa Packer MD [address] [place] [address] [facility] [address] [place] [address] Referral ID Status Reason Start Date Expiration Date Visits Requested Visits Authorized [id number] Authorized Auto-Generat ed Referral 2 03/11/[address] [facility] for referral (narrative)* Diagnostic Procedure Only (Routine) - Pending Review Specialty Diagnoses / Procedures Referred By Ranjit lopez Referred To Contact [facility] Diagnoses 34 weeks gestation of Uterine size-date discrepancy, third trimester Procedures OBSTETRIC ULTRASOUND WHI US PREG UTERUS AFTER 1ST TRIMEST GESTATION Sobeida Lopez MD [address] [place] [address] [facility] [address] [place] [address] Referral ID Status Reason Start Date Expiration Date Visits Requested Visits Authorized [id number] Pending Review Auto-Generat ed Referral 09/19/2022 09/19/[address] [facility] for referral (narrative)No reason for referral information availableWPremier [facility] Work Phone: Instructions * Patient Instructions* Sara Marie, MANNIE - 07/21/2020 5:20 PM EDT Use flonase as discussed Take medication as discussed. Go to the ER if symptoms worsen in anyway. Follow up with PCP or UC if symptoms worsen of fail to improve in 48-72 hours. Earache: Care Instructions Your Care Instructions Even though infection is a common cause of ear pain, not all ear pain means an infection. If you have ear pain and don't have an infection, it could be because of a jaw problem, such as temporomandibular joint (TMJ) pain. Or it could be because of a neck problem. When ear discomfort or pain is mild or comes and goes without other symptoms, home treatment may helio you need. Follow-up care is a michelle part of your treatment and safety. Be sure to make and go to all appointments, and call your doctor if you are having problems. It's also a good idea to know your test resultsand keep a list of the medicines you take. How can you care for yourself at home? Apply heat on the ear to ease pain. To apply heat, put a warm water bottle, a heating pad set on low, or a warm cloth on your ear. Do not go to sleep with a heating pad on your skin. Take an qnvb-wdm-oqgjwcx pain medicine, such as acetaminophen (Tylenol), ibuprofen (Advil, Motrin),or naproxen (Aleve). Be safe with medicines. Read and follow all instructions on the label. Do not take two or more pain medicines at the same time unless the doctor told you to. Many pain medicines have acetaminophen, which is Tylenol. Too much acetaminophen (Tylenol) can be harmful. Never insert anything, such as a cotton swab or a franklin pin, into the ear. When should you call for help? Call your doctor now or seek immediate medical care if: You have new or worse symptoms of infection, such as: ? Increased pain, swelling, warmth, or redness. ? Red streaks leading from the area. ? Pus draining from the area. ? A fever. Watch closely for changes in your health, and be sure to contact your doctor if: You have new or worse discharge coming from the ear. You do not get better as expected. Where can you learn more? Log into your personal health record on https://PATHSENSORShart.APSX and enter C927 in the Education box to learn more about Earache: Care Instructions. Current as of: March 15, 2020 Content Version: 12.8 [employer]. Care instructions adapted under license by your healthcare professional. If you have questions about a medical condition or this instruction, always ask your healthcare professional. [employer] disclaims any warranty or liability for your use of this information. Eustachian Tube Problems: Care Instructions Your Care Instructions The eustachian (say tvw-CSUN-crfe-un) tubes run between the inside of the ears and the throat. They keep air pressure stable in the ears. If your eustachian tubes become blocked, the air pressure in your ears changes. The fluids from a cold can clog eustachian tubes, causing pain in the ears. A quick change in air pressure can cause eustachian tubes to close up. This might happen when an airplane changes altitude or when a binding end stitcher goes up or down underwater. Eustachian tube problems often clear up on their own or after antibiotic treatment. If your tubes continue to be blocked, you may need surgery. Follow-up care is a michelle part of your treatment and safety. Be sure to make and go to all appointments, and call your doctor if you are having problems. It's also a good idea to know your test resultsand keep a list of the medicines you take. How can you care for yourself at home? To ease ear pain, apply a warm washcloth or a heating pad set on low. There may be some drainage from the ear when the heat melts earwax. Put a cloth between the heat source and your skin. Do not usea heating pad with children. If your doctor prescribed antibiotics, take them as directed. Do not stop taking them just because you feel better. You need to take the full course of antibiotics. Your doctor may recommend [id number]-[id number] medicine. Be safe with medicines. Oral or nasal decongestants may relieve ear pain. Avoid decongestants that are combined with antihistamines, which tend tocause more blockage. But if allergies seem to be the problem, your doctor may recommend a combination. Be careful with cough and cold medicines. Don't give them to children younger than 6, because they don't work for children that age and can even be harmful. For children 6 and older, always followall the instructions carefully. Make sure you know how much medicine to give and how long to use it. And use the dosing device if one is included. When should you call for help? Call your doctor now or seek immediate medical care if: You develop sudden, complete hearing loss. You have severe pain or feel dizzy. You have new or increasing pus or blood draining from your ear. You have redness, swelling, or pain around or behind the ear. Watch closely for changes in your health, and be sure to contact your doctor if: You do not get better after 2 weeks. You have any new symptoms, such as itching or a feeling of fullness in the ear. Where can you learn more? Log into your personal health record on https://Spinnakrt.APSX and enter Y822 in the Education box to learn more about Eustachian Tube Problems: Care Instructions. Current as of: March 15, 2020 Content Version: 12.8 Visuu. Care instructions adapted under license by your healthcare professional. If you have questions about a medical condition or this instruction, always ask your healthcare professional. Visuu disclaims any warranty or liability for your use of this information. documented in this encounter History of Present Illness * Sara Marie CNP - 07/21/2020 5:37 PM EDT Patient Name: [facility] Location: [address] [place] [address] Date Of : Date Of Visit: 2000 07/21/2020 MRN# Provider: [id number] Sara Marie CNP Chief Complaint Patient presents with Otalgia pressure since this morning both ears Assessment & Plan 1. Dysfunction of both eustachian tubes 2. Otalgia of both ears No follow-ups on file. Medical Decision Making Otalgia is likely due to allergies and she will start Flonase in combination with OTC allergy medications she is currently taking. She will return if pain persists or worsens. Additional Clinical Comments Discussed over the counter medications for symptomatic management and side effects of medications. Recommended taking all medications with food and to stop medications if they develop any signs of anallergic reaction. Educated patient and/or guardian about signs and symptoms that would warrant further immediate evaluation. Recommended that they should return to urgent care, make an appointment with their family physician, or go to the emergency room if symptoms persist or get acutely worse. Recommended follow upwithin the next week with their PCP or to get established with a PCP soon in order to follow up appropriately. Subjective 19 y.o. female presents with Otalgia (pressure since this morning both ears ) Otalgia There is pain in both ears. This is a new problem. The current episode started today. The problem occurs constantly. There has been no fever. The pain is moderate. Pertinent negatives include no abdominal pain, coughing, diarrhea, ear discharge, headaches, hearing loss, neck pain, rash, rhinorrhea,sore throat or vomiting. She has tried nothing for the symptoms. The treatment provided no relief. Review Of Systems Review of Systems Constitutional: Negative for appetite change (denies loss of smell or taste), chills, diaphoresis, fatigue and fever. HENT: Positive for ear pain. Negative for congestion, ear discharge, hearing loss, rhinorrhea, sinus pressure, sinus pain, sneezing and sore throat. Respiratory: Negative for cough and shortness of breath. Gastrointestinal: Negative for abdominal pain, diarrhea, nausea and vomiting. Musculoskeletal: Negative for myalgias and neck pain. Skin: Negative for rash. Allergic/Immunologic: Positive for environmental allergies. Neurological: Negative for headaches. Medical History History reviewed. No pertinent past medical history. History reviewed. No pertinent surgical history. There is no problem list on file for this patient. Social History Social History Tobacco Use Smoking status: Never Smoker Smokeless tobacco: Never Used Substance Use Topics Alcohol use: Not on file Drug use: Not on file Family History History reviewed. No pertinent family history. Objective Physical Exam BP 119/83 Pulse 84 Temp 98.4 F (36.9 C) (Tympanic) Resp 16 Ht 5' 2 Wt 64 kg (141 lb) SpO2 97% BMI 25.79 kg/m Vision/Hearing Exam:No exam data present Physical Exam Vitals signs and nursing note reviewed. Constitutional: Appearance: Normal appearance. She is well-developed and normal weight. She is not ill-appearing. HENT: Head: Normocephalic and atraumatic. Right Ear: Tympanic membrane, ear canal and external ear normal. Left Ear: Tympanic membrane, ear canal and external ear normal. Nose: Nose normal. Mouth/Throat: Lips: [place]. Mouth: Mucous membranes are moist. Pharynx: Oropharynx is clear. Uvula midline. Eyes: Conjunctiva/sclera: Conjunctivae normal. Neck: Trachea: Trachea normal. Cardiovascular: Rate and Rhythm: Normal rate. Pulmonary: Effort: Pulmonary effort is normal. Skin: General: Skin is warm and dry. Capillary Refill: Capillary refill takes less than 2 seconds. Neurological: Mental Status: She is alert and oriented to person, place, and time. Psychiatric: Attention and Perception: Attention normal. Mood and Affect: Mood normal. Speech: Speech normal. Behavior: Behavior normal. Thought Content: Thought content normal. Judgment: Judgment normal. Procedure Notes Procedures Results No results found for this or any previous visit (from the past 168 hour(s)). No orders to display Orders Placed This Visit No orders of the defined types were placed in this encounter. Medication List At End Of Visit Current Outpatient Medications Medication Sig Dispense Refill drospirenone-ethinyl estradioL (Khadijah, 28,) 3-0.02 mg per tablet Take 1 tablet by mouth daily . No current facility-administered medications for this visit. Patient Instructions Use flonase as discussed Take medication as discussed. Go to the ER if symptoms worsen in anyway. Follow up with PCP or UC if symptoms worsen of fail to improve in 48-72 hours. Earache: Care Instructions Your Care Instructions Even though infection is a common cause of ear pain, not all ear pain means an infection. If you have ear pain and don't have an infection, it could be because of a jaw problem, such as temporomandibular joint (TMJ) pain. Or it could be because of a neck problem. When ear discomfort or pain is mild or comes and goes without other symptoms, home treatment may helio you need. Follow-up care is a michelle part of your treatment and safety. Be sure to make and go to all appointments, and call your doctor if you are having problems. It's also a good idea to know your test resultsand keep a list of the medicines you take. How can you care for yourself at home? Apply heat on the ear to ease pain. To apply heat, put a warm water bottle, a heating pad set on low, or a warm cloth on your ear. Do not go to sleep with a heating pad on your skin. Take an zwje-ama-qxkqnfl pain medicine, such as acetaminophen (Tylenol), ibuprofen (Advil, Motrin),or naproxen (Aleve). Be safe with medicines. Read and follow all instructions on the label. Do not take two or more pain medicines at the same time unless the doctor told you to. Many pain medicines have acetaminophen, which is Tylenol. Too much acetaminophen (Tylenol) can be harmful. Never insert anything, such as a cotton swab or a franklin pin, into the ear. When should you call for help? Call your doctor now or seek immediate medical care if: You have new or worse symptoms of infection, such as: ? Increased pain, swelling, warmth, or redness. ? Red streaks leading from the area. ? Pus draining from the area. ? A fever. Watch closely for changes in your health, and be sure to contact your doctor if: You have new or worse discharge coming from the ear. You do not get better as expected. Where can you learn more? Log into your personal health record on https://PATHSENSORShart.APSX and enter C927 in the Education box to learn more about Earache: Care Instructions. Current as of: March 15, 2020 Content Version: 12.8 Visuu. Care instructions adapted under license by your healthcare professional. If you have questions about a medical condition or this instruction, always ask your healthcare professional. Visuu disclaims any warranty or liability for your use of this information. Eustachian Tube Problems: Care Instructions Your Care Instructions The eustachian (say lgz-KXRM-ejld-un) tubes run between the inside of the ears and the throat. They keep air pressure stable in the ears. If your eustachian tubes become blocked, the air pressure in your ears changes. The fluids from a cold can clog eustachian tubes, causing pain in the ears. A quick change in air pressure can cause eustachian tubes to close up. This might happen when an airplane changes altitude or when a binding end stitcher goes up or down underwater. Eustachian tube problems often clear up on their own or after antibiotic treatment. If your tubes continue to be blocked, you may need surgery. Follow-up care is a michelle part of your treatment and safety. Be sure to make and go to all appointments, and call your doctor if you are having problems. It's also a good idea to know your test resultsand keep a list of the medicines you take. How can you care for yourself at home? To ease ear pain, apply a warm washcloth or a heating pad set on low. There may be some drainage from the ear when the heat melts earwax. Put a cloth between the heat source and your skin. Do not usea heating pad with children. If your doctor prescribed antibiotics, take them as directed. Do not stop taking them just because you feel better. You need to take the full course of antibiotics. Your doctor may recommend suru-bqg-krdhrmx medicine. Be safe with medicines. Oral or nasal decongestants may relieve ear pain. Avoid decongestants that are combined with antihistamines, which tend tocause more blockage. But if allergies seem to be the problem, your doctor may recommend a combination. Be careful with cough and cold medicines. Don't give them to children younger than 6, because they don't work for children that age and can even be harmful. For children 6 and older, always followall the instructions carefully. Make sure you know how much medicine to give and how long to use it. And use the dosing device if one is included. When should you call for help? Call your doctor now or seek immediate medical care if: You develop sudden, complete hearing loss. You have severe pain or feel dizzy. You have new or increasing pus or blood draining from your ear. You have redness, swelling, or pain around or behind the ear. Watch closely for changes in your health, and be sure to contact your doctor if: You do not get better after 2 weeks. You have any new symptoms, such as itching or a feeling of fullness in the ear. Where can you learn more? Log into your personal health record on https://Spinnakrt.APSX and enter Y822 in the Education box to learn more about Eustachian Tube Problems: Care Instructions. Current as of: March 15, 2020 Content Version: 12.8 Visuu. Care instructions adapted under license by your healthcare professional. If you have questions about a medical condition or this instruction, always ask your healthcare professional. Visuu disclaims any warranty or liability for your use of this information. documented in this encounter Assessments Diagnosis Dysfunction of both eustachian tubes- Primary Otalgia of both ears Advance Directives No Advanced Directives Records FoundDocuments on File Type Date Recorded Patient Yarn Tester Expl anation Advance Directives and Living Will Advance Directive Response Recorded Date/ Time Living Will No October 22, 2022 1:40am Power of Chipper Machine Operator No October 22 1:40am Advance Directive Response Recorded Date/ Time Living Will No October 22, 2022 1:40am Do you have a Healthcare Power of Chipper Machine Operator? No October 22, 2022 1:40am Summary Purpose Family History No Family History Records Found Relationship Condition Age at Onset Recorded Date/T brenna grandmother Chronic obstructive pulmonary disease 60 grandfather Myocardial infarction 67 grandmother Malignant neoplasm of breast 45 Health Concerns Problem Noted Date OB Reminders 03/11/2022 Problem Noted Date OB Reminders 03/11/2022 Problem Noted Date OB Reminders 03/11/2022 Problem Noted Date OB Reminders 03/11/2022 Problem Noted Date OB Reminders 03/11/2022 Problem Noted Date OB Reminders 03/11/2022 Problem Noted Date OB Reminders 03/11/2022 Problem Noted Date OB Reminders 03/11/2022 Problem Noted Date OB Reminders 03/11/2022 Problem Noted Date OB Reminders 03/11/2022 Problem Noted Date OB Reminders 03/11/2022 Problem Noted Date OB Reminders 03/11/2022 Problem Noted Date OB Reminders 03/11/2022 Problem Noted Date Diagnosed Date OB Reminders 03/11/2022 Problem Noted Date Diagnosed Date OB Reminders 03/11/2022 Chief Complaint and Reason for Visit Chief Complaint DECREASED MOVE MENT Chief Complaint DECREASED MOVE MENT BLEEDING Reason for Visit 33 weeks gestation o f Decreased movement False labor Chief Complaint DECREASED MOVE MENT BLEEDING VAGINAL DELIVERY Reason for Visit 33 weeks gestation o f Decreased movement False labor Normal vaginal delivery SROM (spontaneous rupture of membranes) Chief Complaint Admit Date NOB LMP 10March 18, 2024 2 :24pm 13wk OB April 21, 2024 3: 05pm 18 wk ob May 21, 2024 8 :43am 22 wk ob June 18, 2024 8:38 am heartbeat check per KW June 24, 2024 12:58pm Reason for Visit Admit Date Congenital tongue-tie March 18, 2024 2:24pm Elevated triglycerides with high cholest norma March 18, 2024 2:24pm Hx of iron deficiency anemia March 2:24pm Obesity affecting March 2:24pm March 18, 2024 2 :24pm Supervision of high-risk Decem 2023 2:24pm Congenital tongue-tie April 21, 2024 3:05pm Elevated triglycerides with high cholest norma April 21, 2024 3:05pm Hx of iron deficiency anemia April 3:05pm Obesity affecting April 21, 2024 3:05pm April 21, 2024 3: 05pm Supervision of high-risk Janua ry 2024 3:05pm Congenital tongue-tie May 21, 2024 8:43am Elevated triglycerides with high cholest norma May 21, 2024 8:43am Hx of iron deficiency anemia May 8:43am Obesity affecting May 8:43am May 21, 2024 8 :43am Supervision of high-risk Febru [email or web address] 8:43am Yeast infection May 21, 2024 8 :43am Congenital tongue-tie June 18, 2024 8: 38am Elevated triglycerides with high cholest norma June 18, 2024 8:38am Hx of iron deficiency anemia June 18, 2024 8:38am Obesity affecting June 18 8:38am June 18, 2024 8:38 am Supervision of high-risk June 18, 2024 8:38am Congenital tongue-tie June 24, 2024 1 2:58pm Elevated triglycerides with high cholest norma June 24, 2024 12:58pm Hx of iron deficiency anemia June 24, 2024 12:58pm Obesity affecting June 24, 2024 12:58pm June 24, 2024 12: 58pm Supervision of high-risk June 24, 2024 12:58pm Yeast infection June 24, 2024 12: 58pm Congenital tongue-tie July 12, 2024 2 :40pm Elevated triglycerides with high cholest norma July 12, 2024 2:40pm Hx of iron deficiency anemia July 12, 2024 2:40pm Obesity affecting July 12, 2024 2:40pm July 12, 2024 2:4 0pm Supervision of high-risk July 12, 2024 2:40pm Yeast infection July 12, 2024 2:4 0pm Chief Complaint Admit Date 13wk OB April 21, 2024 3: 05pm 18 wk ob May 21, 2024 8 :43am 22 wk ob June 18, 2024 8:38 am heartbeat check per KW June 24, 2024 12:58pm 28 WK OB July 30, 2024 10: 50am R/O LABOR August 05, 2024 9:5 5pm Reason for Visit Admit Date Congenital tongue-tie April 21, 2024 3:05pm Obesity affecting April 21, 2024 3:05pm April 21, 2024 3: 05pm Supervision of high-risk Janua ry 2024 3:05pm Elevated triglycerides with high cholest norma April 21, 2024 3:05pm Hx of iron deficiency anemia April 3:05pm Congenital tongue-tie May 21, 2024 8:43am Obesity affecting May 8:43am May 21, 2024 8 :43am Supervision of high-risk Febru [email or web address] 8:43am Elevated triglycerides with high cholest norma May 21, 2024 8:43am Hx of iron deficiency anemia May 8:43am Yeast infection May 21, 2024 8 :43am Congenital tongue-tie June 18, 2024 8: 38am Obesity affecting June 18 8:38am June 18, 2024 8:38 am Supervision of high-risk June 18, 2024 8:38am Elevated triglycerides with high cholest norma June 18, 2024 8:38am Hx of iron deficiency anemia June 18, 2024 8:38am Congenital tongue-tie June 24, 2024 1 2:58pm Obesity affecting June 24, 2024 12:58pm June 24, 2024 12: 58pm Supervision of high-risk June 24, 2024 12:58pm Elevated triglycerides with high cholest norma June 24, 2024 12:58pm Hx of iron deficiency anemia June 24, 2024 12:58pm Yeast infection June 24, 2024 12: 58pm Congenital tongue-tie July 12, 2024 2 :40pm Obesity affecting July 12, 2024 2:40pm July 12, 2024 2:4 0pm Supervision of high-risk July 12, 2024 2:40pm Elevated triglycerides with high cholest norma July 12, 2024 2:40pm Hx of iron deficiency anemia July 12, 2024 2:40pm Yeast infection July 12, 2024 2:4 0pm Congenital tongue-tie July 30, 2024 1 0:50am Obesity affecting July 30, 2024 10:50am July 30, 2024 10: 50am Supervision of high-risk July 30, 2024 10:50am Congenital tongue-tie August 05, 2024 9 :55pm Obesity affecting August 05, 2024 9:55pm August 05, 2024 9:5 5pm Supervision of high-risk August 05, 2024 9:55pm Threatened labor August 05 9:55pm Chief Complaint Admit Date 18 wk ob May 21, 2024 8 :43am 22 wk ob June 18, 2024 8:38 am heartbeat check per KW June 24, 2024 12:58pm 28 WK OB July 30, 2024 10: 50am R/O LABOR August 05, 2024 9:5 5pm R/O LABOR August 05, 2024 10: 32pm 30 WK OB August 11, 2024 11: 12am 32wk ob August 23, 2024 1:53p m Tachycardia, unspecified August 25, 2024 7:54am Tachycardia, unspecified August 25, 2024 8:20am 34wk ob September 09, 2024 8:18a m Reason for Visit Admit Date Congenital tongue-tie May 21, 2024 8:43am Obesity affecting May 8:43am May 21, 2024 8 :43am Supervision of high-risk Febru [email or web address] 8:43am Elevated triglycerides with high cholest norma May 21, 2024 8:43am Hx of iron deficiency anemia May 8:43am Yeast infection May 21, 2024 8 :43am Congenital tongue-tie June 18, 2024 8: 38am Obesity affecting June 18 8:38am June 18, 2024 8:38 am Supervision of high-risk June 18, 2024 8:38am Elevated triglycerides with high cholest norma June 18, 2024 8:38am Hx of iron deficiency anemia June 18, 2024 8:38am Congenital tongue-tie June 24, 2024 2:58pm Obesity affecting June 24, 2024 12:58pm June 24, 2024 12: 58pm Supervision of high-risk June 24, 2024 12:58pm Elevated triglycerides with high cholest norma June 24, 2024 12:58pm Hx of iron deficiency anemia June 24, 2024 12:58pm Yeast infection June 24, 2024 12: 58pm Congenital tongue-tie July 12, 2024 2 :40pm Obesity affecting July 12, 2024 2:40pm July 12, 2024 2:4 0pm Supervision of high-risk July 12, 2024 2:40pm Elevated triglycerides with high cholest norma July 12, 2024 2:40pm Hx of iron deficiency anemia July 12, 2024 2:40pm Yeast infection July 12, 2024 2:4 0pm Congenital tongue-tie July 30, 2024 1 0:50am Obesity affecting July 30, 2024 10:50am July 30, 2024 10: 50am Supervision of high-risk July 30, 2024 10:50am Congenital tongue-tie August 05, 2024 9 :55pm Obesity affecting August 05, 2024 9:55pm August 05, 2024 9:5 5pm Supervision of high-risk August 05, 2024 9:55pm Threatened labor August 05 9:55pm Congenital tongue-tie August 11, 2024 1 1:12am Obesity affecting August 11, 2024 11:12am August 11, 2024 11: 12am Supervision of high-risk August 11, 2024 11:12am Threatened labor August 11 11:12am Anemia in preg-unspec August 23, 2024 1:5 3pm Congenital tongue-tie August 23, 2024 1:5 3pm Obesity affecting August 23 1:53pm August 23, 2024 1:53p m Supervision of high-risk August [id number] 1:53pm Anemia in preg-unspec September 09, 2024 8:1 8am Congenital tongue-tie September 09, 2024 8:1 8am Obesity affecting September 09 8:18am September 09, 2024 8:18a m Supervision of high-risk August [id number] 8:18am Tachycardia September 09, 2024 8:18a m Threatened labor September 09, 2024 8:18am Chief Complaint Admit Date 18 wk ob May 21, 2024 8 :43am 22 wk ob June 18, 2024 8:38 am heartbeat check per KW June 24, 2024 12:58pm 28 WK OB July 30, 2024 10: 50am R/O LABOR August 05, 2024 9:5 5pm R/O LABOR August 05, 2024 10: 32pm 30 WK OB August 11, 2024 11: 12am 32wk ob August 23, 2024 1:53p m Tachycardia, unspecified August 25, 2024 7:54am Tachycardia, unspecified August 25, 2024 8:20am 34wk ob September 09, 2024 8:18a m NST September 09, 2024 9:30a m Chief Complaint Admit Date 22 wk ob June 18, 2024 8:38 am heartbeat check per KW June 24, 2024 12:58pm 28 WK OB July 30, 2024 10: 50am R/O LABOR August 05, 2024 9:5 5pm R/O LABOR August 05, 2024 10: 32pm 30 WK OB August 11, 2024 11: 12am 32wk ob August 23, 2024 1:53p m Tachycardia, unspecified August 25, 2024 7:54am Tachycardia, unspecified August 25, 2024 8:20am 34wk ob September 09, 2024 8:18a m NST September 09, 2024 9:30a m NST September 09, 2024 10:32 pm 36wk ob September 22, 2024 1:38 pm Reason for Visit Admit Date Congenital tongue-tie June 18, 2024 8: 38am Obesity affecting June 18, 025 8:38am June 18, 2024 8:38 am Supervision of high-risk June 18, 2024 8:38am Elevated triglycerides with high cholest norma June 18, 2024 8:38am Hx of iron deficiency anemia June 18, 2024 8:38am Congenital tongue-tie June 24, 2024 1 2:58pm Obesity affecting June 24, 2024 12:58pm June 24, 2024 12: 58pm Supervision of high-risk June 24, 2024 12:58pm Elevated triglycerides with high cholest norma June 24, 2024 12:58pm Hx of iron deficiency anemia June 24, 2024 12:58pm Yeast infection June 24, 2024 12: 58pm Congenital tongue-tie July 12, 2024 2 :40pm Obesity affecting July 12, 2024 2:40pm July 12, 2024 2:4 0pm Supervision of high-risk July 12, 2024 2:40pm Elevated triglycerides with high cholest norma July 12, 2024 2:40pm Hx of iron deficiency anemia July 12, 2024 2:40pm Yeast infection July 12, 2024 2:4 0pm Congenital tongue-tie July 30, 2024 1 0:50am Obesity affecting July 30, 2024 10:50am July 30, 2024 10: 50am Supervision of high-risk July 30, 2024 10:50am Congenital tongue-tie August 05, 2024 9 :55pm Obesity affecting August 05, 2024 9:55pm August 05, 2024 9:5 5pm Supervision of high-risk August 05, 2024 9:55pm Threatened labor August 05 9:55pm Congenital tongue-tie August 11, 2024 1 1:12am Obesity affecting August 11, 2024 11:12am August 11, 2024 11: 12am Supervision of high-risk August 11, 2024 11:12am Threatened labor August 11 11:12am Anemia in preg-unspec August 23, 2024 1:5 3pm Congenital tongue-tie August 23, 2024 1:5 3pm Obesity affecting August 23 1:53pm August 23, 2024 1:53p m Supervision of high-risk August 122024 1:53pm Anemia in preg-unspec September 09, 2024 8:1 8am Congenital tongue-tie September 09, 2024 8:1 8am Obesity affecting September 09 8:18am September 09, 2024 8:18a m Supervision of high-risk August [id number] 8:18am Tachycardia September 09, 2024 8:18a m Threatened labor September 09, 2024 8:18am Decreased movements in third trime ster September 09, 2024 9:30am Anemia in preg-unspec September 22, 2024 1: 38pm Congenital tongue-tie September 22, 2024 1: 38pm Decreased movements in third trime ster September 22, 2024 1:38pm Obesity affecting September 22, 2 025 1:38pm September 22, 2024 1:38 pm Supervision of high-risk September 22, 2024 1:38pm Tachycardia September 22, 2024 1:38 pm Threatened labor September 22, 2024 1:38pm Chief Complaint Admit Date 22 wk ob June 18, 2024 8:38 am heartbeat check per KW June 24, 2024 12:58pm 28 WK OB July 30, 2024 10: 50am R/O LABOR August 05, 2024 9:5 5pm R/O LABOR August 05, 2024 10: 32pm 30 WK OB August 11, 2024 11: 12am 32wk ob August 23, 2024 1:53p m Tachycardia, unspecified August 25, 2024 7:54am Tachycardia, unspecified August 25, 2024 8:20am 34wk ob September 09, 2024 8:18a m NST September 09, 2024 9:30a m NST September 09, 2024 10:32 pm 36wk ob September 22, 2024 1:38 pm FALL September 29, 2024 11:4 3am Chief Complaint Admit Date 22 wk ob June 18, 2024 8:38 am heartbeat check per KW June 24, 2024 12:58pm 28 WK OB July 30, 2024 10: 50am R/O LABOR August 05, 2024 9:5 5pm R/O LABOR August 05, 2024 10: 32pm 30 WK OB August 11, 2024 11: 12am 32wk ob August 23, 2024 1:53p m Tachycardia, unspecified August 25, 2024 7:54am Tachycardia, unspecified August 25, 2024 8:20am 34wk ob September 09, 2024 8:18a m NST September 09, 2024 9:30a m NST September 09, 2024 10:32 pm 36wk ob September 22, 2024 1:38 pm FALL September 29, 2024 11:4 3am FALL September 29, 2024 4:55 pm 37 wk ob September 30, 2024 1:41 pm Reason for Visit Admit Date Congenital tongue-tie June 18, 2024 8: 38am Obesity affecting June 18 8:38am June 18, 2024 8:38 am Supervision of high-risk June 18, 2024 8:38am Elevated triglycerides with high cholest norma June 18, 2024 8:38am Hx of iron deficiency anemia June 18, 2024 8:38am Congenital tongue-tie June 24, 2024 1 2:58pm Obesity affecting June 24, 2024 12:58pm June 24, 2024 12: 58pm Supervision of high-risk June 24, 2024 12:58pm Elevated triglycerides with high cholest norma June 24, 2024 12:58pm Hx of iron deficiency anemia June 24, 2024 12:58pm Yeast infection June 24, 2024 12: 58pm Congenital tongue-tie July 12, 2024 2 :40pm Obesity affecting July 12, 2024 2:40pm July 12, 2024 2:4 0pm Supervision of high-risk July 12, 2024 2:40pm Elevated triglycerides with high cholest norma July 12, 2024 2:40pm Hx of iron deficiency anemia July 12, 2024 2:40pm Yeast infection July 12, 2024 2:4 0pm Congenital tongue-tie July 30, 2024 1 0:50am Obesity affecting July 30, 2024 10:50am July 30, 2024 10: 50am Supervision of high-risk July 30, 2024 10:50am Congenital tongue-tie August 05, 2024 9 :55pm Obesity affecting August 05, 2024 9:55pm August 05, 2024 9:5 5pm Supervision of high-risk August 05, 2024 9:55pm Threatened labor August 05 9:55pm Congenital tongue-tie August 11, 2024 1 1:12am Obesity affecting August 11, 2024 11:12am August 11, 2024 11: 12am Supervision of high-risk August 11, 2024 11:12am Threatened labor August 11 11:12am Anemia in preg-unspec August 23, 2024 1:5 3pm Congenital tongue-tie August 23, 2024 1:5 3pm Obesity affecting August 23 1:53pm August 23, 2024 1:53p m Supervision of high-risk August 122024 1:53pm Anemia in preg-unspec September 09, 2024 8:1 8am Congenital tongue-tie September 09, 2024 8:1 8am Obesity affecting September 09 8:18am September 09, 2024 8:18a m Supervision of high-risk August 132024 8:18am Tachycardia September 09, 2024 8:18a m Threatened labor September 09, 2024 8:18am Decreased movements in third trime ster September 09, 2024 9:30am Anemia in preg-unspec September 22, 2024 1: 38pm Congenital tongue-tie September 22, 2024 1: 38pm Decreased movements in third trime ster September 22, 2024 1:38pm Obesity affecting September 22, 2 025 1:38pm September 22, 2024 1:38 pm Supervision of high-risk September 22, 2024 1:38pm Tachycardia September 22, 2024 1:38 pm Threatened labor September 22, 2024 1:38pm Abdominal trauma September 30, 2024 1:41 pm Anemia in preg-unspec September 30, 2024 1: 41pm Congenital tongue-tie September 30, 2024 1: 41pm Decreased movements in third trime ster September 30, 2024 1:41pm Obesity affecting September 30, 2 025 1:41pm September 30, 2024 1:41 pm Supervision of high-risk September 30, 2024 1:41pm Tachycardia September 30, 2024 1:41 pm Threatened labor September 30, 2024 1:41pm Chief Complaint Admit Date 22 wk ob June 18, 2024 8:38 am heartbeat check per KW June 24, 2024 12:58pm 28 WK OB July 30, 2024 10: 50am R/O LABOR August 05, 2024 9:5 5pm R/O LABOR August 05, 2024 10: 32pm 30 WK OB August 11, 2024 11: 12am 32wk ob August 23, 2024 1:53p m Tachycardia, unspecified August 25, 2024 7:54am Tachycardia, unspecified August 25, 2024 8:20am 34wk ob September 09, 2024 8:18a m NST September 09, 2024 9:30a m NST September 09, 2024 10:32 pm 36wk ob September 22, 2024 1:38 pm FALL September 29, 2024 11:4 3am FALL September 29, 2024 4:55 pm 37 wk ob September 30, 2024 1:41 pm 38 wk ob October 07, 2024 8:17 am Reason for Visit Admit Date Congenital tongue-tie June 18, 2024 8: 38am Obesity affecting June 18 8:38am June 18, 2024 8:38 am Supervision of high-risk June 18, 2024 8:38am Elevated triglycerides with high cholest norma June 18, 2024 8:38am Hx of iron deficiency anemia June 18, 2024 8:38am Congenital tongue-tie June 24, 2024 1 2:58pm Obesity affecting June 24, 2024 12:58pm June 24, 2024 12: 58pm Supervision of high-risk June 24, 2024 12:58pm Elevated triglycerides with high cholest norma June 24, 2024 12:58pm Hx of iron deficiency anemia June 24, 2024 12:58pm Yeast infection June 24, 2024 12: 58pm Congenital tongue-tie July 12, 2024 2 :40pm Obesity affecting July 12, 2024 2:40pm July 12, 2024 2:4 0pm Supervision of high-risk July 12, 2024 2:40pm Elevated triglycerides with high cholest norma July 12, 2024 2:40pm Hx of iron deficiency anemia July 12, 2024 2:40pm Yeast infection July 12, 2024 2:4 0pm Congenital tongue-tie July 30, 2024 1 0:50am Obesity affecting July 30, 2024 10:50am July 30, 2024 10: 50am Supervision of high-risk July 30, 2024 10:50am Congenital tongue-tie August 05, 2024 9 :55pm Obesity affecting August 05, 2024 9:55pm August 05, 2024 9:5 5pm Supervision of high-risk August 05, 2024 9:55pm Threatened labor August 05 9:55pm Congenital tongue-tie August 11, 2024 1 1:12am Obesity affecting August 11, 2024 11:12am August 11, 2024 11: 12am Supervision of high-risk August 11, 2024 11:12am Threatened labor August 11 11:12am Anemia in preg-unspec August 23, 2024 1:5 3pm Congenital tongue-tie August 23, 2024 1:5 3pm Obesity affecting August 23 1:53pm August 23, 2024 1:53p m Supervision of high-risk August 122024 1:53pm Anemia in preg-unspec September 09, 2024 8:1 8am Congenital tongue-tie September 09, 2024 8:1 8am Obesity affecting September 09 8:18am September 09, 2024 8:18a m Supervision of high-risk August 132024 8:18am Tachycardia September 09, 2024 8:18a m Threatened labor September 09, 2024 8:18am Decreased movements in third trime ster September 09, 2024 9:30am Anemia in preg-unspec September 22, 2024 1: 38pm Congenital tongue-tie September 22, 2024 1: 38pm Obesity affecting September 22, 2 025 1:38pm September 22, 2024 1:38 pm Supervision of high-risk September 22, 2024 1:38pm Decreased movements in third trime ster September 22, 2024 1:38pm Tachycardia September 22, 2024 1:38 pm Threatened labor September 22, 2024 1:38pm Anemia in preg-unspec September 30, 2024 1: 41pm Congenital tongue-tie September 30, 2024 1: 41pm Obesity affecting September 30, 2 025 1:41pm September 30, 2024 1:41 pm Supervision of high-risk September 30, 2024 1:41pm Abdominal trauma September 30, 2024 1:41 pm Decreased movements in third trime ster September 30, 2024 1:41pm Tachycardia September 30, 2024 1:41 pm Threatened labor September 30, 2024 1:41pm Anemia in preg-unspec October 07, 2024 8: 17am Congenital tongue-tie October 07, 2024 8: 17am Obesity affecting October 07, 025 8:17am October 07, 2024 8:17 am Supervision of high-risk October 07, 2024 8:17am Abdominal trauma October 07, 2024 8:17 am Decreased movements in third trime ster October 07, 2024 8:17am Tachycardia October 07, 2024 8:17 am Threatened labor October 07, 2024 8:17am Chief Complaint Admit Date 22 wk ob June 18, 2024 8:38 am heartbeat check per KW June 24, 2024 12:58pm 28 WK OB July 30, 2024 10: 50am R/O LABOR August 05, 2024 9:5 5pm R/O LABOR August 05, 2024 10: 32pm 30 WK OB August 11, 2024 11: 12am 32wk ob August 23, 2024 1:53p m Tachycardia, unspecified August 25, 2024 7:54am Tachycardia, unspecified August 25, 2024 8:20am 34wk ob September 09, 2024 8:18a m NST September 09, 2024 9:30a m NST September 09, 2024 10:32 pm 36wk ob September 22, 2024 1:38 pm FALL September 29, 2024 11:4 3am FALL September 29, 2024 4:55 pm 37 wk ob September 30, 2024 1:41 pm 38 wk ob October 07, 2024 8:17 am CONSULT October 08 10:35am Chief Complaint Admit Date 22 wk ob June 18, 2024 8:38 am heartbeat check per KW June 24, 2024 12:58pm 28 WK OB July 30, 2024 10: 50am R/O LABOR August 05, 2024 9:5 5pm R/O LABOR August 05, 2024 10: 32pm 30 WK OB August 11, 2024 11: 12am 32wk ob August 23, 2024 1:53p m Tachycardia, unspecified August 25, 2024 7:54am Tachycardia, unspecified August 25, 2024 8:20am 34wk ob September 09, 2024 8:18a m NST September 09, 2024 9:30a m NST September 09, 2024 10:32 pm 36wk ob September 22, 2024 1:38 pm FALL September 29, 2024 11:4 3am FALL September 29, 2024 4:55 pm 37 wk ob September 30, 2024 1:41 pm 38 wk ob October 07, 2024 8:17 am CONSULT October 08 10:35am 39wk ob October 12, 2024 8:13a m Reason for Visit Admit Date Congenital tongue-tie June 18, 2024 8: 38am Obesity affecting June 18 8:38am June 18, 2024 8:38 am Supervision of high-risk June 18, 2024 8:38am Elevated triglycerides with high cholest norma June 18, 2024 8:38am Hx of iron deficiency anemia June 18, 2024 8:38am Congenital tongue-tie June 24, 2024 1 2:58pm Obesity affecting June 24, 2024 12:58pm June 24, 2024 12: 58pm Supervision of high-risk June 24, 2024 12:58pm Elevated triglycerides with high cholest norma June 24, 2024 12:58pm Hx of iron deficiency anemia June 24, 2024 12:58pm Yeast infection June 24, 2024 12: 58pm Congenital tongue-tie July 12, 2024 2 :40pm Obesity affecting July 12, 2024 2:40pm July 12, 2024 2:4 0pm Supervision of high-risk July 12, 2024 2:40pm Elevated triglycerides with high cholest norma July 12, 2024 2:40pm Hx of iron deficiency anemia July 12, 2024 2:40pm Yeast infection July 12, 2024 2:4 0pm Congenital tongue-tie July 30, 2024 1 0:50am Obesity affecting July 30, 2024 10:50am July 30, 2024 10: 50am Supervision of high-risk July 30, 2024 10:50am Congenital tongue-tie August 05, 2024 9 :55pm Obesity affecting August 05, 2024 9:55pm August 05, 2024 9:5 5pm Supervision of high-risk August 05, 2024 9:55pm Threatened labor August 05 9:55pm Congenital tongue-tie August 11, 2024 1 1:12am Obesity affecting August 11, 2024 11:12am August 11, 2024 11: 12am Supervision of high-risk August 11, 2024 11:12am Threatened labor August 11 11:12am Anemia in preg-unspec August 23, 2024 1:5 3pm Congenital tongue-tie August 23, 2024 1:5 3pm Obesity affecting August 23 1:53pm August 23, 2024 1:53p m Supervision of high-risk August 122024 1:53pm Anemia in preg-unspec September 09, 2024 8:1 8am Congenital tongue-tie September 09, 2024 8:1 8am Obesity affecting September 09 8:18am September 09, 2024 8:18a m Supervision of high-risk August 132024 8:18am Tachycardia September 09, 2024 8:18a m Threatened labor September 09, 2024 8:18am Decreased movements in third trime ster September 09, 2024 9:30am Anemia in preg-unspec September 22, 2024 1: 38pm Congenital tongue-tie September 22, 2024 1: 38pm Obesity affecting September 22, 025 1:38pm September 22, 2024 1:38 pm Supervision of high-risk September 22, 2024 1:38pm Decreased movements in third trime ster September 22, 2024 1:38pm Tachycardia September 22, 2024 1:38 pm Threatened labor September 22, 2024 1:38pm Anemia in preg-unspec September 30, 2024 1: 41pm Congenital tongue-tie September 30, 2024 1: 41pm Obesity affecting September 30 2 025 1:41pm September 30, 2024 1:41 pm Supervision of high-risk September 30, 2024 1:41pm Abdominal trauma September 30, 2024 1:41 pm Decreased movements in third trime ster September 30, 2024 1:41pm Tachycardia September 30, 2024 1:41 pm Threatened labor September 30, 2024 1:41pm Anemia in preg-unspec October 07, 2024 8: 17am Congenital tongue-tie October 07, 2024 8: 17am Obesity affecting October 07 025 8:17am October 07, 2024 8:17 am Supervision of high-risk October 07, 2024 8:17am Abdominal trauma October 07, 2024 8:17 am Decreased movements in third trime ster October 07, 2024 8:17am Tachycardia October 07, 2024 8:17 am Threatened labor October 07, 2024 8:17am Anemia in preg-unspec October 12, 2024 8:1 3am Congenital tongue-tie October 12, 2024 8:1 3am Obesity affecting October 12 8:13am October 12, 2024 8:13a m Supervision of high-risk October 12, 2024 8:13am Medications Administered Section Inactive Administered Medications - up to 3 most recent administrations Medication Order MAR Action Action Date Dose Rate Site iron sucrose 200 mg in NaCl 0.9% 100ml (VENOFER) 200 mg, INTRAVENOUS, at 400 mL/hr, Administer over 15 Minutes, ONCE, 1 dose, On Rosa 09/26/22 at 1100, Please conduct a 30 minute post-dose observation. New Bag/Syringe/Bottle 09/26/2022 10:55 AM EDT 200 mg 400 mL/hr Inactive Administered Medications - up to 3 most recent administrations Medication Order MAR Action Action Date Dose Rate Site iron sucrose 200 mg in NaCl 0.9% 100ml (VENOFER) 200 mg, INTRAVENOUS, at 400 mL/hr, Administer over 15 Minutes, ONCE, 1 dose, On Rosa 10/03/22 at 1030, Please conduct a 30 minute post-dose observation. New Bag/Syringe/Bottle 10/03/2022 10:35 AM EDT 200 mg 400 mL/hr Inactive Administered Medications - up to 3 most recent administrations Medication Order MAR Action Action Date Dose Rate Site iron sucrose 200 mg in NaCl 0.9% 100ml (VENOFER) 200 mg, INTRAVENOUS, at 400 mL/hr, Administer over 15 Minutes, ONCE, 1 dose, On Rosa 10/10/22 at 1100, Please conduct a 30 minute post-dose observation. New Bag/Syringe/Bottle 10/10/2022 11:09 AM EDT 200 mg 400 mL/hr Additional Source Comments Reason for Visit (unrecogniz ed section and content) Reason Comments Otalgia pressure since this morning both ears Reason Comments Heavy Bleeding Reason Comments Yearly Exam Reason Comments Care Reason Onset Date Comments Initial OB Visit Immunizations 03/11/2022 Flu vaccination Reason Comments Patient Question Reason Onset Date Comments Care 03/19/2022 Reason Onset Date Comments Care 04/12/2022 Reason Onset Date Comments Care 05/13/2022 Reason Onset Date Comments Care 06/10/2022 Reason Comments US Specialty Diagnoses / Procedures Referred By Contcaron t Referred To Contact [facility] Diagnoses Encounter for supervision of normal first in first trimester Procedures OBSTETRIC ULTRASOUND WHI US PREG UTERUS AFTER 1ST TRIMEST GESTATION Alyssa Packer MD [address] [place] [address] [facility] [address] [place] [address] Referral ID Status Reason Start Date Expiration Date V isits Requested Visits Authorized [id number] Closed Auto-Generate d Referral 03/11/2022 03/11/2023 1 1 Reason Onset Date Comments Care 07/08/2022 Reason Comments Swelling Reason Onset Date Comments Care 08/08/2022 Reason Onset Date Comments Care 08/23/2022 Reason Comments Benefits Investigation Reason Comments Results Reason Comments Blood management Reason Onset Date Comments Care 09/19/2022 Reason Comments Non-Chemotherapy Treatment Specialty Diagnoses / Procedures Referred By Contac t Referred To Contact Diagnoses Maternal iron deficiency anemia complicating , third trimester Iron malabsorption Procedures IRON SUCROSE INJECTION PER 1 MG Davion Sepulveda MD [address] [place] [address] [facility] [address] [place] [address] Referral ID Status Reason Start Date Expiration Date V isits Requested Visits Authorized [id number] Authorized 09/12/2022 04/13/2023 99 99 Reason Onset Date Comments Care 10/02/2022 Specialty Diagnoses / Procedures Referred By Contac t Referred To Contact [facility] Diagnoses 34 weeks gestation of Uterine size-date discrepancy, third trimester Procedures OBSTETRIC ULTRASOUND WHI US PREG UTERUS AFTER 1ST TRIMEST GESTATION Sobeida Lopez MD [address] [place] [address] [facility] [address] [place] [address] Referral ID Status Reason Start Date Expiration Date V isits Requested Visits Authorized [id number] Closed Auto-Generate d Referral 09/19/2022 09/19/2023 1 1 Reason Onset Date Comments Care 10/09/2022 Reason Comments Breast Pump Reason Onset Date Comments Care 10/14/2022 Reason Comments Ob Delivery Note Reason Comments Care Reason Comments [facility] INFORMATION SOURCE (unrecogn ized section and content) DATE CREATED AUTHOR 07/22/2020 [employer] [facility] [employer] [facility] DATE CREATED AUTHOR AUTHOR'S ORGANIZ ATION 12/18/2023 [facility] DATE CREATED AUTHOR AUTHOR'S ORGANIZ ATION 06/12/2024 [facility] DATE CREATED AUTHOR AUTHOR'S ORGANIZ ATION 10/16/2024 [facility] Source Comments (unrecognize d section and content) In the event this informatio n is protected by the Federal Confidentiality of Alcohol and Drug Abuse Patient Records regulations: The Federal rules restrict any use of the information to criminally investigate or prosecute any alcohol or drug abuse patient.[facility] the event this information is protected by the Federal Confidentiality of Alcohol and Drug Abuse Patient Records regulations: The Federal rules restrict any use of the information to criminally investigate or prosecute any alcohol or drug abuse patient.[facility] the event this information is protected by the Federal Confidentiality of Alcohol and Drug Abuse Patient Records regulations: The Federal rules restrict any use of the information to criminally investigate or prosecute any alcohol or drug abuse patient.[facility] the event this information is protected by the Federal Confidentiality of Alcohol and Drug Abuse Patient Records regulations: The Federal rules restrict any use of the information to criminally investigate or prosecute any alcohol or drug abuse patient.[facility] the event this information is protected by the Federal Confidentiality of Alcohol and Drug Abuse Patient Records regulations: The Federal rules restrict any use of the information to criminally investigate or prosecute any alcohol or drug abuse patient.[facility] the event this information is protected by the Federal Confidentiality of Alcohol and Drug Abuse Patient Records regulations: The Federal rules restrict any use of the information to criminally investigate or prosecute any alcohol or drug abuse patient.[facility] the event this information is protected by the Federal Confidentiality of Alcohol and Drug Abuse Patient Records regulations: The Federal rules restrict any use of the information to criminally investigate or prosecute any alcohol or drug abuse patient.[facility] the event this information is protected by the Federal Confidentiality of Alcohol and Drug Abuse Patient Records regulations: The Federal rules restrict any use of the information to criminally investigate or prosecute any alcohol or drug abuse patient.[facility] the event this information is protected by the Federal Confidentiality of Alcohol and Drug Abuse Patient Records regulations: The Federal rules restrict any use of the information to criminally investigate or prosecute any alcohol or drug abuse patient.[facility] the event this information is protected by the Federal Confidentiality of Alcohol and Drug Abuse Patient Records regulations: The Federal rules restrict any use of the information to criminally investigate or prosecute any alcohol or drug abuse patient.[facility] the event this information is protected by the Federal Confidentiality of Alcohol and Drug Abuse Patient Records regulations: The Federal rules restrict any use of the information to criminally investigate or prosecute any alcohol or drug abuse patient.[facility] the event this information is protected by the Federal Confidentiality of Alcohol and Drug Abuse Patient Records regulations: The Federal rules restrict any use of the information to criminally investigate or prosecute any alcohol or drug abuse patient.[facility] the event this information is protected by the Federal Confidentiality of Alcohol and Drug Abuse Patient Records regulations: The Federal rules restrict any use of the information to criminally investigate or prosecute any alcohol or drug abuse patient.[facility] the event this information is protected by the Federal Confidentiality of Alcohol and Drug Abuse Patient Records regulations: The Federal rules restrict any use of the information to criminally investigate or prosecute any alcohol or drug abuse patient.[facility] the event this information is protected by the Federal Confidentiality of Alcohol and Drug Abuse Patient Records regulations: The Federal rules restrict any use of the information to criminally investigate or prosecute any alcohol or drug abuse patient.[facility] the event this information is protected by the Federal Confidentiality of Alcohol and Drug Abuse Patient Records regulations: The Federal rules restrict any use of the information to criminally investigate or prosecute any alcohol or drug abuse patient.[facility] the event this information is protected by the Federal Confidentiality of Alcohol and Drug Abuse Patient Records regulations: The Federal rules restrict any use of the information to criminally investigate or prosecute any alcohol or drug abuse patient.[facility] the event this information is protected by the Federal Confidentiality of Alcohol and Drug Abuse Patient Records regulations: The Federal rules restrict any use of the information to criminally investigate or prosecute any alcohol or drug abuse patient.[facility] the event this information is protected by the Federal Confidentiality of Alcohol and Drug Abuse Patient Records regulations: The Federal rules restrict any use of the information to criminally investigate or prosecute any alcohol or drug abuse patient.[facility] the event this information is protected by the Federal Confidentiality of Alcohol and Drug Abuse Patient Records regulations: The Federal rules restrict any use of the information to criminally investigate or prosecute any alcohol or drug abuse patient.[facility] the event this information is protected by the Federal Confidentiality of Alcohol and Drug Abuse Patient Records regulations: The Federal rules restrict any use of the information to criminally investigate or prosecute any alcohol or drug abuse patient.[facility] Hospital[facility] the event this information is protected by the Federal Confidentiality of Alcohol and Drug Abuse Patient Records regulations: The Federal rules restrict any use of the information to criminally investigate or prosecute any alcohol or drug abuse patient.[facility] Hospital[facility] the event this information is protected by the Federal Confidentiality of Alcohol and Drug Abuse Patient Records regulations: The Federal rules restrict any use of the information to criminally investigate or prosecute any alcohol or drug abuse patient.[facility] the event this information is protected by the Federal Confidentiality of Alcohol and Drug Abuse Patient Records regulations: The Federal rules restrict any use of the information to criminally investigate or prosecute any alcohol or drug abuse patient.[facility] HospitalIn the event this information is protected by the Federal Confidentiality of Alcohol and Drug Abuse Patient Records regulations: The Federal rules restrict any use of the information to criminally investigate or prosecute any alcohol or drug abuse patient.[facility] the event this information is protected by the Federal Confidentiality of Alcohol and Drug Abuse Patient Records regulations: The Federal rules restrict any use of the information to criminally investigate or prosecute any alcohol or drug abuse patient.[facility] the event this information is protected by the Federal Confidentiality of Alcohol and Drug Abuse Patient Records regulations: The Federal rules restrict any use of the information to criminally investigate or prosecute any alcohol or drug abuse patient.[facility] the event this information is protected by the Federal Confidentiality of Alcohol and Drug Abuse Patient Records regulations: The Federal rules restrict any use of the information to criminally investigate or prosecute any alcohol or drug abuse patient.[facility] the event this information is protected by the Federal Confidentiality of Alcohol and Drug Abuse Patient Records regulations: The Federal rules restrict any use of the information to criminally investigate or prosecute any alcohol or drug abuse patient.[facility] the event this information is protected by the Federal Confidentiality of Alcohol and Drug Abuse Patient Records regulations: The Federal rules restrict any use of the information to criminally investigate or prosecute any alcohol or drug abuse patient.[facility] the event this information is protected by the Federal Confidentiality of Alcohol and Drug Abuse Patient Records regulations: The Federal rules restrict any use of the information to criminally investigate or prosecute any alcohol or drug abuse patient.[facility] the event this information is protected by the Federal Confidentiality of Alcohol and Drug Abuse Patient Records regulations: The Federal rules restrict any use of the information to criminally investigate or prosecute any alcohol or drug abuse patient.[facility] Care Teams (unrecognized sec tion and content) Ceramics Engineer Relationship Specialty Start Date End Date Muriel Catalan MD [address] [facility] [place] [address] PCP - General 02/05/02 Ceramics Engineer Relationship Specialty Start Date End Date Muriel Catalan MD [address] [facility] [place] [address] PCP - General 02/05/02 Ceramics Engineer Relationship Specialty Start Date End Date Muriel Catalan MD [address] [place] [address] PCP - General 02/05/02 Ceramics Engineer Relationship Specialty Start Date End Date Muriel Catalan MD [address] [place] [address] PCP - General 02/05/02 Ceramics Engineer Relationship Specialty Start Date End Date Muriel Catalan MD [address] [place] [address] PCP - General 02/05/02 Ceramics Engineer Relationship Specialty Start Date End Date Muriel Catalan MD [address] [place] [address] PCP - General 02/05/02 Ceramics Engineer Relationship Specialty Start Date End Date Muriel Catalan MD [address] [place] [address] PCP - General 02/05/02 Ceramics Engineer Relationship Specialty Start Date End Date Muriel Catalan MD [address] [place] [address] PCP - General 02/05/02 Ceramics Engineer Relationship Specialty Start Date End Date Muriel Catalan MD [address] [place] [address] PCP - General 02/05/02 Team Status: Active Member Role Status Dates Dr. Geronimo Arias , DO Primary Care Provider A ctive Team Status: Inactive Member Role Status Dates Kimi Vasquez CNM Attending Provider, Referring Pr ovider Active Dr. Geronimo Arias , DO Primary Care Provider A ctive Ceramics Engineer Relationship Specialty Start Date End Date Muriel Catalan MD [address] [facility] [place] [address] PCP - General 02/05/02 Ceramics Engineer Relationship Specialty Start Date End Date Muriel Catalan MD [address] [facility] [place] [address] PCP - General 02/05/02 Ceramics Engineer Relationship Specialty Start Date End Date Muriel Catalan MD [address] [facility] [place] [address] PCP - General 02/05/02 Ceramics Engineer Relationship Specialty Start Date End Date Muriel Catalan MD [address] [facility] [place] [address] PCP - General 02/05/02 Ceramics Engineer Relationship Specialty Start Date End Date Muriel Catalan MD [address] [facility] [place] [address] PCP - General 02/05/02 Ceramics Engineer Relationship Specialty Start Date End Date Muriel Catalan MD [address] [facility] [place] [address] PCP - General 02/05/02 Ceramics Engineer Relationship Specialty Start Date End Date Muriel Catalan MD [address] [facility] [place] [address] PCP - General 02/05/02 Team Status: Inactive Member Role Status Dates Dr. Geronimo Arias , DO Primary Care Provider A ctive Maya Gonzales CNM Attending Provider, Referring Prov ider Active Team Status: Inactive Member Role Status Dates Dr. Geronimo Arias , DO Primary Care Provider A ctive Dr. Davion Sepulveda MD Attending Provider, Referring Pr ovider Active Ceramics Engineer Relationship Specialty Start Date End Date Muriel Catalan MD [address] [place] [address] PCP - General 02/05/02 Team Status: Inactive Member Role Status Dates Dr. Geronimo Arias , DO Primary Care Provider A ctive Maya Gonzales CNM Referring Provider Active Dr. Davion Sepulveda MD Admit Provider, Attending Provid er Active Ceramics Engineer Relationship Specialty Start Date End Date Muriel Catalan MD [address] [place] [address] PCP - General 02/05/02 Ceramics Engineer Relationship Specialty Start Date End Date Muriel Catalan MD [address] [place] [address] PCP - General 02/05/02 Team Status: Inactive Member Role Status Dates Dr. Geronimo Arias , Primary Care Provider A ctive Start: March 18, 2024 End: March 18, 2024 Dr. Geronimo Arias , Referring Provider Acti ve Start: March 18, 2024 End: March 18, 2024 Chrissy Tristan CNM Attending Provider Active S tart: March 18, 2024 End: March 18, 2024 Team Status: Inactive Member Role Status Dates Dr. Geronimo Arias DO Primary Care Provider A ctive Start: March 18, 2024 End: March 18, 2024 Chrissy Tristan CNM Attending Provider Active S tart: March 18, 2024 End: March 18, 2024 Chrissy Tristan CNM Referring Provider Active S tart: March 18, 2024 End: March 18, 2024 Team Status: Inactive Member Role Status Dates Dr. Geronimo Arias DO Primary Care Provider Active Start: April 122023 End: April 12, 2024 Chrissy Tristan CNM Attending Provider Active S tart: April 12, 2024 End: April 12, 2024 Chrissy Tristan CNM Referring Provider Active S tart: April 12, 2024 End: April 12, 2024 Team Status: Inactive Member Role Status Dates Dr. Geronimo Arias , Primary Care Provider A ctive Start: April 21, 2024 End: April 21, 2024 Dr. Geronimo Arias , Referring Provider Acti ve Start: April 21, 2024 End: April 21, 2024 Dr. Becky Galvez MD Attending Provider Active Start: April 21, 2024 End: April 21, 2024 Team Status: Inactive Member Role Status Dates Dr. Geronimo Arias , DO Primary Care Provider A ctive Start: May 21, 2024 End: May 21, 2024 Dr. Geronimo Arias , DO Referring Provider Acti ve Start: May 21, 2024 End: May 21, 2024 Chrissy Tristan CNM Attending Provider Active S tart: May 21, 2024 End: May 21, 2024 Team Status: Inactive Member Role Status Dates Dr. Geronimo Arias DO Primary Care Provider A ctive Start: June 18, 2024 End: June 18, 2024 Dr. Geronimo Arias DO Referring Provider Acti ve Start: June 18, 2024 End: June 18, 2024 Chrissy Tristan CNM Attending Provider Active S tart: June 18, 2024 End: June 18, 2024 Team Status: Inactive Member Role Status Dates Dr. Geronimo Arias DO Primary Care Provider A ctive Start: June 24, 2024 End: June 24, 2024 Dr. Geronimo Arias DO Referring Provider Acti ve Start: June 24, 2024 End: June 24, 2024 Chrissy Tristan CNM Attending Provider Active S tart: June 24, 2024 End: June 24, 2024 Team Status: Inactive Member Role Status Dates Dr. Geronimo Arias DO Primary Care Provider A ctive Start: July 12, 2024 End: July 12, 2024 Chrissy Tristan CNM Attending Provider Active S tart: July 12, 2024 End: July 12, 2024 Chrissy Tristan CNM Referring Provider Active S tart: July 12, 2024 End: July 12, 2024 Team Status: Inactive Member Role Status Dates Dr. Geronimo Arias DO Primary Care Provider A ctive Start: July 30, 2024 End: July 30, 2024 Dr. Geronimo Arias , DO Referring Provider Acti ve Start: July 30, 2024 End: July 30, 2024 Dr. Becky Galvez MD Attending Provider Active Start: July 30, 2024 End: July 30, 2024 Team Status: Inactive Member Role Status Dates Dr. Geronimo Arias , DO Primary Care Provider A ctive Start: August 05, 2024 End: August 06, 2024 Dr. Becky Galvez MD Attending Provider Active Start: August 05, 2024 End: August 06, 2024 Dr. Becky Galvez MD Referring Provider Active Start: August 05, 2024 End: August 06, 2024 Team Status: Active Member Role Status Dates Dr. Geronimo Arias , DO Primary Care Provider A ctive Start: August 05, 2024 Dr. Becky Galvez MD Attending Provider Active Start: August 05, 2024 Dr. Becky Galvez MD Referring Provider Active Start: August 05, 2024 Dr. Becky Galvez MD Other Provider Active Start: August 05, 2024 Team Status: Inactive Member Role Status Dates Dr. Geronimo Arias , DO Primary Care Provider A ctive Start: August 11, 2024 End: August 11, 2024 Dr. Geronimo Arias , DO Referring Provider Acti ve Start: August 11, 2024 End: August 11, 2024 Dr. Selene Braun DO Attending Provider Activ e Start: August 11, 2024 End: August 11, 2024 Team Status: Inactive Member Role Status Dates Dr. Geronimo Arias , DO Primary Care Provider A ctive Start: August 23, 2024 End: August 23, 2024 Dr. Geronimo Arias , DO Referring Provider Acti ve Start: August 23, 2024 End: August 23, 2024 Promise Agosto SUPERVISOR INSTRUMENT MECHANICS, SUPERVISOR [employer]UMENT [employer]CH[employer]-C Attending Provider Active Start: August 23, 2024 End: August 23, 2024 Team Status: Inactive Member Role Status Dates Dr. Geronimo Arias , DO Primary Care Provider A ctive Start: August 25, 2024 End: August 25, 2024 Promise Agosto SUPERVISOR [employer]STRUMENT [employer]CH[employer], SUPERVISOR [employer]-C Attending Provider Active Start: August 25, 2024 End: August 25, 2024 Promise Agosto SUPERVISOR INSTRUMENT MECHANICS, SUPERVISOR [employer]-C Referring Provider Active Start: August 25, 2024 End: August 25, 2024 Team Status: Active Member Role Status Dates Dr. Geronimo Arias , DO Primary Care Provider A ctive Start: August 25, 2024 End: August 25, 2024 Dr. Jacob Suggs MD Attending Provider Active Start: August 25, 2024 End: August 25, 2024 Promise Agosto SUPERVISOR [employer]CH[employer], SUPERVISOR [employer]-C Referring Provider Active Start: August 25, 2024 End: August 25, 2024 Team Status: Inactive Member Role Status Dates Dr. Geronimo Arias , DO Primary Care Provider A ctive Start: September 09, 2024 End: September 09, 2024 Dr. Geronimo Arias , DO Referring Provider Acti ve Start: September 09, 2024 End: September 09, 2024 Chrissy Tristan CNM Attending Provider Active S tart: September 09, 2024 End: September 09, 2024 Team Status: Inactive Member Role Status Dates Dr. Geronimo Arias , DO Primary Care Provider A ctive Start: September 09, 2024 End: September 09, 2024 Dr. Becky Galvez MD Attending Provider Active Start: September 09, 2024 End: September 09, 2024 Dr. Becky Galvez MD Referring Provider Active Start: September 09, 2024 End: September 09, 2024 Team Status: Active Member Role Status Dates Dr. Geronimo Arias , DO Primary Care Provider A ctive Start: September 09, 2024 Dr. Becky Galvez MD Attending Provider Active Start: September 09, 2024 Dr. Becky Galvez MD Referring Provider Active Start: September 09, 2024 Dr. Becky Galvez MD Other Provider Active Start: September 09, 2024 Team Status: Inactive Member Role Status Dates Dr. Geronimo Arias , DO Primary Care Provider A ctive Start: September 22, 2024 End: September 22, 2024 Dr. Geronimo Arias , DO Referring Provider Acti ve Start: September 22, 2024 End: September 22, 2024 Dr. Selene Braun DO Attending Provider Activ e Start: September 22, 2024 End: September 22, 2024 Team Status: Inactive Member Role Status Dates Dr. Geronimo Arias , DO Primary Care Provider A ctive Start: September 22, 2024 End: September 22, 2024 Dr. Selene Braun DO Attending Provider Activ e Start: September 22, 2024 End: September 22, 2024 Dr. Selene Braun DO Referring Provider Activ e Start: September 22, 2024 End: September 22, 2024 Team Status: Inactive Member Role Status Dates Dr. Geronimo Arias , DO Primary Care Provider A ctive Start: September 29, 2024 End: September 29, 2024 Dr. Becky Galvez MD Attending Provider Active Start: September 29, 2024 End: September 29, 2024 Dr. Becky Galvez MD Referring Provider Active Start: September 29, 2024 End: September 29, 2024 Team Status: Active Member Role Status Dates Dr. Geronimo Arias DO Primary Care Provider A ctive Start: September 29, 2024 Dr. Becky Galvez MD Attending Provider Active Start: September 29, 2024 Dr. Becky Galvez MD Referring Provider Active Start: September 29, 2024 Dr. Becky Galvez MD Other Provider Active Start: September 29, 2024 Team Status: Inactive Member Role Status Dates Dr. Geronimo Arias DO Primary Care Provider A ctive Start: September 30, 2024 End: September 30, 2024 Dr. Geronimo Arias DO Referring Provider Acti ve Start: September 30, 2024 End: September 30, 2024 Dr. Selene Braun DO Attending Provider Activ e Start: September 30, 2024 End: September 30, 2024 Team Status: Inactive Member Role Status Dates Dr. Geronimo Arias DO Primary Care Provider A ctive Start: October 07, 2024 End: October 07, 2024 Dr. Geronimo Arias DO Referring Provider Acti ve Start: October 07, 2024 End: October 07, 2024 Dr. Becky Galvez MD Attending Provider Active Start: October 07, 2024 End: October 07, 2024 Team Status: Active Member Role/Relationship Status Dates Dr. Geronimo Arias , DO Primary Care Provider A ctive Team Status: Inactive Member Role/Relationship Status Dates Dr. Geronimo Arias , DO Primary Care Provider A ctive Start: June 18, 2024 End: June 18, 2024 Dr. Geronimo Arias DO Referring Provider Acti ve Start: June 18, 2024 End: June 18, 2024 Chrissy Tristan CNM Attending Provider Active S tart: June 18, 2024 End: June 18, 2024 Team Status: Inactive Member Role/Relationship Status Dates Dr. Geronimo Arias , DO Primary Care Provider A ctive Start: June 24, 2024 End: June 24, 2024 Dr. Geronimo Arias , Referring Provider Acti ve Start: June 24, 2024 End: June 24, 2024 Chrissy Tristan CNM Attending Provider Active S tart: June 24, 2024 End: June 24, 2024 Team Status: Inactive Member Role/Relationship Status Dates Dr. Geronimo Arias DO Primary Care Provider A ctive Start: July 12, 2024 End: July 12, 2024 Chrissy rTistan CNM Attending Provider Active S tart: July 12, 2024 End: July 12, 2024 Chrissy Tristan CNM Referring Provider Active S tart: July 12, 2024 End: July 12, 2024 Team Status: Inactive Member Role/Relationship Status Dates Dr. Geronimo Arias DO Primary Care Provider A ctive Start: July 30, 2024 End: July 30, 2024 Dr. Geronimo Arias DO Referring Provider Acti ve Start: July 30, 2024 End: July 30, 2024 Dr. Becky Galvez MD Attending Provider Active Start: July 30, 2024 End: July 30, 2024 Team Status: Inactive Member Role/Relationship Status Dates Dr. Geronimo Arias , DO Primary Care Provider A ctive Start: August 05, 2024 End: August 06, 2024 Dr. Becky Galvez MD Attending Provider Active Start: August 05, 2024 End: August 06, 2024 Dr. Becky Galvez MD Referring Provider Active Start: August 05, 2024 End: August 06, 2024 Team Status: Active Member Role/Relationship Status Dates Dr. Geronimo Arias , DO Primary Care Provider A ctive Start: August 05, 2024 Dr. Becky Galvez MD Attending Provider Active Start: August 05, 2024 Dr. Becky Galvez MD Referring Provider Active Start: August 05, 2024 Dr. Becky Galvez MD Other Provider Active Start: August 05, 2024 Team Status: Inactive Member Role/Relationship Status Dates Dr. Geronimo Arias , DO Primary Care Provider A ctive Start: August 11, 2024 End: August 11, 2024 Dr. Geronimo Arias , DO Referring Provider Acti ve Start: August 11, 2024 End: August 11, 2024 Dr. Selene Braun , Attending Provider Activ e Start: August 11, 2024 End: August 11, 2024 Team Status: Inactive Member Role/Relationship Status Dates Dr. Geronimo Arias , DO Primary Care Provider A ctive Start: August 23, 2024 End: August 23, 2024 Dr. Geronimo Arias , DO Referring Provider Acti ve Start: August 23, 2024 End: August 23, 2024 Promise Agosto SUPERVISOR [employer]CH[employer], SUPERVISOR IN[employer]CH[employer]-C Attending Provider Active Start: August 23, 2024 End: August 23, 2024 Team Status: Inactive Member Role/Relationship Status Dates Dr. Geronimo Arias , DO Primary Care Provider A ctive Start: August 25, 2024 End: August 25, 2024 Promise Agosto SUPERVISOR IN[employer]CH[employer], SUPERVISOR [employer]-C Attending Provider Active Start: August 25, 2024 End: August 25, 2024 Promise Agosto SUPERVISOR [employer]STRUMENT MECHAN[employer], SUPERVISOR [employer]CH[employer]-C Referring Provider Active Start: August 25, 2024 End: August 25, 2024 Team Status: Active Member Role/Relationship Status Dates Dr. Geronimo Arias , DO Primary Care Provider A ctive Start: August 25, 2024 End: August 25, 2024 Dr. Jacob Suggs MD Attending Provider Active Start: August 25, 2024 End: August 25, 2024 Promise Agosto SUPERVISOR [employer]STR[employer]CH[employer]ICS, SUPERVISOR [employer]CH[employer]-C Referring Provider Active Start: August 25, 2024 End: August 25, 2024 Team Status: Inactive Member Role/Relationship Status Dates Dr. Geronimo Arias , DO Primary Care Provider A ctive Start: September 09, 2024 End: September 09, 2024 Dr. Geronimo Arias , DO Referring Provider Acti ve Start: September 09, 2024 End: September 09, 2024 Chrissy Tristan CNM Attending Provider Active S tart: September 09, 2024 End: September 09, 2024 Team Status: Inactive Member Role/Relationship Status Dates Dr. Geronimo Arias , DO Primary Care Provider A ctive Start: September 09, 2024 End: September 09, 2024 Dr. Becky Galvez MD Attending Provider Active Start: September 09, 2024 End: September 09, 2024 Dr. Becky Galvez MD Referring Provider Active Start: September 09, 2024 End: September 09, 2024 Team Status: Active Member Role/Relationship Status Dates Dr. Geronimo Arias , DO Primary Care Provider A ctive Start: September 09, 2024 Dr. Becky Galvez MD Attending Provider Active Start: September 09, 2024 Dr. Becky Galvez MD Referring Provider Active Start: September 09, 2024 Dr. Becky Galvez MD Other Provider Active Start: September 09, 2024 Team Status: Inactive Member Role/Relationship Status Dates Dr. Geronimo Arias , DO Primary Care Provider A ctive Start: September 22, 2024 End: September 22, 2024 Dr. Geronimo Arias , Referring Provider Acti ve Start: September 22, 2024 End: September 22, 2024 Dr. Selene Braun DO Attending Provider Activ e Start: September 22, 2024 End: September 22, 2024 Team Status: Inactive Member Role/Relationship Status Dates Dr. Geronimo Arias , DO Primary Care Provider A ctive Start: September 22, 2024 End: September 22, 2024 Dr. Selene Braun DO Attending Provider Activ e Start: September 22, 2024 End: September 22, 2024 Dr. Selene Braun DO Referring Provider Activ e Start: September 22, 2024 End: September 22, 2024 Team Status: Inactive Member Role/Relationship Status Dates Dr. Geronimo Arias , DO Primary Care Provider A ctive Start: September 29, 2024 End: September 29, 2024 Dr. Becky Galvez MD Attending Provider Active Start: September 29, 2024 End: September 29, 2024 Dr. Becky Galvez MD Referring Provider Active Start: September 29, 2024 End: September 29, 2024 Team Status: Active Member Role/Relationship Status Dates Dr. Geronimo Arias , DO Primary Care Provider A ctive Start: September 29, 2024 Dr. Becky Galvez MD Attending Provider Active Start: September 29, 2024 Dr. Becky Galvez MD Referring Provider Active Start: September 29, 2024 Dr. Becky Galvez MD Other Provider Active Start: September 29, 2024 Team Status: Inactive Member Role/Relationship Status Dates Dr. Geronimo Arias , DO Primary Care Provider A ctive Start: September 30, 2024 End: September 30, 2024 Dr. Geronimo Arias , DO Referring Provider Acti ve Start: September 30, 2024 End: September 30, 2024 Dr. Selene Braun , Attending Provider Activ e Start: September 30, 2024 End: September 30, 2024 Team Status: Inactive Member Role/Relationship Status Dates Dr. Geronimo Arias , DO Primary Care Provider A ctive Start: October 07, 2024 End: October 07, 2024 Dr. Geronimo Arias , Referring Provider Acti ve Start: October 07, 2024 End: October 07, 2024 Dr. Becky Galvez MD Attending Provider Active Start: October 07, 2024 End: October 07, 2024 Team Status: Inactive Member Role/Relationship Status Dates Dr. Geronimo Arias , DO Primary Care Provider A ctive Start: October 08, 2024 End: October 08, 2024 Dr. Becky Galvez MD Attending Provider Active Start: October 08, 2024 End: October 08, 2024 Dr. Becky Galvez MD Referring Provider Active Start: October 08, 2024 End: October 08, 2024 Team Status: Inactive Member Role/Relationship Status Dates Dr. Geronimo Arias DO Primary Care Provider A ctive Start: October 12, 2024 End: October 12, 2024 Dr. Geronimo Arias , DO Referring Provider Acti ve Start: October 12, 2024 End: October 12, 2024 Dr. Selene Braun DO Attending Provider Activ e Start: October 12, 2024 End: October 12, 2024 Goals (unrecognized section and content) Goals may be documented in a n alternate sectionGoals may be documented in an alternate sectionGoals may be documented in an alternate sectionGoals may be documented in an alternate sectionGoals may be documented in an alternate sectionGoals may be documented in an alternate sectionGoals may be documented in an alternate sectionGoals may be documented in an alternate sectionGoals may be documented in an alternate sectionGoals may be documented in an alternate sectionGoals may be documented in an alternate sectionGoals may be documented in an alternate sectionGoals may be documented in an alternate section FOR RECORDS PERTAINING TO PATIENTS WHO ARE OR HAVE BEEN ENROLLED IN A CHEMICAL DEPENDENCY/SUBSTANCEABUSE PROGRAM, SOME INFORMATION MAY BE OMITTED. This clinical summary was aggregated from multiple sources. Caution should be exercised in using it in the provision of clinical care. This summary normalizes information from multiple sources, and as a consequence, information in this document may materially change the coding, format and clinical context of patient data. In addition, data may be omitted in some cases. CLINICAL DECISIONS SHOULD BE BASED ON THE PRIMARY CLINICAL RECORDS. [employer] provides no warranty or guarantee of the accuracy or completeness of information in this document.
--- OUTSIDE RECORDS SUMMARY | 2024-10-17 17:54 | XMS RPT_ITS | CCD ---
Author Organization 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 Becky Galvez MD Attending Provider [phone] Dr. Geronimo Arias DO Primary Care Provi ga Chrissy Tristan CNM Attending Provider [phone] Chrissy Tristan CNM Referring Provider Dr. Geronimo Arias DO Referring Provider Dr. Becky Galvez MD Referring Provider Dr. Geronimo Arias DO Primary Care Provi ga Dr. Geronimo Arias DO Referring Provider Chrissy Tristan CNM Attending Provider Kun BARTON Chrissy Referring Provider [phone] Rain SIEGEL, Dr. Pena Attending Provider Rain SIEGEL, Dr. Pena Other Provider [phone] Ariel Back DO, Dr. Morton Attending Provider Triny METHODS SPECIALIST-C, Promise Attending Provider [phone] Triny METHODS SPECIALIST-C, Promise Referring Provider [phone] Es SIEGEL, Dr. James Attending Provider Hugo FRANCISCO, Dr. Geronimo [facility] Hugo FRANCISCO, Dr. Geronimo Arnold Referring Provider Kun BARTON, Chrissy Attending Provider [phone] Ariel Back DO, Dr. Morton Referring Provider [...] Attending Unavailabl Geronimo Ramos Referring Unavailab le Greonimo Arias Attending Unavailab Geronimo Lozano Primary Care Unavailab Geronimo Lozano Attending Unavailab Geronimo Lozano Primary Care Unavailab le [place] METHODS SPECIALIST, Promise Referring Unavailable Jacob Suggs Attending Unavailable [...] Hugo, Geronimosemaj Arnold Primary Care Unavailab le [place] METHODS SPECIALIST, Promise Attending Unavailable Geronimo Arias Referring Unavailab le Hugo, Geronimo Arnold Primary Care Unavailab le [place] METHODS SPECIALIST, Promise Attending Unavailable Triny METHODS SPECIALIST, Promise Referring Unavailable Geronimo Arias Primary Care [...] Comment on above: Take by mouth. Vit 05-Mgnj-Ravxy-Dha ( + Dha) 28 mg iron- 975 mcg-200 mg Combo Pack (14 sources) Start: 09-10-2022 Vit 04-Tihr-Khlqp-Dha ( + Dha) 28 mg iron- 975 mcg-200 mg Combo Pack Active 1 NMA PO DAILY September 10, 2022 12:00am Start: 09-10-2022 Vit 9 9-Enyx-Nkxnb-Dha ( + Dha) 28 mg iron- 975 mcg-200 mg Combo Pack Active 1 NMA PO DAILY September 10, 2022 12:00am Start: 09-10-2022 Vit 9 8-Nyov-Cuwbi-Dha ( + Dha) 28 mg iron- 975 [...] Test Name Value Interpretation Reference Range Facility Sled Maker Office Visit Reporton 10-12-2024 Sled Maker Office Visit Report [facility] [address], [address] [place] [address] OFFICE VISIT Date of Service: 10/12/24 MR#: [id number] Acct: [id number] Name: JAG PEREZ Rep #: [id number] : 2000 Provider: Dr. Selene Palomo DO Age/Sex: 23/F [place] [facility] [place]: Signed Intake Vital Signs 09/30/24 13:44 10/07/24 08:19 10/12/24 08:16 10/12/24 08:17 Height 5 ft 2 in 5 ft 2 in 5 ft 2 in 5 ft 2 in Weight: 203 lb 2 oz BMI 37.1 BP 109/74 Intake Visit Reasons: 39wk ob Java Web User Interface Developer Required: No Is patient in pain?: No [...] 1 current occupational status: unemployed current occupation: [employer] pets and animals: Yes (Avoid litterbox) pets [...] physical activity do you participate in: none pia/rastafari: Confucianism seatbelt use: always do you feel safe at home: Yes 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 (more content not included)... Normal [facility] Laboratory - Chemistry and C hemistry - challengeOrdered By: Becky Galvez on 10-07-2024 Glucose Ql (U) Negative [facility] Laboratory - UrinalysisOrder ed By: Becky Galvez on 10-07-2024 Protein Ql (U) Negative [facility] Sled Maker Office Visit Reporton 10-07-2024 Sled Maker Office Visit Report [facility] [address], [address] [place] [address] OFFICE VISIT Date of Service: 10/07/24 MR#: [id number] Acct: [id number] Name: JAG PEREZ Rep #: [id number] : 2000 Provider: Dr. Becky cervantes MD Age/Sex: 23/F [place] [facility] [place]: Signed Intake Vital Signs 08/23/24 13:55 09/30/24 13:44 10/07/24 08:18 10/07/24 08:19 Height 5 ft 2 in 5 ft 2 in 5 ft 2 in 5 ft 2 in Weight: 201 lb 4 oz BMI 36.8 BP 108/63 Intake Visit Reasons: 38 wk ob Java Web User Interface Developer Required: No Is patient in pain?: No [...] 1 current occupational status: unemployed current occupation: [employer] pets and animals: Yes (Avoid litterbox) pets [...] physical activity do you participate in: none pia/rastafari: Confucianism seatbelt use: always do you feel safe at home: Yes 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 (more content not included)... Normal [facility] Sled Maker Office Visit Reporton 09-30-2024 Sled Maker Office Visit Report [facility] [address], [address] [place] [address] OFFICE VISIT Date of Service: 09/30/24 MR#: [id number] Acct: [id number] Name: JAG PEREZ Rep #: [id number] : 2000 Provider: Dr. Selene Palomo DO Age/Sex: 23/F [place] [facility] [place]: Signed Intake Vital Signs 08/23/24 13:55 09/22/24 13:50 09/29/24 11:56 09/30/24 13:44 09/30/24 13:44 Height 5 ft 2 in 5 ft 2 in 5 ft 2 in 5 ft 2 in 5 ft 2 in Weight: 201 lb 2 oz BMI 36.8 BP 116/80 Intake Visit Reasons: 37 wk ob Java Web User Interface Developer Required: No Is patient in pain?: No [...] 1 current occupational status: unemployed current occupation: [employer] pets and animals: Yes (Avoid litterbox) pets [...] physical activity do you participate in: none pia/rastafari: Confucianism seatbelt use: always do you feel safe at home: Yes 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 Date Name GA/Weeks Outcome Route Bth Weight Infant Gen Labor Lgth Anesthesia Del Locatn Provider FOB 10/22/22 Tanner 39 live - full term 7 Male epidural [facility] Car men Derick Reid Delivery Date: 10/22/22 [...] oz) 108 (more content not included)... Normal [facility] OB Triage Progress Noteon OB Triage Progress Note [facility] Medical Records Department [address] [place] [address] OB Triage Progress Note 09/29/24 1655 MR#: [id number] Acct: [id number] Name: JAG PEREZ Rep #: [id number] : 2000 From: Becky Galvez MD PCP: Dr. Geronimo Arias, DO Status:DEP CLI Y DOS: Location: [facility] Progress Notes Date of Service: 09/29/24 Progress Note: Patient presents for triage evaluation secondary to fall and adominal trauma FHT: 130 Moderate variability reactive no decelerations category I tracing [place]: no rgular Contractions Assessment and plan: 37 weeks s/p fall and abdominal trauma monitored 4 hours no decels no abdominal pain reassuring testing Reactive NST, reassuring maternal and status patient discharged to home to follow-up as charline. See problem list details for additional plan information. Charges/Coding Procedures Urinary/Genital 52xxx-59xxx: 88905-04 non-stress test Interp 09/29/24 1656 Date Becky Galvez MD Cosigner Signature (if applicable): Date _ CC: Dr. Geronimo Arias, DO; Dr. Becky Galvez MD Signed Normal [facility] Rule out Beta Strep (Grp. B) on 09-24-2024 SHOLA Group B Beta Streptococcus is not isolated. Normal [facility] Comment on above: Performed By: #### M 100.3400 ####[facility] [address] [place], [address] Laboratory - Chemistry and C hemistry - challengeOrdered By: Selene Back on 09-22-2024 Glucose Ql (U) Negative [facility] Laboratory - UrinalysisOrder ed By: Selene Back on 09-22-2024 Protein Ql (U) Negative [facility] Sled Maker Office Visit Reporton 09-22-2024 Sled Maker Office Visit Report [facility] [address], [address] [place] [address] OFFICE VISIT Date of Service: 09/22/24 MR#: [id number] Acct: [id number] Name: JAG PEREZ Rep #: [id number] : 2000 Provider: Dr. Selene Palomo DO Age/Sex: 23/F [place] [facility] [place]: Signed Intake Vital Signs 08/11/24 11:20 09/09/24 09:51 09/22/24 13:49 09/22/24 13:50 Height 5 ft 2 in 5 ft 2 in 5 ft 2 in 5 ft 2 in Weight: 198 lb 8 oz BMI 36.3 BP 97/66 Intake Visit Reasons: 36wk ob Java Web User Interface Developer Required: No Is patient in pain?: No [...] 1 current occupational status: unemployed current occupation: [employer] pets and animals: Yes (Avoid litterbox) pets [...] physical activity do you participate in: none pia/rastafari: Confucianism seatbelt use: always do you feel safe at home: Yes 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 Date Name GA/Weeks Outcome Route Bth Weight Gen Labor Lgth Anesthesia Del Locatn Provider FOB 10/22/22 Tanner 39 live - full term 7 Male epidural [facility] Car men Derick Reid Delivery Date: 10/22/22 [...] Negative -???-???-???-?? (more content not included)... Normal [facility] Screening beta-hemolytic Str eptococcus cultureOrdered By: Selene Back on 09-22-2024 Beta-hemolytic Streptococcus culture Group B Beta Streptococcus is not isolated. [facility] Bilirubin Test strip Ql (U)O rdered By: Chrissy Tristan on 09-09-2024 Bilirubin Ql (U) Negative Negative [facility] Biophysical Prof W/O Non Str eson 09-09-2024 Biophysical Prof W/O Non Stres [facility] Imaging Services [address] [place] [address] Biophysical Prof W/O Non Stres MR#: [id number] Acct: [id number] Name: JAG PEREZ Rep #: [id number] : 2000 F 23 From: Calixto mixon MD PCP: Dr. Geronimo Arias, DO Status: DEP CLI Study: Biophysical Prof W/O Non Stres Date of Exam: 0 09/09/24 Exam# [id number] Ordering Dr: Chrissy Tristan CNM PROCEDURE: BIOPHYSICAL [...] Stres IMPRESSION: Normal biophysical profile. Reading Location: [id number] CC: MICK Tristan; Dr. Geronimo Arias DO Agronomy Specialist: Signed Normal [facility] Ketones Test strip Ql (U)Ord ered By: Chrissy Tristan on 09-09-2024 Ketones Ql (U) Negative Negative [facility] Laboratory - Chemistry and C hemistry - challengeOrdered By: Chrissy Tristan on 09-09-2024 Glucose Ql (U) Negative [facility] Laboratory - UrinalysisOrder ed By: Chrissy Tristan on 09-09-2024 Protein Ql (U) Trace [facility] Microscopic analysis of urin e for red blood cells (RBC)Ordered By: Chrissy Tristan on 09-09-2024 Microscopic analysis of urine for red blood cells (RBC) 0-5 SEEN /hpf 0-5 [facility] Mucus LM Ql (Urine sed)Order ed By: Chrissy Tristan on 09-09-2024 Mucus Ql (Urine sed) 1+ /hpf [facility] Nitrite Test strip Ql (U)Ord ered By: Chrissy Tristan on 09-09-2024 Nitrite Ql (U) Negative Negative [facility] OB Triage Progress Noteon OB Triage Progress Note [facility] Medical Records Department [address] [place] [address] OB Triage Progress Note 09/09/242231 MR#: [id number] Acct: [id number] Name: JAG PEREZ Rep #: [id number] : 2000 From: Becky Galvez MD PCP: Dr. Geronimo Arias, DO Status:DEP CLI Y DOS: Location: [facility] Progress Notes Date of Service: 09/09/24 Progress Note: Patient presents for triage evaluation secondary to decreased movement and non reactive nst FHT: 140 Moderate variability reactive no decelerations category I tracing [place]: no regular Contractions Assessment and plan: 34 week decresaed movement 8/8 bpp Reactive NST, reassuring maternal and status patient discharged to home to follow-up as scheudled urine culture sent. See problem list details for additional plan information. Laboratory Studies: Laboratory Tests 09/09/24 Range/Units 10:08 Urine Color Yellow (Yellow) Urine Clarity Clear (Clear) Urine pH 7.0 (5.0 - 8.0) Ur Specific [place] 1.015 (1.002-1.030) Urine Protein 15 H (Negative) [...] Mucus 1+ ( Charges/Coding Procedures Urinary/Genital 52xxx-59xxx: 16071-29 non-stress test Interp Assessment Plan (1) Decreased movements in third trimester: 09/09/242238 Date Becky Galvez MD Cosigner Signature (if applicable): Date _ CC: Dr. Geronimo Arias, DO; Dr. Becky Galvez MD Signed Normal [facility] Sled Maker Office Visit Reporton 09-09-2024 Sled Maker Office Visit Report [facility] [address], [address] [place] [address] OFFICE VISIT Date of Service: 09/09/24 MR#: [id number] Acct: [id number] Name: JAG PEREZ Rep #: [id number] : 2000 Provider: MICK Castillo ams Age/Sex: 23/F [place] [facility] [place]: Signed Intake Vital Signs 08/11/24 11:20 08/23/24 13:55 09/09/24 08:22 Height 5 ft 2 in 5 ft 2 in 5 ft 2 in Weight: 188 lb 4 oz 193 lb 6 oz BMI 34.4 35.4 BP 100/64 108/70 Intake Visit Reasons: 34wk ob Chief Complaint: 34wk OB Java Web User Interface Developer Required: No Is patient in pain?: No [...] 1 current occupational status: unemployed current occupation: [employer] pets and animals: Yes (Avoid litterbox) pets [...] physical activity do you participate in: none pia/rastafari: Confucianism seatbelt use: always do you feel safe at home: Yes 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 Normal [facility] Protein Test strip Ql (U)Ord ered By: Chrissy Tristan on 09-09-2024 Protein Ql (U) 15 mg/dl High Negative [facility] Squamous epithelial cells de tection in urine sediment by light microscopyOrdered By: Chrissy Tristan on 09-09-2024 Epithelial cells.squamous LM Ql (Urine sed) 0-5 SEEN /hpf 5-10 [facility] Urinalysis, Completeon 09-09 EPI,SQUAMOUS 0-5 SEEN Normal -10 [facility] Comment on above: Order Comment: CLEAN CATCH Performed By: #### L 400.0001 ####[facility] [address] [place], [place], [id number] Mucus Ql (Urine sed) 1+ /hpf Normal [facility] Comment on above: Order Comment: CLEAN CATCH Performed By: #### L 400.0001 ####[facility] [address] [place], [place], [id number] RBC 0-5 SEEN Normal 0-5 [facility] Comment on above: Order Comment: CLEAN CATCH Performed By: #### L 400.0001 ####[facility] [address] [place], [address] WBC 0-5 SEEN Normal 0-5 [facility] Comment on above: Order Comment: CLEAN CATCH Performed By: #### L 400.0001 ####[facility] [address] [place], [address] Urine clarityOrdered By: Judah Tristan on 09-09-2024 Clarity (U) Clear Clear [facility] Urine color determinationOrd ered By: Chrissy Tristan on 09-09-2024 Color (U) Yellow Yellow [facility] Urine glucose detectionOrder ed By: Chrissy Tristan on 09-09-2024 Glucose Ql (U) Normal mg/dl Normal [facility] Urine leukocyte esterase det ection by dipstickOrdered By: Chrissy Tristan on 09-09-2024 Leukocyte esterase Test strip Ql (U) Negative Negative [facility] Urine pHOrdered By: Chrissy nye on 09-09-2024 pH (U) 7.0 [pH] 5.0 - 8.0 [facility] Urine sediment bacteria coun t by microscopy (number/high power field)Ordered By: Chrissy Tristan on 09-09-2024 Bacteria LM.HPF (Urine sed) [#/Area] Not Reportable [facility] Urine specific gravity measu rementOrdered By: Chrissy Tristan on 09-09-2024 Specific gravity (U) [Rel density] 1.015 1.002-1.030 [facility] Urine urobilinogen measureme ntOrdered By: Chrissy Tristan on 09-09-2024 Urobilinogen Ql (U) Normal mg/dl Normal [facility] White blood cell countOrdere d By: Chrissy Tristan on 09-09-2024 White blood cell count 0-5 SEEN /hpf 0-5 [facility] 12 Lead EKGon 08-25-2024 12 Lead EKG [facility] Cardiovascular Services [address] [place] [address] 12 Lead EKG 08/25/24 0820 MR#: [id number] Acct: [id number] Name: JAG PEREZ Rep #: [id number] : 2000 23 From: Jacob Suggs MD Attending Dr: PANDA RuedaC Status: REG CLI Ordering Dr: Promise Agosto NP METHODS SPECIALIST-C Date: 08/25/24 Location: PSN Sex: F C Admitted: Test Reason : TACHY DURING PREGNAN Blood Pressure : */* mmHG Vent. Rate : 105 BPM Atrial Rate : 105 BPM P-R Int : 128 ms QRS Dur : 82 ms QT Int : 348 ms P-R-T Axes : 43 11 25 degrees QTcB Int : 459 ms Sinus tachycardia Confirmed by Jacob Suggs ([id number]), web editor BURT BAIRD ([id number]) on 08/26/2024 9:49:23 AM Referred By: Promise Agosto Confirmed By: Jacob Suggs 08/26/24 0949 Date Jacob Suggs MD CC: CHELLY Agosto; Dr. Geronimo Arias, DO Signed Normal [facility] Laboratory - Chemistry and C hemistry - challengeOrdered By: Promise Agosto on 08-23-2024 Glucose Ql (U) Negative [facility] Laboratory - UrinalysisOrder ed By: Promise Agosto on 08-23-2024 Protein Ql (U) Negative [facility] Sled Maker Office Visit Reporton 08-23-2024 Sled Maker Office Visit Report [facility] [address], [facility] [address] [place] [address] OFFICE VISIT Date of Service: 08/23/24 MR#: [id number] Acct: [id number] Name: JAG PEREZ Rep #: [id number] : 2000 Provider: CHLELY sosa Age/Sex: 23/F [place] [facility]: Signed Intake Vital Signs 07/12/24 14:50 08/11/24 11:20 08/23/24 13:55 Height 5 ft 2 in 5 ft 2 in 5 ft 2 in Weight: 188 lb 4 oz BMI 34.4 BP 100/64 Intake Visit Reasons: 32wk ob Chief Complaint: 32 Week OB Java Web User Interface Developer Required: No Is patient in pain?: No [...] 1 current occupational status: unemployed current occupation: [employer] pets and animals: Yes (Avoid litterbox) pets [...] physical activity do you participate in: none pia/rastafari: Confucianism seatbelt use: always do you feel safe at home: Yes 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 Normal [facility] Laboratory - Chemistry and C hemistry - challengeOrdered By: Selene Back on 08-11-2024 Glucose Ql (U) Negative [facility] Laboratory - UrinalysisOrder ed By: Selene Back on 08-11-2024 Protein Ql (U) Negative [facility] Sled Maker Office Visit Reporton 08-11-2024 Sled Maker Office Visit Report [facility] [address], [address] [place] [address] OFFICE VISIT Date of Service: 08/11/24 MR#: [id number] Acct: [id number] Name: JAG PEREZ Rep #: [id number] : 2000 Provider: Dr. Selene Palomo, Age/Sex: 23/F Location[place] [facility] Status: Signed Intake Vital Signs 06/18/24 08:49 08/05/24 22:25 08/11/24 11:19 08/11/24 11:20 Height 5 ft 2 in 5 ft 2 in 5 ft 2 in 5 ft 2 in Weight: 186 lb 4 oz BMI 34.0 BP 101/69 Intake Visit Reasons: 30 WK OB Java Web User Interface Developer Required: No Is patient in pain?: No [...] 1 current occupational status: unemployed current occupation: [employer] pets and animals: Yes (Avoid litterbox) pets [...] physical activity do you participate in: none pia/rastafari: Confucianism seatbelt use: always do you feel safe at home: Yes 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 Normal [facility] Urine Cultureon 08-06-2024 URC Culture exhibits no growth. Normal [facility] Comment on above: Performed By: #### M 100.2200 #### [facility] Laboratory [address] [facility] [place], [address] Absolute lymphocyte countOrd ered By: Becky Galvez on 08-05-2024 Lymphocytes Auto (Unsp spec) [#/Vol] 2.35 10*3/uL 0.83-4.51 [facility] Absolute neutrophil countOrd ered By: Becky Galvez on 08-05-2024 Neutrophils (Bld) [#/Vol] 12.0 10*3/uL High 2.0-7.7 [facility] Automated lymphocyte count a s percentage of total leukocytesOrdered By: Becky Galvez on 08-05-2024 Lymphocytes/100 WBC Auto (Unsp spec) 14.7 % Low 19-41 [facility] Basophil percentageOrdered B y: Becky Galvez on 08-05-2024 Basophils/100 WBC (Bld) 0.3 % 0-1 [facility] Bilirubin Test strip Ql (U)O rdered By: Becky Galvez on 08-05-2024 Bilirubin Ql (U) Negative Negative [facility] CBC W/Diff, Automatedon 07-14 Absolute Lymph 2.35 X10 3/uL Normal 0.83-4.51 [facility] Comment on above: Performed By: #### L 100.0100 ####[facility] [address] [place], [address] Absolute Neut 12.0 X10 3/uL High 2.0-7.7 [facility] Comment on above: Performed By: #### L 100.0100 ####[facility] [address] [facility] [place], [address] Basophils/100 WBC (Bld) 0.3 % Normal 0-1 [facility] Comment on above: Performed By: #### L 100.0100 ####[facility] [address] [facility] [address] [place], [address] Eosinophils/100 WBC (Bld) 0.5 % Normal 0-5 [facility] Comment on above: Performed By: #### L 100.0100 ####[facility] [address] [place], [address] Erythrocyte distribution width (RBC) [Ratio] 13.5 % Normal 11.6-14.6 [facility] Comment on above: Performed By: #### L 100.0100 ####[facility] [address] [place], [address] Hematocrit (Bld) [Volume fraction] 31.4 % Low 37-47 [facility] Comment on above: Performed By: #### L 100.0100 ####[facility] [address] [place], [address] Hemoglobin (Bld) [Mass/Vol] 10.1 g/dL Low 12.0-15.0 [facility] Comment on above: Performed By: #### L 100.0100 ####[facility] [address] [place], [address] IG% 3.900 High 0.0-0.9 [facility] Comment on above: Result Comment: IG% - Immature Granulocytes (promyelocytes, myelocytes and metamyelocytes) > 1% indicates that a LEFT SHIFT is Present. Performed By: #### L 100.0100 ####[facility] [address] [place], [address] Lymphocytes/100 WBC (Bld) 14.7 % Low 19-41 [facility] Comment on above: Performed By: #### L 100.0100 ####[facility] [address] [place], [address] MCH (RBC) [Entitic mass] 28.7 pg Normal 27.0-32.0 [facility] Comment on above: Performed By: #### L 100.0100 ####[facility] [address] [place], [address] MCHC (RBC) [Mass/Vol] 32.2 g/dL Normal 32-36 [facility] Comment on above: Performed By: #### L 100.0100 ####[facility] [address] [place], [address] MCV (RBC) [Entitic vol] 89.2 fL Normal 81-99 [facility] Comment on above: Performed By: #### L 100.0100 ####[facility] [address] [place], [address] Monocytes/100 WBC (Bld) 5.5 % Normal 0-10 [facility] Comment on above: Performed By: #### L 100.0100 ####[facility] [address] [place], [address] Neutrophils/100 WBC (Bld) 75.1 % High 47-70 [facility] Comment on above: Performed By: #### L 100.0100 ####[facility] [address] [place], [address] Nucleated RBC (Bld) [#/Vol] 0 10*3/uL Normal 0-5 [facility] Comment on above: Performed By: #### L 100.0100 ####[facility] [address] [place], [address] Platelet mean volume (Bld) [Entitic vol] 10.2 fL Normal 6.2-12.0 [facility] Comment on above: Performed By: #### L 100.0100 ####[facility] [address] [place], [address] Platelets (Bld) [#/Vol] 287 10*3/uL Normal 150-450 [facility] Comment on above: Performed By: #### L 100.0100 ####[facility] [address] [place], [address] RBC (Bld) [#/Vol] 3.52 10*6/uL Low 4.2-5.4 [facility] Comment on above: Performed By: #### L 100.0100 ####[facility] [address] [place], [address] RDW SD 44.3 fl High 35.1-43.9 [facility] Comment on above: Performed By: #### L 100.0100 ####[facility] [address] [place], [address] WBC (Bld) [#/Vol] 16.0 10*3/uL High 4.4-11.0 [facility] Comment on above: Performed By: #### L 100.0100 ####[facility] [address] [place], [address] Eosinophil percentageOrdered By: Becky Galvez on 08-05-2024 Eosinophils/100 WBC (Bld) 0.5 % 0-5 [facility] Epithelial cells.squamous LM Ql (Urine sed)Ordered By: Becky Galvez on 08-05-2024 Epithelial cells.squamous LM.HPF (Urine sed) [#/Area] 0 /[HPF] 5-10 [facility] Erythrocyte distribution wid th (RBC) [Ratio]Ordered By: Becky Galvez on 08-05-2024 Erythrocyte distribution width (RBC) [Entitic vol] 44.3 fL High 35.1-43.9 [facility] Erythrocyte distribution wid th ratioOrdered By: Becky Galvez on 08-05-2024 Erythrocyte distribution width (RBC) [Ratio] 13.5 % 11.6-14.6 [facility] Erythrocyte distribution wid th standard deviationOrdered By: Becky Galvez on 08-05-2024 Erythrocyte distribution width (RBC) [Ratio] 44.3 fl High 35.1-43.9 [facility] Glucose Ql (U)Ordered By: Sveta Galvez on 08-05-2024 Urine Glucose (UA) Normal mg/dl Normal [facility] Hematocrit Auto (Bld) [Volum e fraction]Ordered By: Becky Galvez on 08-05-2024 Hematocrit (Bld) [Volume fraction] 31.4 % Low 37-47 [facility] Hemoglobin measurementOrdere d By: Becky Galvez on 08-05-2024 Hemoglobin (Bld) [Mass/Vol] 10.1 g/dL Low 12.0-15.0 [facility] Immature granulocytes/100 WB C Auto (Bld)Ordered By: Becky Galvez on 08-05-2024 Immature granulocytes/100 WBC (Bld) 3.900 % High 0.0-0.9 [facility] Comment on above: IG% - Immature Granu locytes (promyelocytes, myelocytes and metamyelocytes) > 1% indicates that a LEFT SHIFT is Present. Ketones Test strip Ql (U)Ord ered By: Becky Galvez on 08-05-2024 Ketones Ql (U) Negative Negative [facility] Lymphocytes Auto (Unsp spec) [#/Vol]Ordered By: Becky Galvez on 08-05-2024 Lymphocytes (Bld) [#/Vol] 2.35 10*3/uL 0.83-4.51 [facility] Lymphocytes/100 WBC Auto (Un sp spec)Ordered By: Becky Galvez on 08-05-2024 Lymphocytes/100 WBC (Bld) 14.7 % Low 19-41 [facility] MCV (mean corpuscular volume ) determinationOrdered By: Becky Galvez on 08-05-2024 MCV (RBC) [Entitic vol] 89.2 fL 81-99 [facility] Mean corpuscular hemoglobin (MCH) determinationOrdered By: Becky Galvez on 08-05-2024 MCH (RBC) [Entitic mass] 28.7 pg 27.0-32.0 [facility] Mean corpuscular hemoglobin concentration (MCHC) determinationOrdered By: Becky Galvez on 08-05-2024 MCHC (RBC) [Mass/Vol] 32.2 g/dL 32-36 [facility] Mean platelet volume determi nationOrdered By: Becky Galvez on 08-05-2024 Platelet mean volume (Bld) [Entitic vol] 10.2 fL 6.2-12.0 [facility] Microscopic analysis of urin e for red blood cells (RBC)Ordered By: Becky Galvez on 08-05-2024 Microscopic analysis of urine for red blood cells (RBC) 0 SEEN /hpf 0-5 [facility] Urine RBC 0 SEEN /hpf 0-5 [facility] Monocyte percentageOrdered B y: Becky Rain on 08-05-2024 Monocytes/100 WBC (Bld) 5.5 % 0-10 [facility] Mucus LM Ql (Urine sed)Order ed By: Becky Galvez on 08-05-2024 Mucus Ql (Urine sed) 0 SEEN /hpf [facility] Neutrophil percentageOrdered By: Becky Galvez on 08-05-2024 Neutrophils/100 WBC (Bld) 75.1 % High 47-70 [facility] Nitrite Test strip Ql (U)Ord ered By: Becky Galvez on 08-05-2024 Nitrite Ql (U) Negative Negative [facility] Nucleated red blood cell per centageOrdered By: Becky Galvez on 08-05-2024 Nucleated RBC/100 WBC (Bld) [Ratio] 0 % 0-5 [facility] OB Triage Physician Noteon 0 08-05-2024 OB Triage Physician Note [facility] Medical Records Department [address] [place] [address] OB Triage Physician Note 08/05/242 MR#: [id number] Acct: [id number] Name: JAG PEREZ Rep #: [id number] : 2000 23 From: Becky Galvez MD PCP: Dr. 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 US scheduled with [facility]. 06/18/24 -???-???-???-???- (more content not included)... Normal [facility] Platelet countOrdered By: Sveta Galvez on 08-05-2024 Platelets (Bld) [#/Vol] 287 10*3/uL 150-450 [facility] Protein Test strip Ql (U)Ord ered By: Becky Galvez on 08-05-2024 Protein Ql (U) 15 mg/dl High Negative [facility] RBC Auto (Bld) [#/Vol]Ordere d By: Becky Galvez on 08-05-2024 RBC (Bld) [#/Vol] 3.52 10*6/uL Low 4.2-5.4 [facility] Squamous epithelial cells de tection in urine sediment by light microscopyOrdered By: Becky Galvez on 08-05-2024 Epithelial cells.squamous LM Ql (Urine sed) 0-5 SEEN /hpf 5-10 [facility] Urinalysis, Completeon 08-05 BACTERIA 1+ /hpf Normal None Seen [facility] Comment on above: Order Comment: PAUL CTOR TO SPECIFY Performed By: #### L 400.0001 ####[facility] [address] [place], [address] EPI,SQUAMOUS 0-5 SEEN Normal 5-10 [facility] Comment on above: Order Comment: PAUL CTOR TO SPECIFY Performed By: #### L 400.0001 ####[facility] [address] [place], [address] WBC 0-5 SEEN Normal 0-5 [facility] Comment on above: Order Comment: PAUL CTOR TO SPECIFY Performed By: #### L 400.0001 ####[facility] [address] [place], [address] Mucus Ql (Urine sed) [address] [facility] Comment on above: Order Comment: PAUL CTOR TO SPECIFY Performed By: #### L 400.0001 ####[facility] [address] [place], [address] RBC 0 SEEN Normal 0-5 [facility] Comment on above: Order Comment: PAUL CTOR TO SPECIFY Performed By: #### L 400.0001 ####[facility] [address] [place], [address] Urine blood detectionOrdered By: Becky Galvez on 08-05-2024 Urine Occult Blood 10 /ul High Negative [facility] Urine clarityOrdered By: Iam Galvez on 08-05-2024 Clarity (U) Clear Clear [facility] Urine color determinationOrd ered By: Becky Galvez on 08-05-2024 Color (U) Yellow Yellow [facility] Urine cultureOrdered By: Iam Galvez on 08-05-2024 Bacteria identified Cx Nom (U) Culture exhibits no growth. [facility] Urine glucose detectionOrder ed By: Becky Galvez on 08-05-2024 Glucose Ql (U) Normal mg/dl Normal [facility] Urine leukocyte esterase det ection by dipstickOrdered By: Becky Galvez on 08-05-2024 Leukocyte esterase Test strip Ql (U) 25 /ul High Negative [facility] Urine pHOrdered By: Becyk self on 08-05-2024 pH (U) 6.0 [pH] 5.0 - 8.0 [facility] Urine sediment bacteria coun t by microscopy (number/high power field)Ordered By: Becky Galvez on 08-05-2024 Bacteria LM.HPF (Urine sed) [#/Area] 1 /[HPF] None Seen [facility] Urine specific gravity measu rementOrdered By: Becky Galvez on 08-05-2024 Specific gravity (U) [Rel density] 1.020 1.002-1.030 [facility] Urine urobilinogen measureme ntOrdered By: Becky Galvez on 08-05-2024 Urobilinogen Ql (U) 1 mg/dl High Normal [facility] Urobilinogen Ql (U)Ordered B y: Becky Galvez on 08-05-2024 Urobilinogen (U) [Mass/Vol] 1 mg/dL High Normal [facility] White blood cell (WBC) count Ordered By: Becky Galvez on 08-05-2024 WBC (Bld) [#/Vol] 16.0 10*3/uL High 4.4-11.0 [facility] White blood cell countOrdere d By: Becky Galvez on 08-05-2024 Urine WBC 0-5 SEEN /hpf 0-5 [facility] White blood cell count 0-5 SEEN /hpf 0-5 [facility] Laboratory - Chemistry and C hemistry - challengeOrdered By: Becky Galvez on 07-30-2024 Glucose Ql (U) Negative [facility] Laboratory - UrinalysisOrder ed By: Becky Galvez on 07-30-2024 Protein Ql (U) Negative [facility] Sled Maker Office Visit Reporton 07-30-2024 Sled Maker Office Visit Report [facility] [address], [address] [place] [address] OFFICE VISIT Date of Service: 07/30/24 MR#: [id number] Acct: [id number] Name: JAG PEREZ Rep #: [id number] : 2000 Provider: Dr. Becky cervantes MD Age/Sex: 23/F [place] [facility] [place]: Signed Intake Vital Signs 06/18/24 08:49 07/12/24 14:50 07/30/24 11:00 Height 5 ft 2 in 5 ft 2 in 5 ft 2 in Weight: 182 lb 6 oz BMI 33.3 BP 106/68 Intake Visit Reasons: 28 WK OB Java Web User Interface Developer Required: No Is patient in pain?: No [...] 1 current occupational status: unemployed current occupation: [employer] pets and animals: Yes (Avoid litterbox) pets [...] physical activity do you participate in: none pia/rastafari: Confucianism seatbelt use: always do you feel safe at home: Yes 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 Normal [facility] Absolute lymphocyte countOrd ered By: Chrissy Tristan on 07-12-2024 Lymphocytes Auto (Unsp spec) [#/Vol] 1.90 10*3/uL 0.83-4.51 [facility] Absolute neutrophil countOrd ered By: Chrissy Tristan on 07-12-2024 Neutrophils (Bld) [#/Vol] 7.1 10*3/uL 2.0-7.7 [facility] Automated lymphocyte count a s percentage of total leukocytesOrdered By: Chrissy Tristan on 07-12-2024 Lymphocytes/100 WBC Auto (Unsp spec) 19.0 % 19-41 [facility] Basophil percentageOrdered B y: Chrissy Tristan on 07-12-2024 Basophils/100 WBC (Bld) 0.2 % 0-1 [facility] CBC W/Diff, Automatedon 06-14 Absolute Lymph 1.90 X10 3/uL Normal 0.83-4.51 [facility] Comment on above: Performed By: #### L 100.0100, L3890.6006, L509.8002, L501.0250 #### [facility] Laboratory [address] [place], [address] Absolute Neut 7.1 X10 3/uL Normal 2.0-7.7 [facility] Comment on above: Performed By: #### L 100.0100, L3890.6006, L509.8002, L501.0250 #### [facility] [address] [place], [address] Basophils/100 WBC (Bld) 0.2 % Normal 0-1 [facility] Comment on above: Performed By: #### L 100.0100, L3890.6006, L509.8002, L501.0250 #### [facility] [address] [place], [address] Eosinophils/100 WBC (Bld) 0.5 % Normal 0-5 [facility] Comment on above: Performed By: #### L 100.0100, L3890.6006, L509.8002, L501.0250 #### [facility] [address] [place], [address] Erythrocyte distribution width (RBC) [Ratio] 13.7 % Normal 11.6-14.6 [facility] Comment on above: Performed By: #### L 100.0100, L3890.6006, L509.8002, L501.0250 #### [facility] [address] [place], [address] Hematocrit (Bld) [Volume fraction] 34.6 % Low 37-47 [facility] Comment on above: Performed By: #### L 100.0100, L3890.6006, L509.8002, L501.0250 #### [facility] [address] [place], [address] Hemoglobin (Bld) [Mass/Vol] 11.3 g/dL Low 12.0-15.0 [facility] Comment on above: Performed By: #### L 100.0100, L3890.6006, L509.8002, L501.0250 #### [facility] [address] [place], [address] IG% 1.400 High 0.0-0.9 [facility] Comment on above: Result Comment: IG% - Immature Granulocytes (promyelocytes, myelocytes and metamyelocytes) > 1% indicates that a LEFT SHIFT is Present. Performed By: #### L 100.0100, L3890.6006, L509.8002, L501.0250 #### [facility] [address] [place], [address] Lymphocytes/100 WBC (Bld) 19.0 % Normal 19-41 [facility] Comment on above: Performed By: #### L 100.0100, L3890.6006, L509.8002, L501.0250 #### [facility] [address] [place], [address] MCH (RBC) [Entitic mass] 29.3 pg Normal 27.0-32.0 [facility] Comment on above: Performed By: #### L 100.0100, L3890.6006, L509.8002, L501.0250 #### [facility] [address] [place], [address] MCHC (RBC) [Mass/Vol] 32.7 g/dL Normal 32-36 [facility] Comment on above: Performed By: #### L 100.0100, L3890.6006, L509.8002, L501.0250 #### [facility] [address] [place], [address] MCV (RBC) [Entitic vol] 89.6 fL Normal 81-99 [facility] Comment on above: Performed By: #### L 100.0100, L3890.6006, L509.8002, L501.0250 #### [facility] [address] [place], [address] Monocytes/100 WBC (Bld) 8.4 % Normal 0-10 [facility] Comment on above: Performed By: #### L 100.0100, L3890.6006, L509.8002, L501.0250 #### [facility] [address] [place], [address] Neutrophils/100 WBC (Bld) 70.5 % High 47-70 [facility] Comment on above: Performed By: #### L 100.0100, L3890.6006, L509.8002, L501.0250 #### [facility] [address] [place], [address] Nucleated RBC (Bld) [#/Vol] 0 10*3/uL Normal 0-5 [facility] Comment on above: Performed By: #### L 100.0100, L3890.6006, L509.8002, L501.0250 #### [facility] [address] [place], [address] Platelet mean volume (Bld) [Entitic vol] 10.7 fL Normal 6.2-12.0 [facility] Comment on above: Performed By: #### L 100.0100, L3890.6006, L509.8002, L501.0250 #### [facility] [address] [place], [address] Platelets (Bld) [#/Vol] 278 10*3/uL Normal 150-450 [facility] Comment on above: Performed By: #### L 100.0100, L3890.6006, L509.8002, L501.0250 #### [facility] [address] [place], [address] RBC (Bld) [#/Vol] 3.86 10*6/uL Low 4.2-5.4 [facility] Comment on above: Performed By: #### L 100.0100, L3890.6006, L509.8002, L501.0250 #### [facility] [address] [place], [address] RDW SD 45.1 fl High 35.1-43.9 [facility] Comment on above: Performed By: #### L 100.0100, L3890.6006, L509.8002, L501.0250 #### [facility] [address] [place], [address] WBC (Bld) [#/Vol] 10.0 10*3/uL Normal 4.4-11.0 [facility] Comment on above: Performed By: #### L 100.0100, L3890.6006, L509.8002, L501.0250 #### [facility] [address] [place], [address] Eosinophil percentageOrdered By: Chrissy Tristan on 07-12-2024 Eosinophils/100 WBC (Bld) 0.5 % 0-5 [facility] Erythrocyte distribution wid th (RBC) [Ratio]Ordered By: Chrissy Tristan on 07-12-2024 Erythrocyte distribution width (RBC) [Entitic vol] 45.1 fL High 35.1-43.9 [facility] Erythrocyte distribution wid th ratioOrdered By: Chrissy Tristan on 07-12-2024 Erythrocyte distribution width (RBC) [Ratio] 13.7 % 11.6-14.6 [facility] Erythrocyte distribution wid th standard deviationOrdered By: Chrissy Tristan on 07-12-2024 Erythrocyte distribution width (RBC) [Ratio] 45.1 fl High 35.1-43.9 [facility] Glucose Challenge Gest 1H 50 reno 07-12-2024 GLU GEST 50g 1H 77 mg/dL Normal 70-140 [facility] Comment on above: Performed By: #### L 100.0100, L3890.6006, L509.8002, L501.0250 #### [facility] [address] [place], [address] Glucose measurement at 2 mauri rs post-dose gestational glucose tolerance testOrdered By: Chrissy Tristan on 07-12-2024 Glucose [Mass/Vol] 77 mg/dL 70-140 [facility] Hematocrit Auto (Bld) [Volum e fraction]Ordered By: Chrissy Tristan on 07-12-2024 Hematocrit (Bld) [Volume fraction] 34.6 % Low 37-47 [facility] Hemoglobin measurementOrdere d By: Chrissy Tristan on 07-12-2024 Hemoglobin (Bld) [Mass/Vol] 11.3 g/dL Low 12.0-15.0 [facility] Immature granulocytes/100 WB C Auto (Bld)Ordered By: Chrissy Tristan on 07-12-2024 Immature granulocytes/100 WBC (Bld) 1.400 % High 0.0-0.9 [facility] Comment on above: IG% - Immature Granu locytes (promyelocytes, myelocytes and metamyelocytes) > 1% indicates that a LEFT SHIFT is Present. L3890.6006on 07-12-2024 HIV Non-Reactive Normal Nonreactive [facility] Comment on above: Result Comment: Non- Reactive Reactive Repeatedly reactive samples must be confirmed according to CDC recommended confirmatory algorithms. The subresults for either HIVAG or AHIV can be used as an aid in the selection of the confirmation algorithm for reactive samples. Send out specimens with Reactive results to [facility] for confirmation. Order the HIV antibody detection and differentiation: #[id number] Performed By: #### L 100.0100, L3890.6006, L509.8002, L501.0250 ####[facility] [address] [facility] [place], [address] L509.8002on 07-12-2024 Syphilis Abs Non-Reactive Normal Nonreactive [facility] Comment on above: Performed By: #### L 100.0100, L3890.6006, L509.8002, L501.0250 #### [facility] Laboratory [address] [place], [address] Lymphocytes Auto (Unsp spec) [#/Vol]Ordered By: Chrissy Tristan on 07-12-2024 Lymphocytes (Bld) [#/Vol] 1.90 10*3/uL 0.83-4.51 [facility] Lymphocytes/100 WBC Auto (Un sp spec)Ordered By: Chrissy Tristan on 07-12-2024 Lymphocytes/100 WBC (Bld) 19.0 % 19-41 [facility] MCV (mean corpuscular volume ) determinationOrdered By: Chrissy Tristan on 07-12-2024 MCV (RBC) [Entitic vol] 89.6 fL 81-99 [facility] Mean corpuscular hemoglobin (MCH) determinationOrdered By: Chrissy Tristan on 07-12-2024 MCH (RBC) [Entitic mass] 29.3 pg 27.0-32.0 [facility] Mean corpuscular hemoglobin concentration (MCHC) determinationOrdered By: Chrissy Tristan on 07-12-2024 MCHC (RBC) [Mass/Vol] 32.7 g/dL 32-36 [facility] Mean platelet volume determi nationOrdered By: Chrissy Tristan on 07-12-2024 Platelet mean volume (Bld) [Entitic vol] 10.7 fL 6.2-12.0 [facility] Monocyte percentageOrdered B y: Chrissy Tristan on 07-12-2024 Monocytes/100 WBC (Bld) 8.4 % 0-10 [facility] Neutrophil percentageOrdered By: Chrissy Tristan on 07-12-2024 Neutrophils/100 WBC (Bld) 70.5 % High 47-70 [facility] No Panel InformationOrdered By: Chrissy Tristan on 07-12-2024 HIV (1&2) Antibody Non-Reactive Nonreactive [facility] Comment on above: Non-ReactiveReactive Repeatedly reactive samples must be confirmed according to CDC recommended confirmatory algorithms. The subresults for either HIVAG or AHIV can be used as an aid in the selection of the confirmation algorithm for reactive samples.Send out specimens with Reactive results to [facility] for confirmation.Order the HIV antibody detection and differentiation: #[id number] Nucleated red blood cell per centageOrdered By: Chrissy Tristan on 07-12-2024 Nucleated RBC/100 WBC (Bld) [Ratio] 0 % 0-5 [facility] Sled Maker Office Visit Reporton 07-12-2024 Sled Maker Office Visit Report [facility] [address], [address] [place] [address] OFFICE VISIT Date of Service: 07/12/24 MR#: [id number] Acct: [id number] Name: JAG PEREZ Rep #: [id number] : 2000 Provider: MICK Castillo ams Age/Sex: 23/F [place] [facility] [place]: [place] Intake Vital Signs 06/18/24 08:49 06/24/24 13:12 07/12/24 14:50 Height 5 ft 2 in 5 ft 2 in 5 ft 2 in Weight: 176 lb 8 oz BMI 32.3 BP 105/69 Intake Visit Reasons: 26 WK OB/GLUCOSE Chief Complaint: 26wk OB Java Web User Interface Developer Required: No Is patient in pain?: No [...] 1 current occupational status: unemployed current occupation: [employer] pets and animals: Yes (Avoid litterbox) pets [...] physical activity do you participate in: none pia/rastafari: Confucianism seatbelt use: always do you feel safe at home: Yes 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 -??? (more content not included)... Normal [facility] Platelet countOrdered By: Bandar Tristan on 07-12-2024 Platelets (d) [#/Vol] 278 10*3/uL 150-450 [facility] RBC Auto (d) [#/Vol]Ordere d By: Chrissy Tristan on 07-12-2024 RBC (Bld) [#/Vol] 3.86 10*6/uL Low 4.2-5.4 [facility] T. pallidum abOrdered By: Bandar Tristan on 07-12-2024 Syphilis Total Antibody Non-Reactive Nonreactiv e [facility] White blood cell (WBC) count Ordered By: Chrissy Tristan on 07-12-2024 WBC (Bld) [#/Vol] 10.0 10*3/uL 4.4-11.0 [facility] Sled Maker Office Visit Reporton 06-24-2024 Sled Maker Office Visit Report [facility]'s [address], [address] [place] [address] OFFICE VISIT Date of Service: 06/24/24 MR#: [id number] Acct: [id number] Name: JAG PEREZ Rep #: [id number] : 2000 Provider: MICK Castillo ams Age/Sex: 23/F [place] [facility] [place]: [place] Intake Vital Signs 06/18/24 08:49 06/24/24 13:12 06/24/24 13:12 Height 5 ft 2 in 5 ft 2 in 5 ft 2 in Weight: 175 lb 6 oz BMI 32.1 BP 105/72 Intake Visit Reasons: heartbeat check per KW Java Web User Interface Developer Required: No Is patient in pain?: No [...] 1 current occupational status: unemployed current occupation: [employer] pets and animals: Yes (Avoid litterbox) pets [...] physical activity do you participate in: none pia/rastafari: Confucianism seatbelt use: always do you feel safe at home: Yes 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 Normal [facility] Laboratory - Chemistry and C hemistry - challengeOrdered By: Chrissy Tristan on 06-18-2024 Glucose Ql (U) Negative [facility] Laboratory - UrinalysisOrder ed By: Chrissy Tristan on 06-18-2024 Protein Ql (U) Negative [facility] Sled Maker Office Visit Reporton 06-18-2024 Sled Maker Office Visit Report [facility]'s [address], [address] [place] [address] OFFICE VISIT Date of Service: 06/18/24 MR#: [id number] Acct: [id number] Name: JAG PEREZ Rep #: [id number] : 2000 Provider: MICK Castillo ams Age/Sex: 23/F [place] [facility] [place] Status: Signed Intake Vital Signs 04/21/24 [...] 1 current occupational status: unemployed current occupation: [employer] pets and animals: Yes (Avoid litterbox) pets [...] physical activity do you participate in: none pia/rastafari: Confucianism seatbelt use: always do you feel safe at home: Yes 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 Normal [facility] Laboratory - Chemistry and C hemistry - challengeOrdered By: Chrissy Tristan on 05-21-2024 Glucose Ql (U) Negative [facility] Laboratory - UrinalysisOrder ed By: Chrissy Tristan on 05-21-2024 Protein Ql (U) Negative [facility] Sled Maker Office Visit Reporton 05-21-2024 Sled Maker Office Visit Report [facility] [address], [address] [place] [address] OFFICE VISIT Date of Service: 05/21/24 MR#: [id number] Acct: [id number] Name: JAG PEREZ Rep #: [id number] : 2000 Provider: MICK Castillo ams Age/Sex: 23/F [place] [facility] [place]: [place] Intake Vital Signs 04/21/24 15:08 [...] 1 current occupational status: unemployed current occupation: [employer] pets and animals: Yes (Avoid litterbox) pets [...] physical activity do you participate in: none pia/rastafari: Confucianism seatbelt use: always do you feel safe at home: Yes 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 -???-?? (more content not included)... Normal [facility] Sled Maker Office Visit Reporton 04-21-2024 Sled Maker Office Visit Report [facility]'s [address], [address] [place] [address] OFFICE VISIT Date of Service: 04/21/24 MR#: [id number] Acct: [id number] Name: JAG PEREZ Rep #: [id number] : 2000 Provider: Dr. Becky cervantes MD Age/Sex: 23/F [place] [facility] [place]: [place]igned Intake Vital Signs 11/12/22 13:13 03/18/24 14:39 04/21/24 15:08 Height 5 ft 2 in 5 ft 2 in 5 ft 2 in Weight: 166 lb 4 oz BMI 30.4 BP 127/75 H Intake Visit Reasons: 13wk OB Java Web User Interface Developer Required: No Is patient in pain?: No [...] 1 current occupational status: unemployed current occupation: [employer] pets and animals: Yes (Avoid litterbox) pets [...] physical activity do you participate in: none pia/rastafari: Confucianism seatbelt use: always do you feel safe at home: Yes 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 Date Name GA/Weeks Outcome Route Bth Weight Infant Gen Labor Lgth Anesthesia Del Locatn Provider FOB 10/22/22 Tanner 39 live - full term 7 Male epidural [facility] Car men Derick Reid Delivery Date: 10/22/22 [...] Second Trimester: (more content not included)... Normal [facility] Absolute neutrophil countOrd ered By: Chrissy Tristan on 04-12-2024 Neutrophils (Bld) [#/Vol] 9.7 10*3/uL High 2.0-7.7 [facility] Basophil percentageOrdered B y: Chrissy Tristan on 04-12-2024 Basophils/100 WBC (Bld) 0.3 % 0-1 [facility] CBC W/Diff, Automatedon 03-16-2023 Absolute Lymph 1.23 X10 3/uL Normal 0.83-4.51 [facility] Comment on above: Performed By: #### L 501.9985, L509.8000, L100.0100, L509.4005, L3890.6005, L3890.6100, BTS, L3890.6300 ####[facility] [address] [place], [address] Absolute Neut 9.7 X10 3/uL High 2.0-7.7 [facility] Comment on above: Performed By: #### L 501.9985, L509.8000, L100.0100, L509.4005, L3890.6005, L3890.6100, BTS, L3890.6300 ####[facility] [address] [place], [address] Basophils/100 WBC (Bld) 0.3 % Normal 0-1 [facility] Comment on above: Performed By: #### L 501.9985, L509.8000, L100.0100, L509.4005, L3890.6005, L3890.6100, BTS, L3890.6300 ####[facility] [address] [place], [address] Eosinophils/100 WBC (Bld) 0.3 % Normal 0-5 [facility] Comment on above: Performed By: #### L 501.9985, L509.8000, L100.0100, L509.4005, L3890.6005, L3890.6100, BTS, L3890.6300 ####[facility] [address] [place], [address] Erythrocyte distribution width (RBC) [Ratio] 12.9 % Normal 11.6-14.6 [facility] Comment on above: Performed By: #### L 501.9985, L509.8000, L100.0100, L509.4005, L3890.6005, L3890.6100, BTS, L3890.6300 ####[facility] [address] [place], [address] Hematocrit (Bld) [Volume fraction] 36.7 % Low 37-47 [facility] Comment on above: Performed By: #### L 501.9985, L509.8000, L100.0100, L509.4005, L3890.6005, L3890.6100, BTS, L3890.6300 ####[facility] [address] [place], [address] Hemoglobin (Bld) [Mass/Vol] 11.6 g/dL Low 12.0-15.0 [facility] Comment on above: Performed By: #### L 501.9985, L509.8000, L100.0100, L509.4005, L3890.6005, L3890.6100, BTS, L3890.6300 ####[facility] [address] [place], [address] IG% 0.500 Normal 0.0-0.9 [facility] Comment on above: Result Comment: IG% - Immature Granulocytes (promyelocytes, myelocytes and metamyelocytes) > 1% indicates that a LEFT SHIFT is Present. Performed By: #### L 501.9985, L509.8000, L100.0100, L509.4005, L3890.6005, L3890.6100, BTS, L3890.6300 ####[facility] [address] [place], [address] Lymphocytes/100 WBC (Bld) 10.5 % Low 19-41 [facility] Comment on above: Performed By: #### L 501.9985, L509.8000, L100.0100, L509.4005, L3890.6005, L3890.6100, BTS, L3890.6300 ####[facility] [address] [place], [address] MCH (RBC) [Entitic mass] 27.8 pg Normal 27.0-32.0 [facility] Comment on above: Performed By: #### L 501.9985, L509.8000, L100.0100, L509.4005, L3890.6005, L3890.6100, BTS, L3890.6300 ####[facility] [address] [place], [address] MCHC (RBC) [Mass/Vol] 31.6 g/dL Low 32-36 [facility] Comment on above: Performed By: #### L 501.9985, L509.8000, L100.0100, L509.4005, L3890.6005, L3890.6100, BTS, L3890.6300 ####[facility] [address] [place], [address] MCV (RBC) [Entitic vol] 87.8 fL Normal 81-99 [facility] Comment on above: Performed By: #### L 501.9985, L509.8000, L100.0100, L509.4005, L3890.6005, L3890.6100, BTS, L3890.6300 ####[facility] [address] [place], [address] Monocytes/100 WBC (Bld) 5.0 % Normal 0-10 [facility] Comment on above: Performed By: #### L 501.9985, L509.8000, L100.0100, L509.4005, L3890.6005, L3890.6100, BTS, L3890.6300 ####[facility] [address] [place], [address] Neutrophils/100 WBC (Bld) 83.4 % High 47-70 [facility] Comment on above: Performed By: #### L 501.9985, L509.8000, L100.0100, L509.4005, L3890.6005, L3890.6100, BTS, L3890.6300 ####[facility] [address] [place], [address] Nucleated RBC (Bld) [#/Vol] 0 10*3/uL Normal 0-5 [facility] Comment on above: Performed By: #### L 501.9985, L509.8000, L100.0100, L509.4005, L3890.6005, L3890.6100, BTS, L3890.6300 ####[facility] [address] [place], [address] Platelet mean volume (Bld) [Entitic vol] 10.8 fL Normal 6.2-12.0 [facility] Comment on above: Performed By: #### L 501.9985, L509.8000, L100.0100, L509.4005, L3890.6005, L3890.6100, BTS, L3890.6300 ####[facility] [address] [place], [address] Platelets (Bld) [#/Vol] 306 10*3/uL Normal 150-450 [facility] Comment on above: Performed By: #### L 501.9985, L509.8000, L100.0100, L509.4005, L3890.6005, L3890.6100, BTS, L3890.6300 ####[facility] [address] [place], [address] RBC (Bld) [#/Vol] 4.18 10*6/uL Low 4.2-5.4 [facility] Comment on above: Performed By: #### L 501.9985, L509.8000, L100.0100, L509.4005, L3890.6005, L3890.6100, BTS, L3890.6300 ####[facility] [address] [place], [address] RDW SD 41.2 fl Normal 35.1-43.9 [facility] Comment on above: Performed By: #### L 501.9985, L509.8000, L100.0100, L509.4005, L3890.6005, L3890.6100, BTS, L3890.6300 ####[facility] [address] [place], [address] WBC (Bld) [#/Vol] 11.7 10*3/uL High 4.4-11.0 [facility] Comment on above: Performed By: #### L 501.9985, L509.8000, L100.0100, L509.4005, L3890.6005, L3890.6100, BTS, L3890.6300 ####[facility] [address] [place], [address] Eosinophil percentageOrdered By: Chrissy Tristan on 04-12-2024 Eosinophils/100 WBC (Bld) 0.3 % 0-5 [facility] Erythrocyte distribution wid th (RBC) [Ratio]Ordered By: Chrissy Tristan on 04-12-2024 Erythrocyte distribution width (RBC) [Entitic vol] 41.2 fL 35.1-43.9 [facility] Erythrocyte distribution wid th ratioOrdered By: Chrissy Tristan on 04-12-2024 Erythrocyte distribution width (RBC) [Ratio] 12.9 % 11.6-14.6 [facility] HIV - WCHon 04-12-2024 HIV Non-Reactive Normal Nonreactive [facility] Comment on above: Order Comment: Reaso n for Exam: Performed By: #### L 501.9985, L509.8000, L100.0100, L509.4005, L3890.6005, L3890.6100, BTS, L3890.6300 ####[facility] [address] [place], [address] HIV 1+2 Ab+HIV1 p24 Ag IA Ql Ordered By: Chrissy Tristan on 04-12-2024 HIV (1&2) Antibody Non-Reactive Nonreactive [facility] Hematocrit Auto (Bld) [Volum e fraction]Ordered By: Chrissy Tristan on 04-12-2024 Hematocrit (Bld) [Volume fraction] 36.7 % Low 37-47 [facility] Hemoglobin A1con 04-12-2024 HbA1c (Bld) [Mass fraction] 5.0 % Normal 3.8-5.6 [facility] Comment on above: Result Comment: Norm al < 5.7 % Prediabetic 5.7 - 6.4 % Diabetic >or= 6.5 % Please note range changes. Performed By: #### L 501.9985, L509.8000, L100.0100, L509.4005, L3890.6005, L3890.6100, BTS, L3890.6300 ####[facility] [address] [place], [address] Hemoglobin A1c percentageOrd ered By: Chrissy Tristan on 04-12-2024 HbA1c (Bld) [Mass fraction] 5.0 % 3.8-5.6 [facility] Comment on above: Normal < 5.7 % Predi abetic 5.7 - 6.4 % Diabetic >or= 6.5 % Please note range changes. Hemoglobin measurementOrdere d By: Chrissy Tristan on 04-12-2024 Hemoglobin (Bld) [Mass/Vol] 11.6 g/dL Low 12.0-15.0 [facility] Hepatitis B Surface Antigeno n 04-12-2024 HEP B Surf Ag Non-Reactive Normal Nonreactive [facility] Comment on above: Order Comment: Reaso n for Exam: Performed By: #### L 501.9985, L509.8000, L100.0100, L509.4005, L3890.6005, L3890.6100, BTS, L3890.6300 ####[facility] [address] [facility] [place], [address] Hepatitis B surface antigen detectionOrdered By: Chrissy Tristan on 04-12-2024 Hepatitis B Surface Antigen Non-Reactive Nonreactive [facility] Hepatitis C Antibodyon 04-12 Hepatitis C AB [facility]-Reactive [facility] Comment on above: Order Comment: Reaso n for Exam: Result Comment: Non Reactive: < 0.8 Equivocal: >/= 0.8 to < 1.0 Reactive: >/= 1.0 The CDC requires that a reactive/equivocal HCV antibody result be sent out for confirmation. HCV Quant by PCR testing. Performed By: #### L 501.9985, L509.8000, L100.0100, L509.4005, L3890.6005, L3890.6100, BTS, L3890.6300 ####[facility] [address] [place], [address] Hepatitis C virus antibody a ssayOrdered By: Chrissy Tristan on 04-12-2024 Hepatitis C Antibody Non-Reactive Nonreactive [facility] Comment on above: Non Reactive: < 0.8 Equivocal: >/= 0.8 to < 1.0 Reactive: >/= 1.0The CDC requires that a reactive/equivocal HCV antibody result be sent out for confirmation. HCV Quant by PCR testing. Immature granulocytes/100 WB C Auto (Bld)Ordered By: Chrissy Tristan on 04-12-2024 Immature granulocytes/100 WBC (Bld) 0.500 % 0.0-0.9 [facility] Comment on above: IG% - Immature Granu locytes (promyelocytes, myelocytes and metamyelocytes) > 1% indicates that a LEFT SHIFT is Present. L509.8000on 04-12-2024 Syphilis Abs Non-Reactive Normal [facility] Comment on above: Order Comment: Reaso n for Exam: Performed By: #### L 501.9985, L509.8000, L100.0100, L509.4005, L3890.6005, L3890.6100, BTS, L3890.6300 ####[facility] [address] [place], [place], [id number] Lymphocytes Auto (Unsp spec) [#/Vol]Ordered By: Chrissy Tristan on 04-12-2024 Lymphocytes (Bld) [#/Vol] 1.23 10*3/uL 0.83-4.51 [facility] Lymphocytes/100 WBC Auto (Un sp spec)Ordered By: Chrissy Tristan on 04-12-2024 Lymphocytes/100 WBC (Bld) 10.5 % Low 19-41 [facility] MCV (mean corpuscular volume ) determinationOrdered By: Chrissy Tristan on 04-12-2024 MCV (RBC) [Entitic vol] 87.8 fL 81-99 [facility] Mean corpuscular hemoglobin (MCH) determinationOrdered By: Chrissy Tristan on 04-12-2024 MCH (RBC) [Entitic mass] 27.8 pg 27.0-32.0 [facility] Mean corpuscular hemoglobin concentration (MCHC) determinationOrdered By: Chrissy Tristan on 04-12-2024 MCHC (RBC) [Mass/Vol] 31.6 g/dL Low 32-36 [facility] Mean platelet volume determi nationOrdered By: Chrissy Tristan on 04-12-2024 Platelet mean volume (Bld) [Entitic vol] 10.8 fL 6.2-12.0 [facility] Monocyte percentageOrdered B y: Chrissy Tristan on 04-12-2024 Monocytes/100 WBC (Bld) 5.0 % 0-10 [facility] Neutrophil percentageOrdered By: Chrissy Tristan on 04-12-2024 Neutrophils/100 WBC (Bld) 83.4 % High 47-70 [facility] Nucleated red blood cell per centageOrdered By: Chrissy Tristan on 04-12-2024 Nucleated RBC/100 WBC (Bld) [Ratio] 0 % 0-5 [facility] Platelet countOrdered By: Bandar Tristan on 04-12-2024 Platelets (Bld) [#/Vol] 306 10*3/uL 150-450 [facility] RBC Auto (Bld) [#/Vol]Ordere d By: Chrissy Tristan on 04-12-2024 RBC (Bld) [#/Vol] 4.18 10*6/uL Low 4.2-5.4 [facility] Rubella IgGon 04-12-2024 Rubella IgG Reactive Normal Nonreactive [facility] Comment on above: Order Comment: Reaso n for Exam: Result Comment: Anti body Results Interpretation of Immune Status Non Reactive Presumed Non-Immune Equivocal Equivocal Reactive Presumed Immune Performed By: #### L 501.9985, L509.8000, L100.0100, L509.4005, L3890.6005, L3890.6100, BTS, L3890.6300 ####[facility] [address] [place], [place], [address] Rubella immune status IgGOrd ered By: Chrissy Tristan on 04-12-2024 Rubella IgG Antibody Reactive Nonreactive [facility] Comment on above: Antibody Results Int erpretation of Immune Status Non Reactive Presumed Non-Immune Equivocal Equivocal Reactive Presumed Immune Treponema sp Ab Ql (S)Ordere d By: Chrissy Tristan on 04-12-2024 Syphilis Total Antibody Non-Reactive [facility] Type AND Screenon 04-12-2024 ABO and Rh group Nom (Bld) Blood group A Rh(D) positive Normal [facility] Comment on above: Order Comment: PN Performed By: #### L 501.9985, L509.8000, L100.0100, L509.4005, L3890.6005, L3890.6100, BTS, L3890.6300 ####[facility] [address] [place], [address] White blood cell (WBC) count Ordered By: Chrissy Tristan on 04-12-2024 WBC (Bld) [#/Vol] 11.7 10*3/uL High 4.4-11.0 [facility] Chlamydia/GC JUAN aptimaon CHLAMY,NUC ACID Negative Normal Negative [facility] Comment on above: Performed By: #### L 7000.1800, M100.2200 #### [facility] Laboratory [address] [place], [address] GC BY NUC ACID Negative Normal Negative [facility] Comment on above: Result Comment: Perf ormed at: =G - [facility] [address] [id number] [employer] Director: Trang Alvarez MD, Phone: [phone] Performed By: #### L 7000.1800, M100.2200 #### [facility] [address] [place], [address] Urine Cultureon 03-19-2024 URC Culture exhibits no growth. Normal [facility] Comment on above: Performed By: #### L 7000.1800, M100.2200 #### [facility] [address] [place], [address] C. trachomatis rRNA JUAN+prob e Ql (Unsp spec)Ordered By: Chrissy Tristan on 03-18-2024 Chlamydia DNA (JUAN) Negative Negative [facility] Neisseria gonorrhoeae nuclei c acid detection by amplified probe techniqueOrdered By: Chrissy Tristan on 03-18-2024 N. gonorrhoeae DNA JUAN+probe Ql (Unsp spec) Negative Negative [facility] Comment on above: Performed at: =G - [facility] [address] [id number] Director: Trang Alvarez MD, Phone: [phone] Sled [facility] Office Visit Reporton 03-18-2024 Sled Maker Office Visit Report [facility], [address] [place] [address] OFFICE VISIT Date of Service: 03/18/24 MR#: [id number] Acct: [id number] Name: JAG PEREZ Rep #: [id number] : 2000 Provider: MICK Castillo ams Age/Sex: 23/F [place] [facility] [place] Signed with Addenda ADDENDUM by MICK [...] Reasons: NOB LMP 01/12 Chief Complaint: NOB 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 Normal [facility] Urine cultureOrdered By: Judah Tristan on 03-18-2024 Bacteria identified Cx Nom (U) Culture exhibits no growth. 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 #:[id number] Prescriptions as of 12/05/2023 - acetaminophen (TYLENOL) [...] antepartum [O26.899 (more content not included)... Normal [facility] HIGH RISK HUMAN PAPILLOMA JANELL (HPV), PCR FOR DETECTION AND GENOTYPINGon 12-05-2023 HPV 16 Ag Ql (Unsp spec) Not detected Normal Not detec ry [facility] Comment on above: Order Comment: Speci men Type: FLUID SPECIMEN Ordering Facility: [facility] Address: [address] [place] [address] Performed By: #### H PVHRT, [id number] #### [facility] CLIA [id number] [address] [place] [address] [place] HPV 18 Ag Ql (Unsp spec) Not detected Normal Not detec ry [facility] Comment on above: Order Comment: Speci men Type: FLUID SPECIMEN Ordering Facility: [facility] Address: [address] [place] [address] Performed By: #### H PVHRT, [id number] #### [facility] CLIA [id number] [address] [place] [address] [place] HPV 31+33+35+39+45+51+52+56+ 58+59+66+68 DNA JUAN+probe Ql (Cvx) Not detected Normal Not detected [facility] Comment on above: Order Comment: Speci men Type: FLUID SPECIMEN Ordering Facility: [facility] Address: [address] [place] [address] Result Comment: High Risk HPV Other Type includes HPV types 31, 33, 35, 39, 45, 51, 52, 56, 58, 59, 66 and 68. Performed By: #### H PVHRT, [id number] #### [facility] CLIA [id number] [address] [place] [address] [place] PAP TESTon 12-05-2023 ADEQUACY Satisfactory for interpretation. Normal [facility] Comment on above: Order Comment: Speci men Type: FLUID SPECIMEN Ordering Facility: [facility] Address: [address] [place] [address] Performed By: #### H PVHRT, [id number] #### [facility] CLIA [id number] [address] [place] [address] [place] CASE REPORT Normal [facility] Comment on above: Order Comment: Speci men Type: FLUID SPECIMEN Ordering Facility: [facility] Address: [address] [place] [address] Result Comment: Gyne cologic Cytology Report Case: [id number] Authorizing Provider: Alyssa Packer, Collected: 12/05/2023 09:30 AM MD Ordering Location: OB/Gynecology Received: 12/05/2023 12:10 PM First Screen: Yoanna Napier, CT, ASCP Specimen: Pap Test, ThinPrep, Cervix Performed By: #### H PVHRT, [id number] #### [facility] CLIA [id number] [address] [place] [address] [place] CLINICAL HISTORY, CYTOLOGY, CHILDBIRTH EDUCATOR Routine Exam Normal [facility] Comment on above: Order Comment: Speci men Type: FLUID SPECIMEN Ordering Facility: [facility] Address: [address] [place] [address] Performed By: #### H PVHRT, [id number] #### [facility] CLIA [id number] [address] [place] [address] [place] FINAL PERFORMING LAB Normal [facility] Comment on above: Order Comment: Speci men Type: FLUID SPECIMEN Ordering Facility: [facility] Address: [address] [place] [address] Result Comment: Tech nical component, product test specialist screening performed at [facility], [address] [place] [address] CLIA# [id number] Diagnostic interpretation performed at [facility], [address] [place] [address] CLIA# [id number] Supervisor [employer]ing [employer]: Spencer Fierro M.D. Performed By: #### H PVHRT, [id number] #### [facility] CLIA [id number] [address] [place] [address] [place] HPV REFLEX Yes HPV Normal [facility] Comment on above: Order Comment: Speci men Type: FLUID SPECIMEN Ordering Facility: [facility] Address: [address] [place] [address] Performed By: #### H PVHRT, [id number] #### [facility] CLIA [id number] [address] [place] [address] [place] INTERPRETATION, CYTOLOGY, CHILDBIRTH EDUCATOR Normal [facility] Comment on above: Order Comment: Speci men Type: FLUID SPECIMEN Ordering Facility: [facility] Address: [address] [place] [address] Result Comment: Nega tive for intraepithelial lesion or malignancy. Performed By: #### H PVHRT, [id number] #### [facility] CLIA [id number] [address] [place] [address] [place] LMP 11/19/2023 Normal [facility] Comment on above: Order Comment: Speci men Type: FLUID SPECIMEN Ordering Facility: [facility] Address: [address] [place] [address] Performed By: #### H PVHRT, [id number] #### [facility] CLIA [id number] [address] [place] [address] [place] PAP DISCLAIMER COMMENT The Pap Smear is a screening test for cervical cancer. False negative results occur with all screening tests, emphasizing the need for rescreening at recommended intervals, and clinical correlation. Normal [facility] Comment on above: Order Comment: Speci men Type: FLUID SPECIMEN Ordering Facility: [facility] Address: [address] [place] [address] Performed By: #### H PVHRT, [id number] #### [facility] CLIA [id number] [address] [place], [place] [id number] [place] PAP PERSONAL COACH COMMENT This specimen has been analyzed by the Simple[employer] Imaging System, an automated imaging and review system, which assists the laboratory in evaluating cells on ThinPrep Pap tests. Following automated imaging, selected blount from every slide are reviewed by a product test specialist. Normal [facility] Comment on above: Order Comment: Speci men Type: FLUID SPECIMEN Ordering Facility: [facility] Address: [address] [place] [address] Performed By: #### H PVHRT, [id number] #### [facility] CLIA [id number] [address] [place] [address] [place] [address] [place] Absolute lymphocyte countOrd ered By: Maya Gonzales on 10-22-2022 Lymphocytes Auto (Unsp spec) [#/Vol] 2.38 10*3/uL 0.83-4.51 [facility] Basophil percentageOrdered B y: Maya Gonzales on 10-22-2022 Basophil percentage Not Reportable [facility] Neutrophils (Bld) [#/Vol] 14.3 10*3/uL 2.0-7.7 [facility] WBC (Bld) [#/Vol] 18.3 10*3/uL 4.4-11.0 [facility] Blood band neutrophil count as percentage of total leukocytesOrdered By: Maya Gonzales on 10-22-2022 Band form neutrophils/100 WBC (Bld) 3 % 0-5 [facility] Blood basophils/100 leukocyt esOrdered By: Maya Gonzales on 10-22-2022 Basophils/100 WBC (Bld) 1 % 0-1 [facility] Blood eosinophils/100 leukoc ytesOrdered By: Maya Gonzales on 10-22-2022 Eosinophils/100 WBC (Bld) 2 % 0-5 [facility] Blood erythrocytes count (nu mber/volume)Ordered By: Maya Gonzales on 10-22-2022 RBC (Bld) [#/Vol] 4.00 10*6/uL 4.2-5.4 [facility] Blood hemoglobin measurement (mass/volume)Ordered By: Maya Gonzales on 10-22-2022 Hemoglobin (Bld) [Mass/Vol] 11.4 g/dL 12.0-15.0 [facility] Blood lymphocytes/100 leukoc ytesOrdered By: Maya Gonzales on 10-22-2022 Lymphocytes/100 WBC (Bld) 13 % 19-41 [facility] Blood monocytes/100 leukocyt esOrdered By: Maya Gonzales on 10-22-2022 Monocytes/100 WBC (Bld) 4 % 0-10 [facility] Blood platelet adequacy dete ction by light microscopyOrdered By: Maya Gonzales on 10-22-2022 Platelets LM Ql (Bld) ADEQUATE ADEQ [facility] Blood platelet mean volumeOr dered By: Maya Gonzales on 10-22-2022 Platelet mean volume (Bld) [Entitic vol] 10.3 fL 6.2-12.0 [facility] Blood segmented neutrophils/ 100 leukocytesOrdered By: Maya Gonzales on 10-22-2022 Segmented neutrophils/100 WBC (Bld) 75 % 47-70 [facility] Determination of erythrocyte mean corpuscular volume (MCV)Ordered By: Maya Gonzales on 10-22-2022 MCV (RBC) [Entitic vol] 90.0 fL 81-99 [facility] Hematocrit Auto (Bld) [Volum e fraction]Ordered By: Maya Gonzales on 10-22-2022 Hematocrit (Bld) [Volume fraction] 36.0 % 37-47 [facility] Laboratory - Hematology and Cell countsOrdered By: Maya Gonzales on 10-22-2022 Erythrocyte distribution width (RBC) [Entitic vol] 47.8 fL 35.1-43.9 [facility] Erythrocyte distribution width (RBC) [Ratio] 14.6 % 11.6-14.6 [facility] MCH (RBC) [Entitic mass] 28.5 pg 27.0-32.0 [facility] Myelocytes/100 WBC (Bld) 2 % 0-0 [facility] MCHC Auto (RBC) [Mass/Vol]Or dered By: Maya Gonzales on 10-22-2022 MCHC (RBC) [Mass/Vol] 31.7 g/dL 32-36 [facility] No Panel InformationOrdered By: Maya Gonzales on 10-22-2022 Vaginal Amniotic Fluid Detection Positive Negative [facility] Comment on above: Amniotic fluid prese nt indicates rupture of Membranes. RESULTS CALLED TO Johann CANALES 10/22/22 011Rashawn Baker.REPORT READ BACK BY SAME. Platelets bldOrdered By: Ene Gonzales on 10-22-2022 Platelets (Bld) [#/Vol] 272 10*3/uL 150-450 [facility] RBC morphologyOrdered By: Justus Gonzales on 10-22-2022 RBC morphology finding Nom (Bld) NORM C+C NORMAL NORM C&C [facility] Review by pathologistOrdered By: Maya Gonzales on 10-22-2022 Pathologist review Hugo (Unsp spec) [Interp] Reviewed [facility] Comment on above: Previous reported re sult: Delmis conway Edited by: HELENA on 10/23/22:1007Neutrophilic leukocytosis with left shift.Clinical correlation necessary.Chan Watson M.D. 10/23/22 AMENDED REPORT 10/23/22 1007 PATH REV previously reported as: Delmis conway Serum Treponema species anti body detectionOrdered By: Maya Gonzales on 10-22-2022 Treponema sp Ab Ql (S) Non-Reactive [facility] Total cell countOrdered By: Maya Gonzales on 10-22-2022 Cells counted Molgen (Bld/Tiss) [#] 100 MANUAL DIFF [facility] No Panel InformationOrdered By: Davion Sepulveda on 10-16-2022 Vaginal Amniotic Fluid Detection Negative Negative [facility] Comment on above: Amniotic fluid not p resent indicates No Rupture of FetalMembranes at time of specimen collection. CBC panel Auto (Bld)on 10-14 Erythrocyte distribution width (RBC) [Ratio] 14.8 % 11.5 - 15.0 % [facility] Hematocrit (Bld) [Volume fraction] 32.6 % Low 36.0 - 46.0 % [facility] Hemoglobin (Bld) [Mass/Vol] 10.7 g/dL Low 11.5 - 15.5 g/dL [facility] MCH (RBC) [Entitic mass] 28.4 pg 26.0 - 34.0 pg [facility] MCHC (RBC) [Mass/Vol] 32.8 g/dL 30.5 - 36.0 g/dL [facility] MCV (RBC) [Entitic vol] 86.5 fL 80.0 - 100.0 fL [facility] Nucleated RBC (Bld) [#/Vol] <0.01 k/uL [facility] Platelet mean volume (Bld) [Entitic vol] 9.8 fL 9.0 - 12.7 fL [facility] Platelets (Bld) [#/Vol] 270 10*3/uL 150 - 400 k /uL [facility] RBC (Bld) [#/Vol] 3.77 10*6/uL Low 3.90 - 5.2 0 m/uL [facility] WBC (Bld) [#/Vol] 16.27 10*3/uL High 3.70 - 11 .00 k/uL [facility] URINE OB DIP B/Oon 3 Glucose Ql (U) Negative Neg mg/dL [facility] Protein.monoclonal (U) [Mass/Vol] Negative Neg mg/dL [facility] URINE OB DIP B/Oon 3 Glucose Ql (U) Negative Neg mg/dL [facility] Protein.monoclonal (U) [Mass/Vol] Negative Neg mg/dL [facility] OBSTETRIC ULTRASOUND WHIon 0 10-02-2022 [facility] URINE OB DIP B/Oon 3 Glucose Ql (U) Negative Neg mg/dL [facility] Protein.monoclonal (U) [Mass/Vol] Negative Neg mg/dL [facility] URINE OB DIP B/Oon 3 Glucose Ql (U) Negative Neg mg/dL [facility] Protein.monoclonal (U) [Mass/Vol] Negative Neg mg/dL [facility] URINE OB DIP B/Oon 3 Glucose Ql (U) Negative Neg mg/dL [facility] Protein.monoclonal (U) [Mass/Vol] Negative Neg mg/dL [facility] URINE OB DIP B/Oon 3 Glucose Ql (U) Negative Neg mg/dL [facility] Protein.monoclonal (U) [Mass/Vol] Negative Neg mg/dL [facility] OBSTETRIC ULTRASOUND WHIon 0 06-10-2022 [facility] URINE OB DIP B/Oon 3 Glucose Ql (U) Negative Neg mg/dL [facility] Protein.monoclonal (U) [Mass/Vol] Negative Neg mg/dL [facility] URINE OB DIP B/Oon 3 Glucose Ql (U) Negative Neg mg/dL [facility] Protein.monoclonal (U) [Mass/Vol] Negative Neg mg/dL [facility] URINE OB DIP B/Oon 2 Glucose Ql (U) Negative Neg mg/dL [facility] Protein.monoclonal (U) [Mass/Vol] Negative Neg mg/dL [facility] URINE OB DIP B/Oon 2 Glucose Ql (U) Negative Neg mg/dL [facility] Protein.monoclonal (U) [Mass/Vol] Negative Neg mg/dL [facility] Vital Signs Date Time Vital Sign Value Performing Clinician Facility 10-12-2024 08:17-0400 Body height 157.[address] Geronimo Arias DO Work Phone: [facility] 10-12-2024 08:16-0400 Body mass index (BMI) [Ratio] 37.1 kg/m2 Dr. Geronimo Arias DO Work Phone: [facility] 10-12-2024 08:16-0400 Body weight 92.[address] Geronimo Arias DO Work Phone: [facility] 10-12-2024 08:16-0400 Diastolic blood pressure 74 mm[Hg] Dr. Geronimo Arias DO Work Phone: [facility] 10-12-2024 08:16-0400 Systolic blood pressure 109 mm[Hg] Dr. Geronimo Arias DO Work Phone: [facility] 10-07-2024 08:19-0400 Body height 157.[address] Geronimo Arias DO Work Phone: [facility] 10-07-2024 08:18-0400 Body mass index (BMI) [Ratio] 36.8 kg/m2 Dr. Geronimo Arias DO Work Phone: [facility] 10-07-2024 08:18-0400 Body weight 91.[address] Geronimo Arias DO Work Phone: [facility] 10-07-2024 08:18-0400 Diastolic blood pressure 63 mm[Hg] Dr. Geronimo Arias DO Work Phone: [facility] 10-07-2024 08:18-0400 Systolic blood pressure 108 mm[Hg] Dr. Geronimo Arias DO Work Phone: [facility] 09-30-2024 13:44-0400 Body height 157.[address] Geronimo Arias DO Work Phone: [facility] 09-30-2024 13:44-0400 Body mass index (BMI) [Ratio] 36.8 kg/m2 Dr. Geronimo Arias DO Work Phone: [facility] 09-30-2024 13:44-0400 Body weight 91.[address] Geronimo Arias DO Work Phone: [phone] [place] [address] 09-30-2024 13:44-0400 Diastolic blood pressure 80 mm[Hg] Dr. Geronimo Arias DO Work Phone: [facility] 09-30-2024 13:44-0400 Systolic blood pressure 116 mm[Hg] Dr. Geronimo Arias DO Work Phone: [facility] 09-29-2024 12:04-0400 Diastolic blood pressure 64 mm[Hg] Dr. Geronimo Arias DO Work Phone: [facility] 09-29-2024 12:04-0400 Heart rate 108 /min Dr. Geronimo Arias DO Work Phone: [facility] 09-29-2024 12:04-0400 SaO2% (BldA) [Mass fraction] 97 % Dr. Geronimo Arias DO Work Phone: [facility] 09-29-2024 12:04-0400 Systolic blood pressure 94 mm[Hg] Dr. Geronimo Arias DO Work Phone: [facility] 09-29-2024 11:56-0400 Body height 157.[address] Geronimo Arias DO Work Phone: [facility] 09-29-2024 11:56-0400 Body mass index (BMI) [Ratio] 36.6 kg/m2 Dr. Geronimo Arias DO Work Phone: [facility] 09-29-2024 11:56-0400 Body weight 90.[address] Geronimo Arias DO Work Phone: [facility] 09-29-2024 11:55-0400 Body temperature 97.6 [degF] Dr. Geronimo Arias DO Work Phone: [facility] 09-29-2024 11:55-0400 Respiratory rate 16 /min Dr. Geronimo Arias DO Work Phone: [facility] 09-22-2024 13:50-0400 Body height 157.[address] Geronimo Arias DO Work Phone: [phone] [address] 09-22-2024 13:49-0400 Body mass index (BMI) [Ratio] 36.3 kg/m2 Dr. Geronimo Arias DO Work Phone: [facility] 09-22-2024 13:49-0400 Body weight 90.[address] Geronimo Arias DO Work Phone: [facility] 09-22-2024 13:49-0400 Diastolic blood pressure 66 mm[Hg] Dr. Geronimo Arias DO Work Phone: [facility] 09-22-2024 13:49-0400 Systolic blood pressure 97 mm[Hg] Dr. Geronimo Arias DO Work Phone: [facility] 09-09-2024 09:51-0400 Body height 157.[address] Geronimo Arias DO Work Phone: [facility] 09-09-2024 09:51-0400 Body mass index (BMI) [Ratio] 35 kg/m2 Dr. Geronimo Arias DO Work Phone: [facility] 09-09-2024 09:51-0400 Body weight [address] Geronimo Arias DO Work Phone: [facility] 09-09-2024 09:43-0400 Body temperature 98.7 [degF] Dr. Geronimo Arias DO Work Phone: [facility] 09-09-2024 09:43-0400 Diastolic blood pressure 63 mm[Hg] Dr. Geronimo Arias DO Work Phone: [facility] 09-09-2024 09:43-0400 Heart rate 97 /min Dr. Geronimo Arias DO Work Phone: [facility] 09-09-2024 09:43-0400 Respiratory rate 16 /min Dr. Geronimo Arias DO Work Phone: [facility] 09-09-2024 09:43-0400 Systolic blood pressure 116 mm[Hg] Dr. Geronimo Arias DO Work Phone: [facility] 09-09-2024 08:22-0400 Body height 157.[address] Geronimo Arias DO Work Phone: [facility] 09-09-2024 08:22-0400 Body mass index (BMI) [Ratio] 35.4 kg/m2 Dr. Geronimo Arias DO Work Phone: [facility] 09-09-2024 08:22-0400 Body weight 87.[address] Geronimo Arias DO Work Phone: [facility] 09-09-2024 08:22-0400 Diastolic blood pressure 70 mm[Hg] Dr. Geronimo Arias DO Work Phone: [facility] 09-09-2024 08:22-0400 Systolic blood pressure 108 mm[Hg] Dr. Geronimo Arias DO Work Phone: [facility] 08-23-2024 13:55-0400 Body mass index (BMI) [Ratio] 34.4 kg/m2 Dr. Geronimo Arias DO Work Phone: [facility] 08-23-2024 13:55-0400 Body weight 85.[address] Geronimo Arias DO Work Phone: [facility] 08-23-2024 13:55-0400 Diastolic blood pressure 64 mm[Hg] Dr. Geronimo Arias DO Work Phone: [facility] 08-23-2024 13:55-0400 Systolic blood pressure 100 mm[Hg] Dr. Geronimo Arias DO Work Phone: [facility] 08-11-2024 11:19-0400 Body mass index (BMI) [Ratio] 34 kg/m2 Dr. Geronimo Arias DO Work Phone: [facility] 08-11-2024 11:19-0400 Body weight 84.[address] Geronimo Arias DO Work Phone: [facility] 08-11-2024 11:19-0400 Diastolic blood pressure 69 mm[Hg] Dr. Geronimo Arias DO Work Phone: [facility] 08-11-2024 11:19-0400 Systolic blood pressure 101 mm[Hg] Dr. Geronimo Arias DO Work Phone: [facility] 08-05-2024 22:25-0400 Body height 157.[address] Geronimo Arias DO Work Phone: [facility] 08-05-2024 22:25-0400 Body mass index (BMI) [Ratio] 33.8 kg/m2 Dr. Geronimo Arias DO Work Phone: [facility] 08-05-2024 22:25-0400 Body weight 83.[address] Geronimo Arias DO Work Phone: [facility] 08-05-2024 22:21-0400 Diastolic blood pressure 67 mm[Hg] Dr. Geronimo Arias DO Work Phone: [facility] 08-05-2024 22:21-0400 Heart rate 94 /min Dr. Geronimo Arias DO Work Phone: [facility] 08-05-2024 22:21-0400 Systolic blood pressure 111 mm[Hg] Dr. Geronimo Arias DO Work Phone: [facility] 08-05-2024 22:20-0400 SaO2% (BldA) [Mass fraction] 98 % Dr. Geronimo Arias DO Work Phone: [facility] 07-30-2024 11:00-0400 Body mass index (BMI) [Ratio] 33.3 kg/m2 Dr. Geronimo Arias DO Work Phone: [facility] 07-30-2024 11:00-0400 Body weight 82.[address] Geronimo Arias DO Work Phone: [facility] 07-30-2024 11:00-0400 Diastolic blood pressure 68 mm[Hg] Dr. Geronimo Arias DO Work Phone: [facility] 07-30-2024 11:00-0400 Systolic blood pressure 106 mm[Hg] Dr. Geronimo Arias DO Work Phone: [facility] 07-12-2024 14:50-0400 Body height 157.[address] Geronimo Arias DO Work Phone: [facility] 07-12-2024 14:50-0400 Body mass index (BMI) [Ratio] 32.3 kg/m2 Dr. Geronimo Arias DO Work Phone: [facility] 07-12-2024 14:50-0400 Body weight 80.[address] Geronimo Arias DO Work Phone: [facility] 07-12-2024 14:50-0400 Diastolic blood pressure 69 mm[Hg] Dr. Geronimo Arias DO Work Phone: [facility] 07-12-2024 14:50-0400 Systolic blood pressure 105 mm[Hg] Dr. Geronimo Arias DO Work Phone: [facility] 06-24-2024 13:12-0400 Body mass index (BMI) [Ratio] 32.1 kg/m2 Dr. Geronimo Arias DO Work Phone: [facility] 06-24-2024 13:12-0400 Body weight 79.[address] Geronimo Arias DO Work Phone: [facility] 06-24-2024 13:12-0400 Diastolic blood pressure 72 mm[Hg] Dr. Geronimo Arias DO Work Phone: [facility] 06-24-2024 13:12-0400 Systolic blood pressure 105 mm[Hg] Dr. Geronimo Arias DO Work Phone: [facility] 06-18-2024 08:48-0500 Body mass index (BMI) [Ratio] 31.7 kg/m2 Dr. Geronimo Arias DO Work Phone: [facility] 06-18-2024 08:48-0500 Body weight 78.[address] Geronimo Arias DO Work Phone: [facility] 06-18-2024 08:48-0500 Diastolic blood pressure 72 mm[Hg] Dr. Geronimo Arias DO Work Phone: [facility] 06-18-2024 08:48-0500 Systolic blood pressure 104 mm[Hg] Dr. Geronimo Arias DO Work Phone: [facility] 05-21-2024 08:48-0500 Body mass index (BMI) [Ratio] 30.9 kg/m2 Dr. Geronimo Arias DO Work Phone: [facility] 05-21-2024 08:48-0500 Body weight 76.[address] Geronimo Arias DO Work Phone: [facility] 05-21-2024 08:48-0500 Diastolic blood pressure 74 mm[Hg] Dr. Geronimo Arias DO Work Phone: [facility] 05-21-2024 08:48-0500 Systolic blood pressure 108 mm[Hg] Dr. Geronimo Arias DO Work Phone: [facility] 04-21-2024 15:08-0500 Body mass index (BMI) [Ratio] 30.4 kg/m2 Dr. Geronimo Arias DO Work Phone: [facility] 04-21-2024 15:08-0500 Body weight 75.[address] Geronimo Arias DO Work Phone: [facility] 04-21-2024 15:08-0500 Diastolic blood pressure 75 mm[Hg] Dr. Geronimo Arias DO Work Phone: [facility] 04-21-2024 15:08-0500 Systolic blood pressure 127 mm[Hg] Dr. Geronimo Arias DO Work Phone: [facility] 03-18-2024 14:39-0500 Body mass index (BMI) [Ratio] 31.5 kg/m2 Dr. Geronimo Arias DO Work Phone: [facility] 03-18-2024 14:39-0500 Body weight 78.[address] Geronimo Arias DO Work Phone: [facility] 03-18-2024 14:39-0500 Diastolic blood pressure 70 mm[Hg] Dr. Geronimo Arias DO Work Phone: [facility] 03-18-2024 14:39-0500 Systolic blood pressure 104 mm[Hg] Dr. Geronimo Arias DO Work Phone: [facility] 12-05-2023 09:10-0400 Body height 156.2 cm Alyssa Chance MD Work Phone: [facility] 12-05-2023 09:10-0400 Body mass index (BMI) [Ratio] 32.31 kg/m2 Alyssa Chance MD Work Phone: [facility] 12-05-2023 09:10-0400 Body weight 78.83 kg Alyssa Chance MD Work Phone: [facility] 12-05-2023 09:10-0400 Diastolic blood pressure 66 mm[Hg] Alyssa Chance MD Work Phone: [facility] 12-05-2023 09:10-0400 Heart rate 79 /min Alyssa Chance MD Work Phone: [facility] 12-05-2023 09:10-0400 Respiratory rate 16 /min Alyssa Chance MD Work Phone: [facility] 12-05-2023 09:10-0400 SaO2% (BldA) [Mass fraction] 99 % Alyssa Chance MD Work Phone: [facility] 12-05-2023 09:10-0400 Systolic blood pressure 118 mm[Hg] Alyssa Chance MD Work Phone: [facility] 12-04-2022 16:01-0400 Body weight 78.47 kg Alyssa Chance MD Work Phone: [facility] 12-04-2022 16:01-0400 Diastolic blood pressure 60 mm[Hg] Alyssa Chance MD Work Phone: [facility] 12-04-2022 16:01-0400 Systolic blood pressure 100 mm[Hg] Alyssa Chance MD Work Phone: [facility] 10-23-2022 17:36-0400 Body temperature 97 [degF] [facility] 10-23-2022 17:36-0400 Diastolic blood pressure 71 mm[Hg] [facility] 10-23-2022 17:36-0400 Heart rate 100 /min [facility] 10-23-2022 17:36-0400 Respiratory rate 16 /min [facility] 10-23-2022 17:36-0400 Systolic blood pressure 116 mm[Hg] [facility] 10-22-2022 00:54-0400 Body height 157.48 cm [facility] 10-22-2022 00:54-0400 Body mass index (BMI) [Ratio] 37 kg/m2 [facility] 10-22-2022 00:54-0400 Body weight 91.8 kg [facility] 10-16-2022 07:16-0400 Body temperature 97.1 [degF] [facility] 10-16-2022 07:16-0400 Diastolic blood pressure 61 mm[Hg] [facility] 10-16-2022 07:16-0400 Heart rate 99 /min [facility] 10-16-2022 07:16-0400 Systolic blood pressure 132 mm[Hg] [facility] 10-16-2022 05:31-0400 Body height 157.48 cm [facility] 10-16-2022 05:31-0400 Body mass index (BMI) [Ratio] 36.9 kg/m2 [facility] 10-16-2022 05:31-0400 Body weight 91.6 kg [facility] 10-16-2022 05:27-0400 SaO2% (BldA) [Mass fraction] 97 % [facility] 10-14-2022 10:18-0400 Body weight 91.17 kg Lorena Camara MD Work Phone: [facility] 10-14-2022 10:18-0400 Diastolic blood pressure 66 mm[Hg] Lorena Camara MD Work Phone: [facility] 10-14-2022 10:18-0400 Systolic blood pressure 106 mm[Hg] Lorena Camara MD Work Phone: [facility] 10-10-2022 10:55-0400 Body temperature 97.81 [degF] Treatment [facility]str Work Phone: [facility] 10-10-2022 10:55-0400 Diastolic blood pressure 70 mm[Hg] Treatment [facility]str Work Phone: [facility] 10-10-2022 10:55-0400 Heart rate 94 /min Treatment [facility] Work Phone: [facility] 10-10-2022 10:55-0400 SaO2% (BldA) [Mass fraction] 98 % [facility] Work Phone: [facility] 10-10-2022 10:55-0400 Systolic blood pressure 106 mm[Hg] Treatment [facility] Work Phone: [facility] 10-09-2022 13:48-0400 Body weight 90.45 kg Sobeida Lopez MD Work Phone: [facility] 10-09-2022 13:48-0400 Diastolic blood pressure 60 mm[Hg] Sobeida Lopez MD Work Phone: [facility] 10-09-2022 13:48-0400 Systolic blood pressure 104 mm[Hg] Sobeida Lopez MD Work Phone: [facility] 10-03-2022 10:24-0400 Body temperature 97.59 [degF] Treatment [facility] Work Phone: [facility] 10-03-2022 10:24-0400 Diastolic blood pressure 71 mm[Hg] Treatment [facility]str Work Phone: [facility] 10-03-2022 10:24-0400 Heart rate 97 /min Treatment [facility] Work Phone: [facility] 10-03-2022 10:24-0400 Respiratory rate 18 /min Treatment [facility] Work Phone: [facility] 10-03-2022 10:24-0400 SaO2% (BldA) [Mass fraction] 97 % [facility] Work Phone: [facility] 10-03-2022 10:24-0400 Systolic blood pressure 109 mm[Hg] Treatment [facility]str Work Phone: [facility] 10-02-2022 11:21-0400 Body weight 88.91 kg Maya Gonzales APRN.CNM Work Phone: [facility] 10-02-2022 11:21-0400 Diastolic blood pressure 64 mm[Hg] Maya Gonzales APRN.CNM Work Phone: [facility] 10-02-2022 11:21-0400 Systolic blood pressure 106 mm[Hg] Maya Gonzales APRN.CNM Work Phone: [facility] 09-26-2022 11:34-0400 Diastolic blood pressure 65 mm[Hg] Treatment [facility]str Work Phone: [facility] 09-26-2022 11:34-0400 Systolic blood pressure 110 mm[Hg] Treatment [facility]str Work Phone: [facility] 09-26-2022 10:43-0400 Body temperature 97.3 [degF] Treatment [facility]str Work Phone: [facility] 09-26-2022 10:43-0400 Heart rate 91 /min Treatment [facility]str Work Phone: [facility] 09-26-2022 10:43-0400 SaO2% (BldA) [Mass fraction] 98 % Treatment [facility] Work Phone: [facility] 09-19-2022 08:51-0400 Body weight 88.59 kg Sobeida Lopez MD Work Phone: [facility] 09-19-2022 08:51-0400 Diastolic blood pressure 68 mm[Hg] Sobeida Lopez MD Work Phone: [facility] 09-19-2022 08:51-0400 Systolic blood pressure 100 mm[Hg] Sobeida Lopez MD Work Phone: [facility] 09-10-2022 17:54-0400 Diastolic blood pressure 64 mm[Hg] [facility] 09-10-2022 17:54-0400 Heart rate 102 /min [facility] 09-10-2022 17:54-0400 Systolic blood pressure 99 mm[Hg] [facility] 09-10-2022 16:56-0400 Body height 157.48 cm [facility] 09-10-2022 16:56-0400 Body mass index (BMI) [Ratio] 35.5 kg/m2 [facility] 09-10-2022 16:56-0400 Body weight 88.05 kg [facility] 08-23-2022 09:58-0400 Body weight 84.37 kg Davion Sepulveda MD Work Phone: [facility] 08-23-2022 09:58-0400 Diastolic blood pressure 66 mm[Hg] Davion Sepulveda MD Work Phone: [facility] 08-23-2022 09:58-0400 Systolic blood pressure 102 mm[Hg] Davion Sepulveda MD Work Phone: [facility] 08-12-2022 13:06-0400 Diastolic blood pressure 72 mm[Hg] Lorena Camara MD Work Phone: [facility] 08-12-2022 13:06-0400 Systolic blood pressure 120 mm[Hg] Lorena Camara MD Work Phone: [facility] 08-08-2022 15:38-0400 Body weight 82.1 kg Davion Sepulveda MD Work Phone: [facility] 08-08-2022 15:38-0400 Diastolic blood pressure 68 mm[Hg] Davion Sepulveda MD Work Phone: [facility] 08-08-2022 15:38-0400 Systolic blood pressure 104 mm[Hg] Davion Sepulveda MD Work Phone: [facility] 07-08-2022 16:07-0400 Body weight 79.2 kg Alyssa Chance MD Work Phone: [facility] 07-08-2022 16:07-0400 Diastolic blood pressure 68 mm[Hg] Alyssa Chance MD Work Phone: [facility] 07-08-2022 16:07-0400 Systolic blood pressure 100 mm[Hg] Alyssa Chance MD Work Phone: [facility] 06-10-2022 11:03-0500 Body weight 74.39 kg Davion Sepulveda MD Work Phone: [facility] 06-10-2022 11:03-0500 Diastolic blood pressure 64 mm[Hg] Davion Sepulveda MD Work Phone: [facility] 06-10-2022 11:03-0500 Systolic blood pressure 108 mm[Hg] Davion Sepulveda MD Work Phone: [facility] 05-13-2022 08:41-0500 Body weight 72.48 kg Sobeida Loepz MD Work Phone: [facility] 05-13-2022 08:41-0500 Diastolic blood pressure 64 mm[Hg] Sobeida Lopez MD Work Phone: [facility] 05-13-2022 08:41-0500 Systolic blood pressure 104 mm[Hg] Sobeida Lopez MD Work Phone: [facility] 04-12-2022 14:23-0500 Body weight 70.31 kg Lorena Camara MD Work Phone: [facility] 04-12-2022 14:23-0500 Diastolic blood pressure 62 mm[Hg] Lorena Camara MD Work Phone: [facility] 04-12-2022 14:23-0500 Systolic blood pressure 104 mm[Hg] Lorena Camara MD Work Phone: [facility] 03-19-2022 14:01-0500 Body weight 71.4 kg Davion Sepulveda MD Work Phone: [facility] 03-19-2022 14:01-0500 Diastolic blood pressure 62 mm[Hg] Davion Sepulveda MD Work Phone: [facility] 03-19-2022 14:01-0500 Systolic blood pressure 112 mm[Hg] Davion Sepulveda MD Work Phone: [facility] 03-11-2022 10:12-0500 Body height 157.5 cm Alyssa Chance MD Work Phone: [facility] 03-11-2022 10:12-0500 Body weight 71.67 kg Alyssa Chance MD Work Phone: [facility] 03-11-2022 10:12-0500 Diastolic blood pressure 70 mm[Hg] Alyssa Chance MD Work Phone: [facility] 03-11-2022 10:12-0500 Systolic blood pressure 110 mm[Hg] Alyssa Chance MD Work Phone: [facility] 01-09-2022 08:31-0400 Body height 157 cm Alyssa Chance MD Work Phone: [facility] 01-09-2022 08:31-0400 Body weight 68.04 kg Alyssa Chance MD Work Phone: [facility] 01-09-2022 08:31-0400 Diastolic blood pressure 60 mm[Hg] Alyssa Chance MD Work Phone: [facility] 01-09-2022 08:31-0400 Systolic blood pressure 100 mm[Hg] Alyssa Chance MD Work Phone: [facility] 07-21-2020 17:03-0400 BMI (Body Mass Index) 25.79 kg/m2 [facility] 07-21-2020 17:03-0400 Body Temperature 98.4 [degF] [facility] 07-21-2020 17:03-0400 Body weight 63.96 kg [facility] 07-21-2020 17:03-0400 BP Diastolic 83 mm[Hg] [facility] 07-21-2020 17:03-0400 BP Systolic 119 mm[Hg] [facility] 07-21-2020 17:03-0400 Height 157.5 cm [facility] 07-21-2020 17:03-0400 Pulse (Heart Rate) 84 /min [facility] 07-21-2020 17:03-0400 Pulse Oximetry 97 % [facility] 07-21-2020 17:03-0400 Respiratory Rate 16 /min [facility] Encounters Encounter Date Encounter Type Care Provider Facility Start: 10-20-2024 ambulatory Geronimo Galan acility:[facility] Start: 10-14-2024 ambulatory Becky Rice lity:[facility] Start: 10-12-2024 Encounter for genera l adult medical examination without abnormal findings Becky Galvez [facility] Start: 10-12-2024 End: 10-12-[address] Selene Braun DO [facility] Work Phone: Start: 10-12-2024 End: 10-12-[address] Geronimo Arias DO Work Phone: -[facility] Start: 10-08-2024 End: 10-08-[address] Becky Galvez MD -[facility] Work Phone: Start: 10-08-2024 End: 10-08-[address] Geronimo Arias DO Work Phone: -[facility] Start: 10-07-2024 End: 10-07-[address] Becky Galvez MD -[facility] Work Phone: Start: 10-07-2024 End: 10-07-[address] Geronimo Arias DO Work Phone: [facility] Work Phone: Start: 09-30-2024 End: 09-30-[address] Selene Braun DO -[facility] Work Phone: Start: 09-30-2024 End: 09-30-[address] Geronimo Arias DO Work Phone: [facility] Work Phone: Start: 09-29-2024 ambulatory Becky Rice lity:[facility] Start: 09-29-2024 Non-patient / Non-visit Dr. Sveta Galvez MD -[facility] Start: 09-29-2024 End: 09-29-[address] Geronimo Arias DO Work Phone: [facility] Work Phone: Start: 09-29-2024 End: 09-29-[address] Becky Galvez MD -[facility] Work Phone: Start: 09-22-2024 End: 09-22-[address] Geronimo Arias DO Work Phone: [facility] Work Phone: Start: 09-22-2024 End: 09-22-[address] Selene Braun DO -[facility] Work Phone: Start: 09-22-2024 End: 09-22-[address] Selene Braun DO -[facility] Work Phone: Start: 09-22-2024 End: 09-22-[address] Geronimo Arias DO Work Phone: [facility] Work Phone: Start: 09-22-2024 End: 09-22-2024 ambulatory Selene Braun Facility:[facility] Start: 09-09-2024 ambulatory Becky Rice lity:[facility] Start: 09-09-2024 Non-patient / Non-visit Dr. Sveta Galvez MD -[facility] Start: 09-09-2024 End: 09-09-[address] Geronimo Arias DO Work Phone: [facility] Work Phone: Start: 09-09-2024 End: 09-09-[address] Becky Galvez MD -[facility] Work Phone: Start: 09-09-2024 End: 09-09-2024 Patient encounter procedure Chrissy Tristan CNM -[facility] Work Phone: Start: 09-09-2024 End: 09-09-[address] Geronimo Arias DO Work Phone: [facility] Work Phone: Start: 08-25-2024 End: 08-25-2024 ambulatory Promise Agosto NP Facility:[facility] Start: 08-25-2024 End: 08-25-2024 Non-patient / Non-visit Dr. Jacob Suggs MD -[facility] Work Phone: Start: 08-25-2024 End: 08-25-2024 Patient encounter procedure Promise Agosto METHODS SPECIALIST-C -Pulmonary Services/Neurology Work Phone: Start: 08-25-2024 End: 08-25-2024 ambulatory Promise Agosto METHODS SPECIALIST Facility:[facility] Start: 08-23-2024 End: 08-23-2024 Patient encounter procedure Promise Agosto METHODS SPECIALIST-C -[facility] Work Phone: Start: 08-23-2024 End: 08-23-2024 ambulatory Promise Agosto METHODS SPECIALIST Facility:[facility] Start: 08-11-2024 End: 08-11-[address] Selene Braun DO -[facility] Work Phone: Start: 08-11-2024 End: 08-11-2024 ambulatory Selene Braun Facility:[facility] Start: 08-05-2024 Non-patient / Non-visit Dr. Sveta Galvez MD -[facility] Start: 08-05-2024 End: 08-06-[address] Geronimo Arias DO Work Phone: [facility] Work Phone: Start: 08-05-2024 End: 08-06-[address] Becky Galvez MD -[facility] Work Phone: Start: 07-30-2024 End: 07-30-[address] Becky Galvez MD -[facility] Work Phone: Start: 07-30-2024 End: 07-30-2024 ambulatory Becky Galvez Facility:[facility] Start: 07-12-2024 End: 07-12-[address] Geronimo Arias DO Work Phone: [facility] Work Phone: Start: 07-12-2024 End: 07-12-2024 Patient encounter procedure Chrissy Tristan CNM -Lab, [facility] Start: 07-12-2024 End: 07-12-2024 ambulatory Chrissy Tristan Facility:[facility] Start: 06-24-2024 End: 06-24-2024 Patient encounter procedure Chrissy Tristan CNM -[facility] Work Phone: Start: 06-24-2024 End: 06-24-2024 ambulatory Chrissy Tristan Facility:[facility] Start: 06-18-2024 End: 06-18-2024 Patient encounter procedure Chrissy PRINCEM -[facility] Work Phone: Start: 06-18-2024 End: 06-18-2024 ambulatory Chrissy Tristan Facility:[facility] Start: 06-10-2024 End: 06-10-2024 ambulatory BECKY GALVEZ [facility] Start: 05-27-2024 End: 05-27-2024 ambulatory GERONIMO ARIAS [facility] Start: 05-21-2024 End: 05-21-2024 Patient encounter procedure Chrissy PRINCE -[facility] Work Phone: Start: 05-21-2024 End: 05-21-2024 ambulatory Chrissy Tristan Facility:[facility] Start: 04-21-2024 End: 04-21-[address] Becky Galvez MD -[facility] Work Phone: Start: 04-21-2024 End: 04-21-2024 ambulatory Becky Galvez Facility:[facility] Start: 04-12-2024 End: 04-12-2024 Patient encounter procedure Chrissy PRINCEM -Lab, [facility] Start: 04-12-2024 End: 04-12-2024 ambulatory Chrissy Tristan Facility:[facility] Start: 03-18-2024 End: 03-18-2024 Patient encounter procedure Chrissy Tristan CNGrace -Laboratory, Specimen Work Phone: Start: 03-18-2024 End: 03-18-2024 Patient encounter procedure Chrissy Tristan CNM -[facility] Work Phone: Start: 03-18-2024 End: 03-18-2024 ambulatory Geronimo Arias Facility:[facility] Start: 03-18-2024 End: 03-18-2024 ambulatory Chrissy Tristan Facility:[facility] Start: 12-05-2023 End: 12-05-2023 ambulatory MURIEL Damien HOSSEIN Facility:[facility] Start: 12-05-2023 End: 12-05-2023 Patient encounter procedure Alyssa Chance MD Work Phone: OB/Gynecology Comment on above: Encounter for gyneco logical examination (general) (routine) without abnormal findings (Primary Dx); Screening for cervical cancer Start: 12-05-2023 End: 12-05-2023 Patient encounter status Alyssa Chance MD Work Phone: [facility] Start: 11-19-2023 ambulatory Geronimo Galan acility:[facility] Start: 12-04-2022 End: 12-04-2022 Patient encounter procedure Alyssa Chance MD Work Phone: OB/Gynecology Comment on above: care and examination (Primary Dx) Start: 10-22-2022 ambulatory Davion Padilla Work Phone: OB/Gynecology Comment on above: Ob Delivery Note Start: 10-22-2022 End: 10-23-2022 Evaluation and management of inpatient [facility] Work Phone: Start: 10-16-2022 End: 10-16-2022 ambulatory [facility] Work Phone: Start: 10-16-2022 End: 10-16-2022 Patient encounter procedure [facility] Work Phone: Start: 10-14-2022 End: 10-14-2022 Patient encounter procedure Lorena Camara MD Work Phone: OB/Gynecology Comment on above: 38 weeks gestation o f (Primary Dx); Encounter for supervision of normal first in third trimester; Anemia during in third trimester Start: 10-10-2022 End: 10-10-2022 ambulatory Treatment Rm 13 [facility] Work Phone: Hematology/Oncology Comment [...] Start: 10-03-2022 End: 10-03-2022 [facility] Work Phone: H[facility]ology/Oncology Comment on above: Maternal [...] 09-26-2022 End: 09-26-2022 ambulatory Treatment 13 [facility] Work Phone: Hematology/Oncology Comment [...] Start: 09-11-2022 ambulatory Chrissy Batista RN [facility] Comment on above: Blood management Maternal iron defici ency anemia complicating , third trimester; Iron malabsorption Start: 09-10-2022 End: 09-10-2022 ambulatory [facility] Work Phone: Start: 09-10-2022 End: 09-10-2022 Patient encounter procedure [facility] Start: 09-10-2022 Telephone encounter Davion [...] evaluation of patient and report Nurse [facility] Work Phone: OB/Gynecology Comment [...] End: 07-21-2020 Patient encounter procedure SARA MARIE [facility] Start: 07-21-2020 End: 07-21-2020 Office outpatient new 30 minutes Sara Marie Work Phone: [facility] Comment on above: Dysfunction of both eustachian [...] Detail Author Start: 08-23-2032 Urine microalbumin profile [facility] Start: 12-06-2024 End: 12-06-2024 Patient encounter procedure 12/06/2024 4:00 PM EDT Office Visit OB/Gynecology [address] [place] [address] Alyssa Packer MD [address] [place], [place] [id number] Annual OB/Gynecology Comment on above: Annual Start: 09-29-2024 Nonstress test [facility] Start: 09-29-2024 Obstetric monitoring [facility] Start: 09-29-2024 Vital signs measurements [facility] Start: 09-29-2024 [facility] Start: 09-29-[address] [facility] Start: 09-09-2024 Nonstress test [facility] Start: 09-09-2024 Biophysical pr ofile panel US [facility] Start: 09-09-2024 Obstetric monitoring [facility] Start: 09-09-2024 Ultrasonography for biophysical profile without non-stress testing Biophysical Prof W/O Non Stres [facility] Start: 09-09-2024 [facility] Start: 09-09-2024 Vital signs measurements [facility] Start: 09-09-[address] [facility] Start: 08-06-[address] [facility] Start: 08-05-2024 [facility] Start: 08-05-2024 Bacteria identified in Urine by Culture Urine Culture [facility] Start: 08-05-2024 Iv infusion hydratio n initial 31 min-1 hour HYDRATION IV INFUSION INIT [facility] Start: 08-05-2024 Catheterization of vein [facility] Start: 12-14-2023 Influenza vaccination Influenza Vacc ine (#1) [facility] Start: 08-22-2023 PAP TESTING PAP TESTING [facility] Start: 08-22-2023 Screening for malign ant neoplasm of cervix Cervical Cancer Screening [facility] Start: 03-11-2023 CHLAMYDIA SCREENING (18-24) CHLAMYDIA SCREENING (18-24) [facility] Start: 03-11-2023 GC (GONORRHEA) SCREE FARHAN (18-24) GC (GONORRHEA) SCREENING (18-24) [facility] Start: 01-09-2023 CHLAMYDIA SCREENING (18-24) CHLAMYDIA SCREENING (18-24) [facility] Start: 01-09-2023 GC (GONORRHEA) SCREE FARHAN (18-24) GC (GONORRHEA) SCREENING (18-24) [facility] Start: 12-13-2022 Covid-19 Vaccine ( season) Covid-19 Vaccine ( season) [facility] Start: 12-13-2022 Influenza vaccination INFLUENZA (#1) [facility] Start: 10-23-[address] [facility] Start: 10-22-2022 Administration of medication [facility] Start: 10-22-2022 Application of ice collar, cap or bag [facility] Start: 10-22-2022 Catheterization of vein [facility] Start: 10-22-2022 Introduction of urin holly catheter [facility] Start: 10-22-2022 Measuring intake and output [facility] Start: 10-22-2022 Notification of physician [facility] Start: 10-22-2022 Procedure discontinued [facility] Start: 10-22-2022 Provision of activit y privileges [facility] Start: 10-22-2022 Vital signs measurements [facility] Start: 10-22-2022 [facility] Start: 10-22-2022 Admission procedure [facility] Start: 10-16-2022 Nonstress test [facility] Start: 10-16-2022 Obstetric monitoring [facility] Start: 10-16-2022 Vital signs measurements [facility] Start: 10-16-2022 [facility] Start: 10-16-[address] [facility] Start: 09-19-2022 End: 09-20-2023 OBSTETRIC ULTRASOUND WHI OBSTETRIC ULTRASOUND [facility]I Anc Imaging Routine 34 weeks gestation of Uterine size-date discrepancy, third trimester Expected: 09/19/2022, Expires: 09/20/2023 [facility] Work Phone: Comment on above: Expected: 09/19/2022 , Expires: 09/20/2023 Start: 09-10-[address] [facility] Start: 08-23-2022 End: 10-23-2022 CBC W Auto Differential panel - Blood CBC + DIFF Lab Routine Anemia during in third trimester Expected: 08/23/2022, Expires: 10/23/2022 [facility] Work Phone: Comment on above: Expected: 08/23/2022 , Expires: 10/23/2022 Start: 08-08-2022 End: 10-08-2022 CBC W Auto Differential panel - Blood CBC + DIFF Lab Routine 24 weeks gestation of Encounter for supervision of normal first in second trimester Expected: 08/08/2022 (Approximate), Expires: 10/08/2022 [facility] Work Phone: Comment on above: Expected: 08/08/2022 (Approximate), Expires: 10/08/2022 Start: 08-08-2022 End: 10-08-2022 GEST GLUC SCREEN, 1-HR, 50 GM, NON-FASTING GEST GLUC SCREEN, 1-HR, 50 GM, NON-FASTING Lab Routine 24 weeks gestation of Encounter for supervision of normal first in second trimester Expected: 08/08/2022 (Approximate), Expires: 10/08/2022 [facility] Work Phone: Comment on above: Expected: 08/08/2022 (Approximate), Expires: 10/08/2022 Start: 08-08-2022 End: 10-08-2022 SYPHILIS TOTAL W/REFLEX SYPHILIS TOTAL W/REFLEX Lab Routine 24 weeks gestation of Encounter for supervision of normal first in second trimester Expected: 08/08/2022 (Approximate), Expires: 10/08/2022 [facility] Work Phone: Comment on above: Expected: 08/08/2022 (Approximate), Expires: 10/08/2022 Start: 04-14-2022 DEPRESSION ASSESSMENT DEPRESSION ASS ESSMENT [facility] Start: 03-11-2022 End: 05-11-2022 CBC panel - Blood by Automated count CBC Lab Routine Encounter for supervision of normal first in first trimester Expected: 03/11/2022, Expires: 05/11/2022 [facility] Work Phone: Comment on above: Expected: 03/11/2022 , Expires: 05/11/2022 Start: 03-11-2022 End: 05-11-2022 Hepatitis B virus surface Ab [Presence] in Serum by Immunoassay HEP B SURF AG SCRN Lab Routine Encounter for supervision of normal first in first trimester Expected: 03/11/2022, Expires: 05/11/2022 [facility] Work Phone: Comment on above: Expected: 03/11/2022 , Expires: 05/11/2022 Start: 03-11-2022 End: 05-11-2022 Hepatitis C virus Ab [Presence] in Serum HEP C AB IA W/CONF SCRN Lab Routine Encounter for supervision of normal first in first trimester Expected: 03/11/2022, Expires: 05/11/2022 [facility] Work Phone: Comment on above: Expected: 03/11/2022 , Expires: 05/11/2022 Start: 03-11-2022 End: 05-11-2022 HIV 1+2 Ab [Presence] in Serum or Plasma by Immunoassay HIV 1 2 COMBO(AG/AB),WITH REFLEX TO DIFFERENTIATION Lab Routine Encounter for supervision of normal first in first trimester Expected: 03/11/2022, Expires: 05/11/2022 [facility] Work Phone: Comment on above: Expected: 03/11/2022 , Expires: 05/11/2022 Start: 03-11-2022 End: 03-11-2023 OBSTETRIC ULTRASOUND WHI OBSTETRIC ULTRASOUND WHI Anc Imaging Routine Encounter for supervision of normal first in first trimester Expected: 03/11/2022, Expires: 03/11/2023 [facility] Work Phone: Comment on above: Expected: 03/11/2022 , Expires: 03/11/2023 Start: 03-11-2022 End: 05-11-2022 RUBELLA IGG AB RUBELLA IGG AB Lab Routine Encounter for supervision of normal first in first trimester Expected: 03/11/2022, Expires: 05/11/2022 [facility] Work Phone: Comment on above: Expected: 03/11/2022 , Expires: 05/11/2022 Start: 03-11-2022 End: 05-11-2022 SYPHILIS TOTAL W/REFLEX SYPHILIS TOTAL W/REFLEX Lab Routine Encounter for supervision of normal first in first trimester Expected: 03/11/2022, Expires: 05/11/2022 [facility] Work Phone: Comment on above: Expected: 03/11/2022 , Expires: 05/11/2022 Start: 03-11-2022 End: 05-11-2022 TYPE + SCREEN TYPE + SCREEN Blood Bank Routine Encounter for supervision of normal first in first trimester Expected: 03/11/2022, Expires: 05/11/2022 [facility] Work Phone: Comment on above: Expected: 03/11/2022 , Expires: 05/11/2022 Start: 01-30-2022 Urine microalbumin profile DTAP,TDAP,TD (7 - Td or Tdap) [facility] Start: 12-13-2021 Influenza vaccination INFLUENZA (#1) [facility] Start: 04-14-2021 DEPRESSION ASSESSMENT DEPRESSION ASS ESSMENT [facility] Start: 12-14-2019 Influenza vaccinatio n given Sequential Influenza Vaccine (#1) [facility] Start: 11-12-2017 Adult depression screening assessment DEPRESSION SCREENING [facility] Start: 2016 Anxiety Screening Anxiety Screening [facility] Start: 2016 CHLAMYDIA SCREENING (18-24) CHLAMYDIA SCREENING (18-24) [facility] Start: 2016 Depression Screening Depression Scre ening [facility] Start: 2016 GC (GONORRHEA) SCREE FARHAN (18-24) GC (GONORRHEA) SCREENING (18-24) [facility] Start: 2016 Hepatitis C antibody , confirmatory test Hepatitis C Screening [facility] Start: 2016 HEPATITIS C SCREENING HEPATITIS C [facility] Start: 2016 HIV SCREENING HIV SCREENING [facility] Start: 2014 COVID-19 Vaccine (1) COVID-19 Vaccin e (1) [facility] Start: 2014 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 (1 of 2 - 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 Seeks Protection) MENINGOCOCCAL B: Consider based on risk (1 of 2 - Patient Seeks Protection) [facility] Start: 2013 HIV screening HIV Screening [facility] Start: 2013 HPV Vaccine (1 - 3-d ose series) HPV Vaccine (1 - 3-dose series) [facility] Start: 2012 PEDS TO ADULT TRANSI TION ANNUAL ASSESSMENT PEDS TO ADULT TRANSITION ANNUAL ASSESSMENT [facility] Start: 2010 Adolescent depressio n screening assessment Depression Screening (PHQ9) [facility] Start: 2010 PEDS TO ADULT TRANSI TION INITIAL DISCUSSION PEDS TO ADULT TRANSITION INITIAL DISCUSSION [facility] Start: 2009 HPV VACCINE (1 - 2-d ose series) HPV VACCINE (1 - 2-dose series) [facility] Start: 2009 Vaccination for geovanni n papillomavirus HPV Vaccines (1 - 2-dose series) [facility] Start: 2008 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 (1 of 2 - Risk Bexsero 2-dose series) MENINGOCOCCAL B: Consider based on risk (1 of 2 - Risk Bexsero 2-dose series) [facility] Start: 11-21-2007 HPV VACCINE (1 - 2-d ose series) HPV VACCINE (1 - 2-dose series) [facility] Start: 2001 History and physical examination, annual for health maintenance Wellness Visit [facility] Start: 05-23-1999 COVID-19 VACCINE (#1) COVID-19 VACCI NE (#1) [facility] Start: 1998 Screening for Chlamy daina trachomatis Chlamydia Screening [facility] Start: 1998 Screening for malign ant neoplasm of cervix Pap Smear [facility] Start: 1998 Tetanus vaccination Tetanus: Every 1 0yrs [facility] Bacteria identified in Urine by Culture URINE CULTURE Microbiology Routine Encounter for supervision of normal first in first trimester 03/11/2022 11:02 AM EST [facility] Work Phone: Bilirubin measuremen t, urine [facility] Chlamydia trachomatis+Neisseria gonorrhoeae DNA [Presence] in Unspecified specimen by JUAN with probe detection GC/CHLAMYDIA DNA DET Lab Routine Screen for STD (sexually transmitted disease) Ordered: 01/09/2022 [facility] Work Phone: Comment on above: Ordered: 01/09/2022 Chlamydia trachomatis+Neisseria gonorrhoeae DNA [Presence] in Unspecified specimen by JUAN with probe detection GC/CHLAMYDIA DNA DET Lab Routine Encounter for supervision of normal first in first trimester 03/11/2022 11:02 AM [facility] Work Phone: Hemoglobin [Presence ] in Urine [facility] Measurement of keton es in urine using dipstick [facility] Microscopic urinalysis [facility] Organism count, microscopic method [facility] PAP TEST PAP TEST Lab Jason mehul Screening for cervical cancer 12/05/2023 9:30 AM EDT [facility] Work Phone: Patient Education [facility] Work Phone: Patient referral [facility] Work Phone: pH of Urine [facility] ROUTINE, GR OUP B STREP PCR ROUTINE, GROUP B STREP PCR Microbiology Routine 36 weeks gestation of 10/02/2022 11:55 AM EDT [facility] Work Phone: Specific gravity of Urine [facility] Urine culture [facility] Urine dipstick for glucose [facility] Urine dipstick for leukocyte esterase [facility] Urine dipstick for nitrite [facility] Urine dipstick for protein [facility] Urine examination [facility] Urine microscopy: epithelial cells [facility] Urine microscopy: re d cells [facility] Urobilinogen [Presen ce] in Urine [facility] White blood cell count [facility] Immunizations Immunization Date Immunization Notes Care Provider Allyssa arguelles 08-11-2024 tetanus toxoid, redu sin diphtheria toxoid, and acellular pertussis vaccine, adsorbed Dr. Geronimo Arias DO Work Phone: [facility] 04-24-2023 influenza virus vacc ine, unspecified formulation Alyssa Chance MD Work Phone: [facility] 10-22-2022 measles, mumps and rubella virus vaccine [facility] 08-23-2022 tetanus toxoid, redu sin diphtheria toxoid, and acellular pertussis vaccine, adsorbed Davion Sepulveda MD Work Phone: [facility] 03-11-2022 influenza, injectabl e, quadrivalent, contains preservative Alyssa Chance MD Work Phone: [facility] 11-12-2016 meningococcal polysaccharide (groups A, C, Y and W-135) diphtheria toxoid conjugate vaccine (MCV4P) Davion Sepulveda MD Work Phone: [facility] 11-12-2016 tuberculin skin test ; purified protein derivative solution, intradermal Alyssa Chance MD Work Phone: [facility] 02-03-2016 influenza, injectabl e, quadrivalent, contains preservative Davion Sepulveda MD Work Phone: [facility] 02-02-2015 influenza, injectabl e, quadrivalent, contains preservative Davion Sepulveda MD Work Phone: [facility] 01-20-2014 influenza, seasonal, injectable Davion Sepluveda MD Work Phone: [facility] Work Phone: 02-27-2013 influenza virus vacc ine, unspecified formulation Davion Sepulveda MD Work Phone: [facility] 01-31-2012 influenza virus vacc ine, unspecified formulation Davion Sepulveda MD Work Phone: [facility] Work Phone: 01-31-2012 Meningococcal, MCV4, unspecified conjugate formulation(groups A, C, Y and W-135) Davion Sepulveda MD Work Phone: [facility] Work Phone: 01-31-2012 tetanus toxoid, redu sin diphtheria toxoid, and acellular pertussis vaccine, adsorbed Davion Sepulveda MD Work Phone: [facility] Work Phone: 01-31-2012 varicella virus vaccine Gurdeep Sepulveda MD Work Phone: [facility] Work Phone: 02-24-2008 influenza virus vacc ine, live, attenuated, for intranasal use Davion Sepulveda MD Work Phone: [facility] Work Phone: 10-18-2003 diphtheria, tetanus toxoids and acellular pertussis vaccine Davion Sepulveda MD Work Phone: [facility] Work Phone: 10-18-2003 measles, mumps and rubella virus vaccine Davion Sepulveda MD Work Phone: [facility] Work Phone: 10-18-2003 poliovirus vaccine, inactivated Davion Sepulveda MD Work Phone: [facility] Work Phone: 03-24-2000 diphtheria, tetanus toxoids and acellular pertussis vaccine Davion Sepulveda MD Work Phone: [facility] Work Phone: 03-24-2000 haemophilus influenz ae type b vaccine, HbOC conjugate Davion Sepulveda MD Work Phone: [facility] Work Phone: 02-21-2000 hepatitis B vaccine, pediatric or pediatric/adolescent dosage Davion Sepulveda MD Work Phone: [facility] Work Phone: 02-21-2000 pneumococcal conjuga te vaccine, 7 valent Davion Sepulveda MD Work Phone: [facility] Work Phone: 02-21-2000 varicella virus vaccine Gurdeep Sepulveda MD Work Phone: [facility] Work Phone: 12-04-1999 measles, mumps and rubella virus vaccine Davion Sepulveda MD Work Phone: [facility] Work Phone: 12-04-1999 pneumococcal conjuga te vaccine, 7 valent Davion Sepulveda MD Work Phone: [facility] Work Phone: 12-04-1999 poliovirus vaccine, inactivated Davion Sepulveda MD Work Phone: [facility] Work Phone: 09-14-1999 hepatitis B vaccine, pediatric or pediatric/adolescent dosage Davion Sepulveda MD Work Phone: [facility] Work Phone: 06-06-1999 diphtheria, tetanus toxoids and acellular pertussis vaccine Davion Sepulveda MD Work Phone: [facility] Work Phone: 06-06-1999 haemophilus influenz ae type b vaccine, HbOC conjugate Davion Sepulveda MD Work Phone: [facility] Work Phone: 06-06-1999 hepatitis B vaccine, pediatric or pediatric/adolescent dosage Davion Sepulveda MD Work Phone: [facility] Work Phone: 03-30-1999 diphtheria, tetanus toxoids and acellular pertussis vaccine Davion Sepulveda MD Work Phone: [facility] Work Phone: 03-30-1999 haemophilus influenz ae type b vaccine, HbOC conjugate Davion Sepulveda MD Work Phone: [facility] Work Phone: 03-30-1999 poliovirus vaccine, inactivated Davion Sepulveda MD Work Phone: [facility] Work Phone: 01-22-1999 diphtheria, tetanus toxoids and acellular pertussis vaccine Davion Sepulveda MD Work Phone: [facility] Work Phone: 01-22-1999 haemophilus influenz ae type b vaccine, HbOC conjugate Davion Sepulveda MD Work Phone: [facility] Work Phone: 01-22-1999 poliovirus vaccine, inactivated Davion Sepulveda MD Work Phone: [facility] Work Phone: Payers Date Payer Category Payer Unknown [id number] 2024 Unknown [id number] 2023 Self-pay 2022 Unknown [id number] 2021 Unknown [id number] 2019 Unknown ANTHEM ANTHEM BLUE/PREF/HMO/PPO [id number] 2019-Present [id number] 2019 Unknown [id number] 1998 Unknown [id number] 2.16.840.1.224174.3.579.2.903 1998 Unknown [id number] 2.16.840.1.844412.3.579.2.479 1998 Unknown [id number] 2.16.840.1.106539.3.579.2.479 Unknown [id number] 2.16.840.1.457669.3.579.2.462 Unknown [id number] 2.16.840.1.671532.3.579.2.462 Unknown [id number] 2.16.840.1.367531.3.579.2.462 Unknown [id number] 2.16.840.1.926016.3.579.2.462 Unknown [id number] 2.16.840.1.878315.3.579.2.462 Unknown [id number] 2.16.840.1.715087.3.579.2.462 Unknown [id number] 2.16.840.1.191928.3.579.2.462 Unknown [id number] 2.16.840.1.052370.3.579.2.462 Unknown [id number] 2.16.840.1.671379.3.579.2.462 Unknown [id number] 2.16.840.1.568890.3.579.2.462 Unknown [id number] 2.16.840.1.911930.3.579.2.462 Unknown [id number] 2.16.840.1.497549.3.579.2.462 Unknown [id number] 2.16.840.1.153337.3.579.2.462 Unknown [id number] 2.16.840.1.199971.3.579.2.462 Unknown [id number] 2.16.840.1.204039.3.579.2.462 Unknown [id number] 2..840.1.864987.3.579.2.462 Unknown [id number] 2.840.1.464041.3.579.2.462 Unknown [id number] 2.840.1.075988.3.579.2.462 Unknown [id number] 2.840.1.864496.3.579.2.462 Unknown [id number] 2.840.1.509304.3.579.2.462 Unknown [id number] 2.840.1.260321.3.579.2.462 Unknown [id number] 2.840.1.240451.3.579.2.462 Unknown [id number] 2.840.1.559550.3.579.2.462 Unknown [id number] 2.840.1.551598.3.579.2.462 Unknown [id number] 2.840.1.985745.3.579.2.462 Unknown [id number] 2.16840.1.543836.3.579.2.462 Unknown [id number] 2.16.840.1.330984.3.579.2.462 Unknown [id number] 2.16.840.1.252385.3.579.2.462 Unknown [id number] 2.16840.1.751690.3.579.2.462 Unknown [id number] 2.16.840.1.156335.3.579.2.462 Unknown [id number] 2.16.840.1.451933.3.579.2.462 Social History Date Type Detail Facility Start: 07-21-2020 End: 03-09-2024 Tobacco smoking status NHIS Never smoker [facility] Start: 07-21-2020 End: 01-09-2022 Tobacco use and exposure Never used [facility] Sex Assigned At Not on file [facility] Start: 12-30-2021 End: 03-06-2022 Exposure to SARS-CoV-2 (event) Not sure [facility] History of tobacco use Passive smoker [facility] Start: 12-14-2021 End: 12-05-2023 Alcohol intake Current non-drinker of alcohol (finding) [facility] Start: 01-31-2012 End: 01-09-2022 Tobacco Comment Dad and step-mom and step-dad - father's household trying electric cigarettes [facility] Start: 2000 Sex Assigned At Female C [facility] Start: 03-06-2022 Education 13 [facility] Start: 01-25-2022 [facility] Start: 08-23-2022 End: 10-22-2022 History of Social function [facility] Start: 08-23-2022 End: 10-22-2022 Tobacco use panel [facility] National Score (1-100), lower number is lower risk 67 [facility] Start: 11-30-2021 Gender identity Identifies as female gender (finding) [facility] Start: 10-22-2022 [facility] Start: 07-14-2024 End: 08-06-2024 Sex Female (finding) [facility] Goals Date Patient Goal Desired Activity /State Clinical Notes 01-22-2016 to 10-12-2024 Note Date & Type Note Facility 10-12-2024 Progress note [facility] 10-07-2024 Progress note [facility] 09-30-2024 Progress note [facility] 09-30-2024 Progress note Note Date/Time September 30, 2024 2:24pm [facility] [address] [place] [address], [address] [place] [address] OFFICE VISIT Date of Service: 09/30/24 MR#: [id number] Acct: [id number] Name: JAG PEREZ Rep #: [id number] : 2000 Provider: Dr. 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 Date Name GA/Weeks Outcome Route Bth Weight Infant Gen Labor Lgth Anesthesia Del Locatn Provider FOB 10/22/22 Tanner 39 live - full term 7 Male epidur al [facility] Alma Delia Reid Delivery Date: 10/22/22 Last [...] Symptoms of Preeclampsia, Infant Feeding No , [place] Education and Family Medical Leave or Disability [...] Cosigner Signature: Date (if applicable) CC: ~ [facility] Work Phone: 1(141) 972-611606-11-2025 Progress [facility] [address] [place] [address], [address] [place] [address] OFFICE VISIT Date of Service: 09/22/24 MR#: [id number] Acct: [id number] Name: JAG PEREZ Rep #: [id number] : 2000 Provider: Dr. 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 Date Name GA/Weeks Outcome Route Bth Weight Gen Labor Lgth Anesthesia Del Locatn Provider FOB 10/22/22 Tanner 39 live - full term 7 Male epidur al [facility] Alma Delia Reid Delivery Date: 10/22/22 Last [...] and Symptoms of Preeclampsia, Feeding No , [place] Education and Family Medical Leave or Disability [...] Cosigner Signature: Date (if applicable) CC: ~ [facility]06-11-2025 Progress note Author Selene Back [facility] Note Date/Time September 22, 2024 2:30 pm [facility] [address] [place] [address], [address] [place] [address] OFFICE VISIT Date of Service: 09/22/24 MR#: [id number] Acct: [id number] Name: JAG PEREZ Rep #: [id number] : 2000 Provider: Dr. 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 Date Name GA/Weeks Outcome Route Bth Weight Infant Gen Labor Lgth Anesthesia Del Locatn Provider FOB 10/22/22 Tanner 39 live - full term 7 Male epidur al [facility] Alma Delia Reid Delivery Date: 10/22/22 Last [...] and Symptoms of Preeclampsia, Feeding No , [place] Education and Family Medical Leave or Disability [...] Cosigner Signature: Date (if applicable) CC: ~ [facility] [employer] [facility] Work Phone: 1(590) 796-993603-07-2025 Evaluation note* Diagnosis Onset Date Resolution Status [...] Threatened labor acute September 22, 2024 1:38pm [facility] [employer] Work Phone: 1(281) 505-309703-07-2025 Evaluation note* Diagnosis Onset Date Resolution Status Admit Date Congenital tongue-tie acute [facility] 2024 8:38am Obesity affecting acute June 18, [...] Threatened labor acute September 30, 2024 1:41pm [facility] [employer] [facility] Work Phone: 1(525) 408-126803-07-2025 Evaluation note* Diagnosis Onset Date Resolution Status Admit Date Congenital tongue-tie acute [facility] 2024 8:38am Obesity affecting acute June 18, 2024 8:38am acute June 18 8:38am Supervision of high-risk acute June 18, 2024 8:38am Elevated triglycerides with high cholesterol resolved June 18, 2024 8:38am Hx of iron deficiency anemia resolve d June 18, 2024 8:38am Congenital tongue-tie acute [facility] 2024 12:58pm Obesity affecting acute June [...] Threatened labor resolved October 07, 2024 8:17am [facility] Work Phone: 1(617) 292-466603-07-2025 Evaluation note* Diagnosis Onset Date Resolution Status [...] high-risk acute October 12, 2024 8 :13am [facility] [employer] Work Phone: 1(774) 144-943502-07-2025 Evaluation note* Diagnosis Onset Date Resolution Status [...] Threatened labor acute September 09, 2024 8:18am [facility] Work Phone: 1(496) 964-470501-08-2025 Evaluation note* Diagnosis Onset Date Resolution Status [...] Threatened labor acute August 05, 2024 9:55pm [facility] Work Phone: 1(421) 929-470312-05-2024 Evaluation note* Diagnosis Onset Date Resolution Status [...] 2024 2:40pm Yeast infection acute June 2:40pm [facility] Work Phone: 1(154) 499-715808-23-2024 NoteHNO ID: [id number] Author: ALYSSA PACKER MD Service: ? 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 History Comments: Sexual Activity: Never; No partner [...] external genitalia normal, normal Bartholin's glands, urethra, Arnold's glands, no vulvar lesions, no cervical lesions, [...] just had menses but will [facility] of Present illness Narrative* Alyssa Packer MD - 12/05/2023 9:01 AM EDT 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 Jag is a 23 year old who [...] L1 SAB0 IAB0 Ectopic0 Multiple0 Live Births1 Toys Inspector History LMP: 01/11/2022 (Exact Date), Unknown Age at Menarche: Age at First : Age at Menopause: Toys Inspector History Comments: Sexual Activity: Never; No partner [...] external genitalia normal, normal Bartholin's glands, urethra, Arnold's glands, no vulvar lesions, no cervical lesions, [...] check Alyssa Spence MD documented in this encounterEast [facility]08-23-2023 History of Present illness Narrative* Alyssa Packer MD - 12/04/2022 3:58 PM EDT VISIT Jag Perez is a 22 year old year old here for visit. Delivery Summary: 10/22/2022 Male-Tanner ROS/ Recovery: Feeding: Breast feeding problems: None Menses since delivery: spotting Menstrual pattern prior to : Regular periods [place] since delivery: Not resumed Depression: denies symptoms [...] external genitalia normal, normal Bartholin's glands, urethra, Arnold's glands, no vulvar lesions, no cervical lesions, [...] PRN Alyssa Spence MD documented in this encounterEast [facility]07-12-2023 Discharge summary Author Davion Sepulveda [facility] October 23, 2022 6:33am Note Date/Time October 23, 2022 6:32 am [facility] Medical Records Department [address] [place] [address] Instructions for Home/Discharge Instructions 10/23/22 0631 MR#: [id number] Acct: [id number] Name: JAG PEREZ Rep #:[id number] : 2000 From: Davion Sepulveda MD PCP: [...] mg PO DAILY Referrals / Follow Up: Geronimo Arias DO [Primary Care Provider] - Disposition Disposition (needs filled in before D/C Order can be placed): Home, Self Care 10/23/2233<Electronically signed by Davion Sepulveda MD>Davion Sepulveda MD CC: Dr. Geronimo Arias, DO ~ Signed [facility] Work Phone: 1(248) 257-672407-12-2023 Progress note Author Davion Sepulveda [facility] October 23, 2022 6:31am Note Date/Time October 23, 2022 6:31 am [facility] Medical Records Department [address] [place], [place] [address]j[place] [address] Progress Note - OBGYN 10/23/22629 MR#: [id number] Acct: [id number] Name: JAG PEREZ Rep #:[id number] : 2000 From: Davion Sepulveda MD PCP: Dr. Geronimo Arias DO Sta tus:ADM IN [id number] Subjective Subjective Denies complaints Objective Data Objective [...] Cosigner Signature (if applicable): CC: ~ Signed [facility] Work Phone: 1(123) 764-349207-11-2023 History of Present illness Narrative* Selene Olivera RN - 10/22/2022 4:46 PM EDT Patient delivered via at [facility] on 10/22/22 per Davion Sepulveda MD. See OB Outcome note. 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 Maternal Data Information Final ADDY: 10/26/22 Gestational age: 39&3 [facility] Medical History (Updated 10/22/22 @ 13:24 by [...] Arias, DO; Dr. Davion Sepulveda MD~ Signed [facility] Work Phone: 1(199) 115-876207-03-2023 Miscellaneous Notes* Addendum Note - Nanci Silva [...] edema Lorena Camara M.D. documented in this encounterEast [facility] Hospital07-03-2023 Instructions* Patient Instructions* Nanci Silva Ma - 10/14/2022 10:15 AM EDT SEQUENTIAL SCREENINGS [facility] offers sequential screenings for women who [...] testing. It will require an appointment withour survey cad technician. This is not an ultrasound performed [...] the above symptoms, contact our office at [phone] and ask to speak with anurse. After hours, you can call doctors registry at [phone] OR call [facility] at [phone] ask to have the doctor firmware software verification engineer paged. If you consider this an emergency, dial 0-4-8 or go to your nearest emergency department. NEED HELP? Are you dealing with a violent or abusive relationship? Are you a victim of rape or sexual assult? Call [facility] ([place]) 24 hour Crisis Hotline: 378.808.1412 or 466-364-0652. MANUAL Your Guide to a Healthy manual is now on-line. Visit [email or web address] to download your free copy documented in this encounterEast Ohio Regional Hospital06-30-2023 Miscellaneous Notes* Telephone Encounter - Wendy Avila LPN - 10/11/2022 11:29 AM EDT Order signed and faxed. Wendy Avila LPN * Telephone Encounter - Jennifer Quinonez RN - 10/07/2022 11:09 AM EDT Breast pump order received from Chas[facility] and to to sign. Jennifer Quinonez RN documented in this encounterEast [facility] Regional Hospital06-28-2023 Miscellaneous Notes* Quick Notes - Sboeida Lopez MD - 10/09/2022 2:24 PM EDT SW- No ctx, vb, lof. Good FM PE: Gen- NAD, well appearing Abd- Soft, gravid, NT Ext- No edema See flowsheet A/p 37 wk gestation - Labor precautions reviewed - Check CBC next visit - Weekly visits Sobeida Lopez DO documented in this encounterEast [facility] Regional Hospital06-28-2023 Instructions* Patient Instructions* Nicolasa Huerta MA - 10/09/2022 1:42 PM EDT SEQUENTIAL SCREENINGS [facility] offers sequential screenings for women who [...] testing. It will require an appointment withour survey cad technician. This is not an ultrasound performed [...] the above symptoms, contact our office at [phone] and ask to speak with anurse. After hours, you can call doctors registry at [phone] OR call [facility] at [phone] ask to have the doctor firmware software verification engineer paged. If you consider this an emergency, dial 9-1-1 or go to your nearest emergency department. NEED HELP? Are you dealing with a violent or abusive relationship? Are you a victim of rape or sexual assult? Call [facility] ([place]) 24 hour Crisis Hotline: 421.659.9813 or 974-611-9972. MANUAL Your Guide to a Healthy manual is now on-line. Visit [email or web address] to download your free copy documented in this encounterEast Ohio Regional Hospital06-21-2023 Miscellaneous Notes* Quick Notes - Maya [...] normal. Maya Gonzales APRN.CNM documented in this encounterEast Ohio Regional Hospital06-21-2023 Instructions* Patient Instructions* Maya Gonzales APRN.CNM [...] make an easy pie crust in the manager food. Add soaked dates to homemade nut butter for a sweet treat. Add dates to paulo homemade salad dressing. Add dates during easily with these yummy (paleo friendly) bars made from dates. What Is Red Raspberry Di Giorgio Tea? Red raspberry leaf tea comes from [...] , and too. How Much Red Raspberry Di Giorgio Tea to Drink? With your doctor or community health nurse staff s approval, start with 1 cup of [...] because of uterine cramping. Is Red Raspberry Di Giorgio Tea the Same as Raspberry Di Giorgio Tea? How About Plain Old Raspberry Tea? Sometimes. You really need to look at the ingredients to be sure. Note that there is no difference between red raspberry leaf and raspberry leaf. [employer] or Retsly Raspberry Di Giorgio Tea are two good brands. The red [...] outlined in this article. [employer] www.[employer] I named this 'circuit' after my friend [...] sideways, 2 at a time, (have a embedded developer downstairs of you!), take a walk outside [...] the pelvis. Lenora Rodrigez: Circuit Creator - www.[employer] Entertainmentcollective.Bfly Becky Preston CD, BDT (CHRISTA), LCCE, FACCE: Supporting Content - www.beckyVeeam SoftwareboyKrossover Saima Persaud: Photography - www.[employer] Tanvi Ruggiero CD/CDT (ARABELLA): Print and Computer Systems Hardware Analyst - www.[employer] Master[employer] www.[employer] What is my perineum? Your perineum is [...] the above symptoms, contact our office at [phone] and ask to speak with anurse. After hours, you can call doctors registry at [phone] OR call [facility] at [phone] ask to have the doctor firmware software verification engineer paged. If you consider this an emergency, dial 9--8 or go to your nearest emergency department. NEED HELP? Are you dealing with a violent or abusive relationship? Are you a victim of rape or sexual assult? Call [facility] ([place]) 24 hour Crisis Hotline: 577.403.6594 or 830-141-1468. MANUAL Your Guide to a Healthy manual is now on-line. Visit [email or web address] to download your free copy documented in this encounterEast Ohio Regional Hospital06-08-2023 Miscellaneous Notes* Telephone Encounter - Jarred Mabry - 09/19/2022 4:17 PM EDT This is a 1st-time treatment report for this patient. The patient is being seen for a cpy-alcpen-kgyqbhg diagnosis of Iron Deficiency from Anemia. This is a Non-Oncology regimen. The drug being used is Venofer. There is no assistance available for insured patients. No Financial Navigator assessmentis needed at this time. documented in this encounterEast Ohio Regional Hospital06-08-2023 Miscellaneous Notes* Quick Notes - Sobeida Lopez MD - 09/19/2022 8:59 AM EDT SW- Feeling some irregular ctx's. No vb, lof. Good FM. Breech today and measuring S>D. Formal scan ordered. Briefly discussed ECV vs primary section if remains breech. RTO 2 wks. Sobeida Lopez DO documented in this encounterEast Ohio Regional Hospital06-08-2023 Instructions* Patient Instructions* Sobeida Lopez MD - 09/19/2022 8:45 AM EDT [email or web address] SEQUENTIAL SCREENINGS [facility] offers sequential screenings for women who [...] testing. It will require an appointment withour survey cad technician. This is not an ultrasound performed [...] the above symptoms, contact our office at [phone] and ask to speak with anurse. After hours, you can call doctors registry at [phone] OR call [facility] at [phone] ask to have the doctor firmware software verification engineer paged. If you consider this an emergency, dial 5-7-5 or go to your nearest emergency department. NEED HELP? Are you dealing with a violent or abusive relationship? Are you a victim of rape or sexual assult? Call [facility] ([place]) 24 hour Crisis Hotline: 789.781.3182 or 531-590-1438. MANUAL Your Guide to a Healthy manual is now on-line. Visit [email or web address] to download your free copy documented in this encounterEast [facility] Regional Hospital05-31-2023 History of Present illness Narrative* Chrissy [...] and evaluation for treatment. documented in this encounterEast Ohio Regional Hospital05-30-2023 Miscellaneous Notes* Telephone Encounter - Wendy [...] iron Davion Sepulveda MD documented in this encounterEast [facility] Regional Hospital05-12-2023 History of Present illness Narrative* Davion [...] SIGNATURE: Davion Sepulveda MD documented in this encounterEast Ohio Regional Hospital05-12-2023 Miscellaneous Notes* Quick Notes - Davion Sepulveda MD - 08/23/2022 10:08 AM EDT KJ - No VB/LOF/ctxs. Reports decreased FM. A&P: ANemia - continue iron & PNV. Repeat CBC 2 weeks. Decreased FM - check NST. Advised on FKK. Tdap today Reviewed PTL & FM precautions Davion Sepulveda MD documented in this encounterEast Ohio Regional Hospital05-12-2023 Instructions* Patient Instructions* Deepa Villasenor Ma - 08/23/2022 9:53 AM EDT SEQUENTIAL SCREENINGS [facility] offers sequential screenings for women who [...] testing. It will require an appointment withour survey cad technician. This is not an ultrasound performed [...] the above symptoms, contact our office at [phone] and ask to speak with anurse. After hours, you can call [employer] registry at [phone] OR call [facility] at [phone] ask to have the doctor firmware software verification engineer paged. If you consider this an emergency, dial 9-1-1 or go to your nearest emergency department. NEED HELP? Are you dealing with a violent or abusive relationship? Are you a victim of rape or sexual assult? Call [facility] ([place]) 24 hour Crisis Hotline: 225.667.7808 or 173-609-0780. MANUAL Your Guide to a Healthy manual is now on-line. Visit [email or web address] to download your free copy documented in this encounterEast Ohio Regional Hospital05-01-2023 Miscellaneous Notes* Quick Notes - Lorena Camara MD - 08/12/2022 1:25 PM EDT August 12, 2022 Here for decreased FM. Feels FM now. NST done. F/u as scheduled. Lorena Camara MD documented in this encounterEast Ohio Regional Hospital04-27-2023 Miscellaneous Notes* Quick Notes - Davion Sepulveda MD - 08/08/2022 3:53 PM EDT KJ - No VB/LOF/ctxs. Reports good FM. A&P: 28wk labs Declines LARC Discussed [facility] peds Tdap at next visit Reviewed PTL & FM precautions Davion Sepulveda MD documented in this encounterEast Ohio Regional Hospital04-27-2023 Instructions* Patient Instructions* Deepa Villasenor Ma - 08/08/2022 3:31 PM EDT SEQUENTIAL SCREENINGS [facility] offers sequential screenings for women who [...] testing. It will require an appointment withour survey cad technician. This is not an ultrasound performed [...] the above symptoms, contact our office at [phone] and ask to speak with anurse. After hours, you can call doctors registry at [phone] OR call [facility] at [phone] ask to have the doctor firmware software verification engineer paged. If you consider this an emergency, dial 9--1 or go to your nearest emergency department. NEED HELP? Are you dealing with a violent or abusive relationship? Are you a victim of rape or sexual assult? Call [facility] ([place]) 24 hour Crisis Hotline: 662.196.2209 or 595-697-7352. MANUAL Your Guide to a Healthy manual is now on-line. Visit [email or web address] to download your free copy documented in this encounterEast Ohio Regional Hospital04-17-2023 Miscellaneous Notes* Telephone Encounter - Wendy [...] De La O RN documented in this encounterEast Ohio Regional Hospital03-27-2023 Miscellaneous Notes* Quick Notes - Alyssa Chance MD - 07/08/2022 4:22 PM EDT DM- Pt doing well today. Denies Vaginal Bleeding, Leaking fluid, or contractions. Pt reports good movement. 28 week labs ordered. Continue ASA. Weight gain reviewed. RTO 4 wks. 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 Alyssa Spence MD documented in this encounterEast Ohio Regional Hospital03-27-2023 Instructions* Patient Instructions* Nicolasa Huerta MA - 07/08/2022 4:01 PM EDT SEQUENTIAL SCREENINGS [facility] offers sequential screenings for women who [...] testing. It will require an appointment withour survey cad technician. This is not an ultrasound performed [...] the above symptoms, contact our office at [phone] and ask to speak with anurse. After hours, you can call doctors registry at [phone] OR call [facility] at [phone] ask to have the doctor firmware software verification engineer paged. If you consider this an emergency, dial 9-1-1 or go to your nearest emergency department. NEED HELP? Are you dealing with a violent or abusive relationship? Are you a victim of rape or sexual assult? Call [facility] 24 hour Crisis Hotline: 645.978.4295 or 512-428-2016. MANUAL Your Guide to a Healthy manual is now on-line. Visit [email or web address] to download your free copy documented in this encounterEast Ohio Regional Hospital02-27-2023 Miscellaneous Notes* Quick Notes - Davion Sepulveda MD - 06/10/2022 11:12 AM EST KJ - No VB/LOF/ctxs. Reports FM. A&P: Anatomy US today Davion Sepulveda MD documented in this encounterEast Ohio Regional Hospital02-27-2023 Instructions* Patient Instructions* Nanci Silva Ma - 06/10/2022 10:32 AM EST SEQUENTIAL SCREENINGS [facility] offers sequential screenings for women who [...] testing. It will require an appointment withour survey cad technician. This is not an ultrasound performed [...] the above symptoms, contact our office at [phone] and ask to speak with anurse. After hours, you can call doctors registry at [phone] OR call [facility] at [phone] ask to have the doctor firmware software verification engineer paged. If you consider this an emergency, dial 9-1- or go to your nearest emergency department. NEED HELP? Are you dealing with a violent or abusive relationship? Are you a victim of rape or sexual assult? Call [facility] ([facility] 24 hour Crisis Hotline: 840.871.4545 or 332-268-8016. MANUAL Your Guide to a Healthy manual is now on-line. Visit [email or web address] to download your free copy documented in this encounterEast Ohio Regional Hospital01-30-2023 Miscellaneous Notes* Quick Notes - Sobeida Lopez MD - 05/13/2022 8:57 AM EST SW- No pain, vb, lof. Declines aneuploidy screening. Schedule anatomy US. RTO for anatomy and OB visit after. Sobeida Lopez DO documented in this encounterEast Ohio Regional Hospital01-30-2023 Instructions* Patient Instructions* Elizabeth Montesinosdeidre Dennison - 05/13/2022 8:35 AM EST SEQUENTIAL SCREENINGS [facility] offers sequential screenings for women who [...] testing. It will require an appointment withour survey cad technician. This is not an ultrasound performed [...] the above symptoms, contact our office at [phone] and ask to speak with anurse. After hours, you can call doctors registry at [phone] OR call [facility] at [phone] ask to have the doctor firmware software verification engineer paged. If you consider this an emergency, dial 9-1-1 or go to your nearest emergency department. NEED HELP? Are you dealing with a violent or abusive relationship? Are you a victim of rape or sexual assult? Call [facility] ([place]) 24 hour Crisis Hotline: 502.303.4181 or 320-852-2089. MANUAL Your Guide to a Healthy manual is now on-line. Visit [email or web address] to download your free copy documented in this encounterEast Ohio Regional Hospital12-30-2022 Miscellaneous Notes* Quick Notes - Lorena Camara MD - 04/12/2022 2:49 PM EST RR- No VB. Feeling well overall. Taking PNV. ASA candidate. Declines aneuploidy screening. Lorena Camara MD documented in this encounterEast Ohio Regional Hospital12-30-2022 Instructions* Patient Instructions* Nanci Silva Ma - 04/12/2022 2:20 PM EST SEQUENTIAL SCREENINGS [facility] offers sequential screenings for women who [...] testing. It will require an appointment withour survey cad technician. This is not an ultrasound performed [...] the above symptoms, contact our office at [phone] and ask to speak with anurse. After hours, you can call doctors registry at [phone] OR call [facility] at [phone] ask to have the doctor firmware software verification engineer paged. If you consider this an emergency, dial 9-1-7 or go to your nearest emergency department. NEED HELP? Are you dealing with a violent or abusive relationship? Are you a victim of rape or sexual assult? Call [facility] ([place]) 24 hour Crisis Hotline: 643.396.7940 or 979-717-3520. MANUAL Your Guide to a Healthy manual is now on-line. Visit [email or web address] to download your free copy documented in this encounterEast Ohio Regional Hospital12-06-2022 Miscellaneous Notes* Quick Notes - Davion Sepulveda MD - 03/19/2022 2:46 PM EST KJ - Patient presents with spotting - very light. Denies pelvic pain. TVUS: active fetus with FCA A&P: Reassuring TVUS Follow up as scheduled & PRN Davion Sepulveda MD documented in this encounterEast Ohio Regional Hospital12-06-2022 Instructions* Patient Instructions* Deepa Villasenor Ma - 03/19/2022 1:55 PM EST SEQUENTIAL SCREENINGS [facility] offers sequential screenings for women who [...] testing. It will require an appointment withour survey cad technician. This is not an ultrasound performed [...] the above symptoms, contact our office at [phone] and ask to speak with anurse. After hours, you can call doctors registry at [phone] OR call [facility] at [phone] ask to have the doctor firmware software verification engineer paged. If you consider this an emergency, dial 9--2 or go to your nearest emergency department. NEED HELP? Are you dealing with a violent or abusive relationship? Are you a victim of rape or sexual assult? Call [facility] ([place]) 24 hour Crisis Hotline: 213.895.9580 or 571-029-4143. MANUAL Your Guide to a Healthy manual is now on-line. Visit [email or web address] to download your free copy documented [facility] [place] [facility] Miscellaneous Notes* Telephone Encounter - Selene [...] advise. Wendy Avila LPN documented in this encounterEast [place] [facility]11-28-2022 Miscellaneous Notes* Quick Notes - Alyssa Chance MD - 03/11/2022 11:11 AM EST DM- new OB. Declines NT. ASA. FLU Vaccine today. RTO 4 wks. Alyssa Chance MD documented in this encounterEast [place] [facility]11-28-[facility]22 History of Present illness Narrative* Alyssa [...] with Folic acid: Yes Occupation: changing to [employer] Evangelical or heritage: No Would refuse blood transfusion if medically necessary: No BMI 28.90 kg/(m^2) Patient BMI over 30? 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 Alyssa Spence MD documented in this encounterEast [place] [facility] Hospital11-28-2022 Instructions* Patient Instructions* Elizabeth Jennings Ma - 03/11/2022 10:04 AM EST Please select the following link to access the [facility] [place] [facility] Your Guide to a Healthy . [email or web address] documented in this encounterEast [place] [facility]11-23-2022 Miscellaneous Notes* Quick Notes - Hortencia [...] screening testing.Hortencia Xie RN documented in this encounterEast [place] [facility]09-28-2022 Miscellaneous Notes* Addendum Note - Alyssa Chance MD - 01/09/2022 9:45 AM EDTAddended by: ALYSSA CHANCE on: 01/09/2022 09:45 AM Modules accepted: Orders * Addendum Note - Elizabeth Jennings Ma - 01/09/2022 9:07 AM EDTAddended by: ELIZABETH JENNINGS MA on: 01/09/2022 09:07 AM Modules accepted: Orders documented in this encounterEast [place] [facility]09-28-2022 History of Present illness Narrative* Alyssa Chance MD - 01/09/2022 8:40 AM EDT Jag is a 21 year old who presents for an annual gynecologic exam without complaints. Over one year has had two heavy cycles- last one in november- but thinks she had + test ?? Miscarriage. Working as [employer]. Recently . Menses: cycles every 28 days [...] L0 SAB0 IAB0 Ectopic0 Multiple0 Live Births0 Toys Inspector History LMP: 12/14/2021, Having periods Age at Menarche: Age at First : Age at Menopause: Toys Inspector History Comments: Sexual Activity: Never; No partner [...] external genitalia normal, normal Bartholin's glands, urethra, Arnold's glands, no vulvar lesions, no cervical lesions, [...] Jennings Ma - 01/09/2022 8:24 AM EDT Electrical Wirer offered: Patient declines. documented in this encounterEast [place] [facility] Hospital09-02-2022 Miscellaneous Notes* Addendum Note - Jennifer [...] advise. Jennifer Quinonez RN documented in this encounterEast [place] [facility]10-10-2016 History of Past illness Narrative* Problem Noted Date Resolved Date Dysmenorrhea 01/22/2016 06/10/2022 documented as of this encounter (statuses as of 06/10/2022) [facility] History of Past illness Narrative* Problem Noted Date Resolved Date Dysmenorrhea 01/22/2016 06/10/2022 documented as of this encounter (statuses as of 06/10/2022) [address]2016 History of Past illness Narrative* Problem Noted Date Resolved Date Dysmenorrhea 01/22/2016 06/10/2022 documented as of this encounter (statuses as of 07/08/2022) [address]2016 History of Past illness Narrative* Problem Noted Date Resolved Date Dysmenorrhea 01/22/2016 06/10/2022 documented as of this encounter (statuses as of 07/29/2022) [address]2016 History of Past illness Narrative* Problem Noted Date Resolved Date Dysmenorrhea 01/22/2016 06/10/2022 documented as of this encounter (statuses as of 08/09/2022) [address]2016 History of Past illness Narrative* Problem Noted Date Resolved Date Dysmenorrhea 01/22/2016 06/10/2022 documented as of this encounter (statuses as of 08/12/2022) [address]2016 History of Past illness Narrative* Problem Noted Date Resolved Date Dysmenorrhea 01/22/2016 06/10/2022 documented as of this encounter (statuses as of 08/23/2022) [address]2016 History of Past illness Narrative* Problem Noted Date Resolved Date Dysmenorrhea 01/22/2016 06/10/2022 documented as of this encounter (statuses as of 09/20/2022) [address]2016 History of Past illness Narrative* Problem Noted Date Resolved Date Dysmenorrhea 01/22/2016 06/10/2022 documented as of this encounter (statuses as of 09/10/2022) [address]2016 History of Past illness Narrative* Problem Noted Date Resolved Date Dysmenorrhea 01/22/2016 06/10/2022 documented as of this encounter (statuses as of 09/11/2022) [address]2016 History of Past illness Narrative* Problem Noted Date Resolved Date Dysmenorrhea 01/22/2016 06/10/2022 documented as of this encounter (statuses as of 09/13/2022) [address]2016 History of Past illness Narrative* Problem Noted Date Resolved Date Dysmenorrhea 01/22/2016 06/10/2022 documented as of this encounter (statuses as of 09/19/2022) [address]2016 History of Past illness Narrative* Problem Noted Date Resolved Date Dysmenorrhea 01/22/2016 06/10/2022 documented as of this encounter (statuses as of 09/26/2022) [address]2016 History of Past illness Narrative* Problem Noted Date Resolved Date Dysmenorrhea 01/22/2016 06/10/2022 documented as of this encounter (statuses as of 10/02/2022) [address]2016 History of Past illness Narrative* Problem Noted Date Resolved Date Dysmenorrhea 01/22/2016 06/10/2022 documented as of this encounter (statuses as of 10/02/2022) [address]2016 History of Past illness Narrative* Problem Noted Date Resolved Date Dysmenorrhea 01/22/2016 06/10/2022 documented as of this encounter (statuses as of 10/03/2022) [address]2016 History of Past illness Narrative* Problem Noted Date Resolved Date Dysmenorrhea 01/22/2016 06/10/2022 documented as of this encounter (statuses as of 10/10/2022) [address]2016 History of Past illness Narrative* Problem Noted Date Resolved Date Dysmenorrhea 01/22/2016 06/10/2022 documented as of this encounter (statuses as of 10/10/2022) [address] History of Past illness Narrative* Problem Noted Date Resolved Date Dysmenorrhea 01/22/2016 06/10/2022 documented as of this encounter (statuses as of 10/11/2022) [address]2016 History of Past illness Narrative* Problem Noted Date Resolved Date Dysmenorrhea 01/22/2016 06/10/2022 documented as of this encounter (statuses as of 10/14/2022) [address]2016 History of Past illness Narrative* Problem Noted Date Diagnosed Date Resolved Date Dysmenorrhea 01/22/2016 06/10/2022 documented as of this encounter (statuses as of 10/23/2022) [address] History of Past illness Narrative* Problem Noted Date Diagnosed Date Resolved Date Dysmenorrhea 01/22/2016 06/10/2022 documented as of this encounter (statuses as of 12/05/2022) [facility] note* Diagnosis Abnormal uterine bleeding (AUB)- Primary [facility] encounter [facility]* Diagnosis Encounter for gynecological examination (general) (routine) without abnormal findings- Primary Screen for STD (sexually transmitted disease) Screening examination for venereal disease documented [facility] this encounter [facility]* Diagnosis Supervision of normal first , antepartum- Primary History of anxiety Personal history of other mental disorder related nausea, antepartum Mild hyperemesis gravidarum, antepartum documented [facility] this encounter [facility]* Diagnosis Encounter for supervision of normal first in first trimester- Primary Supervision of normal first Need for influenza vaccination Need for prophylactic vaccination and inoculation against influenza documented [facility] this encounter [facility]* Diagnosis Encounter for supervision of normal first in first trimester- Primary Supervision of normal first 8 weeks gestation of state, incidental documented [facility] this [facility]* Diagnosis 11 weeks gestation of - Primary state, incidental Encounter for supervision of normal first in first trimester Supervision of normal first documented [facility]* Diagnosis 16 weeks gestation of - Primary state, incidental documented [facility] this [facility]* Diagnosis 20 weeks gestation of - Primary state, incidental Encounter for supervision of normal first in second trimester Supervision of normal first [facility]* Diagnosis Encounter for anatomic survey- Primary 20 weeks gestation of state, incidental documented [facility]* Diagnosis Encounter for supervision of normal first in second trimester- Primary Supervision of normal first 24 weeks gestation of state, incidental documented [facility]* Diagnosis Encounter for supervision of normal first in third trimester- Primary Supervision of normal first 28 weeks gestation of state, incidental documented [facility]* Diagnosis Encounter for supervision of normal first in third trimester- Primary Supervision of normal first Decreased movements in third trimester, single or unspecified fetus documented [facility] this encounter [facility]* Diagnosis Anemia during in third trimester- Primary 30 weeks gestation of state, incidental Decreased movements in third trimester, single or unspecified fetus documented in this encounter [facility] noteNo assessment information availableWLima Memorial Hospital Work Phone: Evaluation note* Diagnosis Maternal iron deficiency anemia complicating , third trimester Iron malabsorption Other specified intestinal malabsorption documented in this encounter [facility]* Diagnosis 34 weeks gestation of - Primary state, incidental Anemia during in third trimester Uterine size-date discrepancy, third trimester documented in this encounter [facility] note* Diagnosis Maternal iron deficiency anemia complicating , third trimester- Primary Iron malabsorption Other specified intestinal malabsorption documented in this encounter [facility]* Diagnosis 36 weeks gestation of - Primary state, incidental documented in this encounter [facility]* Diagnosis Encounter for ultrasound to check growth- Primary Encounter for routine screening for malformation using ultrasonics Uterine size-date discrepancy, third trimester 36 weeks gestation of state, incidental documented in this encounter [facility] note* Diagnosis Maternal iron deficiency anemia complicating , third trimester- Primary Iron malabsorption Other specified intestinal malabsorption documented in this encounter [facility] note* Diagnosis 37 weeks gestation of - Primary state, incidental Encounter for supervision of normal first in third trimester Supervision of normal first documented [facility] this encounter [facility]* Diagnosis Maternal iron deficiency anemia complicating , third trimester- Primary Iron malabsorption Other specified intestinal malabsorption documented in this encounter [facility] note* Diagnosis 38 weeks gestation of - Primary state, incidental Encounter for supervision of normal first in third trimester Supervision of normal first Anemia during in third trimester documented in this encounter [facility]* Diagnosis Onset Date Resolution Status 33 weeks gestation of acute Decreased movement acu te False labor acute [facility] Work Phone: Evaluation note* Diagnosis Onset Date Resolution Status 33 weeks gestation of acute Decreased movement acu te False labor acute Normal vaginal delivery acut e SROM (spontaneous rupture of membranes) acute [facility] Work Phone: Evaluation note* Diagnosis care and examination- Primary Routine follow-up documented in this encounter [facility]* Diagnosis Encounter for gynecological examination (general) (routine) without abnormal findings- Primary Screening for cervical cancer Screening for malignant neoplasm of the cervix [facility] Davion Sepulveda [facility] October 16, 2022 7:41am Note Date/Time October 16, 2022 7:41a m [facility] Medical Records Department [address] [place] [address] OB Triage Physician Note 10/16/2238 MR#: [id number] Acct: [id number] Name: JAG PEREZ Rep #:[id number] : 2000 21 From: Davion Sepulveda MD PCP: Dr. Geronimo Arias DO Sta tus:REG CLI Y Location: [place] [id number] HPI - General HPI Narrative JAG PEREZ, [...] DO; Dr. Davion Sepulveda MD ~ Signed [facility] Work Phone: Progress note Author Becky Galvez [facility] Note Date/Time October 07, 2024 8:45 am [facility] [address] [place] [address], [address] [place] [address] OFFICE VISIT Date of Service: 10/07/24 MR#: [id number] Acct: [id number] Name: JAG PEREZ Rep #: [id number] : 2000 Provider: Dr. 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 Date Name GA/Weeks Outcome Route Bth Weight Gen Labor Lgth Anesthesia Del Locatn Provider FOB 10/22/22 Tanner 39 live - full term 7 Male epidur al [facility] Alma Delia Cabraln Delivery Date: 10/22/22 Last [...] Cosigner Signature: Date (if applicable) CC: ~ [facility] Work Phone: Progress note Author Selene Back [facility] Note Date/Time October 12, 2024 8:57a [facility] [address], [address] [place] [id number] OFFICE VISIT Date of Service: 10/12/24 MR#: [id number] Acct: [id number] Name: JAG PEREZ Rep #: [id number] : 2000 Provider: Dr. Maxine Braun DO Age/Sex: 23/F [place] [facility] [place]: Signed Intake Vital Signs 09/30/24 13:44 10/07/24 08:19 10/12/24 08:16 10/12/24 08:17 Height 5 ft 2 in 5 ft 2 in 5 ft 2 in 5 ft 2 in Weight: 203 lb 2 oz BMI 37.1 BP 109/74 Intake Visit Reasons: 39wk ob Java Web User Interface Developer Required: No Is patient in pain?: No [...] 1 current occupational status: unemployed current occupation: [employer] pets and animals: Yes (Avoid litterbox) pets [...] physical activity do you participate in: none pia/rastafari: Confucianism seatbelt use: always do you feel safe at home: Yes 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 Date Name GA/Weeks Outcome Route Bth Weight Infant Gen Labor Lgth Anesthesia Del Locatn Provider FOB 10/22/22 Tanner 39 live - full term 7 Male epidur al [facility] Alma Delia Reid Delivery Date: 10/22/22 Last [...] will send in script. US scheduled with [facility]. 06/18/24 -?-?-?-?-?-?-?-?-?-?-?-?- 22w 3d 173 lb 8 [...] and Symptoms of Preeclampsia, Feeding No , [place] Education and Family Medical Leave or Disability [...] Cosigner Signature: Date (if applicable) CC: ~ [facility] Work Phone: Reason for referral (narrative)* Diagnostic Procedure Only (Routine) - Authorized Specialty Diagnoses / Procedures Referred By Ranjit lopez Referred To Contact [facility] Diagnoses Encounter for supervision of normal first in first trimester Procedures OBSTETRIC ULTRASOUND WHI US PREG UTERUS AFTER 1ST TRIMEST GESTATION Alyssa Packer MD [address] [place] [address] [facility] [address] [place] [address] Referral ID Status Reason Start Date Expiration Date Visits Requested Visits Authorized [id number] Authorized Auto-Generat ed Referral 2 03/11/2023 1 1 [facility] for referral (narrative)* Diagnostic Procedure Only (Routine) - Pending Review Specialty Diagnoses / Procedures Referred By Ranjit lopez Referred To Contact [facility] Diagnoses 34 weeks gestation of Uterine size-date discrepancy, third trimester Procedures OBSTETRIC ULTRASOUND WHI US PREG UTERUS AFTER 1ST TRIMEST GESTATION Sobeida Lopez MD [address] [place] [address] [facility] [address] [place] [address] Referral ID Status Reason Start Date Expiration Date Visits Requested Visits Authorized [id number] Pending Review Auto-Generat ed Referral 09/19/2022 09/19/2023 1 1 [facility] for referral (narrative)No reason for referral information availableWLima Memorial Hospital Work Phone: Instructions * Patient Instructions* Sara [...] heating pad on your skin. Take an novl-joa-ptejcvi pain medicine, such as acetaminophen (Tylenol), ibuprofen [...] Log into your personal health record on [email or web address] and enter C927 in the Education box to learn more about Earache: Care Instructions. Current as of: March 15, 2020 Content Version: 12.8 [employer]. Care instructions adapted under license by your healthcare professional. If you have questions about a medical condition or this instruction, always ask your healthcare professional. [employer] disclaims any warranty or liability for your use of this information. Eustachian Tube Problems: Care Instructions Your Care Instructions The eustachian (say hrp-DUCJ-ebfq-un) tubes run between the inside of the [...] an airplane changes altitude or when a electric meter reader goes up or down underwater. Eustachian tube [...] course of antibiotics. Your doctor may recommend deyj-wua-qvphfbv medicine. Be safe with medicines. Oral or [...] Log into your personal health record on [email or web address] and enter Y822 in the Education box to learn more about Eustachian Tube Problems: Care Instructions. Current as of: March 15, 2020 Content Version: 12.8 [employer]. Care instructions adapted under license by your healthcare professional. If you have questions about a medical condition or this instruction, always ask your healthcare professional. [employer] disclaims any warranty or liability for your use of this information. documented in this encounter History of Present Illness * Sara Marie CNP - 07/21/2020 5:37 PM EDT Patient Name: [facility] Location: [address] [place] [address] Date Of : Date Of Visit: 2000 07/21/2020 MRN# Provider: [id number] Sara Marie CNP Chief Complaint Patient presents [...] ear normal. Nose: Nose normal. Mouth/Throat: Lips: [place]. Mouth: Mucous membranes are moist. Pharynx: Oropharynx [...] heating pad on your skin. Take an ecrp-tsw-cfnlwbg pain medicine, such as acetaminophen (Tylenol), ibuprofen [...] Log into your personal health record on [email or web address] and enter C927 in the Education box to learn more about Earache: Care Instructions. Current as of: March 15, 2020 Content Version: 12.8 [employer]. Care instructions adapted under license by your healthcare professional. If you have questions about a medical condition or this instruction, always ask your healthcare professional. [employer] disclaims any warranty or liability for your use of this information. Eustachian Tube Problems: Care Instructions Your Care Instructions The eustachian (say mvc-DDUS-exzg-un) tubes run between the inside of the [...] an airplane changes altitude or when a electric meter reader goes up or down underwater. Eustachian tube [...] course of antibiotics. Your doctor may recommend nipy-bol-lhzcamk medicine. Be safe with medicines. Oral or [...] Log into your personal health record on [email or web address] and enter Y822 in the Education box to learn more about Eustachian Tube Problems: Care Instructions. Current as of: March 15, 2020 Content Version: 12.8 [employer]. Care instructions adapted under license by your healthcare professional. If you have questions about a medical condition or this instruction, always ask your healthcare professional. [employer] disclaims any warranty or liability for your use of this information. 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 No October 22, 2022 1:40am Summary Purpose [...] Referred By Contcaron t Referred To Contact [facility] Diagnoses Encounter for supervision of normal first in first trimester Procedures OBSTETRIC ULTRASOUND WHI US PREG UTERUS AFTER 1ST TRIMEST GESTATION Alyssa Packer MD [address] [place] [address] [facility] [address] [place] [address] Referral ID Status Reason Start Date Expiration Date V isits Requested Visits Authorized [id number] Closed Auto-Generate d Referral 03/11/2022 03/11/2023 1 [...] Davion Sepulveda MD [address] [place] [address] [facility] [address] [place] [address] Referral ID Status Reason Start Date Expiration Date V isits Requested Visits Authorized [id number] Authorized 09/12/2022 04/13/2023 99 99 Reason Onset Date Comments Care 10/02/2022 Specialty Diagnoses / Procedures Referred By Contac t Referred To Contact [facility] Diagnoses 34 weeks gestation of Uterine size-date discrepancy, third trimester Procedures OBSTETRIC ULTRASOUND WHI US PREG UTERUS AFTER [employer] Sobeida Lopez MD [address] [place] [address] [facility] [address] [place] [address] Referral ID Status Reason Start Date Expiration Date V isits Requested Visits Authorized [id number] Closed Auto-Generate d Referral 09/19/2022 09/19/2023 1 1 Reason Onset Date Comments Care 10/09/2022 Reason Comments Breast Pump Reason Onset Date Comments Care 10/14/2022 Reason Comments Ob Delivery Note Reason Comments Care Reason Comments [facility] INFORMATION SOURCE (unrecogn ized section and content) DATE CREATED AUTHOR 07/22/2020 [facility] DATE CREATED AUTHOR AUTHOR'S ORGANIZ ATION 12/18/2023 [facility] DATE CREATED AUTHOR AUTHOR'S ORGANIZ ATION 06/12/2024 [facility] DATE CREATED AUTHOR AUTHOR'S ORGANIZ ATION 10/16/2024 [facility] Source Comments (unrecognize d section and content) In the event this informatio n is protected by the Federal Confidentiality of Alcohol and Drug Abuse Patient Records regulations: The Federal rules restrict any use of the information to criminally investigate or prosecute any alcohol or drug abuse patient.[facility] the event this information is protected by the Federal Confidentiality of Alcohol and Drug Abuse Patient Records regulations: The Federal rules restrict any use of the information to criminally investigate or prosecute any alcohol or drug abuse patient.[facility] the event this information is protected by the Federal Confidentiality of Alcohol and Drug Abuse Patient Records regulations: The Federal rules restrict any use of the information to criminally investigate or prosecute any alcohol or drug abuse patient.[facility] the event this information is protected by the Federal Confidentiality of Alcohol and Drug Abuse Patient Records regulations: The Federal rules restrict any use of the information to criminally investigate or prosecute any alcohol or drug abuse patient.[facility] [place] [facility] the event this information is protected by the Federal Confidentiality of Alcohol and Drug Abuse Patient Records regulations: The Federal rules restrict any use of the information to criminally investigate or prosecute any alcohol or drug abuse patient.[facility] the event this information is protected by the Federal Confidentiality of Alcohol and Drug Abuse Patient Records regulations: The Federal rules restrict any use of the information to criminally investigate or prosecute any alcohol or drug abuse patient.[facility] the event this information is protected by the Federal Confidentiality of Alcohol and Drug Abuse Patient Records regulations: The Federal rules restrict any use of the information to criminally investigate or prosecute any alcohol or drug abuse patient.[facility] [place] [facility] the event this information is protected by the Federal Confidentiality of Alcohol and Drug Abuse Patient Records regulations: The Federal rules restrict any use of the information to criminally investigate or prosecute any alcohol or drug abuse patient.[facility] [place] [facility] the event this information is protected by the Federal Confidentiality of Alcohol and Drug Abuse Patient Records regulations: The Federal rules restrict any use of the information to criminally investigate or prosecute any alcohol or drug abuse patient.[facility] [place] [facility] the event this information is protected by the Federal Confidentiality of Alcohol and Drug Abuse Patient Records regulations: The Federal rules restrict any use of the information to criminally investigate or prosecute any alcohol or drug abuse patient.[facility] [place] [facility]In the event this information is protected by the Federal Confidentiality of Alcohol and Drug Abuse Patient Records regulations: The Federal rules restrict any use of the information to criminally investigate or prosecute any alcohol or drug abuse patient.[facility] [place] [facility]In the event this information is protected by the Federal Confidentiality of Alcohol and Drug Abuse Patient Records regulations: The Federal rules restrict any use of the information to criminally investigate or prosecute any alcohol or drug abuse patient.[facility] [place] [facility]In the event this information is protected by the Federal Confidentiality of Alcohol and Drug Abuse Patient Records regulations: The Federal rules restrict any use of the information to criminally investigate or prosecute any alcohol or drug abuse patient.[facility] [place] [facility]In the event this information is protected by the Federal Confidentiality of Alcohol and Drug Abuse Patient Records regulations: The Federal rules restrict any use of the information to criminally investigate or prosecute any alcohol or drug abuse patient.[facility] [place] [facility] HospitalIn the event this information is protected by the Federal Confidentiality of Alcohol and Drug Abuse Patient Records regulations: The Federal rules restrict any use of the information to criminally investigate or prosecute any alcohol or drug abuse patient.[facility] [place] [facility] HospitalIn the event this information is protected by the Federal Confidentiality of Alcohol and Drug Abuse Patient Records regulations: The Federal rules restrict any use of the information to criminally investigate or prosecute any alcohol or drug abuse patient.[facility] [place] [facility] HospitalIn the event this information is protected by the Federal Confidentiality of Alcohol and Drug Abuse Patient Records regulations: The Federal rules restrict any use of the information to criminally investigate or prosecute any alcohol or drug abuse patient.[facility] [place] [facility] HospitalIn the event this information is protected by the Federal Confidentiality of Alcohol and Drug Abuse Patient Records regulations: The Federal rules restrict any use of the information to criminally investigate or prosecute any alcohol or drug abuse patient.[facility] [place] [facility] HospitalIn the event this information is protected by the Federal Confidentiality of Alcohol and Drug Abuse Patient Records regulations: The Federal rules restrict any use of the information to criminally investigate or prosecute any alcohol or drug abuse patient.[facility] [place] [facility] HospitalIn the event this information is protected by the Federal Confidentiality of Alcohol and Drug Abuse Patient Records regulations: The Federal rules restrict any use of the information to criminally investigate or prosecute any alcohol or drug abuse patient.[facility] [place] [facility] HospitalIn the event this information is protected by the Federal Confidentiality of Alcohol and Drug Abuse Patient Records regulations: The Federal rules restrict any use of the information to criminally investigate or prosecute any alcohol or drug abuse patient.[facility] [place] [facility] HospitalIn the event this information is protected by the Federal Confidentiality of Alcohol and Drug Abuse Patient Records regulations: The Federal rules restrict any use of the information to criminally investigate or prosecute any alcohol or drug abuse patient.[facility] [place] [facility] HospitalIn the event this information is protected by the Federal Confidentiality of Alcohol and Drug Abuse Patient Records regulations: The Federal rules restrict any use of the information to criminally investigate or prosecute any alcohol or drug abuse patient.[facility] [place] [facility] HospitalIn the event this information is protected by the Federal Confidentiality of Alcohol and Drug Abuse Patient Records regulations: The Federal rules restrict any use of the information to criminally investigate or prosecute any alcohol or drug abuse patient.[facility] [place] [facility] HospitalIn the event this information is protected by the Federal Confidentiality of Alcohol and Drug Abuse Patient Records regulations: The Federal rules restrict any use of the information to criminally investigate or prosecute any alcohol or drug abuse patient.[facility] the event this information is protected by the Federal Confidentiality of Alcohol and Drug Abuse Patient Records regulations: The Federal rules restrict any use of the information to criminally investigate or prosecute any alcohol or drug abuse patient.[facility] [place] [facility] HospitalIn the event this information is protected by the Federal Confidentiality of Alcohol and Drug Abuse Patient Records regulations: The Federal rules restrict any use of the information to criminally investigate or prosecute any alcohol or drug abuse patient.[facility] [place] [facility] HospitalIn the event this information is protected [...] or prosecute any alcohol or drug abuse patient.[facility] [place] [facility] HospitalIn the event this information is protected by the Federal Confidentiality of Alcohol and Drug Abuse Patient Records regulations: The Federal rules restrict any use of the information to criminally investigate or prosecute any alcohol or drug abuse patient.[facility] [place] [facility] HospitalIn the event this information is protected by the Federal Confidentiality of Alcohol and Drug Abuse Patient Records regulations: The Federal rules restrict any use of the information to criminally investigate or prosecute any alcohol or drug abuse patient.[facility] [place] [facility] HospitalIn the event this information is protected by the Federal Confidentiality of Alcohol and Drug Abuse Patient Records regulations: The Federal rules restrict any use of the information to criminally investigate or prosecute any alcohol or drug abuse patient.[facility] Care Teams (unrecognized sec tion and content) Molding Press Operator Relationship Specialty Start Date End Date Muriel Catalan MD [address] [place] [address] PCP - General 02/05/02 Molding Press Operator Relationship Specialty Start Date End Date Muriel Catalan MD [address] [place] [address] PCP - General 02/05/02 Molding Press Operator Relationship Specialty Start Date End Date Muriel Catalan MD [address] [place] [address] PCP - General 02/05/02 Molding Press Operator Relationship Specialty Start Date End Date Muriel Catalan MD [address] [facility] [place] [address] PCP - General 02/05/02 Molding Press Operator Relationship Specialty Start Date End Date Muriel Catalan MD [address] [facility] [place] [address] PCP - General 02/05/02 Molding Press Operator Relationship Specialty Start Date End Date Muriel Catalan MD [address] [facility] [place] [address] PCP - General 02/05/02 Molding Press Operator Relationship Specialty Start Date End Date Muriel Catalan MD [address] [facility] [place] [address] PCP - General 02/05/02 Molding Press Operator Relationship Specialty Start Date End Date Muriel Catalan MD [address] [facility] [place] [address] PCP - General 02/05/02 Molding Press Operator Relationship Specialty Start Date End Date Muriel Catalan MD [address] [facility] [place] [address] PCP - General 02/05/02 Team Status: Active Member Role Status Dates Dr. Geronimo Arias , DO Primary Care Provider A ctive Team Status: Inactive Member Role Status Dates Kimi Vasquez CNM Attending Provider, Referring Pr ovider Active Dr. Geronimo Arias , DO Primary Care Provider A ctive Molding Press Operator Relationship Specialty Start Date End Date Muriel Catalan MD [address] [place] [address] PCP - General 02/05/02 Molding Press Operator Relationship Specialty Start Date End Date Muriel Catalan MD [address] [place] [address] PCP - General 02/05/02 Molding Press Operator Relationship Specialty Start Date End Date Muriel Catalan MD [address] [place] [address] PCP - General 02/05/02 Molding Press Operator Relationship Specialty Start Date End Date Muriel Catalan MD [address] [place] [address] PCP - General 02/05/02 Molding Press Operator Relationship Specialty Start Date End Date Muriel Catalan MD [address] [place] [address] PCP - General 02/05/02 Molding Press Operator Relationship Specialty Start Date End Date Muriel Catalan MD [address] [place] [address] PCP - General 02/05/02 Molding Press Operator Relationship Specialty Start Date End Date Muriel Catalan MD [address] [place] [address] PCP - General 02/05/02 Team Status: Inactive Member Role Status Dates Dr. Geronimo Arias , DO Primary Care Provider A ctive Maya Gonzales CNM Attending Provider, Referring Prov ider Active Team Status: Inactive Member Role Status Dates Dr. Geronimo Arias , DO Primary Care Provider A ctive Dr. Davion Sepulveda MD Attending Provider, Referring Pr ovider Active Molding Press Operator Relationship Specialty Start Date End Date Muriel Catalan MD [address] [place] [address] PCP - General 02/05/02 Team Status: Inactive Member Role Status Dates Dr. Geronimo Arias , DO Primary Care Provider A ctive Maya oGnzales CNM Referring Provider Active Dr. Davion Sepulveda MD Admit Provider, Attending Provid er Active Molding Press Operator Relationship Specialty Start Date End Date Muriel Catalan MD [address] [place] [address] PCP - General 02/05/02 Molding Press Operator Relationship Specialty Start Date End Date Muriel Catalan MD [address] [place] [address] PCP - General 02/05/02 Team Status: Inactive [...] 2024 End: August 23, 2024 Promise Agosto METHODS SPECIALIST, METHODS SPECIALIST-C Attending Provider Active Start: August 23, 2024 End: August 23, 2024 Team Status: Inactive Member Role Status Dates Dr. Geronimo Arias , DO Primary Care Provider A ctive Start: August 25, 2024 End: August 25, 2024 Promise Agosto METHODS SPECIALIST, METHODS SPECIALIST-C Attending Provider Active Start: August 25, 2024 End: August 25, 2024 Promise Agosto METHODS SPECIALIST, METHODS SPECIALIST-C Referring Provider Active Start: August 25, 2024 End: August 25, 2024 Team Status: Active Member Role Status Dates Dr. Geronimo Arias , DO Primary Care Provider A ctive Start: August 25, 2024 End: August 25, 2024 Dr. Jacob Suggs MD Attending Provider Active Start: August 25, 2024 End: August 25, 2024 Promise Agosto METHODS SPECIALIST, METHODS SPECIALIST-C Referring Provider Active Start: August 25, 2024 [...] 2024 End: August 23, 2024 Promise Agosto METHODS SPECIALIST, METHODS SPECIALIST-C Attending Provider Active Start: August 23, 2024 End: August 23, 2024 Team Status: Inactive Member Role/Relationship Status Dates Dr. Geronimo Arias , DO Primary Care Provider A ctive Start: August 25, 2024 End: August 25, 2024 Promise Agosto METHODS SPECIALIST, METHODS SPECIALIST-C Attending Provider Active Start: August 25, 2024 End: August 25, 2024 Promise Agosto METHODS SPECIALIST, METHODS SPECIALIST-C Referring Provider Active Start: August 25, 2024 End: August 25, 2024 Team Status: Active Member Role/Relationship Status Dates Dr. Geronimo Arias , DO Primary Care Provider A ctive Start: August 25, 2024 End: August 25, 2024 Dr. Jacob Suggs MD Attending Provider Active Start: August 25, 2024 End: August 25, 2024 Promise Agosto METHODS SPECIALIST, METHODS SPECIALIST-C Referring Provider Active Start: August 25, 2024 [...] BE BASED ON THE PRIMARY CLINICAL RECORDS. [employer] provides no warranty or guarantee of the accuracy or completeness of information in this document.
[2024-10-17 18:51] LABS: Hematocrit 32.9 % (37-47); Hemoglobin 10.7 g/dL (12.0-15.0); Immature Granulocytes Count 0.350 X10^3/uL (0.0-0.0); Mean Corp Hgb Conc 32.5 g/dL (32-36); Mean Corpuscular Volume 88.4 fL (81-99); Mean Platelet Vol. 11.2 fl (6.2-12.0); NRBC Flagged by Analyzer 0 % (0-5); Platelet Count 262 K/mm3 (150-450); RBC Distribution Width CV 13.7 % (11.6-14.6); RBC Distribution Width SD 44.2 fl (35.1-43.9); Red Blood Count 3.72 M/mm3 (4.2-5.4); White Blood Count 20.3 K/mm3 (4.4-11.0)
[2024-10-17 19:40] LABS: Syphilis Antibodies Nonreactive (Nonreactive)
[2024-10-17] MEDS: Lactated Ringers 1,000 ML 999 ML IV (20:05)
[2024-10-17] MEDS: Lactated Ringers 1,000 ML 200 ML IV (20:56)
[2024-10-17] MEDS: fentaNYL-bupivacaine (epidural) 100 ML BAG EPIDURAL (20:57)
--- NOTE | 2024-10-17 21:46 | PN.OBGYN_ITS ---
Subjective Subjective comfortable with epidural Objective Data Objective Data AROM clear fluid. FHR 130s. + accels. FSE placed for difficult tracing after epidural Vital Signs: Vital Signs Temp Pulse Resp BP Pulse Ox 98.3 F 115 H 16 127/62 H 100 10/17/24 21:39 10/17/24 21:37 10/17/24 21:39 10/17/24 21:37 10/17/24 21:37 Weight: 202 lb Body Mass Index (BMI) 36.9 Lab / Micro Data 10/17/24 18:10 Labs: Laboratory Results - last 24 hr 10/17/24 18:10: WBC 20.3 H, RBC 3.72 L, Hgb 10.7 L, Hct 32.9 L, MCV 88.4, MCH 28.8, MCHC 32.5, RDW Std Deviation 44.2 H, RDW Coeff of Mirian 13.7, Plt Count 262, MPV 11.2, Immature Gran % (Auto) 1.700 H, Neut % (Auto) 83.7 H, Lymph % (Auto) 7.8 L, [place] % (Auto) 6.3, Eos % (Auto) 0.2, Baso % (Auto) 0.3, Absolute Neuts (auto) 17.0 H, Absolute Lymphs (auto) 1.59, Nucleated RBC % 0, Syphilis Total Ab Nonreactive, Blood Type A POSITIVE, Antibody Screen NEGATIVE Assessment & Plan (1) Spontaneous onset of labor: COMMENT: AROM/pit as needed PLAN: Plan -recehck exam in 2 hours, if unchanged start pitocin.
[2024-10-17] MEDS: LACTATED RINGERS 500 ML 999 ML IV (22:32)
[2024-10-17] MEDS: Oxytocin 15 Units/NS 250ml 15 UNITS/250 ML IV.SOLN 334 UNITS IV (23:59)
[2024-10-18] VITALS (33 sets, daily range): BP systolic 106–130; BP diastolic 55–82; PULSE 92–124; RESP 16–18; TEMP 36.2–37.4; O2SAT 97–100
--- NOTE | 2024-10-18 00:03 | EX.PCM.OBVAG ---
Assessment & Plan (1) (spontaneous vaginal delivery): COMMENT: LC JACIEL Metz Maternal Data Information ADDY Calculator Estimated Delivery Date Method Current WG Current Estimate 10/19/24 LMP (Certain) 39w 6d Other Estimates 10/22/24 Ultrasound #1 39w 3d Final ADDY: 10/19/24 Final ADDY Source: LMP Gestational age: 39.6 Vaginal Delivery Maternal Presentation Maternal Presentation: Active Labor Maternal Presentation: at 39.6 presented in active labor. AROm'd for clear large fluid. progressed to fully without further intervention Vaginal Delivery Information Procedure Performed: Spontaneous Vaginal Delivery Surgeon/Practitioner: Portia Moe Date of Procedure: 10/18/24 Pre-Procedure Diagnosis: see problem list Post-Procedure Diagnosis: svf Type of anesthesia: Epidural Estimated Blood Loss: 150 Time of Delivery: 23:52 Findings Description of procedure: Patient began pushing with deep variables, Dr. Villela notified and requested at delivery and delivered the head in the YUDY presentation. The head was delivered atraumatically and a tight body cord to right shoulder to under neck visualized. The anterior and posterior shoulders delivered without complication and somersaulted over cord and the was placed on the maternal abdomen. Delayed cord clamping was employed for approximately 60 seconds. Cord was clamped and cut and gentle traction was applied to the cord and the placenta delivered spontaneously immediately following it was noted to be intact with three-vessel cord. The perineum and vagina were inspected and noted to have no laceration. EBL was 150cc. Patient and infant tolerated delivery well. Presentation: Vertex Amniotic Membrane Rupture Type: Artificial Amniotic Fluid Description: Clear Placental Delivery Description: Spontaneous Placenta Disposition: [facility] Cord Vessel Description: 3 Vessels Cord Entanglement: Other (tight around right shoulder/neck) Nuchal Cord Compression: With compression Cord Gases: ABG and VBG A Gender: Female (1 minute): 8 (5 minute): 9 Delayed Cord Clamping: Yes Post Vaginal Deli Medications given after delivery: IV Pitocin Laceration: None Procedures Urinary/Genital [id number]: [id number] Vaginal Delivery global pkg
--- NOTE | 2024-10-18 00:08 | DCINST_ITS ---
Discharge Instructions Diet Discharge Diet: No restrictions DC O2, CPAP, BIPAP needs Home O2 Discharge instructions: No Dressing / Incision Discharge Activity: May Not Drive and May Shower May resume sexual activity in: 6 weeks Weight Bearing Status: Full weight bearing Dressing / Incision Call your doctor if your incision/area has: Sudden Increased Bleeding, Increased Pain/ Swelling and Foul Smelling Discharge Call your doctor if you observe: Fever of 101 or Higher, Numbness or Tingling, Change in Color, Inability to urinate, Inability to have a bowel movement, Using more than 1 pad per hour, Shortness of breath, Dizziness, Fainting spells, Chest pain, Calf discomfort and Uncontrolled pain Follow Up Care Please Follow Up With: Portia Moe CNM When: 6 weeks , please call office to make an appointment. Congratulations on the of your baby! Test Results: Test results from this visit will be discussed in further detail at your follow- up appointment, if applicable. Discharge Plan Admission Admit Date/Time: 10/17/24 17:40 Attending Provider: Portia Moe Primary Care Provider: Grace Arias Discharge Orders/Prescriptions Prescriptions: No Action + DHA 28 mg iron- 975 mcg-200 mg Combo Pack 1 pkg PO DAILY ferrous sulfate [Feosol] 325 mg (65 mg iron) tablet 325 mg PO DAILY Referrals / Follow Up: Grace Arias DO [Primary Care Provider] -
[2024-10-18] MEDS: Oxytocin 15 Units/NS 250ml 15 UNITS/250 ML IV.SOLN 83 UNITS IV (00:30)
--- NOTE | 2024-10-18 08:18 | PCM.PN.OB ---
Subjective Subjective Patient doing well without complaints. Tolerating PO. Ambulating and voiding without difficulty. Feeding well. Denies chest pain, shortness of breath, calf pain/swelling, fevers, chills, lightheadedness. Objective Data Objective Data Vital Signs: Vital Signs Temp Pulse Resp BP Pulse Ox O2 Del Method 98.3 F 113 H 16 108/56 L 97 Room Air 10/18/24 04:18 10/18/24 04:18 10/18/24 04:18 10/18/24 04:18 10/18/24 04:18 10/18/24 04:18 Oxygen Delivery Method Room Air Weight: 202 lb Body Mass Index (BMI) 36.9 Intake & Output: Intake and Output for Last 24 Hours 10/16/24 10/17/24 10/18/24 23:59 23:59 23:59 Intake Total 1500 / 1500 1500 / 1500 Output Total 200 / 200 850 / 850 Balance 1300 / 1300 650 / 650 Lab / Micro Data 10/17/24 18:10 Labs: Laboratory Results - last 24 hr 10/17/24 18:10: WBC 20.3 H, RBC 3.72 L, Hgb 10.7 L, Hct 32.9 L, MCV 88.4, MCH 28.8, MCHC 32.5, RDW Std Deviation 44.2 H, RDW Coeff of Mirian 13.7, Plt Count 262, MPV 11.2, Immature Gran % (Auto) 1.700 H, Neut % (Auto) 83.7 H, Lymph % (Auto) 7.8 L, [place] % (Auto) 6.3, Eos % (Auto) 0.2, Baso % (Auto) 0.3, Absolute Neuts (auto) 17.0 H, Absolute Lymphs (auto) 1.59, Nucleated RBC % 0, Syphilis Total Ab Nonreactive, Blood Type A POSITIVE, Antibody Screen NEGATIVE ROS Constitutional Constitutional: Reports systems reviewed and no addt'l complaints, except as documented; Denies anorexia or headache(s) Cardiovascular Cardiovascular: Reports systems reviewed and no addt'l complaints, except as documented; Denies dizziness, dyspnea, nausea or tachypnea Respiratory/Chest Respiratory/Chest: Reports systems reviewed and no addt'l complaints, except as documented; Denies cough, dyspnea, shortness of breath at rest or tachypnea Gastrointestinal Gastrointestinal: Reports systems reviewed and no addt'l complaints, except as documented; Denies abdominal pain, constipation or nausea Genitourinary Genitourinary: Reports systems reviewed and no addt'l complaints, except as documented; Denies burning urination, difficulty urinating, dysuria, urinary frequency or urinary incontinence Musculoskeletal Musculoskeletal: Reports systems reviewed and no addt'l complaints, except as documented Integumentary Integumentary: Reports systems reviewed and no addt'l complaints, except as documented Neurologic Neurologic: Reports systems reviewed and no addt'l complaints, except as documented; Denies abnormal speech, dizziness or headache(s) Psychiatric Psychiatric: Reports systems reviewed and no addt'l complaints, except as documented Endocrine Endocrinology: Reports systems reviewed and no addt'l complaints, except as documented Hematologic/Lymphatic Hematologic/Lymphatic: Reports systems reviewed and no addt'l complaints, except as documented Physical Exam Const alert, oriented x3 and no apparent distress Neck full ROM Resp normal respiratory effort, normal air movement and no retractions Effort and Inspection: able to speak in complete sentences and symmetric chest movement GI soft to palpation Bladder / Kidney Exam: bladder normal to palpation Uterus Palpation: uterus fundus firm Extremity normal to inspection and full ROM Psych mental status grossly normal, thought process normal and cooperative Assessment & Plan (1) (spontaneous vaginal delivery): COMMENT: TENNILLE Metz PLAN: s/p PPD # 1 1. routine post delivery care 2. breast feeding- support given 3. rh positive 4. rubella immune (2) Spontaneous onset of labor: COMMENT: AROM/pit as needed (3) Anemia in preg-unspec: QUALIFIERS: Trimester: third trimester Qualified Code(s): O99.013 - Anemia complicating , third trimester COMMENT: add FE (4) Obesity affecting : QUALIFIERS: Trimester: third trimester Obesity type affecting : unspecified obesity Qualified Code(s): O99.213 - Obesity complicating , third trimester COMMENT: HgbA1c normal bmi 30 (5) Supervision of high-risk : QUALIFIERS: Trimester: third trimester Qualified Code(s): O09.93 - Supervision of high risk , unspecified, third trimester COMMENT: PRR, , ADDY 10/19/24, girl Isaías Hart, [place] (6) : QUALIFIERS: Weeks of gestation: 39 weeks Qualified Code(s): Z3A.39 - 39 weeks gestation of COMMENT: gbs neg declined NIPT & Carrier testing, normal anatomy (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
[2024-10-19 05:01] VITALS: BP 103/72; PULSE 84; RESP 16; TEMP 36.9; O2SAT 98
[2024-10-19 07:39] VITALS: BP 91/67; PULSE 80; RESP 14; TEMP 36.3; O2SAT 100
--- NOTE | 2024-10-19 08:03 | PCM.PN.CNM ---
Subjective Subjective Patient doing well without complaints. Tolerating PO. Ambulating and voiding without difficulty. Feeding well. Denies chest pain, shortness of breath, calf pain/swelling, fevers, chills, lightheadedness. Objective Data Objective Data Vital Signs: Vital Signs Temp Pulse Resp BP Pulse Ox O2 Del Method 97.3 F L 80 14 91/67 100 Room Air 10/19/24 07:39 10/19/24 07:39 10/19/24 07:39 10/19/24 07:39 10/19/24 07:39 10/19/24 07:39 Oxygen Delivery Method Room Air Weight: 202 lb Body Mass Index (BMI) 36.9 Intake & Output: Intake and Output for Last 24 Hours 10/17/24 10/18/24 10/19/24 23:59 23:59 23:59 Intake Total 1500 / 1500 1500 / 1500 Output Total 200 / 200 850 / 850 Balance 1300 / 1300 650 / 650 Lab / Micro Data 10/17/24 18:10 Physical Exam Const alert, oriented x3 and no apparent distress Neck full ROM Resp normal respiratory effort, normal air movement and no retractions Effort and Inspection: able to speak in complete sentences and symmetric chest movement GI soft to palpation Bladder / Kidney Exam: bladder normal to palpation Uterus Palpation: uterus fundus firm Extremity normal to inspection and full ROM Psych mental status grossly normal, thought process normal and cooperative Assessment & Plan (1) (spontaneous vaginal delivery): COMMENT: TENNILLE Metz PLAN: Plan s/p PPD # 1 1. routine post delivery care 2. breast feeding- support given 3. rh positive 4. rubella immune
--- NOTE | 2024-10-19 08:04 | PCM.DC.SUM ---
Providers Date of Admission: 10/17/24 Primary Care Physician: Dr. Grace Arias DO Reason For Visit: VAG Diagnosis Discharge Diagnosis (1) (spontaneous vaginal delivery): Status: Acute Code(s): O80 - Encounter for full-term uncomplicated delivery Plan s/p PPD # 1 1. routine post delivery care 2. breast feeding- support given 3. rh positive 4. rubella immune Medications at Discharge Home Medications vits,calcium 91-iron 28 mg-folic 975 mcg-dha 200 mg oral pack ( + DHA) 1 pkg PO DAILY 09/10/22 ferrous sulfate 325 mg (65 mg iron) tablet (Feosol) 325 mg PO DAILY anemia 08/05/24 Hospital Course Operations None Procedures None Physical Exam Const alert, oriented x3 and no apparent distress Neck full ROM Resp normal respiratory effort, normal air movement and no retractions Effort and Inspection: able to speak in complete sentences and symmetric chest movement GI soft to palpation Bladder / Kidney Exam: bladder normal to palpation Uterus Palpation: uterus fundus firm Extremity normal to inspection and full ROM Psych mental status grossly normal, thought process normal and cooperative Weight / BMI Weight Weight: 202 lb Body Mass Index (BMI) 36.9 ABG / Lab / Microbiology Data 10/17/24 18:10 D/C Instructions Discharge Diet: No restrictions May resume sexual activity in: 6 weeks Weight Bearing Status: Full weight bearing Call your doctor if your incision/area has: Sudden Increased Bleeding, Increased Pain/ Swelling and Foul Smelling Discharge Call your doctor if you observe: Fever of 101 or Higher, Numbness or Tingling, Change in Color, Inability to urinate, Inability to have a bowel movement, Using more than 1 pad per hour, Shortness of breath, Dizziness, Fainting spells, Chest pain, Calf discomfort and Uncontrolled pain DC O2, CPAP, BIPAP Needs Home O2 Discharge instructions: No Please Follow Up With: Portia Moe CNM When: 6 weeks , please call office to make an appointment. Congratulations on the of your baby! Meaningful Use Info Meaningful Use Meaningful Use Diagnoses (Choose all that apply): None applicable Ischemic Stroke Statin Dosing Therapy Reference: STATIN DOSE THERAPY REFERENCE: * Patients > 75 years receive moderate or high dose statin therapy. * Patients 75 years or YOUNGER should receive HIGH intensity statin dose unless contraindicated. You will be required to document reason for non-treatment if statin daily dose does not meet guidelines. HIGH DOSE STATIN THERAPY DAILY Atorvastatin > than or = to 40 mg Rosuvastatin > than or = to 20 mg Amlodipine + Atorvastatin > than or = to 2.5/40 mg Ezetimibe + Simvastatin 10/80 mg Simvastatin 80mg Discharge Plan Admission Admit Date/Time: 10/17/24 17:40 Attending Provider: Portia Moe Primary Care Provider: Grace Arias Discharge Orders/Prescriptions Prescriptions: No Action + DHA 28 mg iron- 975 mcg-200 mg Combo Pack 1 pkg PO DAILY ferrous sulfate [Feosol] 325 mg (65 mg iron) tablet 325 mg PO DAILY Referrals / Follow Up: Grace Arias, [Primary Care Provider] -
--- NOTE | 2024-10-23 15:22 | NURSING ---
F/up phone call performed, pt. denies s+s of complications, denies issues with lochia, HILL, vision changes. States she is feeling really good. No questions or concerned verbalized. Encouragement and support given
--- NOTE | 2024-11-15 19:29 | PCM.HP.OB ---
HPI - General General Date of Admission: 10/17/24 Date of Service: 10/17/24 Chief Complaint: contractions HPI Narrative JAG PEREZ, is a 23 F who presents at 39.5 weeks with increasing contractions since overnight. denies lof/vb. good fm. [facility] Medical History (Updated 10/20/24 @ 00:01 by Dhaval Huertas) Normal vaginal delivery Anxiety Home Medications ?Medication ?Instructions ?Recorded ?Last Taken ?Type vits,calcium 91-iron 28 1 pkg PO DAILY 09/10/22 10/16/24 22:00 History mg-folic 975 mcg-dha 200 mg oral pack ( + DHA) ferrous sulfate 325 mg (65 mg 325 mg PO DAILY anemia 08/05/24 10/12/24 History iron) tablet (Feosol) clotrimazole 1 % topical cream 1 applic topical BID 14 days #30 10/29/24 Unknown Rx grams Allergy/AdvReac Type Severity Reaction Status Date / Time No Known Allergies Allergy Verified 10/17/24 17:24 Family History Grandmother COPD (chronic obstructive pulmonary disease), Onset Age: 60 Maternal Grandfather Myocardial infarction, Onset Age: 67 Maternal Grandmother Breast cancer, Onset Age: 45 Paternal Social History adopted: No household members: spouse and children number of children: 1 current occupational status: unemployed current occupation: [employer] pets and animals: Yes (Avoid litterbox) pets and animals: cat(s) and dog(s) history of recent travel: No sexually active: Yes Smoking Status: Never smoker alcohol intake: never substance use type: does not use well-balanced diet: daily or most days caffeine: Yes Type: coffee Number of servings: 1 eating out: 1-3 times/week during the past year weight has: decreased > 10 lbs what type of physical activity do you participate in: none pia/anglican: [employer] Day seatbelt use: always do you feel safe at home: Yes additional social history: [place] [employer] History 2 Elective abortions Hx Para 2 Spontaneous abortions Hx # Term Pregnancies 2 Ectopic pregnancies Hx # Pregnancies Multiple births # of living children 2 Past Pregnancies Del. Date Name GA/Weeks Outcome Route Bth Weight Infant Gen Labor Lgth Anesthesia Del Locatn Provider FOB 10/22/22 Tanner 39 live - full term 7 Male epidural [facility] Alma Delia Reid 10/18/24 Isaías 39 live - full term Female epidural [facility] TENNILLE Reid Delivery Date: 10/22/22 Last Updated by: Katie Garg severe iron deficiency, infusions Delivery Date: 10/18/24 Last Updated by: Carley Mares RN See problem list for complications ROS Cardiovascular Cardiovascular: Denies abdominal pain, chest pain, diaphoresis or dyspnea Respiratory/Chest Respiratory/Chest: Denies change in mental status, chest congestion, chest tightness, cough, shortness of breath at rest, shortness of breath with exertion, breast mass, breast pain, breast skin changes, breast swelling, change in breast shape or nipple discharge Genitourinary Genitourinary: Reports change in urinary stream Musculoskeletal Musculoskeletal: Reports none Integumentary Integumentary: Reports none Neurologic Neurologic: Reports none Psychiatric Psychiatric: Reports none Endocrine Endocrinology: Reports none Hematologic/Lymphatic Hematologic/Lymphatic: Reports none Allergic/Immunologic Allergic/Immunologic: Reports none Vital Signs Vital Signs Vital Signs: Weight Weight: 202 lb Body Mass Index (BMI) 36.9 Physical Exam Const alert, oriented x3 and no apparent distress General Appearance: cooperative, comfortable and well kempt Orientation / Consciousness: awake and oriented to person Exam Limitations: no limitations HEENT normocephalic Neck full ROM Chest inspection of chest normal Resp normal respiratory effort, normal air movement and no retractions Effort and Inspection: able to speak in complete sentences and symmetric chest movement Cardio regular rate Peripheral Pulses: pulses 2+ throughout GI normal to inspection, nondistended, normoactive bowel sounds Inspection: gravid no CVA tenderness and appearance of the vagina normal External Female Exam: normal appearance of the urethra; Negative for external lesion OB / External & Speculum: external exam normal Manual OB Exam: estimated gestational size appropriate and presentation cephalic Uterus Palpation: Negative for uterus tender Extremity normal to inspection Skin no rashes or lesions noted Neuro deep tendon reflexes 2+ bilaterally and gait normal Motor Exam: strength 5/5 throughout and clonus absent Psych Activity / Motor Behavior: appropriate eye contact Speech: normal speech Labs Labs Labs: Blood Type A POSITIVE Antibody Screen NEGATIVE Hct 32.9 % (37-47) L Hgb 10.7 g/dL (12.0-15.0) L Pap Smear Negative Syphilis Total Ab Nonreactive (Nonreactive) Rubella IgG Antibody Reactive (Nonreactive) Hep Bs Antigen Non-Reactive (Nonreactive) Hepatitis C Antibody Non-Reactive (Nonreactive) Chlamydia DNA (JUAN) Negative (Negative) N.gonorrhoeae DNA (JUAN) Negative (Negative) HIV 1&2 Antibody Nonreactive (Nonreactive) Glucose 1 Hr 50 gm 77 mg/dL (70-140) Assessment & Plan (1) Supervision of high-risk : QUALIFIERS: Trimester: third trimester Qualified Code(s): O09.93 - Supervision of high risk , unspecified, third trimester COMMENT: PRR, , ADDY 10/19/24, girl Isaías Hart, [place] (2) : QUALIFIERS: Weeks of gestation: 39 weeks Qualified Code(s): Z3A.39 - 39 weeks gestation of COMMENT: gbs neg declined NIPT & Carrier testing, normal anatomy PLAN: Plan Patient presents IAL, plan expectant management for , pitocin/AROM PRN if needed. Pain management: plans epidural. GBS neg. Management of any complications: none I have reviewed the [facility] and made any clinically relevant updates. dr. navas updated on admission, poc and exam.
== END 2024-10-19 10:20 | disposition home or self-care (01) | DRG 807 ==
LOC: WPOUT 17:51 → WP 17:51
PROVIDERS: Admitting Provider Registered Nurse; PCP Family Medicine; Visit Provider Registered Nurse
DX: O99.02 Anemia complicating childbirth (principal); Z37.0 Single live birth; O69.1XX0 Labor and delivery complicated by cord around neck, with compression, not applicable or unspecified; O99.214 Obesity complicating childbirth; O69.2XX0 Labor and delivery complicated by other cord entanglement, with compression, not applicable or unspecified; O76 Abnormality in fetal heart rate and rhythm complicating labor and delivery; Z3A.39 39 weeks gestation of pregnancy; Z87.59 Personal history of other complications of pregnancy, childbirth and the puerperium
CPT/HCPCS: 59025; 59050; 85025; 86780; 86850; 86900; 86901; 99221; G0378